=== PATIENT | female | born 1985 | race Caucasian/White ===

== ENCOUNTER 2022-09-28 20:52 | Outpatient (OUT) | payer OTHER, SELFPAY ==
[2022-10-04 12:08] LABS: Age Gdln ACOG Testing Note (.); HPV Aptima Negative (Negative); IGP, Aptima HPV, rfx 16/18,45 Note (.)
== END 2022-09-28 20:53 | disposition home or self-care (01) ==
PROVIDERS: PCP Internal Medicine; Visit Provider Physician Assistant
DX: Z12.4 Encounter for screening for malignant neoplasm of cervix (principal); Z11.51 Encounter for screening for human papillomavirus (HPV)
CPT/HCPCS: 87624; G0145

== ENCOUNTER 2023-10-01 21:01 | Outpatient (REF) | payer OTHER, SELFPAY ==
[2023-10-05 15:09] LABS: Age Gdln ACOG Testing Note (.); HPV Aptima Negative (Negative); IGP, Aptima HPV, rfx 16/18,45 Note (.)
== END 2023-10-01 21:02 | disposition home or self-care (01) ==
LOC: LAB 21:01
PROVIDERS: PCP Internal Medicine; Visit Provider Physician Assistant
DX: Z01.419 Encounter for gynecological examination (general) (routine) without abnormal findings (principal)
CPT/HCPCS: 87624; 88175

== ENCOUNTER 2024-01-01 16:54 | Outpatient (OUT) | payer OTHER, SELFPAY ==
--- OUTSIDE RECORDS SUMMARY | 2024-01-01 16:58 | XMS_ITS | CCD ---
Author Organization [facility] Care Team Providers Care Order Picker/Assembler Name Role Phone JAZ LEI Admitting Unavailable JAZ LEI Attending Unavailable RAFAT, DR PRYOR Primary Care Unavailable JO CARRINGTON Consulting Unavailable NIKHIL THRASHER Consulting Unavailable LIOR SANTOS Consulting Unavailable Bishnu MURPHY, Klyah Lucero Attending Erlin Goetz PA-C, Kylah Lucero Attending ILA Hamlin Attending Unavailable KERRI HASSAN Attending Unavailable Kerri HASSAN Referring Unavailable Karina Singh Attending Unavailable Medications Completed/Discontinued Medications Medication Drug Class(es) Dates Sig (Normalized) Sig (Original) ciprofloxacin 500 mg oral tablet (1 source) Quinolone Antimicrobial Start: 12-27-2023 take 1 tablet by mouth once daily Cipro 500 mg Tab 500 mg = 1 tab(s), Oral, Daily, Take 1 tablet the day before the procedure and 1 tablet after the procedure, # 2 tab(s), Refills(s) 0, Pharmacy: [facility]/pharmacy #[id number], 160, cm, 12/27/23 10:47:00 EDT, Height/Length Dosing, 57, kg, 12/27/23 10:47:00 EDT, Weight Dosing Start Date: 12/27/23 Status: Ordered Problems Problem Classification Problem Date Documented Da te Episodic/Chronic Abdominal pain (1 source) Pelvic and perineal pain; Translations: [Pelvic and perineal pain] Onset: 12-27-2023 Episodic Calculus of urinary tract (2 sources) Kidney stone; Translations: [Calculus of kidney] Onset: 12-27-2023 Episodic Genitourinary symptoms and ill-defined conditions (1 source) Blood in urine; Translations: [Gross hematuria] Onset: 12-27-2023 Episodic Malaise and fatigue (3 sources) Weakness; Translations: [WEAKNESS] Onset: 12-22-2021 Episodic Unclassified (1 source) CONTACT W/AND (SUSP) EXPOS COVID-19; Translations: [CONTACT W/AND (SUSP) EXPOS COVID-19] Onset: 12-26-2021 Urinary tract infections (4 sources) Urinary tract infection, site not specified; Translations: [Tubulo-interstit ial nephritis, not specified as acute or chronic] Onset: 12-26-2021 Episodic Results Test Name Value Interpretation Reference Range Facil ity Provider Letteron 12-27-2023 Provider Letter Provider Letter December 27, 2023 KIESHA ALAS [address] [place] [address] : 1985 To Whom It May Concern, Please excuse above patient from work. Date of Illness: From: 12/27/23 To: 12/27/23 May Return to Work On: 12/27/23 Restrictions: None Comments: Patient had an appointment with Karina Singh CNP on 12/27/23 Sincerely, [facility] C Urineon 09-29-2023 C Urine ------- Amend 20-30,000 cfu/ml Escherichia coli isolated ORGANISM EC ----- SUSCEPTIBILITY ---- ORGANISM ID: 1 ANTIBIOTIC INTERPRETATION PATRICIA STATUS POS Escherichia coli Amikacin S <=2 V Ampicillin S <=2 V Ampicillin/Sulbactam S <=2 V Cefazolin <=4 V Ciprofloxacin S <=0.25 V Ceftriaxone S <=1 V Nitrofurantoin S <=16 V Cefepime S <=1 V Cefoxitin S <=4 V Gentamicin S <=1 V Meropenem S <=0.25 V Levofloxacin S <=0.12 V Tobramycin S <=1 V Piperacillin/Tazobac chisholm S <=4 V Trimethoprim/Sulfa S <=20 V Ceftazidime S <=1 V [facility] Comment on above: Performed By: #### U RC #### [facility] (DEFAULT) [address] [place] [address] [facility] [address] [place] [address] OR Trackon 09-26-2023 Specimens Received From [facility] Comment on above: Performed By: #### O utrea Tracking Order #### [facility] [address] [place] [address] Ur Marinelli Vac # 1 [facility] Comment on above: Performed By: #### O [facility] Tracking Order #### [facility] [address] [place] [address] Urgent Care Office/Clinic No shaw 09-26-2023 Urgent Care Office/Clinic Note Chief Complaint Patient c/o low back pain with burning and frequency x 1 week History of Present Illness 37-year-old female presents to dysuria. She states over the past week she has had dysuria, frequency, urgency and now she started to experience low back pain to bilateral flanks. She reports nausea intermittently over the past week as well. She was on vacation which is why she has not been evaluated or treated for what she presumed was a UTI. She has had multiple UTIs in the past with most recent being approximately 1 month prior. She denies any fever, vomiting, vaginal changes such as change in discharge, odor, itching. No concerns for STDs. No concerns for . Review of Systems see HPI Physical Exam Vitals & Measurements T: 36.8 ?C (Oral) HR: 80 (Peripheral) RR: 18 BP: 120/74 SpO2: 98 HT: 160 cm WT: 60 kg WT: 60 kg (Dosing) BMI: 23.44 Const: Well appearing, no acute distress Eyes: Clear no redness or draining Pharynx: No redness swelling or exudate Neck: No enlarged lymph nodes Heart sounds: Regular rate and rhythm no murmurs Chest: Lungs are clear no wheezes rales or rhonchi Abdomen: flat, no distension, normoactive bowel sounds, no tenderness in suprapubic region, no bilateral CVA tenderness on palpation Additional Vitals BP Position/Location: Sitting Assessment/Plan 1. UTI (urinary tract infection) 1) Patient instructed to take medications as prescribed. 2) Ways of preventing cystitis in the future: void after sex, wear cotton underwear, wipe front to back 3) Avoid alcohol carbonated beverages and caffeine for at least the next 5 days. 4) Increase water consumption; cranberry juice may help as well. 5) Go to the emergency room if you develop fever, vomiting medications, back pain intensifies, unable to urinate 6) Patient instructed to follow up with PCP as needed Urine will be sent for culture and we will call in 24-48 hours with results. Ordered: sulfamethoxazole-tri methoprim, 1 tabs, Oral, BID, X 7 days, # 14 tabs, 0 Refill(s), 10/03/23 14:50:00 EDT, Pharmacy: [facility]/pharmacy #[id number] Culture Urine Medical Decision Making UA; trace blood, starting treatment. Chronic conditions NOT treated during this visit that affected my overall medical decision making: [] Treatment plans discussed but not opted for at this time: [] Prescribed medication that requires intensive monitoring for toxicity: [] I have reviewed the patient?s medication list for medication interactions/contrai ndications and/or for upcoming procedures: [yes or no] Time Spent with the Patient I have personally spent [15] minutes on this date, directly related to today's patient visit, including pre and post visit work, for this date of service. Time listed does not include time spent on separately billable services. Problem List/Past Medical History Ongoing No chronic problems Historical No qualifying data Procedure/Surgical History denies Medications Bactrim DS 800 mg-160 mg oral tablet, 1 tabs, Oral, BID Allergies No Known Allergies Social History Tobacco Never (less than 100 in lifetime) Use:. Lab Results Test Name Test Result Date/Time Urine Color Urine Dipstick Yellow 09/26/2023 14:26 EDT Urine Appearance Urine Dipstick Clear 09/26/2023 14:26 EDT Specific [place] Urine Dipstick 1.015 09/26/2023 14:26 EDT pH Urine Dipstick 6 09/26/2023 14:26 EDT Glucose Urine Dipstick Negative 09/26/2023 14:26 EDT Bilirubin Urine Dipstick Negative 09/26/2023 14:26 EDT Nitrite Urine Dipstick Negative 09/26/2023 14:26 EDT Ketones Urine Dipstick Negative 09/26/2023 14:26 EDT UC Blood Urine Dipstick Trace (+/-) 09/26/2023 14:26 EDT UC Protein Urine Dipstick Negative 09/26/2023 14:26 EDT UC Leukocytes Urine Dipstick Negative 09/26/2023 14:26 EDT Electronically signed by Kylah Goetz PA-C 09/26/23 14:53 EDT Urine culture resulted as positive for E. coli and is sensitive to the prescribed antibiotic. Electronically signed by Kylah Goetz PA-C 09/29/23 09:09 EDT Normal [facility] CT ABD/PELVIS WO CONon 12-23 CT ABD/PELVIS WO CON EXAM: CT SCAN OF THE ABDOMEN AND PELVIS WITHOUT IV CONTRAST DATE OF EXAM: 12/22/2021 8:37 PM EDT HISTORY: CALCULUS OF KIDNEY in a 36-year-old female with right lower abdominal pain and concern for infection with chills. Patient states it she was at another facility for 2 days and had pyelonephritis. Pain is nonradiating to her left side. COMPARISON: None. TECHNIQUE: CT examination of the abdomen and pelvis with sagittal and coronal reformations was performed without intravenous contrast. CT dose lowering techniques were used, to include: automated exposure control, adjustment for patient size, and/or use of iterative reconstruction. CONTRAST: None. Note: The exam is limited because some types of pathology may not be adequately demonstrated due to lack of contrast enhancement. FINDINGS: Lower Chest: Normal Free Air: None. Liver: The liver is within normal limits allowing for an area decreased attenuation in the medial, anterior right lobe that measures 12 x 8 mm. Gallbladder: A stone is seen within the gallbladder measuring approximately 18.5 mm. Common Bile Duct: Not well visualized due to lack of IV contrast and volume averaging of unopacified bowel. Pancreas: Normal Spleen: Normal Adrenal Glands: Normal Kidneys: Right Kidney: Normal. Right Ureter: Ureter not well visualized due to volume averaging with bowel and pelvic organs. Left Kidney: The kidney is hypertrophied with multiple nonobstructing stones. Left Ureter: Ureter not well visualized due to volume averaging with bowel and pelvic organs. GI Tract: Stomach: Normal Small Bowel: Normal Appendix: Normal on axial image 92 Large Bowel: Scattered diverticula with some inspissated stool and contrast. Mesentery/Peritoneum : Subcentimeter lymph nodes in the mesentery. Vasculature: Normal Lymph Nodes: Normal Abdominal Wall: Subcutaneous air is seen in the anterior lateral left pelvic wall. Bladder: Normal Reproductive: Uterus is anteflexed. Musculoskeletal: Normal for patient's age with multiple Schmorl's nodes in the superior endplate. Free Fluid: None. IMPRESSION: 1. Scattered diverticulosis. 2. Normal appendix. 3. Hypertrophied left kidney with multiple nonobstructing stones. 4. Cholelithiasis. No evidence of acute cholecystitis. However, if clinically indicated, RUQ ultrasound or nuclear medicine hepatobiliary scan would help better delineate for acute cholecystitis. 5. Fluid attenuating region in the liver, this likely represents a cyst and/or hemangioma. However, please correlate with patient's LFTs. If clinically indicated follow-up outpatient MRI using liver protocol may help better delineate. Electronically authenticated by: LIRO SANTOS Date: 2021-12-22 22:07 Normal [facility] CBC AUTO DIFFon 12-22-2021 BASO # 0.0 103/ul Normal 0.0-0.1 [facility] Comment on above: Performed By: #### C BC #### [facility] [address] [place], [place] [address] Dr. Shannon Hoyt Basophils/100 WBC (Bld) 0.5 % Normal 0.2-2.0 [facility] Comment on above: Performed By: #### C BC #### [facility] [address] [place], [place] [address] Dr. Shannon Hoyt EO # 0.1 103/ul Normal 0.0-0.7 [facility] Comment on above: Performed By: #### C BC #### [facility] [address] [place] [address] Dr. Shannon Hoyt Eosinophils/100 WBC (Bld) 1.0 % Normal 0.9-7.0 [facility] Comment on above: Performed By: #### C BC #### [facility] [address] [place] [address] Dr. Shannon Hoyt Erythrocyte distribution width (RBC) [Ratio] 11.8 % Normal 11.0-15.0 [facility] Comment on above: Performed By: #### C BC #### [facility] [address] [place] [address] Dr. Shannon Hoyt Hematocrit (Bld) [Volume fraction] 33.9 % Critically low 36.0-48.0 [facility] Comment on above: Performed By: #### C BC #### [facility] [address] [place] [address] Dr. Shannon Hoyt Hemoglobin (Bld) [Mass/Vol] 11.3 g/dL Critically low 12.0-16.0 [facility] Comment on above: Performed By: #### C BC #### [facility] [address] [place] [address] Dr. Shannon Hoyt IG # 0.02 10e3/ul Normal 0.00-0.03 [facility] Comment on above: Performed By: #### C BC #### [facility] [address] [place] [address] Dr. Shannon Hoyt IG % 0.3 % Normal 0.0-0.5 [facility] Comment on above: Performed By: #### C BC #### [facility] [address] [place] [address] Dr. Shannon Hoyt LYMPH # 1.2 103/ul Normal 1.2-3.8 [facility] Comment on above: Performed By: #### C BC #### [facility] [address] [place] [address] Dr. Shannon Hoyt Lymphocytes/100 WBC (Bld) 20.5 % Normal 20.5-60.0 [facility] Comment on above: Performed By: #### C BC #### [facility] [address] [place] [address] Dr. Shannon Hoyt MANUAL DIFF REQ NO Normal [facility] Comment on above: Performed By: #### C BC #### [facility] [address] [place] [address] Dr. Shannon Hoyt MCH (RBC) [Entitic mass] 30.1 pg Normal 26.7-34.0 [facility] Comment on above: Performed By: #### C BC #### [facility] [address] [place] [address] Dr. Shannon Hoyt MCHC (RBC) [Mass/Vol] 33.3 g/dL Normal 29.9-35.2 [facility] Comment on above: Performed By: #### C BC #### [facility] [address] [place] [address] Dr. Shannon Hoyt MCV (RBC) [Entitic vol] 90.2 fL Normal 81.0-99.0 [facility] Comment on above: Performed By: #### C BC #### [facility] [address] [place] [address] Dr. Shannon Hoyt MONO # 0.7 103/ul Normal 0.3-0.8 [facility] Comment on above: Performed By: #### C BC #### [facility] [address] [place] [address] Dr. Shannon Hoyt Monocytes/100 WBC (Bld) 11.7 % Normal 1.7-12.0 [facility] Comment on above: Performed By: #### C BC #### [facility] [address] [place] [address] Dr. Shannon Hoyt NEUT # 4.0 103/ul Normal 1.4-6.5 [facility] Comment on above: Performed By: #### C BC #### [facility] [address] [place] [address] Dr. Shannon Hoyt Neutrophils/100 WBC (Bld) 66.0 % Normal 43.0-75.0 [facility] Comment on above: Performed By: #### C BC #### [facility] [address] [place] [address] [address] Shannon Hoyt Platelet mean volume (Bld) [Entitic vol] 9.9 fL Normal 9.5-13.5 [facility] Comment on above: Performed By: #### C BC #### [facility] [address] [place] [address] [address] Shannon Hoyt PLT 191 103/ul Normal 150-450 [facility] Comment on above: Performed By: #### C BC #### [facility] [address] [place] [address] [address] Shannon Hoyt RBC 3.76 106/ul Critically low 4.20-5.40 [facility] Comment on above: Performed By: #### C BC #### [facility] [address] [place] [address] Dr. Shannon Hoyt WBC 6.0 103/ul Normal 4.0-11.0 [facility] Comment on above: Performed By: #### C BC #### [facility] [address] [place] [address] [address] Shannno Hoyt CULTURE URINEon 12-22-2021 CULTURE URINE Culture Observations: NO GROWTH. Normal [facility] Comment on above: Performed By: #### U RCX #### [facility] [address] [place] [address] Dr. Shannon Hoyt [facility]on SARS-CoV-2 (COVID-19) RNA RICHARD+probe Ql (Unsp spec) Not detected Normal NOT DETECTED [facility] Comment on above: Result Comment: When diagnostic testing is negative, the possibility of a false negative should be considered in the context of a patient's recent exposures and the presence of clinical signs and symptoms consistent with SARS-CoV-2. This test is not yet approved or cleared by the [place] FDA. When there are no FDA-approved or cleared tests available, and other criteria are met, FDA can make tests available under an emergency access mechanism called an Emergency Use Authorization (EUA). The EUA for this test is supported by the Director Toxicology of Health and Human Service's declaration that circumstances exist to justify the emergency use of in vitro diagnostics for the detection and/or diagnosis of the virus that causes COVID-19. This EUA will remain in effect for the duration of the COVID-19 declaration justifying emergency of IVDs, unless it is terminated or revoked by the FDA (after which the test may no longer be used). Performed By: #### C VDTB #### [facility] [address] [place] [address] Dr. Shannon Hoyt ER URINE PROFILEon 2 Bilirubin Ql (U) Negative Normal NEGATIVE [facility] Comment on above: Performed By: #### Cipriano REYEZ UMICRO #### [facility] [address] [place] [address] Dr. Shannon Hoyt Clarity (U) CLEAR Normal CLEAR [facility] Comment on above: Performed By: #### Cipriano REYEZ UMICRO #### [facility] [address] [place] [address] Dr. Shannon Hoyt Color (U) LT. YELLOW Normal YELLOW [facility] Comment on above: Performed By: #### Cipriano REYEZ UMICRO #### [facility] [address] [place] [address] Dr. Shannon VASQUEZ A micrscopic examination will be performed if indicated. Normal [facility] Comment on above: Performed By: #### Cipriano REYEZ UMICRO #### [facility] [address] [place] [address] Dr. Shannon Hoyt Glucose Ql (U) Negative Normal NEGATIVE [facility] Comment on above: Performed By: #### Cipriano RAMOSR UMICRO #### [facility] [address] [place] [address] Dr. Shannon Hoyt Hemoglobin Ql (U) SMALL Abnormal NEGATIVE [facility] Comment on above: Performed By: #### E RUR, UMICRO #### [facility] [address] [place] [address] Dr. Shannon Hoyt Ketones Ql (U) 40 mg/dl Abnormal NEGATIVE [facility] Comment on above: Performed By: #### BRITTANEY TOUSSAINTRO #### [facility] [address] [place] [address] Dr. Shannon Hoyt LEUKOCYTES Negative Normal NEGATIVE [facility] Comment on above: Performed By: #### BRITTANEY TOUSSAINTRO #### [facility] [address] [place] [address] Dr. Shannon Hoyt Nitrite Ql (U) Negative Normal NEGATIVE [facility] Comment on above: Performed By: #### BRITTANEY TOUSSAINTRO #### [facility] [address] [place] [address] Dr. Shannon Hoyt pH (U) 6.0 [pH] Normal 5-9 [facility] Comment on above: Performed By: #### BRITTANEY TOUSSAINTRO #### [facility] [address] [place] [address] Dr. Shannon Hoyt SPEC GRAVITY 1.020 Normal 1.005-<=1.025 [facility] Comment on above: Performed By: #### BRITTANEY TOUSSAINTRO #### [facility] [address] [place] [address] Dr. Shannon Hoyt UA PROTEIN Negative Normal NEGATIVE/ TRACE [facility] Comment on above: Performed By: #### BRITTANEY TOUSSAINTRO #### [facility] [address] [place] [address] Dr. Shannon Hoyt UR MICRO IND INDICATED Normal [facility] Comment on above: Performed By: #### BRITTANEY TOUSSAINTRO #### [facility] [address] [place] [address] Dr. Shannon Hoyt Urobilinogen Qn (U) 0.2 {Galileo'U}/dL Normal 0.2 - 1. 0 [facility] Comment on above: Performed By: #### BRITTANEY TOUSSAINTRO #### [facility] [address] [place] [address] Dr. Shannon Hoyt LACTATE/LACTIC ACIDon 2021 Lactate [Moles/Vol] 1.0 mmol/L Normal 0.4-1.9 [facility] Comment on above: Performed By: #### L ACT #### [facility] [address] [place] [address] Dr. Shannon Hoyt LIPASEon 12-22-2021 Lipase [Catalytic activity/Vol] 58.0 U/L Critically low 73.0-393.0 [facility] Comment on above: Performed By: #### L IPA, CMP #### [facility] [address] [place] [address] Dr. Shannon Hoyt PREG HCG QUALon 12-22-2021 , QUAL Negative Normal NEGATIVE [facility] Comment on above: Performed By: #### P REG #### [facility] [address] [place] [address] Dr. Shannon Hoyt PROF 14(COMP METB)on 022 Albumin [Mass/Vol] 2.9 g/dL Critically low 3.4-5.0 [facility] Comment on above: Performed By: #### L IPA, CMP #### [facility] [address] [place] [address] Dr. Shannon Hoyt Albumin/Globulin [Mass ratio] 0.8 {ratio} Normal [facility] Comment on above: Performed By: #### L IPA, CMP #### [facility] [address] [place] [address] Dr. Shannon Hoyt ALP [Catalytic activity/Vol] 58 U/L Normal 46-116 [facility] Comment on above: Performed By: #### L IPA, CMP #### [facility] [address] [place] [address] Dr. Shannon Hoyt ALT [Catalytic activity/Vol] 33 U/L Normal 14-59 [facility] Comment on above: Performed By: #### L IPA, CMP #### [facility] [address] [place] [address] Dr. Shannon Hoyt Anion gap [Moles/Vol] 8.0 mmol/L Normal [facility] Comment on above: Performed By: #### L IPA, CMP #### [facility] [address] [place] [address] Dr. Shannon Hoyt AST [Catalytic activity/Vol] 21 U/L Normal 15-37 [facility] Comment on above: Performed By: #### L IPA, CMP #### [facility] [address] [place] [address] Dr. Shannon Hoyt Bilirubin [Mass/Vol] 0.2 mg/dL Normal 0.2-1.0 [facility] Comment on above: Performed By: #### L IPA, CMP #### [facility] [address] [place] [address] Dr. Shannon Hoyt Calcium [Mass/Vol] 8.2 mg/dL Critically low 8.5-10.1 [facility] Comment on above: Performed By: #### L IPA, CMP #### [facility] [address] [place] [address] Dr. Shannon Hoyt Chloride [Moles/Vol] 106 mmol/L Normal 98-107 [facility] Comment on above: Performed By: #### L IPA, CMP #### [facility] [address] [place] [address] Dr. Shannon Hoyt CO2 [Moles/Vol] 27.9 mmol/L Normal 21.0-32.0 [facility] Comment on above: Performed By: #### L IPA, CMP #### [facility] [address] [place] [address] Dr. Shannon Hoyt Creatinine [Mass/Vol] 0.70 mg/dL Normal 0.55-1.02 [facility] Comment on above: Performed By: #### L IPA, CMP #### [facility] [address] [place] [address] Dr. Shannon Hoyt EGFR-AF PALESTINIAN >60 Normal >=60 [facility] Comment on above: Performed By: #### L IPA, CMP #### [facility] [address] [place] [address] Dr. Shannon Hoyt EGFR-NON AF PALESTINIAN >60 Normal >=60 [facility] Comment on above: Performed By: #### L IPA, CMP #### [facility] [address] [place] [address] Dr. Shannon Hoyt Globulin (S) [Mass/Vol] 3.5 g/dL Normal [facility] Comment on above: Performed By: #### L IPA, CMP #### [facility] [address] [place] [address] [address] Shannon Hoyt Glucose [Mass/Vol] 108 mg/dL Critically high 74-106 [facility] Comment on above: Performed By: #### L IPA, CMP #### [facility] [address] [place] [address] [address] Shannon Hoyt Potassium [Moles/Vol] 3.9 mmol/L Normal 3.5-5.1 [facility] Comment on above: Performed By: #### L IPA, CMP #### [facility] Laboratory [address] [address] [address] Shannon Hoyt Protein [Mass/Vol] 6.4 g/dL Normal 6.4-8.2 [facility] Comment on above: Performed By: #### L IPA, CMP #### [facility] [address] [address] [address] Shannon Hoyt Sodium [Moles/Vol] 138 mmol/L Normal 136-145 [facility] Comment on above: Performed By: #### L IPA, CMP #### [facility] [address] [address] [address] Shannon Hoyt Urea nitrogen [Mass/Vol] 7.0 mg/dL Normal 7.0-18.0 [facility] Comment on above: Performed By: #### L IPA, CMP #### [facility] [address] [address] [address] Shannon Hoyt Urea nitrogen/Creatinine [Mass ratio] 10.0 mg/mg Normal [facility] Comment on above: Performed By: #### L IPA, CMP #### [facility] [address] [address] [address] Shannon Hoyt URINE MICROSCOPIC ONLYon BACTERIA SMALL Abnormal NONE SEEN [facility] Comment on above: Performed By: #### E RAOUL REYEZ #### [facility] [address] [address] [address] Shannon Hoyt Bacteria identified Cx Nom (U) INDICATED Normal [facility] Comment on above: Performed By: #### Cipriano REYEZ UMICRO #### [facility] [address] [place] [address] Dr. Shannon Hoyt CAST NONE SEEN Normal NONE SEEN [facility] Comment on above: Performed By: #### E RACHELR, UMICRO #### [facility] [address] [place] [address] Dr. Shannon Hoyt Crystals LM Nom (Urine sed) NONE SEEN Normal NONE SEEN [facility] Comment on above: Performed By: #### E DEREJE, UMICRO #### [facility] [address] [place] [address] Dr. Shannon Hoyt Epithelial cells LM Ql (Urine sed) FEW Abnormal NONE SEEN /RARE [facility] Comment on above: Performed By: #### Cipriano REYEZ UMICRO #### [facility] [address] [place] [address] Dr. Shannon Hoyt MUCOUS TRACE Abnormal NONE SEEN [facility] Comment on above: Performed By: #### Cipriano REYEZ UMICRO #### [facility] [address] [place] [address] Dr. Shannon Hoyt RBC 0-2 Normal 0-2 [facility] Comment on above: Performed By: #### Cipriano REYEZ UMICRO #### [facility] [address] [place] [address] Dr. Shannon Hoyt WBC 20-50 Abnormal NONE SEEN [facility] Comment on above: Performed By: #### Cipriano REYEZ UMICRO #### [facility] [address] [place] [address] Dr. Shannon Hoyt Vital Signs Date Time Vital Sign Value Performing Clinician Fabian em 12-27-2023 10:45-0400 Blood Pressure Location Karina Singh [facility] 12-27-2023 10:45-0400 Diastolic blood pressure 78 mm[Hg] Karina Singh [facility] 12-27-2023 10:45-0400 Heart rate 73 /min Karina Singh [facility] 12-27-2023 10:45-0400 Respiratory rate 18 /min Karinaoni Singh [facility] 12-27-2023 10:45-0400 Systolic blood pressure 117 mm[Hg] Karina Samantha [facility] Encounters Encounter Date Encounter Type Care Provider Facility Start: 12-27-2023 End: 12-27-2023 ambulatory Kerri R PINO Facility:[facility] Start: 12-27-2023 End: 12-27-2023 Patient encounter procedure Karina Singh [facility] Start: 12-11-2023 ambulatory Kerri PINO Facility:[facility] Start: 12-10-2023 End: 12-10-2023 ambulatory KERRI PINO Not Available Start: 10-01-2023 End: 10-01-2023 ambulatory ILA GUNTER Not Available Start: 09-26-2023 End: 09-26-2023 ambulatory Kylah Goetz PA-C Facility:[facility] Start: 12-22-2021 End: 12-23-2021 ambulatory JAZ LEI Facility: Payers Date Payer Category Payer Unknown 1985 Unknown [id number] 2.16.84 [id number] 1985 Unknown [id number] 2.16. [id number] 1984 Unknown [id number] 2.16. [id number] 1984 Unknown [id number] 2.16.84 [id number] 1984 Unknown [id number] 2.16.84 [id number] 1984 Unknown [id number] 2.16.8 [id number] 1984 Unknown [id number] 2.16.8 [id number] 1959 Unknown [id number] Social History Date Type Detail Facility Start: 12-27-2023 Tobacco smoking status Never s moked tobacco (finding) [facility] Sex Assigned At Female [facility] Functional Status Date Assessment Result Facility 12-27-2023 Functional Status N/A [facility] Hospital Discharge instructions 12-27-2023 Note Date & Type Note Facility 12-27-2023 Hospital Discharg e instructions Patient Education 12/27/2023 11:40:24 Kidney Stones, Xafh-jz-Stka Kidney Stones Kidney stones are rock-like masses that form inside of the kidneys. Kidneys are organs that make pee (urine). A kidney stone may move into other parts of the urinary tract, including: The tubes that connect the kidneys to the bladder (ureters). The bladder. The tube that carries urine out of the body (urethra). Kidney stones can cause very bad pain and can block the flow of pee. The stone usually leaves your body through your pee. A doctor may need to take out the stone. What are the causes? Kidney stones may be caused by: Too much calcium in the body. This may be caused by too much parathyroid hormone in the blood. Uric acid crystals in the bladder. The body makes uric acid when you eat certain foods. Narrowing of one or both of the ureters. A kidney blockage that you were born with. Past surgery on the kidney or the ureters. What increases the risk? You are more likely to develop this condition if: You have had a kidney stone in the past. Other people in your family have had kidney stones. You do not drink enough water. You eat a diet that is high in protein, salt (sodium), or sugar. You are very overweight (obese). What are the signs or symptoms? Symptoms of a kidney stone may include: Pain in the side of the belly, right below the ribs. Pain usually spreads to the groin. Needing to pee often or right away. Pain when peeing. Blood in your pee. Feeling like you may vomit (nauseous). Vomiting. Fever and chills. How is this treated? Treatment depends on the size, location, and makeup of the kidney stones. The stones will often pass out of the body when you pee. You may need to: Drink more fluid to help pass the stone. ?In some cases, you may be given fluids through an IV tube at the hospital. Take medicine for pain. Change your diet to help keep kidney stones from coming back. Sometimes, you may need: A procedure to break up kidney stones using a beam of light (laser) or shock waves. Surgery to remove the kidney stones. Follow these instructions at home: Medicines Take ocvn-cml-ijsvlhk and prescription medicines only as told by your doctor. Ask your doctor if the medicine prescribed to you requires you to avoid driving or using machinery. Eating and drinking Drink enough fluid to keep your pee pale yellow. ?You may be told to drink at least 8 10 glasses of water each day. This will help you pass the stone. If told by your doctor, change your diet. You may be told to: ?Limit how much salt you eat. ?Eat more fruits and vegetables. ?Limit how much meat, poultry, fish, and eggs you eat. Follow instructions from your doctor about what you may eat and drink. General instructions Collect pee samples as told by your doctor. You may need to collect a pee sample: ?24 hours after a stone comes out. ?8 12 weeks after a stone comes out, and every 6 12 months after that. Strain your pee every time you pee. Use the strainer that your doctor recommends. Do not throw out the stone. Keep it so that it can be tested by your doctor. Keep all follow-up visits. You may need X-rays and ultrasounds to make sure the stone has come out. How is this prevented? To prevent another kidney stone: Drink enough fluid to keep your pee pale yellow. This is the best way to prevent kidney stones. Eat healthy foods. Avoid certain foods as told by your doctor. You may be told to eat less protein. Stay at a healthy weight. Where to find more information National Kidney Foundation (NKF): kidney.org Urology Care Foundation (UCF): urologyhealth.org Contact a doctor if: You have pain that gets worse or does not get better with medicine. Get help right away if: You have a fever or chills. You get very bad pain. You get new pain in your belly. You faint. You cannot pee. This information is not intended to replace advice given to you by your health care provider. Make sure you discuss any questions you have with your health care provider. Document Revised: 10/27/2022 Document Reviewed: 10/27/2022 Check Patient Education 2023 [employer]. Follow Up Care 12/12/2023 13:46:19 With:Samantha KIM, Karina Swain, URL Address: When: Unknown Comments:pending cysto/imaging [facility] Clinical Note 12-27-2023 Note Date & Type Note Facility 12-27-2023 Note Urology Office/Clini c Note Chief Complaint Referral HPI Staff 38 yr old here with referral for recurrent UTI. Pt. went to urgent care 09/26/23 due to lower back pain with burning and frequency. Pt. states she had one UTI with no C&S and was given nitrofurantoin 100mg 08/24/23 done before the 09/26/23 culture. C&S showing E coli done 09/26/23 and was given Sulfamethoxazole BID x7 days. Pt. 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 Dx: Pelvic pain in Female, recurrent UTI, Vaginal discharge, STD exposure. Pt. states she has never passed any kidney stones but on last CT showing hypertrophied Lt. kidney with multiple nonobstructing stones. CT done 12/26/21 and C&S showing small blood Dysuria: no Incomplete bladder emptying: yes, PVR 0mL Hematuria: Pt. did have gross hematuria 2 weeks ago, lasting 4-5 days Frequency: 3-4 hours Urgency: yes Nocturia:0-1x's Stream:strong stream Post void dripping:no Wearing pads/ Depends: no Urge incontinence:rarely Stress incontinence:yes Incontinence without Sensory Awareness:no Abdominal pain:occasionally Flank pain: lower Lt. History of Present Illness Staff HPI reviewed and agree. Review of Systems PHQ Score Initial Depression Screen Score: 0 SCORE no fever, chills, malaise, myalgia. no rash/lesions. no chest pain, palpitations, or SOB. no abdominal pain, nausea, vomiting. no unilateral calf swelling, redness, pain Physical Exam Vitals & Measurements HR: 73(Peripheral) RR: 18 BP: 117/78 HT: 63 in HT: 160 cm WT: 57 kg WT: 125.4 lb BMI: 22.27 General: nontoxic, well-nourished, appears stated age Mouth: moist mucosa Lungs: normal respiratory effort Cardio: regular rate, good distal perfusion Abdomen: nondistended, no suprapubic distention or tenderness, no CVA tenderness Neurologic: Grossly normal Skin: No rashes or suspicious lesions Assessment/Plan [employer] referred by Dr. 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 1. Gross hematuria (R31.0: Gross hematuria) 12/22/21 CT abd/pelvic w/o con - R ureter not well visualized due to volume averaging with bowel and pelvic organs, L kidney is hypertrophied with multiple nonobstructing stones, L ureter not well visualized due to volume averaging with bowel and pelvic organs. Normal bladder. UA today trace-intact blood only PVR today 0ml Pt here for referral for recurrent UTI. Pt reports that 2 weeks ago she had gross hematuria. Pt also reports that she had pain with urination and L flank pain during this time. Pt was seen by Dr. Hassan after this and was put on Flagyl. Discussed previous CT scan with patient along with only 1 positive culture in the last year. Advised patient that with her history of kidney stones, gross hematuria, L flank pain and recurrent infections, patient may have kidney stone that is trying to pass. Also advised pt that due to gross hematuria and recurrent infections, we can proceed with hematuria work up to rule out atrophy, stricture, etc. Pt agreeable. Discussed ordering KUB/RAAD vs repeat CT to reduce radiation exposure. Pt agreeable to this. I did speak with patient regarding MET if positive for stones, pt agreeable. Pt is currently on her menstrual cycle. The risks and benefits for cystoscopy have been discussed. The risks include bleeding, infection, and irritation of the bladder and urinary channel, among others. The patient, after being informed of procedural details and after questions have been answered, wishes to proceed. Full informed consent has been obtained. Will order Local anesthesia. -Schedule cystoscopy with Dr. Flower -RAAD and KUB now at [facility] (pt has transvaginal US scheduled for Sunday, will attempt to complete imaging at this time) -Will send cytology at cystoscopy if KUB/RAAD negative for stones -Increase fluids -Start MET if KUB/RAAD + for ureteral stone(s) -F/U pending imaging and cysto Ordered: E&M of New Patient Moderate 45-59 Min [id number] US Renal XR Abdomen 1 View 2. Recurrent UTI (N39.0: Urinary tract infection, site not specified) 12/22/21 cx negative 09/29/23 cx - 20-30k E. Coli, treated with Bactrim DS x7 days (urgent care) -See #1 Ordered: E&M of New Patient Moderate 45-59 Min 10955 Urnls Dip Stick Auto w/o Microscopy POC [id number] US Renal XR Abdomen 1 View 3. Kidney stone (N20.0: Calculus of kidney) 12/22/21 CT abd/pelvic w/o con - R ureter not well visualized due to volume averaging with bowel and pelvic organs, L kidney is hypertrophied with multiple nonobstructing stones, L ureter not well visualized due to volume averaging with bowel and pelvic organs. Normal bladder. -See #1 Ordered: E&M of New Patient Moderate 45-59 Min [id number] US Renal XR Abdomen 1 View 4. Pelvic pain (R10.2: Pelvic and perineal pain) Pt being treated by Dr. Hassan for pelvic pain and painful intercourse. She has a transvaginal US scheduled for Sunday at [facility] and diagnostic lap with bilateral salpingectomy and ablation scheduled with Dr. Hassan (more content not included)... [facility] Comment on above: Result Comment: Elec tronically Signed By: Karina Bell\.tre\Date and Time Signed: 12/27/23 11:42 EDT Clinical Note 12-27-2023 Note Date & Type Note Facility 12-27-2023 Note Patient Education Urology Kidney Stones Kidney stones are rock-like masses that form inside of the kidneys. Kidneys are organs that make pee (urine). A kidney stone may move into other parts of the urinary tract, including: ? The tubes that connect the kidneys to the bladder (ureters). ? The bladder. ? The tube that carries urine out of the body (urethra). Kidney stones can cause very bad pain and can block the flow of pee. The stone usually leaves your body through your pee. A doctor may need to take out the stone. What are the causes? Kidney stones may be caused by: ? Too much calcium in the body. This may be caused by too much parathyroid hormone in the blood. ? Uric acid crystals in the bladder. The body makes uric acid when you eat certain foods. ? Narrowing of one or both of the ureters. ? A kidney blockage that you were born with. ? Past surgery on the kidney or the ureters. What increases the risk? You are more likely to develop this condition if: ? You have had a kidney stone in the past. ? Other people in your family have had kidney stones. ? You do not drink enough water. ? You eat a diet that is high in protein, salt (sodium), or sugar. ? You are very overweight (obese). What are the signs or symptoms? Symptoms of a kidney stone may include: ? Pain in the side of the belly, right below the ribs. Pain usually spreads to the groin. ? Needing to pee often or right away. ? Pain when peeing. ? Blood in your pee. ? Feeling like you may vomit (nauseous). ? Vomiting. ? Fever and chills. How is this treated? Treatment depends on the size, location, and makeup of the kidney stones. The stones will often pass out of the body when you pee. You may need to: ? Drink more fluid to help pass the stone. ? In some cases, you may be given fluids through an IV tube at the hospital. ? Take medicine for pain. ? Change your diet to help keep kidney stones from coming back. Sometimes, you may need: ? A procedure to break up kidney stones using a beam of light (laser) or shock waves. ? Surgery to remove the kidney stones. Follow these instructions at home: Medicines ? Take ajmn-qvh-nwtnpwt and prescription medicines only as told by your doctor. ? Ask your doctor if the medicine prescribed to you requires you to avoid driving or using machinery. Eating and drinking ? Drink enough fluid to keep your pee pale yellow. ? You may be told to drink at least 8?10 glasses of water each day. This will help you pass the stone. ? If told by your doctor, change your diet. You may be told to: ? Limit how much salt you eat. ? Eat more fruits and vegetables. ? Limit how much meat, poultry, fish, and eggs you eat. ? Follow instructions from your doctor about what you may eat and drink. General instructions ? Collect pee samples as told by your doctor. You may need to collect a pee sample: ? 24 hours after a stone comes out. ? 8?12 weeks after a stone comes out, and every 6?12 months after that. ? Strain your pee every time you pee. Use the strainer that your doctor recommends. ? Do not throw out the stone. Keep it so that it can be tested by your doctor. ? Keep all follow-up visits. You may need X-rays and ultrasounds to make sure the stone has come out. How is this prevented? To prevent another kidney stone: ? Drink enough fluid to keep your pee pale yellow. This is the best way to prevent kidney stones. ? Eat healthy foods. ? Avoid certain foods as told by your doctor. You may be told to eat less protein. ? Stay at a healthy weight. Where to find more information ? National Kidney Foundation (NKF): kidney.org ? Urology Care Foundation (UCF): urologyhealth.org Contact a doctor if: ? You have pain that gets worse or does not get better with medicine. Get help right away if: ? You have a fever or chills. ? You get very bad pain. ? You get new pain in your belly. ? You faint. ? You cannot pee. This information is not intended to replace advice given to you by your health care provider. Make sure you discuss any questions you have with your health care provider. Document Revised: 10/27/2022 Document Reviewed: 10/27/2022 Elsevier Patient Education ? 2023 [employer] [facility] Clinical Note 09-26-2023 Note Date & Type Note Facility 09-26-2023 Note Patient Education Ma terials Name: Kiesha Alas Current Date: 09/26/2023 14:55:32 [place] : 1985 The following sheet(s) are the Patient Education Leaflets for Kiesha Alas [facility] ED/Trauma Assessment/Plan 1. UTI (urinary tract infection) 1) Patient instructed to take medications as prescribed. 2) Ways of preventing cystitis in the future: void after sex, wear cotton underwear, wipe front to back 3) Avoid alcohol carbonated beverages and caffeine for at least the next 5 days. 4) Increase water consumption; cranberry juice may help as well. 5) Go to the emergency room if you develop fever, vomiting medications, back pain intensifies, unable to urinate 6) Patient instructed to follow up with PCP as needed Urine will be sent for culture and we will call in 24-48 hours with results. Ordered: sulfamethoxazole-trimethoprim, 1 tabs, Oral, BID, X 7 days, # 14 tabs, 0 Refill(s), 10/03/23 14:50:00 EDT, Pharmacy: [facility]/pharmacy #[id number] Culture Urine Urinary Tract Infections in Women Urinary tract infections (UTIs) are most often caused by bacteria. These bacteria enter the urinary tract. The bacteria may come from inside the body. Or they may travel from the skin outside the rectum or vagina into the urethra. Female anatomy makes it easy for bacteria from the bowel to enter a woman?s urinary tract, which is the most common source of UTI. This means women develop UTIs more often than men. Pain in or around the urinary tract is a common UTI symptom. But the only way to know for sure if you have a UTI for the healthcare provider to test your urine. The two tests that may be done are the urinalysis and urine culture. Types of UTIs ? Cystitis. A bladder infection (cystitis) is the most common UTI in women. You may have urgent or frequent need to pee. You may also have pain, burning when you pee, and bloody urine. ? Urethritis. This is an inflamed urethra, which is the tube that carries urine from the bladder to outside the body. You may have lower stomach or back pain. You may also have urgent or frequent need to pee. ? Pyelonephritis. This is a kidney infection. If not treated, it can be serious and damage your kidneys. In severe cases, you may need to stay in the hospital. You may have a fever and lower back pain. Medicines to treat a UTI Most UTIs are treated with antibiotics. These kill the bacteria. The length of time you need to take them depends on the type of infection. It may be as short as 3 days. If you have repeated UTIs, you may need a low-dose antibiotic for several months. Take antibiotics exactly as directed. Don?t stop taking them until all of the medicine is gone. If you stop taking the antibiotic too soon, the infection may not go away. You may also develop a resistance to the antibiotic. This can make it much harder to treat. Lifestyle changes to treat and prevent UTIs The lifestyle changes below will help get rid of your UTI. They may also help prevent future UTIs. ? Drink plenty of fluids. This includes water, juice, or other caffeine-free drinks. Fluids help flush bacteria out of your body. ? Empty your bladder. Always empty your bladder when you feel the urge to pee. And always pee before going to sleep. Urine that stays in your bladder can lead to infection. Try to pee before and after sex as well. ? Practice good personal hygiene. Wipe yourself from front to back after using the toilet. This helps keep bacteria from getting into the urethra. ? Use condoms during sex. These help prevent UTIs caused by sexually transmitted bacteria. Also don't use spermicides during sex. These can increase the risk for UTIs. Choose other forms of control instead. For women who tend to get UTIs after sex, a low-dose of a preventive antibiotic may be used. Be sure to discuss this option with your healthcare provider. ? Follow up with your healthcare provider as directed. He or she may test to make sure the infection has cleared. If needed, more treatment may be started. ? 8432-0273 [employer]. [address] [place] [address], [place] [address]. All rights reserved. This information is not intended as a substitute for professional medical care. Always follow your healthcare professional's instructions. [facility] Evaluation + Plan note Note Date & Type Note Facility Evaluation + Plan note No data available for this section [facility] Progress note Note Date & Type Note Facility Progress note No data available for this section [facility] Summary Purpose Family History No Family History Records FoundNo Family History Records FoundNo Family History Records FoundNo Family History Records Found No data available for this section Advance Directives No Advanced Directives Records FoundNo Advanced Directives Records FoundNo Advanced Directives Records FoundNo Advanced Directives Records Found Additional Source Comments INFORMATION SOURCE (unrecogn ized section and content) DATE CREATED AUTHOR 12/26/2021 [facility] DATE CREATED AUTHOR AUTHOR'S ORGANIZ ATION 10/03/2023 [facility] DATE CREATED AUTHOR AUTHOR'S ORGANIZ ATION 12/11/2023 [facility] DATE CREATED AUTHOR AUTHOR'S ORGANIZ ATION 12/29/2023 [facility] FOR RECORDS PERTAINING TO PATIENTS WHO ARE OR HAVE BEEN ENROLLED IN A CHEMICAL DEPENDENCY/SUBSTANCEABUSE PROGRAM, SOME INFORMATION MAY BE OMITTED. This clinical summary was aggregated from multiple sources. Caution should be exercised in using it in the provision of clinical care. This summary normalizes information from multiple sources, and as a consequence, information in this document may materially change the coding, format and clinical context of patient data. In addition, data may be omitted in some cases. CLINICAL DECISIONS SHOULD BE BASED ON THE PRIMARY CLINICAL RECORDS. [facility] provides no warranty or guarantee of the accuracy or completeness of information in this document.
--- NOTE | 2024-01-01 16:59 | XR_ITS ---
The [address] [address] Patient Name: ANGELES BOSTON MRN: [id number] date: 1985 Sex: F Assigned Patient Location: US Current Patient Location: US Accession/Order Number: [id number] Exam Date: 01/01/2024 18:22 Report Date: 01/03/2024 07:29 At the request of: ANA LILIA NOONAN Procedure: XR abdomen 1V EXAMINATION: XR abdomen 1V HISTORY: GROSS HEMATURIA R31.0 COMPARISON: No relevant comparison available. FINDINGS: KIDNEY/URETER - RIGHT: No visible renal or ureteral calcifications. KIDNEY/URETER - LEFT: Punctate left nephrolithiasis measuring up to 5.5 mm PELVIS: No visible ureteral calcifications. Any visible calcifications favor phleboliths. BOWEL: No abnormal dilation or deviation. BONES: No acute abnormality. OTHER: Negative. No abnormal gaseous collections. XR/XR abdomen 1V IMPRESSION: Left nephrolithiasis Electronically authenticated by: ANA CRISTINA SOLARES Date: 01/03/2024 07:29
--- NOTE | 2024-01-01 16:59 | US_ITS ---
[address] [address] Patient Name: ANGELES BOSTON MRN: [id number] date: 1985 Sex: F Assigned Patient Location: Current Patient Location: Accession/Order Number: [id number] Exam Date: 01/01/2024 17:06 Report Date: 01/02/2024 14:26 At the request of: ANA LILIA NOONAN Procedure: US renal BI EXAMINATION: US renal BI HISTORY: GROSS HEMATURIA R31.0 COMPARISON: No relevant comparison available. TECHNIQUE: Ultrasound examination was performed of the bladder. FINDINGS: Right Kidney: Normal in size, contour and echotexture. The cortex measures 1.1 cm. Multiple echogenic foci measuring up to 6 mm, nonobstructing nephrolithiasis. Mild pelviectasis Height: 3.06 cm Length: 10.01 cm Width: 5.23 cm Left Kidney: Normal in size, contour and echotexture. The cortex measures 1.4 cm. Multiple echogenic foci measuring up to 8 mm, nonobstructing nephrolithiasis. No hydronephrosis Height: 4.92 cm Length: 10.94 cm Width: 4.61 cm Urinary bladder volume 621.9 mL. US/US renal BI IMPRESSION: Mild right pelviectasis Bilateral nonobstructing nephrolithiasis Electronically authenticated by: ANA CRISTINA SOLARES Date: 01/02/2024 14:26
== END 2024-01-01 16:55 | disposition home or self-care (01) ==
LOC: US 16:55
PROVIDERS: PCP Internal Medicine; Visit Provider Nurse Practitioner
DX: R31.0 Gross hematuria (principal); N39.0 Urinary tract infection, site not specified; N20.0 Calculus of kidney; R10.2 Pelvic and perineal pain
CPT/HCPCS: 74018; 76775

== ENCOUNTER 2024-01-01 17:03 | Outpatient (OUT) | payer OTHER, SELFPAY ==
--- NOTE | 2024-01-01 17:06 | US_ITS ---
[facility] [id number] Patient Name: ANGELES BOSTON MRN: [id number] date: 1985 Sex: F Assigned Patient Location: US Current Patient Location: US Accession/Order Number: [id number] Exam Date: 01/01/2024 17:09 Report Date: 01/03/2024 12:51 At the request of: KERRI PRINGLE Procedure: US pelvis w/ transvaginal EXAMINATION: US pelvis w/ transvaginal HISTORY: PELVIC PAIN IN FEMALE R10.2 COMPARISON: No relevant comparison available. FINDINGS: Transabdominal and transvaginal images The uterus is normal in size, contour and echotexture measuring 9.0 x 4.1 x 5.5 cm. Area of anechoic echogenicity in the cervix, nabothian cysts. The endometrium measures 8 mm, normal. The right ovary measures 2.8 x 1.7 x 3.2 cm. Normal color Doppler flow. Area of anechoic echogenicity measuring 1.7, simple cysts favored. 2.5 mm simple cyst adjacent to but inseparable from the right ovary. The left ovary measures 3.1 x 1.5 x 2.6 cm. 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
--- OUTSIDE RECORDS SUMMARY | 2024-01-01 17:06 | XMS_ITS | CCD ---
Author Organization [facility] Care Team Providers Care [place] Tower Loader Name Role Phone JAZ LEI Admitting Unavailable JAZ LEI Attending Unavailable RAFAT, DR PRYOR Primary Care Unavailable JO CARRINGTON Consulting Unavailable NIKHIL THRASHER Consulting Unavailable LIOR SANTOS Consulting Unavailable Bishnu MURPHY, Kylah Lucero Attending Erlin Goetz PA-C, Kylah Lucero [...] procedure, # 2 tab(s), Refills(s) 0, Pharmacy: [facility]/pharmacy #[id number], 160, cm, 12/27/23 10:47:00 EDT, Height/Length [...] 27, 2023 KIESHA ALAS [address] [place] [address] : 1985 To Whom It May Concern, Please excuse above patient from work. Date of Illness: From: 12/27/23 To: 12/27/23 May Return to Work On: 12/27/23 Restrictions: None Comments: Patient had an appointment with Karina Singh CNP on 12/27/23 Sincerely, [facility] C Urineon 09-29-2023 C Urine ------- Amend [...] S <=20 V Ceftazidime S <=1 V [facility] Comment on above: Performed By: #### U RC #### [facility] (DEFAULT[facility] [address] [place] [address] [facility] [address] [place] [address] OR Trackon 09-26-2023 Specimens Received From [facility] Comment on above: Performed By: #### O utrea Tracking Order #### [facility] [address] [place] [address] Ur Marinelli Vac # 1 [facility] Comment on above: Performed By: #### O [facility] Tracking Order #### [facility] [address] [place] [address] Urgent Care Office/Clinic No shaw 09-26-2023 Urgent [...] tabs, 0 Refill(s), 10/03/23 14:50:00 EDT, Pharmacy: [facility]/pharmacy #[id number] Culture Urine Medical Decision Making UA; trace [...] Urine Dipstick Clear 09/26/2023 14:26 EDT Specific [place] Urine Dipstick 1.015 09/26/2023 14:26 EDT pH [...] Kylah Goetz PA-C 09/29/23 09:09 EDT Normal [facility] CT ABD/PELVIS WO CONon 12-23 CT ABD/PELVIS [...] may help better delineate. Electronically authenticated by: LIOR SANTOS Date: 2021-12-22 22:07 Normal [facility] CBC AUTO DIFFon 12-22-2021 BASO # 0.0 103/ul Normal 0.0-0.1 [facility] Comment on above: Performed By: #### C BC #### [facility] [address] [place], [place] [address] Dr. Shannon Hoyt Basophils/100 WBC (Bld) 0.5 % Normal 0.2-2.0 [facility] Comment on above: Performed By: #### C BC #### [facility] [address] [place], [place] [address] Dr. Shannon Hoyt EO # 0.1 103/ul Normal 0.0-0.7 [facility] Comment on above: Performed By: #### C BC #### [facility] [address] [place] [address] Dr. Shannon Hoyt Eosinophils/100 WBC (Bld) 1.0 % Normal 0.9-7.0 [facility] Comment on above: Performed By: #### C BC #### [facility] [address] [place] [address] Dr. Shannon Hoyt Erythrocyte distribution width (RBC) [Ratio] 11.8 % Normal 11.0-15.0 [facility] Comment on above: Performed By: #### C BC #### [facility] [address] [place] [address] Dr. Shannon Hoyt Hematocrit (Bld) [Volume fraction] 33.9 % Critically low 36.0-48.0 [facility] Comment on above: Performed By: #### C BC #### [facility] [address] [place] [address] Dr. Shannon Hoyt Hemoglobin (Bld) [Mass/Vol] 11.3 g/dL Critically low 12.0-16.0 [facility] Comment on above: Performed By: #### C BC #### [facility] [address] [place] [address] Dr. Shannon Hoyt IG # 0.02 10e3/ul Normal 0.00-0.03 [facility] Comment on above: Performed By: #### C BC #### [facility] [address] [place] [address] Dr. Shannon Hoyt IG % 0.3 % Normal 0.0-0.5 [facility] Comment on above: Performed By: #### C BC #### [facility] [address] [place] [address] Dr. Shannon Hoyt LYMPH # 1.2 103/ul Normal 1.2-3.8 [facility] Comment on above: Performed By: #### C BC #### [facility] [address] [place] [address] Dr. Shannon Hoyt Lymphocytes/100 WBC (Bld) 20.5 % Normal 20.5-60.0 [facility] Comment on above: Performed By: #### C BC #### [facility] [address] [place] [address] Dr. Shannon Hoyt MANUAL DIFF REQ NO Normal [facility] Comment on above: Performed By: #### C BC #### [facility] [address] [place] [address] Dr. Shannon Hoyt MCH (RBC) [Entitic mass] 30.1 pg Normal 26.7-34.0 [facility] Comment on above: Performed By: #### C BC #### [facility] [address] [place] [address] Dr. Shannon Hoyt MCHC (RBC) [Mass/Vol] 33.3 g/dL Normal 29.9-35.2 [facility] Comment on above: Performed By: #### C BC #### [facility] [address] [place] [address] Dr. Shannon Hoyt MCV (RBC) [Entitic vol] 90.2 fL Normal 81.0-99.0 [facility] Comment on above: Performed By: #### C BC #### [facility] [address] [place] [address] Dr. Shannon Hoyt MONO # 0.7 103/ul Normal 0.3-0.8 [facility] Comment on above: Performed By: #### C BC #### [facility] [address] [place] [address] Dr. Shannon Hoyt Monocytes/100 WBC (Bld) 11.7 % Normal 1.7-12.0 [facility] Comment on above: Performed By: #### C BC #### [facility] [address] [place] [address] Dr. Shannon Hoyt NEUT # 4.0 103/ul Normal 1.4-6.5 [facility] Comment on above: Performed By: #### C BC #### [facility] [address] [place] [address] Dr. Shannon Hoyt Neutrophils/100 WBC (Bld) 66.0 % Normal 43.0-75.0 [facility] Comment on above: Performed By: #### C BC #### [facility] [address] [place] [address] [address] Shannon Hoyt Platelet mean volume (Bld) [Entitic vol] 9.9 fL Normal 9.5-13.5 [facility] Comment on above: Performed By: #### C BC #### [facility] [address] [place] [address] [address] Shannon Hoyt PLT 191 103/ul Normal 150-450 [facility] Comment on above: Performed By: #### C BC #### [facility] [address] [place] [address] [address] Shannon Hoyt RBC 3.76 106/ul Critically low 4.20-5.40 [facility] Comment on above: Performed By: #### C BC #### [facility] [address] [place] [address] Dr. Shannon Hoyt WBC 6.0 103/ul Normal 4.0-11.0 [facility] Comment on above: Performed By: #### C BC #### [facility] [address] [place] [address] [address] Shannon Hoyt CULTURE URINEon 12-22-2021 CULTURE URINE Culture Observations: NO GROWTH. Normal [facility] Comment on above: Performed By: #### U RCX #### [facility] [address] [place] [address] Dr. Shannon Hoyt [facility]on SARS-CoV-2 (COVID-19) RNA RICHARD+probe Ql (Unsp spec) Not detected Normal NOT DETECTED [facility] Comment on above: Result Comment: When [...] for this test is supported by the [employer] of Health and Human Service's declaration that [...] used). Performed By: #### C VDTB #### [facility] [address] [place] [address] Dr. Shannon Hoyt ER URINE PROFILEon 2 Bilirubin Ql (U) Negative Normal NEGATIVE [facility] Comment on above: Performed By: #### Cipriano REYEZ UMICRO #### [facility] [address] [place] [address] Dr. Shannon Hoyt Clarity (U) CLEAR Normal CLEAR [facility] Comment on above: Performed By: #### Cipriano REYEZ UMICRO #### [facility] [address] [place] [address] Dr. Shannon Hoyt Color (U) LT. YELLOW Normal YELLOW [facility] Comment on above: Performed By: #### Cipriano REYEZ UMICRO #### [facility] [address] [place] [address] Dr. Shannon VASQUEZ A micrscopic examination will be performed if indicated. Normal [facility] Comment on above: Performed By: #### Cipriano REYEZ UMICRO #### [facility] [address] [place] [address] Dr. Shannon Hoyt Glucose Ql (U) Negative Normal NEGATIVE [facility] [place] [facility] Comment on above: Performed By: #### Cipriano RAMOSR UMICRO #### [facility] [address] [place] [address] Dr. Shannon oHyt Hemoglobin Ql (U) SMALL Abnormal NEGATIVE [facility] Comment on above: Performed By: #### E RUR, UMICRO #### [facility] [address] [place] [address] Dr. Shannon Hoyt Ketones Ql (U) 40 mg/dl Abnormal NEGATIVE [facility] [place] [facility] Comment on above: Performed By: #### BRITTANEY TOUSSAINTRO #### [facility] [address] [place] [address] Dr. Shannon Hoyt LEUKOCYTES Negative Normal NEGATIVE [facility] Comment on above: Performed By: #### BRITTANEY TOUSSAINTRO #### [facility] [address] [place] [address] Dr. Shannon Hoyt Nitrite Ql (U) Negative Normal NEGATIVE [facility] [place] [facility] Comment on above: Performed By: #### BRITTANEY TOUSSAINTRO #### [facility] [address] [place] [address] Dr. Shannon Hoyt pH (U) 6.0 [pH] Normal 5-9 [facility] Comment on above: Performed By: #### BRITTANEY TOUSSAINTRO #### [facility] [address] [place] [address] Dr. Shannon Hoyt SPEC GRAVITY 1.020 Normal 1.005-<=1.025 [facility] Comment on above: Performed By: #### BRITTANEY TOUSSAINTRO #### [facility] [address] [place] [address] Dr. Shannon Hoyt UA PROTEIN Negative Normal NEGATIVE/ TRACE [facility] Comment on above: Performed By: #### BRITTANEY TOUSSAINTRO #### [facility] [address] [place] [address] Dr. Shannon Hoyt UR MICRO IND INDICATED Normal [facility] Comment on above: Performed By: #### BRITTANEY TOUSSAINTRO #### [facility] [address] [place] [address] Dr. Shannon Hoyt Urobilinogen Qn (U) 0.2 {Galileo'U}/dL Normal 0.2 - 1. 0 [facility] Comment on above: Performed By: #### BRITTANEY TOUSSAINTRO #### [facility] [address] [place] [address] Dr. Shannon Hoyt LACTATE/LACTIC ACIDon 2021 Lactate [Moles/Vol] 1.0 mmol/L Normal 0.4-1.9 [facility] Comment on above: Performed By: #### L ACT #### [facility] [address] [place] [address] Dr. Shannon Hoyt LIPASEon 12-22-2021 Lipase [Catalytic activity/Vol] 58.0 U/L Critically low 73.0-393.0 [facility] Comment on above: Performed By: #### L IPA, CMP #### [facility] [address] [place] [address] Dr. Shannon Hoyt PREG HCG QUALon 12-22-2021 , QUAL Negative Normal NEGATIVE [facility] Comment on above: Performed By: #### P REG #### [facility] [address] [place] [address] Dr. Shannon Hoyt PROF 14(COMP METB)on 022 Albumin [Mass/Vol] 2.9 g/dL Critically low 3.4-5.0 [facility] Comment on above: Performed By: #### L IPA, CMP #### [facility] [address] [place] [address] Dr. Shannon Hoyt Albumin/Globulin [Mass ratio] 0.8 {ratio} Normal [facility] Comment on above: Performed By: #### L IPA, CMP #### [facility] [address] [place] [address] Dr. Shannon Hoyt ALP [Catalytic activity/Vol] 58 U/L Normal 46-116 [facility] Comment on above: Performed By: #### L IPA, CMP #### [facility] [address] [place] [address] Dr. Shannon Hoyt ALT [Catalytic activity/Vol] 33 U/L Normal 14-59 [facility] Comment on above: Performed By: #### L IPA, CMP #### [facility] [address] [place] [address] Dr. Shannon Hoyt Anion gap [Moles/Vol] 8.0 mmol/L Normal [facility] Comment on above: Performed By: #### L IPA, CMP #### [facility] [address] [place] [address] Dr. Shannon Hoyt AST [Catalytic activity/Vol] 21 U/L Normal 15-37 [facility] Comment on above: Performed By: #### L IPA, CMP #### [facility] [address] [place] [address] Dr. Shannon Hoyt Bilirubin [Mass/Vol] 0.2 mg/dL Normal 0.2-1.0 [facility] Comment on above: Performed By: #### L IPA, CMP #### [facility] [address] [place] [address] Dr. Shannon Hoyt Calcium [Mass/Vol] 8.2 mg/dL Critically low 8.5-10.1 [facility] Comment on above: Performed By: #### L IPA, CMP #### [facility] [address] [place] [address] Dr. Shannon Hoyt Chloride [Moles/Vol] 106 mmol/L Normal 98-107 [facility] Comment on above: Performed By: #### L IPA, CMP #### [facility] [address] [place] [address] Dr. Shannon Hoyt CO2 [Moles/Vol] 27.9 mmol/L Normal 21.0-32.0 [facility] Comment on above: Performed By: #### L IPA, CMP #### [facility] [address] [place] [address] Dr. Shannon Hoyt Creatinine [Mass/Vol] 0.70 mg/dL Normal 0.55-1.02 [facility] Comment on above: Performed By: #### L IPA, CMP #### [facility] [address] [place] [address] Dr. Shannon Hoyt EGFR-AF IRANIAN >60 Normal >=60 [facility] Comment on above: Performed By: #### L IPA, CMP #### [facility] [address] [place] [address] Dr. Shannon Hoyt EGFR-NON AF IRANIAN >60 Normal >=60 [facility] Comment on above: Performed By: #### L IPA, CMP #### [facility] [address] [place] [address] Dr. Shannon Hoyt Globulin (S) [Mass/Vol] 3.5 g/dL Normal [facility] Comment on above: Performed By: #### L IPA, CMP #### [facility] [address] [place] [address] [address] Shannon Hoyt Glucose [Mass/Vol] 108 mg/dL Critically high 74-106 [facility] Comment on above: Performed By: #### L IPA, CMP #### [facility] [address] [place] [address] [address] Shannon Hoyt Potassium [Moles/Vol] 3.9 mmol/L Normal 3.5-5.1 [facility] Comment on above: Performed By: #### L IPA, CMP #### [facility] [address] [place] [address] [address] Shannon Hoyt Protein [Mass/Vol] 6.4 g/dL Normal 6.4-8.2 [facility] Comment on above: Performed By: #### L IPA, CMP #### [facility] [address] [place] [address] [address] Shannon Hoyt Sodium [Moles/Vol] 138 mmol/L Normal 136-145 [facility] Comment on above: Performed By: #### L IPA, CMP #### [facility] [address] [place] [address] [address] Shannon Hoyt Urea nitrogen [Mass/Vol] 7.0 mg/dL Normal 7.0-18.0 [facility] Comment on above: Performed By: #### L IPA, CMP #### [facility] [address] [place] [address] [address] Shannon Hoyt Urea nitrogen/Creatinine [Mass ratio] 10.0 mg/mg Normal [facility] Comment on above: Performed By: #### L IPA, CMP #### [facility] [address] [place] [address] [address] Shannon Hoyt URINE MICROSCOPIC ONLYon BACTERIA SMALL Abnormal NONE SEEN [facility] Comment on above: Performed By: #### E RAOUL REYEZ #### [facility] [address] [place] [address] [address] Shannon Hoyt Bacteria identified Cx Nom (U) INDICATED Normal [facility] Comment on above: Performed By: #### Cipriano REYEZ UMICRO #### [facility] [address] [place] [address] Dr. Shannon Hoyt CAST NONE SEEN Normal NONE SEEN [facility] Comment on above: Performed By: #### E RACHELR, UMICRO #### [facility] [address] [place] [address] Dr. Shannon Hoyt Crystals LM Nom (Urine sed) NONE SEEN Normal NONE SEEN [facility] Comment on above: Performed By: #### E DEREJE, UMICRO #### [facility] [address] [place] [address] Dr. Shannon Hoyt Epithelial cells LM Ql (Urine sed) FEW Abnormal NONE SEEN /RARE [facility] Comment on above: Performed By: #### Cipriano REYEZ UMICRO #### [facility] [address] [place] [address] Dr. Shannon Hoyt MUCOUS TRACE Abnormal NONE SEEN [facility] Comment on above: Performed By: #### Cipriano REYEZ UMICRO #### [facility] [address] [place] [address] Dr. Shannon Hoyt RBC 0-2 Normal 0-2 [facility] Comment on above: Performed By: #### Cipriano REYEZ UMICRO #### [facility] [address] [place] [address] Dr. Shannon Hoyt WBC 20-50 Abnormal NONE SEEN [facility] Comment on above: Performed By: #### Cipriano REYEZ UMICRO #### [facility] [address] [place] [address] Dr. Shannon Hoyt Vital Signs Date Time Vital Sign Value Performing Clinician Fabian em 12-27-2023 10:45-0400 Blood Pressure Location Karina Singh [facility] 12-27-2023 10:45-0400 Diastolic blood pressure 78 mm[Hg] Karina Singh [facility] 12-27-2023 10:45-0400 Heart rate 73 /min Karina Singh [facility] 12-27-2023 10:45-0400 Respiratory rate 18 /min Karinaoni Singh [facility] 12-27-2023 10:45-0400 Systolic blood pressure 117 mm[Hg] Karina Samantha [facility] Encounters Encounter Date Encounter Type Care Provider Facility Start: 12-27-2023 End: 12-27-2023 ambulatory Kerri R PINO Facility:[facility] Start: 12-27-2023 End: 12-27-2023 Patient encounter procedure Karina Singh [facility] Start: 12-11-2023 ambulatory Kerri PINO Facility:[facility] Start: 12-10-2023 End: 12-10-2023 ambulatory KERRI PINO Not Available Start: 10-01-2023 End: 10-01-2023 ambulatory ILA GUNTER Not Available Start: 09-26-2023 End: 09-26-2023 ambulatory Kylah Goetz PA-C Facility:[facility] Start: 12-22-2021 End: 12-23-2021 ambulatory JAZ LEI Facility: Payers Date Payer Category Payer Unknown 1985 Unknown [id number] 2.16.84 [id number] 1985 Unknown [id number] 2.16. [id number] 1985 Unknown [id number] 2.16. [id number] 1984 Unknown [id number] 2.16.84 [id number] 1984 Unknown [id number] 2.16.84 [id number] 1984 Unknown [id number] 2.16.8 [id number] 1984 Unknown [id number] 2.16.8 [id number] 1959 Unknown [id number] Social History Date Type Detail Facility Start: 12-27-2023 Tobacco smoking status Never s moked tobacco (finding) [facility] Sex Assigned At Female [facility] Functional Status Date Assessment Result Facility 12-27-2023 Functional Status N/A [facility] Hospital Discharge instructions 12-27-2023 Note Date & Type Note Facility 12-27-2023 Hospital Discharg e instructions Patient Education 12/27/2023 11:40:24 Kidney Stones, Avgl-xw-Ycpa Kidney Stones Kidney stones are rock-like masses [...] Follow these instructions at home: Medicines Take qofb-fln-tilaldk and prescription medicines only as told by [...] provider. Document Revised: 10/27/2022 Document Reviewed: 10/27/2022 [employer] Patient Education 2023 [employer]. 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 [...] Dr. Flower -RAAD and KUB now at [facility] (pt has transvaginal US scheduled for Sunday, will attempt to complete imaging at this time) -Will send cytology at cystoscopy if KUB/RAAD negative for stones -Increase fluids -Start MET if KUB/RAAD + for ureteral stone(s) -F/U pending imaging and cysto Ordered: E&M of New Patient Moderate 45-59 Min 22645 US Renal XR Abdomen 1 View 2. Recurrent UTI (N39.0: Urinary tract infection, site not specified) 12/22/21 cx negative 09/29/23 cx - 20-30k E. Coli, treated with Bactrim DS x7 days (urgent care) -See #1 Ordered: E&M of New Patient Moderate 45-59 Min 01006 Urnls Dip Stick Auto w/o Microscopy POC 95113 US Renal XR Abdomen 1 View 3. [...] E&M of New Patient Moderate 45-59 Min 88462 US Renal XR Abdomen 1 View 4. Pelvic pain (R10.2: Pelvic and perineal pain) Pt being treated by Dr. Hassan for pelvic pain and painful intercourse. She has a transvaginal US scheduled for Sunday at [facility] and diagnostic lap with bilateral salpingectomy and ablation scheduled with Dr. Hassan (more content not included)... [facility] Comment on above: Result Comment: Elec tronically [...] these instructions at home: Medicines ? Take yqzs-pqo-mhwgmgz and prescription medicines only as told by [...] Reviewed: 10/27/2022 Elsevier Patient Education ? 2023 [employer] [facility] Clinical Note 09-26-2023 Note Date & Type [...] tabs, 0 Refill(s), 10/03/23 14:50:00 EDT, Pharmacy: [facility]/pharmacy #[id number] Culture Urine Urinary Tract Infections in Women [...] needed, more treatment may be started. ? [id number] [employer]. [address] [place] [address], [place] [address]. All rights reserved. This information is not intended as a substitute for professional medical care. Always follow your healthcare professional's instructions. [facility] Evaluation + Plan note Note Date & Type Note Facility Evaluation + Plan note No data available for this section [facility] Progress note Note Date & Type Note Facility Progress note No data available for this section [facility] Summary Purpose Family History No Family History Records FoundNo Family History Records FoundNo Family History Records FoundNo Family History Records Found No data available for this section Advance Directives No Advanced Directives Records FoundNo Advanced Directives Records FoundNo Advanced Directives Records FoundNo Advanced Directives Records Found Additional Source Comments INFORMATION SOURCE (unrecogn ized section and content) DATE CREATED AUTHOR 12/26/2021 [facility] DATE CREATED AUTHOR AUTHOR'S ORGANIZ ATION 10/03/2023 [facility] DATE CREATED AUTHOR AUTHOR'S ORGANIZ ATION 12/11/2023 [facility] DATE CREATED AUTHOR AUTHOR'S ORGANIZ ATION 12/29/2023 [facility] FOR RECORDS PERTAINING TO PATIENTS [...] BE BASED ON THE PRIMARY CLINICAL RECORDS. [facility]. provides no warranty or guarantee of the accuracy or completeness of information in this document.
== END 2024-01-01 17:04 | disposition home or self-care (01) ==
LOC: US 17:03
PROVIDERS: PCP Internal Medicine; Visit Provider Obstetrics & Gynecology
DX: R31.0 Gross hematuria (principal); N39.0 Urinary tract infection, site not specified; N20.0 Calculus of kidney; R10.2 Pelvic and perineal pain; N89.8 Other specified noninflammatory disorders of vagina
CPT/HCPCS: 74018; 76775; 76830; 76856

== ENCOUNTER 2024-01-09 07:59 | Outpatient (REF) | payer OTHER, SELFPAY ==
--- OUTSIDE RECORDS SUMMARY | 2024-01-16 08:05 | XMS_ITS | CCD ---
Author Organization [facility] Care Team Providers Care Tele Marketing Executive Name Role Phone JAZ LEI Admitting Unavailable JAZ LEI Attending Unavailable RAFAT, DR PRYOR Primary Care Unavailable JO CARRINGTON Consulting Unavailable NIKHIL THRASHER Consulting Unavailable LIOR SANTOS Consulting Unavailable Bishnu MURPHY, Kylah Lucero Attending Erlin Goetz PA-C, Kylah Lucero Attending Rajiv Long MD Primary Care Provider [phone] Gene COLLINS Attending Unavailable Karina Singh Attending Unavailable Kerri HASSAN Referring Unavailable DO Kerri Hassan Attending Provider [phone] ILA GUNTER Attending Unavailable KERRI HASSAN Attending Unavailable KERRI HASSAN Attending Unavailable Kerri Hassan Attending Unavailable Kerri Hassan Admitting Unavailable Medications Current Medications Medication Drug Class(es) Dates Sig (Normalized) Sig (Original) sulfamethoxazole 800 mg / trimethoprim 160 mg oral tablet (1 source) Dihydrofolate Reductase Inhibitor Antibacterial, Sulfonamide Antimicrobial Start: 09-26-2023 take 1 tablet by mouth once in the morning, then take 1 tablet by mouth once at bedtime sulfamethoxazol e-trimethoprim (Bactrim DS) 800-160 MG per tablet Take 1 tablet by mouth in the morning and 1 tablet before bedtime. 09/26/2023 Active Completed/Discontinued Medications Medication Drug Class(es) Dates Sig (Normalized) Sig (Original) ciprofloxacin 500 mg oral tablet (1 source) Quinolone Antimicrobial Start: 12-27-2023 take 1 tablet by mouth once daily Cipro 500 mg Tab 500 mg = 1 tab(s), Oral, Daily, Take 1 tablet the day before the procedure and 1 tablet after the procedure, # 2 tab(s), Refills(s) 0, Pharmacy: [facility]/pharmacy #[id number], 160, cm, 12/27/23 10:47:00 EDT, Height/Length Dosing, 57, kg, 12/27/23 10:47:00 EDT, Weight Dosing Start Date: 12/27/23 Status: Ordered Problems Problem Classification Problem Date Documented Date Episodic/Chronic Abdominal pain (3 sources) Pelvic and perineal pain; Translations: [Pelvic and perineal pain] Onset: 12-10-2023 Episodic Calculus of urinary tract (2 sources) Kidney stone; Translations: [Calculus of kidney] Onset: 12-27-2023 Episodic Contraceptive and procreative management (1 source) Sterilization requested; Translations: [Encounter for sterilization] 01-09-2024 Episodic Genitourinary symptoms and ill-defined conditions (1 source) Blood in urine; Translations: [Gross hematuria] Onset: 12-27-2023 Episodic Malaise and fatigue (3 sources) Weakness; Translations: [WEAKNESS] Onset: 12-22-2021 Episodic Menstrual disorders (2 sources) Menorrhagia; Translations: [Excessive and frequent menstruation with regular cycle] Onset: 12-10-2023 01-09-2024 Chronic Other female genital disorders (1 source) Abnormal uterine bleeding; Translations: [Abnormal uterine and vaginal bleeding, unspecified] 01-09-2024 Chronic Other female genital disorders (1 source) Vaginal discharge; Translations: [Other specified noninflammatory disorders of vagina] Onset: 12-10-2023 12-10-2023 Episodic Unclassified (1 source) CONTACT W/AND (SUSP) EXPOS COVID-19; Translations: [CONTACT W/AND (SUSP) EXPOS COVID-19] Onset: 12-26-2021 Urinary tract infections (5 sources) Urinary tract infection, site not specified; Translations: [Tubulo-interstitial nephritis, not specified as acute or chronic] Onset: 12-26-2021 Episodic Results Test Name Value Interpretation Reference Range Facility HCG ( test) Ql (U)O rdered By: Smiley Brown on 01-09-2024 Interpretation and review of laboratory results Normal [facility] Preg Test, Ur Negative [facility] Provider Letteron 12-27-2023 Provider Letter Provider Letter December 27, 2023 KIESHA ALAS [address] [place] [address] : 1985 To Whom It May Concern, Please excuse above patient from work. Date of Illness: From: 12/27/23 To: 12/27/23 May Return to Work On: 12/27/23 Restrictions: None Comments: Patient had an appointment with Karina Singh CNP on 12/27/23 Sincerely, [facility] C Urineon 09-29-2023 C Urine ------- [...] S <=20 V Ceftazidime S <=1 V [facility] Comment on above: Performed By: #### U #### [facility] (DEFAULT) [address] [place] [address] [facility] [address] [place] [address] OR Trackon 09-26-2023 Specimens Received From [facility] Comment on above: Performed By: #### O [facility] Tracking Order #### [facility] [address] [place] [address] Ur Marinelli Vac # 1 Normal [facility] Comment on above: Performed By: #### O nacho Tracking Order #### [facility] [address] [place] [address] Urgent Care Office/Clinic Abby squires 09-26-2023 Urgent Care Office/Clinic Note Chief Complaint [...] tabs, 0 Refill(s), 10/03/23 14:50:00 EDT, Pharmacy: [facility]/pharmacy #[id number] Culture Urine Medical Decision Making UA; trace [...] Urine Dipstick Clear 09/26/2023 14:26 EDT Specific [place] Urine Dipstick 1.015 09/26/2023 14:26 EDT pH [...] Negative 09/26/2023 14:26 EDT Electronically signed by Bishnu MURPHY Kylah Jazmine 09/26/23 14:53 EDT Urine culture resulted as positive for E. coli and is sensitive to the prescribed antibiotic. Electronically signed by Bishnu MURPHY Kylah Jazmine 09/29/23 09:09 EDT Normal [facility] CT ABD/PELVIS WO CONon 12-23 CT ABD/PELVIS WO CON EXAM: CT SCAN OF TH E ABDOMEN AND PELVIS WITHOUT IV CONTRAST DATE [...] LIOR SANTOS Date: 2021-12-22 22:07 Normal [facility] CBC AUTO DIFFon 12-22-2021 BASO # 0.0 103/ul Normal 0.0-0.1 [facility] Comment on above: Performed By: #### C BC #### [facility] [address] [address] [address] Shannon Hoyt Basophils/100 WBC (Bld) 0.5 % Normal 0.2-2.0 [facility] Comment on above: Performed By: #### C BC #### [facility] [address] [address] [address] Shannon Hoyt EO # 0.1 103/ul Normal 0.0-0.7 [facility] Comment on above: Performed By: #### C BC #### [facility] [address] [address] [address] Shannon Hoyt Eosinophils/100 WBC (Bld) 1.0 % Normal 0.9-7.0 [facility] Comment on above: Performed By: #### C BC #### [facility] [address] [address] [address] Shannon Hoyt Erythrocyte distribution width (RBC) [Ratio] 11.8 % Normal 11.0-15.0 [facility] Comment on above: Performed By: #### C BC #### [facility] [address] [place] [address] Dr. Shannon Hoyt Hematocrit (Bld) [Volume fraction] 33.9 % Critically low 36.0-48.0 [facility] Comment on above: Performed By: #### C BC #### [facility] [address] [place] [address] Dr. Shannon Hoyt Hemoglobin (Bld) [Mass/Vol] 11.3 g/dL Critically low 12.0-16.0 [facility] Comment on above: Performed By: #### C BC #### [facility] [address] [place] [address] Dr. Shannon Hoyt IG # 0.02 10e3/ul Normal 0.00-0.03 [facility] Comment on above: Performed By: #### C BC #### [facility] [address] [place] [address] Dr. Shannon Hoyt IG % 0.3 % Normal 0.0-0.5 [facility] Comment on above: Performed By: #### C BC #### [facility] [address] [place] [address] Dr. Shannon Hoyt LYMPH # 1.2 103/ul Normal 1.2-3.8 [facility] Comment on above: Performed By: #### C BC #### [facility] [address] [place] [address] Dr. Shannon Hoyt Lymphocytes/100 WBC (Bld) 20.5 % Normal 20.5-60.0 [facility] Comment on above: Performed By: #### C BC #### [facility] [address] [place] [address] Dr. Shannon Hoyt MANUAL DIFF REQ NO Normal [facility] Comment on above: Performed By: #### C BC #### [facility] [address] [place] [address] Dr. Shannon Hoyt MCH (RBC) [Entitic mass] 30.1 pg Normal 26.7-34.0 [facility] Comment on above: Performed By: #### C BC #### [facility] [address] [address] [address] Shannon Hoyt MCHC (RBC) [Mass/Vol] 33.3 g/dL Normal 29.9-35.2 [facility] Comment on above: Performed By: #### C BC #### [facility] [address] [place] [address] Dr. Shannon Hoyt MCV (RBC) [Entitic vol] 90.2 fL Normal 81.0-99.0 [facility] Comment on above: Performed By: #### C BC #### [facility] [address] [place] [address] Dr. Shannon Hoyt MONO # 0.7 103/ul Normal 0.3-0.8 [facility] Comment on above: Performed By: #### C BC #### [facility] [address] [place] [address] Dr. Shannon Hoyt Monocytes/100 WBC (Bld) 11.7 % Normal 1.7-12.0 [facility] Comment on above: Performed By: #### C BC #### [facility] [address] [place] [address] Dr. Shannon Hoyt NEUT # 4.0 103/ul Normal 1.4-6.5 [facility] Comment on above: Performed By: #### C BC #### [facility] [address] [place] [address] Dr. Shannon Hoyt Neutrophils/100 WBC (Bld) 66.0 % Normal 43.0-75.0 [facility] Comment on above: Performed By: #### C BC #### [facility] [address] [place] [address] Dr. Shannon Hoyt Platelet mean volume (Bld) [Entitic vol] 9.9 fL Normal 9.5-13.5 [facility] Comment on above: Performed By: #### C BC #### [facility] [address] [place] [address] Dr. Shannon Hoyt PLT 191 103/ul Normal 150-450 [facility] Comment on above: Performed By: #### C BC #### [facility] [address] [address] [address] Shannon Hoyt RBC 3.76 106/ul Critically low 4.20-5.40 [facility] Comment on above: Performed By: #### C BC #### [facility] [address] [address] [address] Shannon Hoyt WBC 6.0 103/ul Normal 4.0-11.0 [facility] Comment on above: Performed By: #### C BC #### [facility] [address] [address] [address] Shannon Hoyt CULTURE URINEon 12-22-2021 CULTURE URINE Culture Observations: NO GROWTH. Normal [facility] Comment on above: Performed By: #### U RCX #### [facility] [address] [place] [address] Dr. Shannon Hoyt Covid-19 PCR (CVDTB)on SARS-CoV-2 (COVID-19) RNA RICHARD+probe Ql (Unsp spec) Not detected Normal NOT DETECTED [facility] Comment on above: Result Comment: When diagnostic [...] for this test is supported by the [place] of Health and Human Service's declaration that [...] longer be used). Performed By: #### C VDTBH #### [facility] [address] [address] [address] Shannon Hoyt ER URINE PROFILEon 2 Bilirubin Ql (U) Negative Normal NEGATIVE [facility] Comment on above: Performed By: #### E RACHELR, UMICRO #### [facility] [address] [address] [address] Shannon Hoyt Clarity (U) CLEAR Normal CLEAR [facility] Comment on above: Performed By: #### E DEREJE, UMICRO #### [facility] [address] [address] [address] Shannon Hoyt Color (U) LT. YELLOW Normal YELLOW [facility] Comment on above: Performed By: #### E DEREJE, UMICRO #### [facility] [address] [address] [address] Shannon VASQUEZ A micrscopic examination will be performed if indicated. Normal [facility] Comment on above: Performed By: #### E DEREJE, UMICRO #### [facility] [address] [place] [address] Dr. Shannon Hoyt Glucose Ql (U) Negative Normal NEGATIVE [facility] Comment on above: Performed By: #### Cipriano REYEZ UMICRO #### [facility] [address] [place] [address] Dr. Shannon Hoyt Hemoglobin Ql (U) SMALL Abnormal NEGATIVE [facility] Comment on above: Performed By: #### Cipriano REYEZ, UMICRO #### [facility] [address] [place] [address] Dr. Shannon Hoyt Ketones Ql (U) 40 mg/dl Abnormal NEGATIVE [facility] Comment on above: Performed By: #### Cipriano REYEZ UMICRO #### [facility] [address] [place] [address] Dr. Shannon Hoyt LEUKOCYTES Negative Normal NEGATIVE [facility] Comment on above: Performed By: #### Cipriano REYEZ UMICRO #### [facility] [address] [place] [address] Dr. Shannon Hoyt Nitrite Ql (U) Negative Normal NEGATIVE [facility] Comment on above: Performed By: #### Cipriano REYEZ UMICRO #### [facility] [address] [place] [address] Dr. Shannon Hoyt pH (U) 6.0 [pH] Normal 5-9 [facility] Comment on above: Performed By: #### RAOUL TOUSSAINT #### [facility] [address] [place] [address] Dr. Shannon Hoyt SPEC GRAVITY 1.020 Normal 1.005-<=1.025 [facility] Comment on above: Performed By: #### BRITTANEY TOUSSAINTRO #### [facility] [address] [place] [address] Dr. Shannon Hoyt UA PROTEIN Negative Normal NEGATIVE/ TRACE [facility] Comment on above: Performed By: #### RAOUL TOUSSAINT #### [facility] [address] [place] [address] Dr. Shannon Hoyt UR MICRO IND INDICATED Normal [facility] Comment on above: Performed By: #### RAOUL TOUSSAINT #### [facility] [address] [place] [address] Dr. Shannon Hoyt Urobilinogen Qn (U) 0.2 {Galileo'U}/dL Normal 0.2 - 1. 0 [facility] Comment on above: Performed By: #### BRITTANEY TOUSSAINTRO #### [facility] [address] [place] [address] Dr. Shannon Hoyt LACTATE/LACTIC ACIDon 2021 Lactate [Moles/Vol] 1.0 mmol/L Normal 0.4-1.9 [facility] Comment on above: Performed By: #### L ACT #### [facility] [address] [place] [address] Dr. Shannon Hoyt LIPASEon 12-22-2021 Lipase [Catalytic activity/Vol] 58.0 U/L Critically low 73.0-393.0 [facility] Comment on above: Performed By: #### L IPA, CMP #### [facility] [address] [place] [address] Dr. Shannon Hoyt PREG HCG QUALon 12-22-2021 , QUAL Negative Normal NEGATIVE [facility] Comment on above: Performed By: #### P REG #### [facility] [address] [address] [address] Shannon Hoyt PROF 14(COMP METB)on 022 Albumin [Mass/Vol] 2.9 g/dL Critically low 3.4-5.0 [facility] Comment on above: Performed By: #### L IPA, CMP #### [facility] [address] [address] [address] Shannon Hoyt Albumin/Globulin [Mass ratio] 0.8 {ratio} Normal [facility] Comment on above: Performed By: #### L IPA, CMP #### [facility] [address] [address] [address] Shannon Hoyt ALP [Catalytic activity/Vol] 58 U/L Normal 46-116 [facility] Comment on above: Performed By: #### L IPA, CMP #### [facility] [address] [place] [address] Dr. Shannon Hoyt ALT [Catalytic activity/Vol] 33 U/L Normal 14-59 [facility] Comment on above: Performed By: #### L IPA, CMP #### [facility] [address] [address] [address] Shannon Hoyt Anion gap [Moles/Vol] 8.0 mmol/L Normal [facility] Comment on above: Performed By: #### L IPA, CMP #### [facility] [address] [place] [address] Dr. Shannon Hoyt AST [Catalytic activity/Vol] 21 U/L Normal 15-37 [facility] Comment on above: Performed By: #### L IPA, CMP #### [facility] [address] [place] [address] Dr. Shannon Hoyt Bilirubin [Mass/Vol] 0.2 mg/dL Normal 0.2-1.0 [facility] Comment on above: Performed By: #### L IPA, CMP #### [facility] [address] [place] [address] Dr. Shannon Hoyt Calcium [Mass/Vol] 8.2 mg/dL Critically low 8.5-10.1 [facility] Comment on above: Performed By: #### L IPA, CMP #### [facility] [address] [address] [address] Shannon Hoyt Chloride [Moles/Vol] 106 mmol/L Normal 98-107 [facility] Comment on above: Performed By: #### L IPA, CMP #### [facility] [address] [address] [address] Shannon Hoyt CO2 [Moles/Vol] 27.9 mmol/L Normal 21.0-32.0 [facility] Comment on above: Performed By: #### L IPA, CMP #### [facility] [address] [address] [address] Shannon Hoyt Creatinine [Mass/Vol] 0.70 mg/dL Normal 0.55-1.02 [facility] Comment on above: Performed By: #### L IPA, CMP #### [facility] [address] [address] [address] Shannon Hoyt EGFR-AF MALIAN >60 Normal >=60 [facility] Comment on above: Performed By: #### L IPA, CMP #### [facility] [address] [address] [address] Shannon Hoyt EGFR-NON AF MALIAN >60 Normal >=60 [facility] Comment on above: Performed By: #### L IPA, CMP #### [facility] [address] [address] [address] Shannon Hoyt Globulin (S) [Mass/Vol] 3.5 g/dL Normal [facility] Comment on above: Performed By: #### L IPA, CMP #### [facility] [address] [address] [address] Shannon Hoyt Glucose [Mass/Vol] 108 mg/dL Critically high 74-106 [facility] Comment on above: Performed By: #### L IPA, CMP #### [facility] [address] [address] [address] Shannon Hoyt Potassium [Moles/Vol] 3.9 mmol/L Normal 3.5-5.1 [facility] Comment on above: Performed By: #### L IPA, CMP #### [facility] [address] [place] [address] Dr. Shannon Hoyt Protein [Mass/Vol] 6.4 g/dL Normal 6.4-8.2 [facility] Comment on above: Performed By: #### L IPA, CMP #### [facility] [address] [place] [address] Dr. Shannon Hoyt Sodium [Moles/Vol] 138 mmol/L Normal 136-145 [facility] Comment on above: Performed By: #### L IPA, CMP #### [facility] [address] [place] [address] Dr. Shannon Hoyt Urea nitrogen [Mass/Vol] 7.0 mg/dL Normal 7.0-18.0 [facility] Comment on above: Performed By: #### L IPA, CMP #### [facility] [address] [place] [address] Dr. Shannon Hoyt Urea nitrogen/Creatinine [Mass ratio] 10.0 mg/mg Normal [facility] Comment on above: Performed By: #### L IPA, CMP #### [facility] [address] [place] [address] Dr. Shannon Hoyt URINE MICROSCOPIC ONLYon BACTERIA SMALL Abnormal NONE SEEN [facility] Comment on above: Performed By: #### E RUR, UMICRO #### [facility] [address] [place] [address] Dr. Shannon Hoyt Bacteria identified Cx Nom (U) INDICATED Normal [facility] Comment on above: Performed By: #### E RUR, UMICRO #### [facility] [address] [place] [address] Dr. Shannon Hoyt CAST NONE SEEN Normal NONE SEEN [facility] Comment on above: Performed By: #### E RUR, UMICRO #### [facility] [address] [place] [address] Dr. Shannon Hoyt Crystals LM Nom (Urine sed) NONE SEEN Normal NONE SEEN [facility] Comment on above: Performed By: #### E RUR, UMICRO #### [facility] [address] [address] [address] Shannon Hoyt Epithelial cells LM Ql (Urine sed) FEW Abnormal NONE SEEN /RARE [facility] Comment on above: Performed By: #### RAOUL TOUSSAINT #### [facility] [address] [address] [address] Shannon Hoyt MUCOUS TRACE Abnormal NONE SEEN [facility] Comment on above: Performed By: #### RAOUL TOUSSAINT #### [facility] [address] [address] [address] Shannon Hoyt RBC 0-2 Normal 0-2 [facility] Comment on above: Performed By: #### RAOUL TOUSSAINT #### [facility] [address] [address] [address] Shannon Hoyt WBC 20-50 Abnormal NONE SEEN [facility] Comment on above: Performed By: #### RAOUL TOUSSAINT #### [facility] [address] [address] [address] Shannon Hoyt Vital Signs Date Time Vital Sign Value Performing Clinician Facility 01-09-2024 15:40-0400 Body mass index (BMI) [Ratio] 22.49 kg/m2 [facility] Work Phone: [facility] 01-09-2024 15:40-0400 Body weight 59.42 kg [facility] Work Phone: [facility] 01-09-2024 15:40-0400 Diastolic blood pressure 68 mm[Hg] Kerri Sonya DO Work Phone: [facility] 01-09-2024 15:40-0400 Systolic blood pressure 110 mm[Hg] Kerri Sonya DO Work Phone: [facility] 12-27-2023 10:45-0400 Blood Pressure Location Karina Singh [facility] 12-27-2023 10:45-0400 Diastolic blood pressure 78 mm[Hg] Karina Singh [facility] 12-27-2023 10:45-0400 Heart rate 73 /min Karina Galea [facility] 12-27-2023 10:45-0400 Respiratory rate 18 /min Karina Galea [facility] 12-27-2023 10:45-0400 Systolic blood pressure 117 mm[Hg] Karina Galea [facility] Encounters Encounter Date Encounter Type Care Provider Facility Start: 03-11-2024 ambulatory Gene Victori ty:[facility]in Start: 01-09-2024 End: 01-09-2024 Departed Referred DO Kerri Sonya Work Phone: [facility] Start: 01-09-2024 End: 01-09-2024 Patient encounter procedure Kerri Sonya DO Work Phone: [facility] Comment on above: Pre-op examination; Request for sterilization; Menorrhagia with regular cycle; Abnormal uterine bleeding (AUB); Pelvic pain in female Start: 01-09-2024 End: 01-09-2024 Preprocedural examination done Kerri Sonya DO Work Phone: [facility] Start: 01-09-2024 End: 01-09-2024 ambulatory KERRI [facility] Work Phone: Start: 12-27-2023 End: 12-27-2023 ambulatory Karina Singh Facility:[facility] Start: 12-27-2023 End: 12-27-2023 Patient encounter procedure Karinasury [place] Start: 12-11-2023 ambulatory Gene COLLINS Facility :[facility] [place] Start: 12-10-2023 End: 12-10-2023 ambulatory KERRI HASSAN Not Available Start: 10-01-2023 End: 10-01-2023 ambulatory ILA GUNTER Not Available Start: 09-26-2023 End: 09-26-2023 ambulatory Kylah Goetz PA-C Facility:[facility] Start: 12-22-2021 End: 12-23-2021 ambulatory JAZ LEI Facility:[facility] Procedures Date Procedure Procedure Detail Performing Clinician Start: 01-09-2024 Urine test visual color cmprsn meths Kerri Sonya DO Work Phone: Plan of Treatment Date Care Activity Detail Author Start: 10-02-2024 End: 10-02-2024 Patient encounter procedure 10/02/2024 10:00 AM EDT Office Visit [facility] [address] [place] [address] Kerri Hassan, DO [address] [place], [place] [id number] [facility] Endometrial biopsy Endometrial b iopsy Procedures Routine Menorrhagia with regular cycle Abnormal uterine bleeding (AUB) Pelvic pain in female Ordered: 01/09/2024 [facility] Work Phone: Comment on above: Ordered: 01/09/2024 Payers Date Payer Category Payer Self-pay 2023 Unknown 2022 Private Health Insurance [employer] [id number] 1984 Unknown [id number] 1984 Unknown [id number] 196 1984 Unknown [id number]. 196 1984 Unknown [id number] 727 1984 Unknown [id number] 727 1984 Unknown [id number]. 727 1984 Unknown [id number]. 1259 1984 Unknown [id number] [id number]. 1259 1984 Unknown [id number] 1259 1959 Unknown [id number] Social History Date Type Detail Facility Start: 08-22-2022 End: 12-27-2023 Tobacco smoking status Never smoked tobacco (finding) [facility] Start: 04-06-2023 Sex Assigned At Female [facility] Start: 12-10-2023 Alcoholic beverage intake Current drinker of alcohol (finding) [facility] Start: 04-06-2023 History of Social function [facility] Start: 08-22-2022 Alcohol Comment caffeine: 2-3 cups per day, coffee [facility] Start: 1985 Sex assigned at Not on file [facility] Start: 09-25-2022 Sexual orientation Heterosexual (finding) [facility] Start: 1985 Sex Assigned At Female [facility] Functional Status Date Assessment Result Facility 12-27-2023 Functional Status N/A [facility] History of Present illness Narrative 01-09-2024 Melissa Stanton - 01/09/2024 3:30 PM EDT Note Date & Type Note Facility 01-09-2024 History of Presen t illness Narrative Reason for Appointment: Patient ID: Kiesha Alas is a 38 y.o. female who presents for Pre-op Visit and Endometrial Biopsy Patient presents today for Pre Op/Endometrial Biopsy appointment. Patient is scheduled to undergo Da Diego assisted Bilateral Laparoscopic Salpingectomy and Endometrial Ablation with Melonie on 02/08/[address] Hassan at [facility]. MEDICATIONS Current Outpatient Medications Medication Instructions sulfamethoxazole-trimethoprim (Bactrim DS) 800-160 MG per tablet 1 tablet, Oral, 2 times daily ALLERGIES No Known Allergies PROBLEMS Active Ambulatory Problems Diagnosis Date Noted Menorrhagia with irregular cycle 12/10/2023 Pelvic pain in female 12/10/2023 Vaginal discharge 12/10/2023 Recurrent UTI 12/10/2023 Resolved Ambulatory Problems Diagnosis Date Noted No Resolved Ambulatory Problems Past Medical History: Diagnosis Date Encounter for gynecological examination (general) (routine) without abnormal findings (normal spontaneous vaginal delivery) HISTORY PAST MEDICAL HISTORY SOCIAL HISTORY Past Medical History: Diagnosis Date Encounter for gynecological examination (general) (routine) without abnormal findings (normal spontaneous vaginal delivery) x3 Social History Tobacco Use Smoking status: Never Smokeless tobacco: Not on file Substance Use Topics Alcohol use: Yes Comment: caffeine: 2-3 cups per day, coffee Drug use: Never FAMILY HISTORY Family History Problem Relation Name Age of Onset No Known Problems Mother No Known Problems Father No Known Problems Sister No Known Problems Sister No Known Problems Daughter No Known Problems Son No Known Problems Son Breast cancer Maternal Grandmother SURGICAL HISTORY Past Surgical History: Procedure Laterality Date BI US GUIDED BREAST LOCALIZATION AND BIOPSY LEFT Left 04/10/2018 BI US GUIDED BREAST LOCALIZATION AND BIOPSY LEFT 04/10/2018 CT GUIDED TRANSVAGINAL TRANSRECTAL FLUID DRAIN 02/27/2017 CT GUIDED TRANSVAGINAL TRANSRECTAL FLUID DRAIN 02/27/2017 REVIEW OF SYSTEMS Review of Systems: Review of Systems Constitutional: Negative. HENT: Negative. Eyes: Negative. Respiratory: Negative. Cardiovascular: Negative. Gastrointestinal: Negative. Genitourinary: Positive for menstrual problem and pelvic pain. Musculoskeletal: Negative. Skin: Negative. Neurological: Negative. All other systems reviewed and are negative. Hematological: Negative. Endocrine: Negative. Allergic/Immunologic: Negative. OBJECTIVE Objective: Physical Exam Constitutional: Appearance: Normal appearance. She is well-developed. Genitourinary: Vulva normal. Cardiovascular: Rate and Rhythm: Normal rate and regular rhythm. Pulmonary: Effort: Pulmonary effort is normal. Breath sounds: Normal breath sounds. Abdominal: General: Bowel sounds are normal. There is no distension. Palpations: Abdomen is soft. Tenderness: There is no abdominal tenderness. There is no guarding or rebound. Musculoskeletal: General: No swelling. Normal range of motion. Right lower leg: No edema. Left lower leg: No edema. Neurological: Mental Status: She is alert and oriented to person, place, and time. Skin: General: Skin is warm and dry. Psychiatric: Mood and Affect: Mood normal. Behavior: Behavior normal. Vitals and nursing note reviewed. Exam conducted with a strategic communications manager present. Vitals: Estimated body mass index is 22.34 kg/m as calculated from the following: Height as of 10/01/23: 5' 4 . Weight as of 12/10/23: 130 lb 1.9 oz. BP: No LMP recorded. ASSESSMENT & PLAN ICD-10-CM 1. Pre-op examination Z01.818 2. Request for sterilization Z30.2 3. Menorrhagia with regular cycle N92.0 4. Abnormal uterine bleeding (AUB) N93.9 5. Pelvic pain in female R10.2 EMBX: Patient was placed in dorsal lithotomy position with feet in stirrups. A sterile speculum was placed into the vagina and the cervix was visualized. The cervix was grasped with a single tooth tenaculum. The endometrial pipette was placed through the cervix into the uterus, endometrial curettage was performed and sampling was obtained, endometrial curettings were placed in formalin, and single tooth tenaculum was removed. Excellent hemostasis was assured. All instruments were removed from vagina. Pre Op: Patient is doing well but has desire for sterilization and has complaints of bleeding and pelvic pain. Patient has tried hormone therapy in the past but all attempts to subside patients issues of bleeding have failed. I have discussed conservative management vs. surgical management with the patient in detail and patient desires surgical management at this time. Patient has voiced understanding that a Bilateral Salpingectomy is considered to be permanent and patient will undergo Da Diego assisted Bilateral Laparoscopic Salpingectomy & Endometrial Ablation with Melonie on 02/08/2024. Surgical consents were signed, mmc was reviewed, and patient is to proceed to [facility] OR. Follow Up: Patient is to follow up between 1-2 weeks post op to assess proper healing and recovery from procedure. Documented by Amy Zayas LPN on behalf of: Kerri Hassan DO documented in this encounter [facility] Discharge instructions 12-27-2023 Note Date & Type Note Facility 12-27-2023 Hospital Discharg e instructions Patient Education 12/27/2023 11:40:24 Kidney Stones, Hbcz-dr-Wlgr Kidney Stones Kidney stones are rock-like masses [...] Follow these instructions at home: Medicines Take sbng-qhz-rlqugrd and prescription medicines only as told by [...] provider. Document Revised: 10/27/2022 Document Reviewed: 10/27/2022 [employer] Patient Education 2023 Fridge. Follow Up Care 12/12/2023 13:46:19 With:Karina Bell URL Address: When: Unknown Comments:pending cysto/imaging [facility] Clinical Note 12-27-2023 Note Date & [...] Skin: No rashes or suspicious lesions Assessment/Plan [facility] referred by Dr. 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 [...] order Local anesthesia. -Schedule cystoscopy with Dr. Mundo PEMBERTON and KUB now at [facility] (pt has transvaginal US scheduled for Sunday, will attempt to complete imaging at this time) -Will send cytology at cystoscopy if KUB/RAAD negative for stones -Increase fluids -Start MET if KUB/RAAD + for ureteral stone(s) -F/U pending imaging and cysto Ordered: E&M of New Patient Moderate 45-59 Min 54174 US Renal XR Abdomen 1 View 2. Recurrent UTI (N39.0: Urinary tract infection, site not specified) 12/22/21 cx negative 09/29/23 cx - 20-30k E. Coli, treated with Bactrim DS x7 days (urgent care) -See #1 Ordered: E&M of New Patient Moderate 45-59 Min 78554 Urnls Dip Stick Auto w/o Microscopy POC [id number] US Renal XR Abdomen 1 View 3. [...] E&M of New Patient Moderate 45-59 Min 52780 US Renal XR Abdomen 1 View 4. Pelvic pain (R10.2: Pelvic and perineal pain) Pt being treated by Dr. Hassan for pelvic pain and painful intercourse. She has a transvaginal US scheduled for Sunday at [facility] and diagnostic lap with bilateral salpingectomy and ablation scheduled with Dr. Hassan (more content not included)... [facility] Comment on above: Result Comment: Elec tronically Signed By: Karina Bell\.br\Date and Time Signed: 12/27/23 11:42 EDT Clinical [...] these instructions at home: Medicines ? Take qegm-stu-llsqewt and prescription medicines only as told by [...] Reviewed: 10/27/2022 Elsevier Patient Education ? 2023 Fridge. [facility] Clinical Note 09-26-2023 Note Date & Type Note Facility 09-26-2023 Note Patient Education Ma terials Name: Kiesha Alas Current Date: 09/26/2023 14:55:32 [place] : 1985 The following sheet(s) are the Patient Education Leaflets for Kiesha Alas ED/Trauma Assessment/Plan 1. UTI (urinary tract infection) [...] tabs, 0 Refill(s), 10/03/23 14:50:00 EDT, Pharmacy: [facility]/pharmacy #[id number] Culture Urine Urinary Tract Infections in Women [...] needed, more treatment may be started. ? [id number] [employer]. [address] [place] [address]. All rights reserved. This information is not intended as a substitute for professional medical care. Always follow your healthcare professional's instructions. [facility] Evaluation + Plan note Note Date & Type Note Facility Evaluation + Plan note No data available for this section [facility] Evaluation note Note Date & Type Note Facility Evaluation note Diagnosis Pre-op examination Request for sterilization Menorrhagia with regular cycle Abnormal uterine bleeding (AUB) Pelvic pain in female Unspecified symptom associated with female genital organs documented in this encounter [facility] Evaluation note Note Date & Type Note Facility Evaluation note No assessment information availa [facility] Work Phone: Progress note Note Date & Type Note Facility Progress note No data available for this section [facility] Summary Purpose Family History No Family History Records FoundNo Family History Records Found No data available for this section No Family History Records FoundNo Family History Records FoundNo Family History Records Found Advance Directives No Advanced Directives Records FoundNo Advanced Directives Records FoundNo Advanced Directives Records FoundNo Advanced Directives Records FoundNo Advanced Directives Records Found Additional Source Comments INFORMATION SOURCE (unrecogn ized section and content) DATE CREATED AUTHOR 12/26/2021 [facility] DATE CREATED AUTHOR AUTHOR'S ORGANIZ ATION 10/03/2023 [facility] DATE CREATED AUTHOR AUTHOR'S ORGANIZ ATION 01/10/2024 [facility] DATE CREATED AUTHOR AUTHOR'S ORGANIZ ATION 01/11/2024 [facility] EPIC DATE CREATED AUTHOR AUTHOR'S ORGANIZ ATION 01/12/2024 [facility] Reason for Visit (unrecogniz ed section and content) Reason Comments Pre-op Visit Endometrial Biopsy Care Teams (unrecognized sec tion and content) Team Status: Inactive Member Role Status Dates Kerri Hassan DO Attending Provider Active Start : January 09, 2024 End: January 09, 2024 Tele Marketing Executive Relationship Specialty Start Date End Date Rajiv Middleton MD [address] [place] [address] PCP - General Internal Medicine 09/28/22 Goals (unrecognized section and content) Goals may be documented in a n alternate section FOR RECORDS PERTAINING TO PATIENTS WHO ARE [...] BE BASED ON THE PRIMARY CLINICAL RECORDS. [facility] [employer] [facility]. provides no warranty or guarantee of the accuracy or completeness of information in this document.
== END 2024-01-09 08:00 ==
LOC: LAB 07:59
PROVIDERS: PCP Internal Medicine; Visit Provider Obstetrics & Gynecology
DX: R10.2 Pelvic and perineal pain (principal); N93.8 Other specified abnormal uterine and vaginal bleeding

== ENCOUNTER 2024-02-04 15:00 | Outpatient (OUT) | payer OTHER, SELFPAY ==
--- OUTSIDE RECORDS SUMMARY | 2024-02-04 15:12 | XMS_ITS | CCD ---
Author Organization [facility] Care Team Providers Care Lime Hide Inspector Name Role Phone JAZ LEI Admitting Unavailable JAZ LEI Attending Unavailable RAFAT, DR PRYOR Primary Care Unavailable JO CARRINGTON Consulting Unavailable NIKHIL THRASHER Consulting Unavailable LIOR SANTOS Consulting Unavailable Bishnu MURPHY, Kylah Lucero Attending Erlin Goetz PA-C, yKlah Lucero Attending Rajiv Long MD Primary Care Provider Gene COLLINS Attending Unavailable Karina Singh Attending Unavailable Kerri HASSAN Referring Unavailable DO Kerri Hassan Attending Provider ILA GUNTER Attending Unavailable KERRI HASSAN Attending [...] 2 tab(s), Refills(s) 0, Pharmacy: [facility]/pharmacy #[id number], 160, cm, 12/27/23 10:47:00 EDT, Height/Length [...] Interpretation and review of laboratory results Normal [facility] Preg Test, Ur Negative [facility] Pathology Request for Lab Co rpon 01-09-2024 Pathology Request for Lab Hang Normal [facility] Comment on above: Order Comment: PATHO LOGY EMB SPECIMEN Result Comment: See report. Scanned copy available in EMR. PERFORMED BY: [address] [place] [address] PATHOLOGIST MECHANIC WELDER XANDER SNOW M.D. Performed By: #### P ATH TO [facility] #### [facility] [address] [place], [place] [id number] [facility] Provider Letteron 12-27-2023 Provider Letter Provider Letter December 27, 2023 KIESHA ALAS [address] [place] [address] : 1985 To Whom It May Concern, Please excuse above patient from work. Date of Illness: From: 12/27/23 To: 12/27/23 May Return to Work On: 12/27/23 Restrictions: None Comments: Patient had an appointment with Karina Singh CNP on 12/27/23 Sincerely, [facility] C Urineon 09-29-2023 C Urine ------- [...] S <=20 V Ceftazidime S <=1 V [facility] Comment on above: Performed By: #### U RC #### [facility] (DEFAULT) [address] [place] [address] [facility] [address] [place] [address] OR Trackon 09-26-2023 Specimens Received From [facility] Comment on above: Performed By: #### O utrea Tracking Order #### [facility] [address] [place] [address] Ur Marinelli Vac # 1 [facility] Comment on above: Performed By: #### O [facility] Tracking Order #### [facility] [address] [place] [address] Urgent Care Office/Clinic No shaw 09-26-2023 Urgent [...] Refill(s), 10/03/23 14:50:00 EDT, Pharmacy: [facility]/pharmacy #[id number] Culture Urine Medical Decision Making UA; trace [...] Urine Dipstick Clear 09/26/2023 14:26 EDT Specific [place] Urine Dipstick 1.015 09/26/2023 14:26 EDT pH [...] Kylah Goetz PA-C 09/29/23 09:09 EDT Normal [facility] CT ABD/PELVIS WO CONon 12-23 [...] LIOR SANTOS Date: 2021-12-22 22:07 Normal [facility] CBC AUTO DIFFon 12-22-2021 BASO # 0.0 103/ul Normal 0.0-0.1 [facility] Comment on above: Performed By: #### C BC #### [facility] [address] [place], [place] [address] Dr. Shannon Hoyt Basophils/100 WBC (Bld) 0.5 % Normal 0.2-2.0 [facility] Comment on above: Performed By: #### C BC #### [facility] [address] [place], [place] [address] Dr. Shannon Hoyt EO # 0.1 103/ul Normal 0.0-0.7 [facility] Comment on above: Performed By: #### C BC #### [facility] [address] [place] [address] Dr. Shannon Hoyt Eosinophils/100 WBC (Bld) 1.0 % Normal 0.9-7.0 [facility] Comment on above: Performed By: #### C BC #### [facility] [address] [place] [address] Dr. Shannon Hoyt Erythrocyte distribution width (RBC) [Ratio] 11.8 % Normal 11.0-15.0 [facility] Comment on above: Performed By: #### C BC #### [facility] [address] [place] [address] Dr. Shannon Hoyt Hematocrit (Bld) [Volume fraction] 33.9 % Critically low 36.0-48.0 [facility] Comment on above: Performed By: #### C BC #### [facility] [address] [place] [address] Dr. Shannon Hoyt Hemoglobin (Bld) [Mass/Vol] 11.3 g/dL Critically low 12.0-16.0 [facility] Comment on above: Performed By: #### C BC #### [facility] [address] [place] [address] Dr. Shannon Hoyt IG # 0.02 10e3/ul Normal 0.00-0.03 [facility] Comment on above: Performed By: #### C BC #### [facility] [address] [place] [address] Dr. Shannon Hoyt IG % 0.3 % Normal 0.0-0.5 [facility] Comment on above: Performed By: #### C BC #### [facility] [address] [place] [address] Dr. Shannon Hoyt LYMPH # 1.2 103/ul Normal 1.2-3.8 [facility] Comment on above: Performed By: #### C BC #### [facility] [address] [place] [address] Dr. Shannon Hoyt Lymphocytes/100 WBC (Bld) 20.5 % Normal 20.5-60.0 [facility] Comment on above: Performed By: #### C BC #### [facility] [address] [place] [address] Dr. Shannon Hoyt MANUAL DIFF REQ NO Normal [facility] Comment on above: Performed By: #### C BC #### [facility] [address] [place] [address] Dr. Shannon Hoyt MCH (RBC) [Entitic mass] 30.1 pg Normal 26.7-34.0 [facility] Comment on above: Performed By: #### C BC #### [facility] [address] [place] [address] Dr. Shannon Hoyt MCHC (RBC) [Mass/Vol] 33.3 g/dL Normal 29.9-35.2 [facility] Comment on above: Performed By: #### C BC #### [facility] [address] [place] [address] Dr. Shannon Hoyt MCV (RBC) [Entitic vol] 90.2 fL Normal 81.0-99.0 [facility] Comment on above: Performed By: #### C BC #### [facility] [address] [place] [address] Dr. Shannon Hoyt MONO # 0.7 103/ul Normal 0.3-0.8 [facility] Comment on above: Performed By: #### C BC #### [facility] [address] [place] [address] Dr. Shannon Hoyt Monocytes/100 WBC (Bld) 11.7 % Normal 1.7-12.0 [facility] Comment on above: Performed By: #### C BC #### [facility] [address] [place] [address] Dr. Shannon Hoyt NEUT # 4.0 103/ul Normal 1.4-6.5 [facility] Comment on above: Performed By: #### C BC #### [facility] [address] [place] [address] Dr. Shannon Hoyt Neutrophils/100 WBC (Bld) 66.0 % Normal 43.0-75.0 [facility] Comment on above: Performed By: #### C BC #### [facility] [address] [place] [address] [address] Shannon Hoyt Platelet mean volume (Bld) [Entitic vol] 9.9 fL Normal 9.5-13.5 [facility] Comment on above: Performed By: #### C BC #### [facility] [address] [place] [address] Dr. Shannon Hoyt PLT 191 103/ul Normal 150-450 [facility] Comment on above: Performed By: #### C BC #### [facility] [address] [place] [address] [address] Shannon Hoyt RBC 3.76 106/ul Critically low 4.20-5.40 [facility] Comment on above: Performed By: #### C BC #### [facility] [address] [place] [address] Dr. Shannon Hoyt WBC 6.0 103/ul Normal 4.0-11.0 [facility] Comment on above: Performed By: #### C BC #### [facility] [address] [place] [address] Dr. Shannon Hoyt CULTURE URINEon 12-22-2021 CULTURE URINE Culture Observations: NO GROWTH. Normal [facility] Comment on above: Performed By: #### U RCX #### [facility] [address] [place] [address] Dr. Shannon Hoyt [facility] SARS-CoV-2 (COVID-19) RNA RICHARD+probe Ql (Unsp spec) Not detected Normal NOT DETECTED [facility] Comment on above: Result Comment: When [...] for this test is supported by the [place] of [employer] and Human Service's declaration that [...] Performed By: #### C VDTB #### [facility] [address] [place] [address] Dr. Shannon Hoyt ER URINE PROFILEon 2 Bilirubin Ql (U) Negative Normal NEGATIVE [facility] Comment on above: Performed By: #### E RUR, UMICRO #### [facility] [address] [place] [address] Dr. Shannon Hoyt Clarity (U) CLEAR Normal CLEAR [facility] Comment on above: Performed By: #### E RACHELR, UMICRO #### [facility] [address] [place] [address] Dr. Shannon Hoyt Color (U) LT. YELLOW Normal YELLOW [facility] Comment on above: Performed By: #### E RUR, UMICRO #### [facility] [address] [place] [address] Dr. Shannon VASQUEZ A micrscopic examination will be performed if indicated. Normal [facility] Comment on above: Performed By: #### Cipriano RMAOSR, UMICRO #### [facility] [address] [place] [address] Dr. Shannon Hoyt Glucose Ql (U) Negative Normal NEGATIVE [facility] Comment on above: Performed By: #### E RUR, UMICRO #### [facility] [address] [place] [address] Dr. Shannon Hoyt Hemoglobin Ql (U) SMALL Abnormal NEGATIVE [facility] Comment on above: Performed By: #### E RUR, UMICRO #### [facility] [address] [place] [address] Dr. Shannon Hoyt Ketones Ql (U) 40 mg/dl Abnormal NEGATIVE [facility] Comment on above: Performed By: #### E RACHELR, UMICRO #### [facility] [address] [place] [address] Dr. Shannon Hoyt LEUKOCYTES Negative Normal NEGATIVE [facility] Comment on above: Performed By: #### RAOUL TOUSSAINT #### [facility] [address] [place] [address] Dr. Shannon Hoyt Nitrite Ql (U) Negative Normal NEGATIVE [facility] Comment on above: Performed By: #### RAOUL TOUSSAINT #### [facility] [address] [place] [address] Dr. Shannon Hoyt pH (U) 6.0 [pH] Normal 5-9 [facility] Comment on above: Performed By: #### RAOUL TOUSSAINT #### [facility] [address] [place] [address] Dr. Shannon Hoyt SPEC GRAVITY 1.020 Normal 1.005-<=1.025 [facility] Comment on above: Performed By: #### RAOUL TOUSSAINT #### [facility] [address] [place] [address] Dr. Shannon Hoyt UA PROTEIN Negative Normal NEGATIVE/ TRACE [facility] Comment on above: Performed By: #### RAOUL TOUSSANIT #### [facility] [address] [place] [address] Dr. Shannon Hoyt UR MICRO IND INDICATED Normal [facility] Comment on above: Performed By: #### RAOUL TOUSSAINT #### [facility] [address] [place] [address] Dr. Shannon Hoyt Urobilinogen Qn (U) 0.2 {Galileo'U}/dL Normal 0.2 - 1. 0 [facility] Comment on above: Performed By: #### RAOUL TOUSSAINT #### [facility] [address] [place] [address] Dr. Shannon Hoyt LACTATE/LACTIC ACIDon 2021 Lactate [Moles/Vol] 1.0 mmol/L Normal 0.4-1.9 [facility] Comment on above: Performed By: #### L ACT #### [facility] [address] [place] [address] [address] Shannon Hoyt LIPASEon 12-22-2021 Lipase [Catalytic activity/Vol] 58.0 U/L Critically low 73.0-393.0 [facility] Comment on above: Performed By: #### L IPA, CMP #### [facility] [address] [place] [address] [address] Shannon Hoyt PREG HCG QUALon 12-22-2021 , QUAL Negative Normal NEGATIVE [facility] Comment on above: Performed By: #### P REG #### [facility] [address] [place] [address] [address] Shannon Hoyt PROF 14(COMP METB)on 022 Albumin [Mass/Vol] 2.9 g/dL Critically low 3.4-5.0 [facility] Comment on above: Performed By: #### L IPA, CMP #### [facility] [address] [place] [address] Dr. Shannon Hoyt Albumin/Globulin [Mass ratio] 0.8 {ratio} Normal [facility] Comment on above: Performed By: #### L IPA, CMP #### [facility] [address] [place] [address] Dr. Shannon Hoyt ALP [Catalytic activity/Vol] 58 U/L Normal 46-116 [facility] Comment on above: Performed By: #### L IPA, CMP #### [facility] [address] [place] [address] Dr. Shannon Hoyt ALT [Catalytic activity/Vol] 33 U/L Normal 14-59 [facility] Comment on above: Performed By: #### L IPA, CMP #### [facility] [address] [place] [address] Dr. Shannon Hoyt Anion gap [Moles/Vol] 8.0 mmol/L Normal [facility] Comment on above: Performed By: #### L IPA, CMP #### [facility] [address] [place] [address] Dr. Shannon Hoyt AST [Catalytic activity/Vol] 21 U/L Normal 15-37 [facility] Comment on above: Performed By: #### L IPA, CMP #### [facility] [address] [place] [address] Dr. Shannon Hoyt Bilirubin [Mass/Vol] 0.2 mg/dL Normal 0.2-1.0 [facility] Comment on above: Performed By: #### L IPA, CMP #### [facility] [address] [place] [address] Dr. Shannon Hoyt Calcium [Mass/Vol] 8.2 mg/dL Critically low 8.5-10.1 [facility] Comment on above: Performed By: #### L IPA, CMP #### [facility] [address] [place] [address] Dr. Shannon Hoyt Chloride [Moles/Vol] 106 mmol/L Normal 98-107 [facility] Comment on above: Performed By: #### L IPA, CMP #### [facility] [address] [place] [address] Dr. Shannon Hoyt CO2 [Moles/Vol] 27.9 mmol/L Normal 21.0-32.0 [facility] Comment on above: Performed By: #### L IPA, CMP #### [facility] [address] [place] [address] Dr. Shannon Hoyt Creatinine [Mass/Vol] 0.70 mg/dL Normal 0.55-1.02 [facility] Comment on above: Performed By: #### L IPA, CMP #### [facility] [address] [place] [address] Dr. Shannon Hoyt EGFR-AF MAURITANIAN >60 Normal >=60 [facility] Comment on above: Performed By: #### L IPA, CMP #### [facility] [address] [place] [address] Dr. Shannon Hoyt EGFR-NON AF MAURITANIAN >60 Normal >=60 [facility] Comment on above: Performed By: #### L IPA, CMP #### [facility] [address] [place] [address] Dr. Shannon Hoyt Globulin (S) [Mass/Vol] 3.5 g/dL Normal [facility] Comment on above: Performed By: #### L IPA, CMP #### [facility] [address] [place] [address] [address] Shannon Hoyt Glucose [Mass/Vol] 108 mg/dL Critically high 74-106 [facility] Comment on above: Performed By: #### L IPA, CMP #### [facility] [address] [place] [address] [address] Shannon Hoyt Potassium [Moles/Vol] 3.9 mmol/L Normal 3.5-5.1 [facility] Comment on above: Performed By: #### L IPA, CMP #### [facility] [address] [place] [address] [address] Shanonn Hoyt Protein [Mass/Vol] 6.4 g/dL Normal 6.4-8.2 [facility] Comment on above: Performed By: #### L IPA, CMP #### [facility] [address] [place] [address] Dr. Shannon Hoyt Sodium [Moles/Vol] 138 mmol/L Normal 136-145 [facility] Comment on above: Performed By: #### L IPA, CMP #### [facility] [address] [place] [address] Dr. Shannon Hoyt Urea nitrogen [Mass/Vol] 7.0 mg/dL Normal 7.0-18.0 [facility] Comment on above: Performed By: #### L IPA, CMP #### [facility] [address] [place] [address] Dr. Shannon Hoyt Urea nitrogen/Creatinine [Mass ratio] 10.0 mg/mg Normal [facility] Comment on above: Performed By: #### L IPA, CMP #### [facility] [address] [place] [address] Dr. Shannon Hoyt URINE MICROSCOPIC ONLYon BACTERIA SMALL Abnormal NONE SEEN [facility] Comment on above: Performed By: #### BRITTANEY TOUSSAINTRO #### [facility] [address] [place] [address] Dr. Shannon Hoyt Bacteria identified Cx Nom (U) INDICATED Normal [facility] Comment on above: Performed By: #### BRITTANEY TOUSSAINTRO #### [facility] [address] [place] [address] Dr. Shannon Hoyt CAST NONE SEEN Normal NONE SEEN [facility] Comment on above: Performed By: #### Cipriano REYEZ UMICRO #### [facility] [address] [place] [address] Dr. Shannon Hoyt Crystals LM Nom (Urine sed) NONE SEEN Normal NONE SEEN [facility] Comment on above: Performed By: #### Cipriano REYEZ UMICRO #### [facility] [address] [place] [address] Dr. Shannon Hoyt Epithelial cells LM Ql (Urine sed) FEW Abnormal NONE SEEN /RARE [facility] Comment on above: Performed By: #### Cipriano REYEZ UMALBERTRO #### [facility] [address] [place] [address] Dr. Shannon Hoyt MUCOUS TRACE Abnormal NONE SEEN [facility] Comment on above: Performed By: #### BRITTANEY TOUSSAINTRO #### [facility] [address] [place] [address] Dr. Shannon Hoyt RBC 0-2 Normal 0-2 [facility] Comment on above: Performed By: #### BRITTANEY TOUSSAINTRO #### [facility] [address] [place] [address] Dr. Shannon Hoyt WBC 20-50 Abnormal NONE SEEN [facility] Comment on above: Performed By: #### BRITTANEY TOUSSAINTRO #### [facility] [address] [place] [address] Dr. Shannon Hoyt Vital Signs Date Time Vital Sign Value Performing Clinician Facility 01-09-2024 15:40-0400 Body mass index (BMI) [Ratio] 22.49 kg/m2 [facility] Work Phone: [facility] 01-09-2024 15:40-0400 Body weight 59.42 kg [facility] Work Phone: [facility] 01-09-2024 15:40-0400 Diastolic blood pressure 68 mm[Hg] [facility] Work Phone: [facility] 01-09-2024 15:40-0400 Systolic blood pressure 110 mm[Hg] Kerri Sonya DO Work Phone: [facility] 12-27-2023 10:45-0400 Blood Pressure Location Karina Galea [facility] 12-27-2023 10:45-0400 Diastolic blood pressure 78 mm[Hg] Karina Galea [facility] 12-27-2023 10:45-0400 Heart rate 73 /min Karina Galea [facility] 12-27-2023 10:45-0400 Respiratory rate 18 /min Karina Galea [facility] 12-27-2023 10:45-0400 Systolic blood pressure 117 mm[Hg] Karina Galea [facility] Encounters Encounter Date Encounter Type Care Provider Facility Start: 03-11-2024 ambulatory Gene Marcano ty:[facility] Start: 01-09-2024 End: 01-09-2024 Departed Referred DO Kerri Sonya Work Phone: [facility] Start: 01-09-2024 End: 01-09-2024 Patient encounter procedure Kerri Sonya DO Work Phone: [facility] Comment on above: Pre-op examination; Request for sterilization; Menorrhagia with regular cycle; Abnormal uterine bleeding (AUB); Pelvic pain in female Start: 01-09-2024 End: 01-09-2024 Preprocedural examination done Kerri Sonya DO Work Phone: [facility] Start: 01-09-2024 End: 01-09-2024 ambulatory KERRI [facility] Work Phone: Start: 12-27-2023 End: 12-27-2023 ambulatory Karina Singh Facility:[facility] [place] Start: 12-27-2023 End: 12-27-2023 Patient encounter procedure Karina Singh [facility] Eugenie Start: 12-11-2023 ambulatory Gene COLLINS Facility :[facility] [place] Start: 12-10-2023 End: 12-10-2023 ambulatory KERRI HASSAN Not Available Start: 10-01-2023 End: 10-01-2023 ambulatory ILA KAYEY Not Available Start: 09-26-2023 End: 09-26-2023 ambulatory Kylah Goetz PA-C Facility:[facility] Start: 12-22-2021 End: 12-23-2021 ambulatory JAZ LEI Facility:[facility] Procedures Date Procedure Procedure Detail Performing Clinician Start: 01-09-2024 Urine test visual color cmprsn meths Kerri Sonya DO Work Phone: Plan of Treatment Date Care Activity Detail Author Start: 10-02-2024 End: 10-02-2024 Patient encounter procedure 10/02/2024 10:00 AM EDT Office Visit [facility] [address] [place] [address] Kerri Hassan, DO [address] [place] [address] [facility] Endometrial biopsy Endometrial b iopsy Procedures Routine Menorrhagia with regular cycle Abnormal uterine bleeding (AUB) Pelvic pain in female Ordered: 01/09/2024 [facility] Work Phone: Comment on above: Ordered: 01/09/2024 Payers Date Payer Category Payer Self-pay 2023 Unknown 2022 Private Health Insurance [employer] [id number] 1984 Unknown [id number] 593 1984 Unknown [id number]. 196 1984 Unknown [id number]. 196 1984 Unknown [id number]. 727 1984 Unknown [id number]. 727 1984 Unknown [id number]. 727 1984 Unknown [id number] [id number]. 1259 1984 Unknown [id number]. 1259 1984 Unknown [id number]. 1259 1959 Unknown [id number] Social History Date Type Detail Facility Start: 08-22-2022 End: 12-27-2023 Tobacco smoking status Never smoked tobacco (finding) [facility] Start: 04-06-2023 Sex Assigned At Female [facility] Start: 12-10-2023 Alcoholic beverage intake Current drinker of alcohol (finding) [facility] Start: 04-06-2023 History of Social function [facility] Start: 08-22-2022 Alcohol Comment caffeine: 2-3 cups per day, coffee [facility] Start: 1985 Sex assigned at Not on file [facility] Start: 09-25-2022 Sexual orientation Heterosexual (finding) [facility] Start: 1985 Sex Assigned At Female [facility] Functional Status Date Assessment Result Facility 12-27-2023 Functional Status N/A [facility] [facility] History of Present illness Narrative 01-09-2024 [...] on 02/08/[address] Hassan at [facility]. MEDICATIONS Current Outpatient Medications Medication Instructions sulfamethoxazole-trimethoprim [...] nursing note reviewed. Exam conducted with a software lead present. Vitals: Estimated body mass index is [...] reviewed, and patient is to proceed to [facility] OR. Follow Up: Patient is to follow up between 1-2 weeks post op to assess proper healing and recovery from procedure. Documented by Amy Zayas LPN on behalf of: Kerri Hassan DO documented in this encounter [facility] Hospital Discharge instructions 12-27-2023 Note Date & Type Note Facility 12-27-2023 Hospital Discharg e instructions Patient Education 12/27/2023 11:40:24 Kidney Stones, Tjya-xv-Hpbl Kidney Stones Kidney stones are rock-like masses [...] Follow these instructions at home: Medicines Take bvgp-pum-swagdzy and prescription medicines only as told by [...] provider. Document Revised: 10/27/2022 Document Reviewed: 10/27/2022 [employer] Patient Education 2023 [employer]. 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 [...] Dr. Mundo [place] and KUB now at [facility] (pt has transvaginal US scheduled for Sunday, will attempt to complete imaging at this time) -Will send cytology at cystoscopy if KUB/RAAD negative for stones -Increase fluids -Start MET if KUB/RAAD + for ureteral stone(s) -F/U pending imaging and cysto Ordered: E&M of New Patient Moderate 45-59 Min 90302 US Renal XR Abdomen 1 View 2. Recurrent UTI (N39.0: Urinary tract infection, site not specified) 12/22/21 cx negative 09/29/23 cx - 20-30k E. Coli, treated with Bactrim DS x7 days (urgent care) -See #1 Ordered: E&M of New Patient Moderate 45-59 Min 50351 Urnls Dip Stick Auto w/o Microscopy POC 32537 US Renal XR Abdomen 1 View 3. [...] E&M of New Patient Moderate 45-59 Min 14461 US Renal XR Abdomen 1 View 4. Pelvic pain (R10.2: Pelvic and perineal pain) Pt being treated by Dr. Hassan for pelvic pain and painful intercourse. She has a transvaginal US scheduled for Sunday at [facility] and diagnostic lap with bilateral salpingectomy and ablation scheduled with Dr. Hassan (more content not included)... [facility] Comment on above: Result Comment: Elec [...] these instructions at home: Medicines ? Take hpcg-toy-woxoqvg and prescription medicines only as told by [...] Reviewed: 10/27/2022 Elsevier Patient Education ? 2023 [employer] [facility] Clinical Note 09-26-2023 Note Date & Type Note Facility 09-26-2023 Note Patient Education Ma terials Name: Kiesha Alas Current Date: 09/26/2023 14:55:32 [place] : 1985 [facility]: [id number] The following sheet(s) are the Patient Education [...] Refill(s), 10/03/23 14:50:00 EDT, Pharmacy: [facility]/pharmacy #[id number] Culture Urine Urinary Tract Infections in Women [...] needed, more treatment may be started. ? [id number] [employer]. [address] [place] [address], [place] [address]. All rights reserved. This information is not intended as a substitute for professional medical care. Always follow your healthcare professional's instructions. [facility] Evaluation + Plan note Note Date & Type Note Facility Evaluation + Plan note No data available for this section [facility] Evaluation note Note Date & Type Note Facility Evaluation note Diagnosis Pre-op examination Request for sterilization Menorrhagia with regular cycle Abnormal uterine bleeding (AUB) Pelvic pain in female Unspecified symptom associated with female genital organs documented in this encounter [facility] Evaluation note Note Date & Type Note Facility Evaluation note No assessment information availa [facility] Work Phone: Progress note Note Date & Type Note Facility Progress note No data available for this section [facility] Summary Purpose Family History No Family [...] and content) DATE CREATED AUTHOR 12/26/2021 [facility] DATE CREATED AUTHOR AUTHOR'S ORGANIZ ATION 10/03/2023 [facility] DATE CREATED AUTHOR AUTHOR'S ORGANIZ ATION 01/10/2024 [facility] DATE CREATED AUTHOR AUTHOR'S ORGANIZ ATION 01/11/2024 [facility] DATE CREATED AUTHOR AUTHOR'S ORGANIZ ATION 01/17/2024 [facility] Reason for Visit (unrecogniz ed section and content) Reason Comments Pre-op Visit Endometrial Biopsy Care Teams (unrecognized sec tion and content) Team Status: Inactive Member Role Status Dates Kerri Hassan DO Attending Provider Active Start : January 09, 2024 End: January 09, 2024 Lime Hide Inspector Relationship Specialty Start Date End Date Rajiv Middleton MD [address] [place] [address] PCP - General Internal Medicine 09/28/22 Goals [...] BE BASED ON THE PRIMARY CLINICAL RECORDS. [facility] [employer]. provides no warranty or guarantee of the accuracy or completeness of information in this document.
== END 2024-02-04 15:01 | disposition home or self-care (01) ==
LOC: PST 15:00
PROVIDERS: PCP Internal Medicine; Visit Provider Obstetrics & Gynecology
DX: Z01.818 Encounter for other preprocedural examination (principal); Z30.2 Encounter for sterilization; N92.0 Excessive and frequent menstruation with regular cycle; N93.9 Abnormal uterine and vaginal bleeding, unspecified; R10.2 Pelvic and perineal pain

== ENCOUNTER 2024-02-08 08:29 | Day surgery (SDC) | payer OTHER, SELFPAY ==
[2024-02-04 15:18] VITALS: BP 99/71; PULSE 76; TEMP 36.3; O2SAT 100; BMI 22.5
[2024-02-08] VITALS (14 sets, daily range): BP systolic 93–113; BP diastolic 61–81; PULSE 72–98; TEMP 36.6–36.8; O2SAT 97–100; BMI 23.0
[2024-02-08 08:44] LABS: Basophils Absolute Auto 0.1 10^3/uL (0.0-0.1); Basophils Percent Auto 1.3 % (0.2-2.0); Eosinophils Absolute Auto 0.1 10^3/uL (0.0-0.7); Eosinophils Percent Auto 2.4 % (0.9-7.0); Hematocrit 37.5 % (36.0-48.0); Hemoglobin 12.7 g/dL (12.0-16.0); Immature Granulocytes Abs Auto 0.01 10^3/uL (0.00-0.03); Immature Granulocytes Pct Auto 0.2 % (0.0-0.5); Lymphocytes Absolute Auto 1.6 10^3/uL (1.2-3.8); Lymphocytes Percent Auto 35.8 % (20.5-60.0); Mean Corpuscular HGB Conc 33.9 g/dL (29.9-35.2); Mean Corpuscular Hemoglobin 30.1 pg (26.7-34.0); Mean Corpuscular Volume 88.9 fL (81.0-99.0); Monocytes Absolute Auto 0.5 10^3/uL (0.3-0.8); Monocytes Percent Auto 11.1 % (1.7-12.0); Neutrophils Absolute Auto 2.2 10^3/uL (1.4-6.5); Neutrophils Percent Auto 49.2 % (43.0-75.0); Platelet Count 200 10^3/uL (150-450); Red Blood Count 4.22 10^6/uL (4.20-5.40); Red Cell Distribution Width 12.4 % (11.0-15.0); White Blood Count 4.5 10^3/uL (4.0-11.0)
[2024-02-08 09:06] LABS: HCG Quantitative <1 mIU/mL
[2024-02-08] MEDS: LACTATED RINGER'S SOLUTION 1,000 ML 50 ML IV ×2 (09:21→13:36)
--- NOTE | 2024-02-08 11:23 | PM.ONB ---
Brief Operative Note Date of procedure: 02/08/24 Pre-op diagnosis general: desires permanent sterilization, menorrhagia Post-op diagnosis: same as pre-op Procedure: NAME OF PROCEDURE: robotic assisted Laparoscopic bilateral salpingectomy, with Melonie endometrial ablation with hysteroscopy PROCEDURE: The patient was taken back to the OR where she was prepped and draped in the normal sterile fashion after being placed in the dorsal lithotomy position, after being placed under general anesthesia without difficulty. a weighted speculum was then placed into the vagina. Pap and endometrial bx were performed without difficultyThe anterior lip was grasped with a single tooth tenaculum. The patient was then sounded to approximatley 9cm. The patient was gently sounded using Hegar dilators and the hysteroscope was passed through the cervix into the uterus where both ostia were seen. No gross evidence of polyps, fibroids or malignancy. The cervical length was noted to be 4cm. The Melonie ablation apparatus was set to approximately 5cm in length. This was placed in through the cervix and into the uterus. After the seal was tested, at that time the total ablation of 120 seconds was performed with the Melonie without difficulty. All instruments were removed from the vagina. A wet sponge stick was placed into the patient's vagina. Attention was then turned to the patient's abdomen, where a scalpel was used to make a small infraumbilical incision. The S retractors were then used to dissect the underlying layers until the fascia could be seen. The fascia was then grasped with Susanne clamps and tented up. A knife was then used to make a small incision to the fascia. The muscle was identified, at that time two sutures of #0 Vicryl on a GI needlewas then used and placed through the fascia. The peritoneum was then identified and entered bluntly. The 10-4 Peter was then placed into the patient's abdomen. This was confirmed with direct visualization of the bowel, using the laparoscope. The patient's abdomen was then insufflated using approximately 4 liters of CO2 gas. Survey of the patient's abdomen demonstrated normal appearing ovaries, uterus and tubes. A second and third lateral robotic ports, which was 8mm in size, was then placed laterally after incision was made in the skin under direct visualization. the robotic arms were engaged. The patient's tube on the patient's right side was identified. The tube was then tented up using a grasper. The ligasure was used to transect and coagulate the mesosalpingx from the fimbriated end to the insertion at the uterus, the tube was amputated and removed in its entirety.? Excellent hemostasis was noted. ?This was performed on the contralateral sideas well. The lateral ports were then moved under direct visualization with excellent hemostasis. The abdomen was deinsufflated. All instruments were removed from the patient's abdomen. The fascia was closed using the #0 Vicryl on GI needle. The skin was closed using 4-0 Vicryl subcuticularly. All instruments were removed from the patient's vagina as well. The patient was taken out of the dorsal lithotomy position and placed in the supine position and taken to recovery in stable condition. Sponge, lap and needle counts were correct x2. ??? Anesthesia: REENA Surgeon: Austyn Hassan Rotor Casting Machine Setup Operator: Demetra Ramirez Estimated blood loss (mL): 5 Pathology: other (tubes) Condition: stable Disposition: PACU Urinary Catheter Management Urinary Catheter Management Urethral: Cath placed during this visit: no
[2024-02-08] MEDS: LACTATED RINGER'S SOLUTION 1,000 ML 1000 ML IV (11:37)
[2024-02-08] MEDS: HYDROCODONE/ACET 5-325 MG TABLET 1 TAB PO (12:24)
[2024-02-08] MEDS: PROMETHAZINE HCL 25 MG/ML VIAL IM (14:07)
[2024-02-08] MEDS: MEPERIDINE HCL/PF 25 MG/ML VIAL IM (14:08)
== END 2024-02-08 14:45 | disposition home or self-care (01) ==
PROVIDERS: PCP Internal Medicine; Visit Provider Obstetrics & Gynecology
PROC: (CPT 840; principal; 2024-02-08 09:40)
PROC: (CPT 840; 2024-02-08 09:40)
DX: Z30.2 Encounter for sterilization (principal); N92.0 Excessive and frequent menstruation with regular cycle; N93.9 Abnormal uterine and vaginal bleeding, unspecified; R10.2 Pelvic and perineal pain; N83.8 Other noninflammatory disorders of ovary, fallopian tube and broad ligament; Z85.3 Personal history of malignant neoplasm of breast
CPT/HCPCS: 58563; 58661; 36415; 84702; 85025; 88302; J0131; J1100; J1171; J1885; J2175; J2250; J2405; J2704; J3010

== ENCOUNTER 2024-04-07 08:03 | Outpatient (OUT) | payer OTHER, SELFPAY ==
--- OUTSIDE RECORDS SUMMARY | 2024-04-07 08:16 | XMS_ITS | CCD ---
Author Organization [facility] Inform ion Partnership [facility] Care Team Providers Care Sales And Marketing Intern Name Role Phone JAZ LEI Admitting Unavailable JAZ LEI Attending Unavailable RAFAT, DR PRYOR Primary Care Unavailable JO CARRINGTON Consulting Unavailable ANNA MARIE, NIKHIL Consulting Unavailable LIOR SANTOS Consulting Unavailable Bishnu MURPHY, Kylah Lucero Attending Erlin Goetz PA-C, Kylah Lucero Attending Tasiav Rajiv Denise MD Primary Care Provider Sonya, DO Zaman Attending Provider ILA GUNTER Attending Unavailable SONYA, KERRI Attending Unavailable SONYA, KERRI Attending Unavailable Sonya, Kerri Attending Unavailable Sonya, Kerri Admitting Unavailable Sonya, Kerri Attending Unavailable Sonya, Kerri Admitting Unavailable NONE, XXXX Primary Care Physician Unavailab Gene Mosqueda Admitting Unavailable Gene FLOWER Attending Unavailable Gene FLOWER Attending Unavailable Gene FLOWER Attending Unavailable Gene FLOWER Attending Unavailable Kerri HASSAN R Referring Unavailable Karina Singh Attending Unavailable Medications Current Medications Medication Drug Class(es) Dates Sig (Normalized) Sig (Original) metroNIDAZOLE 500 mg oral tablet (3 sources) Nitroimidazole Antimicrobial Start: 12-10-2023 End: 12-17-2023 take 1 tablet by mouth in the morning metroNIDAZOLE (Flagyl) 500 MG tablet Indications: Vaginal discharge Take 1 tablet (500 mg) by mouth in the morning and 1 tablet (500 mg) before bedtime. Do all this for 7 days. Do not drink alcohol while taking this medication. 14 tablet 12/10/2023 12/17/2023 Active sulfamethoxazole 800 mg / trimethoprim 160 mg oral tablet (6 sources) Dihydrofolate Reductase Inhibitor Antibacterial, Sulfonamide Antimicrobial Start: 09-26-2023 take 1 tablet by mouth once in the morning, then take 1 tablet by mouth once at bedtime sulfamethoxazole-t rimethoprim (Bactrim DS) 800-160 MG per tablet Take 1 tablet by mouth in the morning and 1 tablet before bedtime. 09/26/2023 Active Completed/Discontinued Medications Medication Drug Class(es) Dates Sig (Normalized) Sig (Original) ciprofloxacin 500 mg oral tablet (3 sources) Quinolone Antimicrobial Start: 12-27-2023 take 1 tablet by mouth once daily Cipro 500 mg Tab 500 mg = 1 tab(s), Oral, Daily, Take 1 tablet the day before the procedure and 1 tablet after the procedure, # 2 tab(s), Refills(s) 0, Pharmacy: [facility]/pharmacy #[id number], 160, cm, 12/27/23 10:47:00 EDT, Height/Length Dosing, 57, kg, 12/27/23 10:47:00 EDT, Weight Dosing Start Date: 12/27/23 Status: Ordered Problems Problem Classification Problem Date Documented Date Episodic/Chronic Abdominal pain (14 sources) Pelvic and perineal pain; Translations: [Pelvic and perineal pain] Onset: 12-10-2023 Episodic Calculus of urinary tract (5 sources) Kidney stone; Translations: [Calculus of kidney] Onset: 12-27-2023 Episodic Contraceptive and procreative management (1 source) Sterilization requested; Translations: [Encounter for sterilization] 01-09-2024 Episodic Genitourinary symptoms and ill-defined conditions (4 sources) Blood in urine; Translations: [Gross hematuria] Onset: 12-27-2023 Episodic Malaise and fatigue (3 sources) Weakness; Translations: [WEAKNESS] Onset: 12-22-2021 Episodic Menstrual disorders (10 sources) Menorrhagia; Translations: [Excessive and frequent menstruation with regular cycle] Onset: 12-10-2023 01-09-2024 Chronic Other diseases of bladder and urethra (3 sources) Urethral stricture; Translations: [Other urethral stricture, female] Onset: 03-11-2024 Episodic Other female genital disorders (1 source) Abnormal uterine bleeding; Translations: [Abnormal uterine and vaginal bleeding, unspecified] 01-09-2024 Chronic Other female genital disorders (7 sources) Vaginal discharge; Translations: [Other specified noninflammatory disorders of vagina] Onset: 12-10-2023 12-10-2023 Episodic Unclassified (1 source) CONTACT W/AND (SUSP) EXPOS COVID-19; Translations: [CONTACT W/AND (SUSP) EXPOS COVID-19] Onset: 12-26-2021 Urinary tract infections (14 sources) Urinary tract infection, site not specified; Translations: [Tubulo-interstitial nephritis, not specified as acute or chronic] Onset: 12-26-2021 Episodic Results Test Name Value Interpretation Reference Range Facility [facility] Fish and Urine Cyt o ([facility])on 03-20-2024 UVFISH & UC Diagnosis Info Invalid Interpretation Code [facility] Comment on above: Result Comment: A:Ur ine,Bladder Wash:Bladder Wash Diagnosis Summary - Adequate cellularity for evaluation. Diagnosis Summary - The [facility] FISH study detected normal copy numbers for chromosomes 3, 7, 17, and 9p21. 108 cells were analyzed in this evaluation. No evidence of aneuploidy for chromosomes 3, 7, or 17 or deletion of the 9p21 locus was found in cells present in this specimen. This test does not rule out the possibility of a low grade non-invasive papillary urothelial carcinoma. These findings should be correlated with cytology and cystoscopy results. * CPT: 71295, 58451. Microscopic Notes - Microscopic Notes - Abnormal cells 9p21 deletions: Abnormal cells aneploid events: Total cells analyzed: 108 Hematuria: Gross Description Site ID:A color Yellow fixative Alcohol Received 100 mls of clear yellow fluid with the patient's name and, Bladder Wash on the vial. Electronically signed by : on: 03/20/2024 10:15:45 Performed By: #### 1 [id number] #### [facility] [address] [place] [address] Ambulatory Visit Summaryon 1 05-12-2023 Ambulatory Visit Summary Ambulatory Visit Summary KIESHA ALAS :1985 Visit Date:03/11/2024 Ambulatory Visit Instructions Your Diagnosis Gross hematuria Recurrent UTI Kidney stones Pelvic and perineal pain Other urethral stricture, female Your Care Team Attending Physician - KARINA CORDOVA, Gene Griffith This Is Your Medications List ciprofloxacin (Cipro 500 mg Tab) Procedures Performed Flexible cystoscopy (03/11/2024). Discharge Vitals Heart Rate (Peripheral) 70 Blood Pressure 124/84 Height 160 cm Height 63 in Weight 60.0 kg Weight 132.277 lb BMI 23.44 What to do next You Need to Schedule the Following Appointments Follow Up with KARINA CORDOVA, BERTO Roldan When: Where: [facility] [address] [place] [address]- Medications What How Much When Instructions Unchanged ciprofloxacin (Cipro 500 mg Tab) 1 Tablets By Mouth Every day Take 1 tablet the day before the procedure and 1 tablet after the procedure Medications and Immunizations Administered Given lidocaine Top 2% Gel w/Appl 6 mL, 6 mL, Topical. For: Gross hematuria, Recurrent UTI Allergies No Known Allergies Problems Ongoing - Any problem that you are currently receiving treatment for. Gross hematuria Kidney stones Other urethral stricture, female Pelvic and perineal pain Recurrent UTI Patient Survey You may receive a survey via text or e-mail asking about your office visit. Please share your experience with us by completing your survey. We appreciate your feedback and thank you for choosing us for your care. Education Materials Hematuria, Adult Hematuria is blood in the urine. Blood may be visible in the urine, or it may be identified with a test. This condition can be caused by infections of the bladder, urethra, kidney, or prostate. Other possible causes include: ??? Kidney stones. ??? Cancer of the urinary tract. ??? Too much calcium in the urine. ??? Conditions that are passed from parent to child (inherited conditions). ??? Exercise that requires a lot of energy. Infections can usually be treated with medicine, and a kidney stone usually will pass through your urine. If neither of these is the cause of your hematuria, more tests may be needed to identify the cause of your symptoms. It is very important to tell your health care provider about any blood in your urine, even if it is painless or the blood stops without treatment. Blood in the urine, when it happens and then stops and then happens again, can be a symptom of a very serious condition, including cancer. There is no pain in the initial stages of many urinary cancers. Follow these instructions at home: Medicines ??? Take jxmg-lol-mdocycx and prescription medicines only as told by your health care provider. ??? If you were prescribed an antibiotic medicine, take it as told by your health care provider. Do not stop taking the antibiotic even if you start to feel better. Eating and drinking ??? Drink enough fluid to keep your urine pale yellow. It is recommended that you drink 3???4 quarts (2.8???3.8 L) a day. If you have been diagnosed with an infection, drinking cranberry juice in addition to large amounts of water is recommended. ??? Avoid caffeine, tea, and carbonated beverages. These tend to irritate the bladder. ??? Avoid alcohol because it may irritate the prostate (in males). General instructions ??? If you have been diagnosed with a kidney stone, follow your health care provider's instructions about straining your urine to catch the stone. ??? Empty your bladder often. Avoid holding urine for long periods of time. ??? If you are female: ? After a bowel movement, wipe from front to back and use each piece of toilet paper only once. ? Empty your bladder before and after sex. ??? Pay attention to any changes in your symptoms. Tell your health care provider about any changes or any new symptoms. ??? It is up to you to get the results of any tests. Ask your health care provider, or the department that is doing the test, when your results will be ready. ??? Keep all follow-up visits. This is important. Contact a health care provider if: ??? You develop back pain. ??? You have a fever or chills. ??? You have nausea or vomiting. ??? Your symptoms do not improve after 3 days. ??? Your symptoms get worse. Get help right away if: ??? You develop severe vomiting and are unable to take medicine without vomiting. ??? You develop severe pain in your back or abdomen even though you are taking medicine. ??? You pass a large amount of blood in your urine. ??? You pass blood clots in your urine. ??? You feel very weak or like you might faint. ??? You faint. Summary ??? Hematuria is blood in the urine. It has many possible causes. ??? It is very important that you tell your health care provider about any blood in (more content not included)... Normal [facility] Fish and Urine Cyt o ([facility])on 03-11-2024 [facility] Method of Extraction Bladder Wash Normal [facility] Comment on above: Performed By: #### 1 [id number] #### [facility] [address] [place] [address] [facility] Number of Jars 1 Invalid Interpretation Code [facility] Comment on above: Performed By: #### 1 [id number] #### [facility] [address] [place] [address] [facility] Specimen Bladder Wash Normal [facility] Comment on above: Performed By: #### 1 [id number] #### [facility] [address] [place] [address] [facility] Type of Service Technical Only Normal [facility] Comment on above: Performed By: #### 1 [id number] #### [facility] [address] [place] [address] Urology Office/Clinic Noteon 03-11-2024 Urology Office/Clinic Note Urology Office/Clinic Note Chief Complaint Cysto HPI Staff 38 year old female patient here for cysto. Abx was taken. History of Present Illness Tests reviewed: CT, KUB, RAAD I have reviewed the previous health record information and history for this patient from JUDY Cronin. I have reviewed and verified the staff HPI to be accurate for this encounter. Review of Systems PHQ Score Initial Depression Screen Score: 0 SCORE ROS - Provider Constitutional: denies weight loss, denies hot flashes. Eyes: denies eye problems. Gastrointestinal: denies nausea, denies vomiting. Cardiovascular: denies chest pain or angina. Integumentary: no dryness Musculoskeletal: denies musculoskeletal symptoms. ENMT: denies otolaryngeal symptoms. Respiratory: no shortness of breath. Heme/Lymph: denies easy bleeding tendency, denies easy bruising tendency. Psychiatric: no confusion, no anxiety. Genitourinary: See HPI. Physical Exam Vitals & Measurements HR: 70(Peripheral) BP: 124/84 HT: 63 in HT: 160 cm WT: 60.0 kg WT: 132.277 lb BMI: 23.44 General Appearance: alert , no acute distress, well nourished, well developed female. Genitourinary: bladder nonpalpable, no flank pain. Procedure Operative Information Anesthesia Type: Local Procedure: Local Cystoscopy with Urethral Dilation Complications: None Surgical risks, benefits, details of the procedure have been explained to the patient. Full informed consent has been obtained. Intraoperative Information Prepped: Patient is brought back to the endoscopy suite. Patient is placed in modified dorso/lithotomy position. Patient prepped in the usual fashion with Betadine solution. 2% Xylocaine Jelly is placed per Urethra. After waiting several minutes, the Cystoscope is introduced. The Urethra is: Tight The Bladder: _No tumors, Trabeculated: Severe (3)no naga, prolapse or a.v. The Ureteral orifices: Show efflux of clear urine The Urethra was dilated to: 20-30 Tongan with sounds. Specimens Removed: Bladder wash sent for FISH and Cytology test Removal: Cystoscope is removed. The patient tolerated it well. Postoperative Information Patient is discharged home with antibiotic coverage. Follow up arranged. Assessment/Plan AG pt. 1. Gross hematuria (R31.0: Gross hematuria) CT AP wo con 12/22/21 - R ureter not well visualized due to volume averaging with bowel and pelvic organs, L kidney is hypertrophied with multiple nonobstructing stones, L ureter not well visualized due to volume averaging with bowel and pelvic organs. Normal bladder. KUB 01/01/24 [facility] - L nephrolithiasis up to 5.5 mm. No R sided stones. RAAD 01/01/24 [facility] - Mild R pelviectasis. Multiple R sided stones up to 6 mm. Multiple L renal stones up to 8 mm. No hydro. Pt had IO cysto without complications today. Pt took prophylactic abx prior to procedure. Will send bladder wash specimen for FISH/cytol and call pt if positive. 2. Recurrent UTI (N39.0: Urinary tract infection, site not specified) UCx: 12/22/21 - neg 09/29/23 - 20-30k E. Coli, treated with Bactrim DS x7 days (urgent care) 3. Kidney stones (N20.0: Calculus of kidney) See #1. Discussed surgical intervention options including ESWL if visible on x-ray (less invasive, lower stone free rate) and ureteroscopy/laser litho with possible stent placement (more invasive, higher stone free rate). Risks and benefits of each discussed. -Will schedule Left ESWL. The procedure risks, benefits, details and treatment alternatives have been discussed with the patient. These include blood in the urine, infection, bleeding around the kidney, kidney bruising, inability to break up the stone, need for blood transfusion, blockage from stone fragments, and need for additional procedures, among others. Full informed consent has been obtained. Will order General anesthesia. 4. Pelvic and perineal pain (R10.2: Pelvic and perineal pain) Vaginal US 01/01/24 [facility] - Findings suggesting pelvic vascular congestion/uterine vein reflux. diagnostic lap with bilateral salpingectomy and ablation scheduled with Dr. Hassan on February 07. [1] 5. Other urethral stricture, female (N35.82: Other urethral stricture, female) See procedure section. Dilated. Follow-up With When Contact Information Gene FLOWER MD, [facility] [address], [place] [address]- Additional Instructions: schedule Left ESWL Patient Education Hematuria, Adult I, Rossi Aceves, personally scribed for Dr. Flower on 03/11/2024 08:18:41. . Documentation recorded by the scribe, Rossi Aceves, accurately reflects the services(s) I performed and decisions made by me. Authenticated by Dr. Flower on 03/11/2024 08:22:06. Problem List/Past Medical History Ongoing Gross hematuria Kidney stones Other urethral stricture, female Pelvic and perineal pain Recurrent UTI Historical No qualifying data Proced (more content not included)... Normal [facility] Comment on above: Result Comment: Elec tronically Signed By: Gene FLOWER MD\.br\Date and Time Signed: 03/11/24 08:22 EST\.br\Electronically Co-Signed By: Rossi Aceves\.br\Date and Time Co-Signed: 03/11/24 08:19 EST ALL CBC WITH AUTO DIFFon BASOPHILS ABSOLUTE AUTO 0.1 [facility] Basophils/100 WBC (Bld) 1.3 % 0.2 - 2.0 % [facility] Eosinophils/100 WBC (Bld) 2.4 % 0.9 - 7.0 % [facility] Erythrocyte distribution width (RBC) [Ratio] 12.4 % 11.0 - 15.0 % [facility] Hematocrit (Bld) [Volume fraction] 37.5 % 36.0 - 48.0 % [facility] Hemoglobin (Bld) [Mass/Vol] 12.7 g/dL 12.0 - 16.0 g/dL [facility] IMMATURE GRANULOCYTES ABS AUTO 0.01 [facility] Immature granulocytes/100 WBC (Bld) 0.2 % 0.0 - 0.5 % [facility] LYMPHOCYTES ABSOLUTE AUTO 1.6 [facility] Lymphocytes/100 WBC (Bld) 35.8 % 20.5 - 60.0 % [facility] MCH (RBC) [Entitic mass] 30.1 pg 26.7 - 34.0 pg [facility] MCHC (RBC) [Mass/Vol] 33.9 g/dL 29.9 - 35.2 g/dL [facility] MCV (RBC) [Entitic vol] 88.9 fL 81.0 - 99.0 fL [facility] MONOCYTES ABSOLUTE AUTO 0.5 [facility] Monocytes/100 WBC (Bld) 11.1 % 1.7 - 12.0 % [facility] NEUTROPHILS ABSOLUTE AUTO 2.2 [facility] Neutrophils/100 WBC (Bld) 49.2 % 43.0 - 75.0 % [facility] Platelet mean volume (Bld) [Entitic vol] 10 fL 9.5 - 13.5 fL [facility] EO # 0.1 [facility] PLT 200 [facility] RBC 4.22 [facility] WBC 4.5 [facility] Itz 02-08-2024 L - -------- Specimen: [id number] Received: 02/11/24-1212 Status: CIPRIANO Macias Num: [id number] Spec Type: Surgical Subm Dr: Kerri Hassan Tissues: A Fallopian Tube - Sterilization (BILAT FAL TUBES) Procedures: HE/3, Gross/Micro L2 -------- Age/ Patient Sex Location Account Attending Physician -------- Kiesha Alas 38/F [facility] [id number] Kerri Hassan -------- SPEC NUM: [id number] RECD: 02/11/24 STATUS: CIPRIANO COLLEEN NUM: [id number] GARY: 02/08/240 [facility] DR: Kerri Hassan ENTERED: 02/11/[address] [facility] [address]: Eugenie,Lab SPEC TYPE: Surgical DEPT: JERAMY BLAS ENTERED BY: [id number] RECV BY: [id number] ORDERED: HE/3, Gross/Micro L2 ORDERED: HE3, Gross/Micro L2 Pathological Diagnosis Bilateral fallopian tubes, bilateral salpingectomy: -Intact bilateral fimbriated fibrin tubes without significant histopathological changes, except 1 small Walthard cyst in the shorter tube, and several small Walthard cysts and 2 small paratubal cysts in the longer tube without atypia Clinical Information Request for sterilization, abnormal uterine bleeding, pelvic pain Gross Description Part A is received in formalin labeled with the patients name, date of , and bilateral fallopian tubes are bilateral, unoriented fallopian tubes with fimbriated distal ends, 6.7 x 0.9 cm, and 6.9 x 0.9 cm. The serosa is marinelli-purple, smooth and glistening with paratubal cysts, 0.9 cm in greatest dimension. The longer tube is inked black.. Serial sections reveal pinpoint lumen within each segment. Cassettes: A1 Entirety of trisected fimbriated on from shorter tube A2 tab Entirety of trisected fimbriated on from longer tube (to include paratubal cyst, inked black) A3 Cross-sections of bilateral fallopian tube segments (to include paratubal cysts, longer tube inked black) -------- Specimen: [id number] Received: 02/11/24 Status: CIPRIANO Colleen Num: [id number] Spec Type: Surgical Subm Dr: Kerri Hassan Tissues: A Fallopian Tube - Sterilization (BILAT FAL TUBES) Procedures: HE/3, Gross/Micro L2 -------- Patient: Kiesha Alas [id number] (Continued) -------- Specimen: [id number] Received: 02/11/24 (Continued) Gross Description (Continued) Signed (signature on file) Osman Hoyt MD 02/13/24 1636 -------- Specimen: [id number] Received: 02/11/24 Status: CIPRIANO Macias Num: [id number] Spec Type: Surgical Subm Dr: Kerri Hassan Tissues: A Fallopian Tube - Sterilization (BILAT FAL TUBES) Procedures: HE/3, Gross/Micro L2 -------- Patient: Kiesha Alas [id number] (Continued) -------- Specimen: [id number] Received: 02/11/24 (Continued) Gross Description (Continued) (3, ss, [id number] A)Brynn Microscopic Description Microscopic examinations are performed supporting the above interpretation CPT Codes 16826 -------- -------- Specimen: [id number] Received: 02/11/24 Status: GABYNicole Macias Num: [id number] Spec Type: Surgical Subm Dr: Kerri Hassan Tissues: A Fallopian Tube - Sterilization (BILAT FAL TUBES) Procedures: Otto LÓPEZ/Kimberly L2 -------- Patient: Kiesha Alas [id number] (Continued) -------- Signed (signature on file) Osman Hoyt MD 02/13/24 4825 Normal [facility] HCG ( test) Ql (U)O rdered By: Smiley Brown on 01-09-2024 Interpretation and review of laboratory results Normal [facility] Preg Test, Ur Negative [facility] Pathology Request for Lab Co rpon 01-09-2024 Pathology Request for Lab Hang Normal [facility] Comment on above: Order Comment: PATHO LOGY EMB SPECIMEN Result Comment: See report. Scanned copy available in EMR. PERFORMED BY: [place] [address] PATHOLOGIST PER ASSESSMENT NURSE XANDER SNOW M.D. Performed By: #### P ATH TO [facility] #### [facility] [address] [id number] [facility] Provider Letteron 12-27-2023 Provider Letter Provider Letter December 27, 2023 KIESHA ALAS [address] [place] [address] : 1985 To Whom It May Concern, Please excuse above patient from work. Date of Illness: From: 12/27/23 To: 12/27/23 May Return to Work On: 12/27/23 Restrictions: None Comments: Patient had an appointment with Karina Singh CNP on 12/27/23 Sincerely, [facility] Normal [facility] URETHRITIS/DISCHARGE PLUS VA GINITIS (HTRX)on 12-11-2023 ATOPOBIUM VAGINAE 0.000 [facility] ATOPOBIUM VAGINAE Not detected [facility] BVAB 2,3 (BACTERIAL VAGINOSIS ASSOCIATED BACTERIA 2, 3); MOBILUNCUS SPP 0.000 [facility] BVAB 2,3 (BACTERIAL VAGINOSIS ASSOCIATED BACTERIA 2, 3); MOBILUNCUS SPP Not detected [facility] AMY ALBICANS, PARAPSILOSIS, TROPICALIS 0.000 [facility] AMY ALBICANS, PARAPSILOSIS, TROPICALIS Not detected [facility] AMY GLABRATA 0.000 [facility] AMY GLABRATA Not detected [facility] AMY KRUSEI 0.000 [facility] MAY KRUSEI Not detected [facility] CHLAMYDIA TRACHOMATIS 0.000 [facility] CHLAMYDIA TRACHOMATIS Not detected [facility] GARDNERELLA VAGINALIS 0.000 [facility] GARDNERELLA VAGINALIS Not detected [facility] MEGASPHAERA (TYPES 1, 2) 0.000 [facility] MEGASPHAERA (TYPES 1, 2) Not detected [facility] MYCOPLASMA GENITALIUM 0.000 [facility] MYCOPLASMA GENITALIUM Not detected [facility] NEISSERIA GONORRHOEAE 0.000 [facility] NEISSERIA GONORRHOEAE Not detected [facility] TRICHOMONAS VAGINALIS 0.000 [facility] TRICHOMONAS VAGINALIS Not detected [facility] Urinalysis macro (dipstick) panel (U)on 12-10-2023 Bilirubin, UA Negative Negative - 4(70) +++ mg/dL [facility] Blood, UA Positive Negative - 50 Kei/mcL [facility] Clarity, UA Clear [facility] Color, UA Yellow [facility] Glucose, UA Negative Negative - 1999(110) ++++ mg/dL [facility] Interpretation and review of laboratory results Abnormal [facility] Ketones, UA Positive Negative - 160(16) ++++ mg/dL [facility] Leukocytes, UA Positive Negative - 500+++ Richard/mcL [facility] Nitrite, UA Negative Negative - Positive [facility] pH, UA 6.0 5 - 9 [facility] Protein, UA Negative Negative - 1999(20) ++++ mg/dL [facility] Spec Grav, UA 1.030 1 - 1.03 [facility] Urobilinogen, UA 1.0 0.2 - 12 mg/dL [facility] C Urineon 09-29-2023 C Urine - ---- Amend 20-30,000 cfu/ml Escherichia coli isolated ORGANISM EC ---- SUSCEPTIBILITY --- ORGANISM ID: 1 ANTIBIOTIC INTERPRETATION PATRICIA STATUS POS Escherichia coli Amikacin S <=2 V Ampicillin S <=2 V Ampicillin/Sulbactam S <=2 V Cefazolin <=4 V Ciprofloxacin S <=0.25 V Ceftriaxone S <=1 V Nitrofurantoin S <=16 V Cefepime S <=1 V Cefoxitin S <=4 V Gentamicin S <=1 V Meropenem S <=0.25 V Levofloxacin S <=0.12 V Tobramycin S <=1 V Piperacillin/Tazobact am S <=4 V Trimethoprim/Sulfa S <=20 V Ceftazidime S <=1 V [facility] Comment on above: Performed By: #### U RC #### [facility] [address] [place] [address] [facility] [address] [place] [address] OR Trackon 09-26-[address] [facility] Comment on above: Performed By: #### O utrea Tracking Order #### [id number] [place] [address] Ur Marinelli Vac # 1 [facility] Comment on above: Performed By: #### O [facility] Tracking Order #### [address] [address] Urgent Care Office/Clinic No shaw 09-26-2023 Urgent [...] call in 24-48 hours with results. Ordered: sulfamethoxazole-trim ethoprim, 1 tabs, Oral, BID, X 7 days, # 14 tabs, 0 Refill(s), 10/03/23 14:50:00 EDT, Pharmacy: [facility]/pharmacy #[id number] Culture Urine Medical Decision Making UA; trace blood, starting treatment. Chronic conditions NOT treated during this visit that affected my overall medical decision making: [] Treatment plans discussed but not opted for at this time: [] Prescribed medication that requires intensive monitoring for toxicity: [] I have reviewed the patient?s medication list for medication interactions/contrain dications and/or for upcoming procedures: [yes or no] [...] Urine Dipstick Clear 09/26/2023 14:26 EDT Specific [place] Urine Dipstick 1.015 09/26/2023 14:26 EDT pH [...] Kylah Goetz PA-C 09/29/23 09:09 EDT Normal [facility] CT ABD/PELVIS WO CONon 12-23 [...] diverticula with some inspissated stool and contrast. Mesentery/Peritoneum: Subcentimeter lymph nodes in the mesentery. Vasculature: [...] LIOR SANTOS Date: 2021-12-22 22:07 Normal [facility] CBC AUTO DIFFon 12-22-2021 BASO # 0.0 103/ul Normal 0.0-0.1 [facility] Comment on above: Performed By: #### C BC #### [facility] [address] [address] [address] Shannon Hoyt Basophils/100 WBC (Bld) 0.5 % Normal 0.2-2.0 [facility] Comment on above: Performed By: #### C BC #### [facility] [address] [place] [address] Dr. Shannon Hoyt EO # 0.1 103/ul Normal 0.0-0.7 [facility] Comment on above: Performed By: #### C BC #### [facility] [address] [place] [address] Dr. Shannon Hoyt Eosinophils/100 WBC (Bld) 1.0 % Normal 0.9-7.0 [facility] Comment on above: Performed By: #### C BC #### [facility] [address] [place] [address] Dr. Shannon Hoyt Erythrocyte distribution width (RBC) [Ratio] 11.8 % Normal 11.0-15.0 [facility] Comment on above: Performed By: #### C BC #### [facility] [address] [place] [address] Dr. Shannon Hoyt Hematocrit (Bld) [Volume fraction] 33.9 % Critically low 36.0-48.0 [facility] Comment on above: Performed By: #### C BC #### [facility] [address] [place] [address] Dr. Shannon Hoyt Hemoglobin (Bld) [Mass/Vol] 11.3 g/dL Critically low 12.0-16.0 [facility] Comment on above: Performed By: #### C BC #### [facility] [address] [place] [address] Dr. Shannon Hoyt IG # 0.02 10e3/ul Normal 0.00-0.03 [facility] Comment on above: Performed By: #### C BC #### [facility] [address] [place] [address] Dr. Shannon Hoyt IG % 0.3 % Normal 0.0-0.5 [facility] Comment on above: Performed By: #### C BC #### [facility] [address] [place] [address] Dr. Shannon Hoyt LYMPH # 1.2 103/ul Normal 1.2-3.8 [facility] Comment on above: Performed By: #### C BC #### [facility] [address] [place] [address] Dr. Shannon Hoyt Lymphocytes/100 WBC (Bld) 20.5 % Normal 20.5-60.0 [facility] Comment on above: Performed By: #### C BC #### [facility] [address] [place] [address] Dr. Shannon Hoyt MANUAL DIFF REQ NO Normal [facility] Comment on above: Performed By: #### C BC #### [facility] [address] [place] [address] Dr. Shannon Hoyt MCH (RBC) [Entitic mass] 30.1 pg Normal 26.7-34.0 [facility] Comment on above: Performed By: #### C BC #### [facility] [address] [place] [address] Dr. Shannon Hoyt MCHC (RBC) [Mass/Vol] 33.3 g/dL Normal 29.9-35.2 [facility] Comment on above: Performed By: #### C BC #### [facility] [address] [place] [address] Dr. Shannon Hoyt MCV (RBC) [Entitic vol] 90.2 fL Normal 81.0-99.0 [facility] Comment on above: Performed By: #### C BC #### [facility] [address] [place] [address] Dr. Shannon Hoyt MONO # 0.7 103/ul Normal 0.3-0.8 [facility] Comment on above: Performed By: #### C BC #### [facility] [address] [place] [address] Dr. Shannon Hoyt Monocytes/100 WBC (Bld) 11.7 % Normal 1.7-12.0 [facility] Comment on above: Performed By: #### C BC #### [facility] [address] [place] [address] Dr. Shannon Hoyt NEUT # 4.0 103/ul Normal 1.4-6.5 [facility] Comment on above: Performed By: #### C BC #### [facility] [address] [place] [address] Dr. Shannon Hoyt Neutrophils/100 WBC (Bld) 66.0 % Normal 43.0-75.0 [facility] Comment on above: Performed By: #### C BC #### [facility] [address] [place] [address] Dr. Shannon Hoty Platelet mean volume (Bld) [Entitic vol] 9.9 fL Normal 9.5-13.5 [facility] Comment on above: Performed By: #### C BC #### [facility] [address] [place] [address] Dr. Shannon Hoyt PLT 191 103/ul Normal 150-450 [facility] Comment on above: Performed By: #### C BC #### [facility] [address] [place] [address] Dr. Shannon Hoyt RBC 3.76 106/ul Critically low 4.20-5.40 [facility] Comment on above: Performed By: #### C BC #### [facility] [address] [place] [address] Dr. Shannon Hoyt WBC 6.0 103/ul Normal 4.0-11.0 [facility] Comment on above: Performed By: #### C BC #### [facility] [address] [place] [address] Dr. Shannon Hoyt CULTURE URINEon 12-22-2021 CULTURE URINE Culture Observations : NO GROWTH. Normal [facility] Comment on above: Performed By: #### U RCX #### [facility] [address] [place] [address] Dr. Shannon Hoyt [facility] SARS-CoV-2 (COVID-19) RNA RICHARD+probe Ql (Unsp spec) Not detected Normal NOT DETECTED [facility] Comment on above: Result Comment: When [...] for this test is supported by the [place] of Health and Human Service's declaration that [...] used). Performed By: #### C VDTB #### [facility] [address] [place] [address] Dr. Shannon Hoyt ER URINE PROFILEon 2 Bilirubin Ql (U) Negative Normal NEGATIVE [facility] Comment on above: Performed By: #### Cipriano REYEZ UMICRO #### [facility] [address] [place] [address] Dr. Shannon Hoyt Clarity (U) CLEAR Normal CLEAR [facility] Comment on above: Performed By: #### Cipriano REYEZ UMICRO #### [facility] [address] [place] [address] Dr. Shannon Hoyt Color (U) LT. YELLOW Normal YELLOW [facility] Comment on above: Performed By: #### Cipriano REYEZ, UMICRO #### [facility] [address] [place] [address] Dr. Shannon GARCIAAjith A micrscopic examination will be performed if indicated. Normal [facility] Comment on above: Performed By: #### E RUR, UMICRO #### [facility] [address] [place] [address] Dr. Shannon Hoyt Glucose Ql (U) Negative Normal NEGATIVE [facility] Comment on above: Performed By: #### E RUR, UMICRO #### [facility] [address] [place] [address] Dr. Shannon Hoyt Hemoglobin Ql (U) SMALL Abnormal NEGATIVE [facility] Comment on above: Performed By: #### E RUR, UMICRO #### [facility] [address] [place] [address] Dr. Shannon Hoyt Ketones Ql (U) 40 mg/dl Abnormal NEGATIVE [facility] Comment on above: Performed By: #### KEKE TOUSSAINTICRO #### [facility] [address] [place] [address] Dr. Shannon Hoyt LEUKOCYTES Negative Normal NEGATIVE [facility] Comment on above: Performed By: #### KEKE TOUSSAINTICRO #### [facility] [address] [place] [address] Dr. Shannon Hoyt Nitrite Ql (U) Negative Normal NEGATIVE [facility] Comment on above: Performed By: #### BRITTANEY TOUSSAINTRO #### [facility] [address] [place] [address] Dr. Shannon Hoyt pH (U) 6.0 [pH] Normal 5-9 [facility] Comment on above: Performed By: #### BRITTANEY TOUSSAINTRO #### [facility] [address] [place] [address] Dr. Shannon Hoyt SPEC GRAVITY 1.020 Normal 1.005-<=1.025 [facility] Comment on above: Performed By: #### BRITTANEY TOUSSAINTRO #### [facility] [address] [place] [address] Dr. Shannon Hoyt UA PROTEIN Negative Normal NEGATIVE/ TRACE [facility] Comment on above: Performed By: #### BRITTANEY TOUSSAINTRO #### [facility] [address] [place] [address] Dr. Shannon Hoyt UR MICRO IND INDICATED Normal [facility] Comment on above: Performed By: #### Cipriano REYEZ UMICRO #### [facility] [address] [place] [address] Dr. Shannon Hoyt Urobilinogen Qn (U) 0.2 {Galileo'U}/dL Normal 0.2 - 1. 0 [facility] Comment on above: Performed By: #### BRITTANEY TOUSSAINTRO #### [facility] [address] [place] [address] Dr. Shannon Hoyt LACTATE/LACTIC ACIDon 2021 Lactate [Moles/Vol] 1.0 mmol/L Normal 0.4-1.9 [facility] Comment on above: Performed By: #### L ACT #### [facility] [address] [place] [address] Dr. Shannon Hoyt LIPASEon 12-22-2021 Lipase [Catalytic activity/Vol] 58.0 U/L Critically low 73.0-393.0 [facility] Comment on above: Performed By: #### L IPA, CMP #### [facility] [address] [place] [address] Dr. Shannon Hoyt PREG HCG QUALon 12-22-2021 , QUAL Negative Normal NEGATIVE [facility] Comment on above: Performed By: #### P REG #### [facility] [address] [place] [address] Dr. Shannon Hoyt PROF 14(COMP METB)on 022 Albumin [Mass/Vol] 2.9 g/dL Critically low 3.4-5.0 [facility] Comment on above: Performed By: #### L IPA, CMP #### [facility] [address] [place] [address] Dr. Shannon Hoyt Albumin/Globulin [Mass ratio] 0.8 {ratio} [facility] Comment on above: Performed By: #### L IPA, CMP #### [facility] [address] [place] [address] Dr. Shannon Hoyt ALP [Catalytic activity/Vol] 58 U/L Normal 46-116 [facility] Comment on above: Performed By: #### L IPA, CMP #### [facility] [address] [place] [address] Dr. Shannon Hoyt ALT [Catalytic activity/Vol] 33 U/L Normal 14-59 [facility] Comment on above: Performed By: #### L IPA, CMP #### [facility] [address] [place] [address] Dr. Shannon Hoyt Anion gap [Moles/Vol] 8.0 mmol/L Normal [facility] Comment on above: Performed By: #### L IPA, CMP #### [facility] [address] [address] [address] Shannon Hoyt AST [Catalytic activity/Vol] 21 U/L Normal 15-37 [facility] Comment on above: Performed By: #### L IPA, CMP #### [facility] [address] [address] [address] Shannon Hoyt Bilirubin [Mass/Vol] 0.2 mg/dL Normal 0.2-1.0 [facility] Comment on above: Performed By: #### L IPA, CMP #### [facility] [address] [address] [address] Shannon Hoyt Calcium [Mass/Vol] 8.2 mg/dL Critically low 8.5-10.1 [facility] Comment on above: Performed By: #### L IPA, CMP #### [facility] [address] [place] [address] Dr. Shannon Hoyt Chloride [Moles/Vol] 106 mmol/L Normal 98-107 [facility] Comment on above: Performed By: #### L IPA, CMP #### [facility] [address] [address] [address] Shannon Hoyt CO2 [Moles/Vol] 27.9 mmol/L Normal 21.0-32.0 [facility] Comment on above: Performed By: #### L IPA, CMP #### [facility] [address] [address] [address] Shannon Hoyt Creatinine [Mass/Vol] 0.70 mg/dL Normal 0.55-1.02 [facility] Comment on above: Performed By: #### L IPA, CMP #### [facility] [address] [address] [address] Shannon Hoyt EGFR-AF MAURITIAN >60 Normal >=60 [facility] Comment on above: Performed By: #### L IPA, CMP #### [facility] [address] [address] [address] Shannon Hoyt EGFR-NON AF MAURITIAN >60 Normal >=60 [facility] Comment on above: Performed By: #### L IPA, CMP #### [facility] [address] [address] [address] Shannon Hoyt Globulin (S) [Mass/Vol] 3.5 g/dL Normal [facility] Comment on above: Performed By: #### L IPA, CMP #### [facility] [address] [address] [address] Shannon Hoyt Glucose [Mass/Vol] 108 mg/dL Critically high 74-106 [facility] Comment on above: Performed By: #### L IPA, CMP #### [facility] [address] [address] [address] Shannon Hoyt Potassium [Moles/Vol] 3.9 mmol/L Normal 3.5-5.1 [facility] Comment on above: Performed By: #### L IPA, CMP #### [facility] [address] [place] [address] Dr. Shannon Hoyt Protein [Mass/Vol] 6.4 g/dL Normal 6.4-8.2 [facility] Comment on above: Performed By: #### L IPA, CMP #### [facility] [address] [place] [address] Dr. Shannon Hoyt Sodium [Moles/Vol] 138 mmol/L Normal 136-145 [facility] Comment on above: Performed By: #### L IPA, CMP #### [facility] [address] [place] [address] Dr. Shannon Hoyt Urea nitrogen [Mass/Vol] 7.0 mg/dL Normal 7.0-18.0 [facility] Comment on above: Performed By: #### L IPA, CMP #### [facility] [address] [place] [address] Dr. Shannon Hoyt Urea nitrogen/Creatinine [Mass ratio] 10.0 mg/mg Normal [facility] Comment on above: Performed By: #### L IPA, CMP #### [facility] [address] [place] [address] Dr. Shannon Hoyt URINE MICROSCOPIC ONLYon BACTERIA SMALL Abnormal NONE SEEN [facility] Comment on above: Performed By: #### E RUR, UMICRO #### [facility] [address] [place] [address] Dr. Shannon Hoyt Bacteria identified Cx Nom (U) INDICATED Normal [facility] Comment on above: Performed By: #### Cipriano REYEZ UMICRO #### [facility] [address] [place] [address] Dr. Shannon Hoyt CAST NONE SEEN Normal NONE SEEN [facility] Comment on above: Performed By: #### KEKE TOUSSAINTICRO #### [facility] [address] [place] [address] Dr. Shannon Hoyt Crystals LM Nom (Urine sed) NONE SEEN Normal NONE SEEN [facility] Comment on above: Performed By: #### BRITTANEY TOUSSAINTRO #### [facility] [address] [place] [address] Dr. Shannon Hoyt Epithelial cells LM Ql (Urine sed) FEW Abnormal NONE SEEN /RARE [facility] Comment on above: Performed By: #### BRITTANEY TOUSSAINTRO #### [facility] [address] [place] [address] Dr. Shannon Hoyt MUCOUS TRACE Abnormal NONE SEEN [facility] Comment on above: Performed By: #### BRITTANEY TOUSSAINTRO #### [facility] [address] [place] [address] Dr. Shannon Hyot RBC 0-2 Normal 0-2 [facility] Comment on above: Performed By: #### BRITTANEY TOUSSAINTRO #### [facility] [address] [place] [address] Dr. Shannon Hoyt WBC 20-50 Abnormal NONE SEEN [facility] Comment on above: Performed By: #### Cipriano REYEZ UMICRO #### [facility] [address] [place] [address] Dr. Shannon Hoyt Vital Signs Date Time Vital Sign Value Performing Clinician Facility 03-11-2024 07:55-0500 Blood Pressure Location Gene FLOWER [facility] 03-11-2024 07:55-0500 Diastolic blood pressure 84 mm[Hg] Gene FLOWER [facility] 03-11-2024 07:55-0500 Heart rate 70 /min Gene FLOWER [facility] 03-11-2024 07:55-0500 Systolic blood pressure 124 mm[Hg] Gene FLOWER [facility] 01-09-2024 15:40-0400 Body mass index (BMI) [Ratio] 22.49 kg/m2 Kerri Sonya DO Work Phone: [facility] 01-09-2024 15:40-0400 Body weight 59.42 kg Kerri Sonya DO Work Phone: [facility] 01-09-2024 15:40-0400 Diastolic blood pressure 68 mm[Hg] Kerri Sonya DO Work Phone: [facility] 01-09-2024 15:40-0400 Systolic blood pressure 110 mm[Hg] Kerri Sonya DO Work Phone: [facility] 12-27-2023 10:45-0400 Blood Pressure Location Karina Galea [facility] 12-27-2023 10:45-0400 Diastolic blood pressure 78 mm[Hg] Karina Galea [facility] 12-27-2023 10:45-0400 Heart rate 73 /min Karina Galea [facility] 12-27-2023 10:45-0400 Respiratory rate 18 /min Karina Galea [facility] 12-27-2023 10:45-0400 Systolic blood pressure 117 mm[Hg] Karina Galea [facility] 12-10-2023 10:53-0400 Body mass index (BMI) [Ratio] 22.34 kg/m2 Kerri Sonya DO Work Phone: [facility] 12-10-2023 10:53-0400 Body weight 59.02 kg Kerri Sonya DO Work Phone: [facility] 12-10-2023 10:53-0400 Diastolic blood pressure 70 mm[Hg] Kerri Sonya DO Work Phone: [facility] 12-10-2023 10:53-0400 Systolic blood pressure 118 mm[Hg] Kerri Sonya DO Work Phone: [facility] Encounters Encounter Date Encounter Type Care Provider Facility Start: 05-08-2024 ambulatory Gene Victori ty:CD:[id number] Start: 05-01-2024 ambulatory Gene Victori ty:CD:[id number] Start: 03-11-2024 End: 03-11-2024 ambulatory Gene FLOWER Facility:[facility] Start: 03-11-2024 End: 03-11-2024 Lab Drop off Gene FLOWER [facility] Start: 03-11-2024 End: 03-11-2024 ambulatory Gene FLOWER Facility:[facility] Start: 03-11-2024 End: 03-11-2024 Patient encounter procedure Gene FLOWER [facility] Start: 02-08-2024 End: 02-08-2024 Clinisync Result Encounter Kerri Sonya DO Work Phone: [facility] Unsolicited Start: 02-08-2024 End: 02-08-2024 Clinisync Result Encounter Kerri Sonya DO Work Phone: [facility] Unsolicited Start: 02-08-2024 End: 02-08-2024 ambulatory Kerri Sonya Facility:[facility] Start: 01-09-2024 End: 01-09-2024 Departed Referred DO Kerri Sonya Work Phone: [facility] Start: 01-09-2024 End: 01-09-2024 Patient encounter procedure Kerri Sonya DO Work Phone: [facility] Comment on above: Pre-op examination; Request for sterilization; Menorrhagia with regular cycle; Abnormal uterine bleeding (AUB); Pelvic pain in female Start: 01-09-2024 End: 01-09-2024 Preprocedural examination done Kerri Sonya DO Work Phone: [facility] Start: 01-09-2024 End: 01-09-2024 ambulatory KERRI SONYA [facility] Work Phone: Start: 12-27-2023 End: 12-27-2023 ambulatory Kerri R OSNYA Facility:[facility] Start: 12-27-2023 End: 12-27-2023 Patient encounter procedure Karina Singh [facility] Start: 12-11-2023 ambulatory Gene KARINA Facility :[facility] Start: 12-10-2023 End: 12-10-2023 Bamboo flowsheet Kerri Sonya DO Work Phone: [facility] Start: 12-10-2023 End: 12-11-2023 Bamboo flowsheet Kerri Sonya DO Work Phone: [facility] Start: 12-10-2023 End: 12-11-2023 External Result Encounter Kerri Sonya DO Work Phone: [facility] Unsolicited Start: 12-10-2023 End: 12-10-2023 ambulatory KERRI SONYA Not Available Start: 12-10-2023 End: 12-10-2023 Office outpatient visit 15 minutes Kerri Sonya DO Work Phone: [facility] Comment on above: Pelvic pain in femal e; Recurrent UTI; Vaginal discharge; Pelvic pressure in female; Menorrhagia with irregular cycle; Menorrhagia with regular cycle Start: 10-01-2023 End: 10-01-2023 ambulatory ILA GUNTER Not Available Start: 09-26-2023 End: 09-26-2023 ambulatory Kylah Goetz PA-C Facility:[facility] Start: 12-22-2021 End: 12-23-2021 ambulatory JAZ LEI Facility: Procedures Date Procedure Procedure Detail Performing Clinician Start: 03-11-2024 Flexible cystoscopy Pat lorena FLOWER Start: 02-08-2024 ALL CBC WITH AUTO DIFF Kerri Sonya DO Work Phone: Start: 01-09-2024 Urine test visual color cmprsn meths Kerri Sonya DO Work Phone: Start: 12-10-2023 URETHRITIS/DISCHARGE PLUS VAGINITIS (HTRX) Kerri Sonya DO Work Phone: Start: 12-10-2023 Urnls dip stick/tabl et rgnt non-auto w/o micrscp Kerri Sonya DO Work Phone: Plan of Treatment Date Care Activity Detail Author Start: 10-02-2024 End: 10-02-2024 Patient encounter procedure 10/02/2024 10:00 AM EDT Office Visit [facility] [address] [place] [address] Kerri Hassan, DO [address], [address] [place] [address] [facility] Start: 01-09-2024 End: 01-09-2024 Patient encounter procedure 01/09/2024 3:30 PM EDT Procedure Visit [facility] [address] [place] [address] Kerri Hassan, DO [address] [place] [address] [facility] Start: 12-10-2023 End: 12-09-2024 aPTT in Blood by Coagulation assay APTT Lab Routine Pelvic pain in female Vaginal discharge Pelvic pressure in female Menorrhagia with irregular cycle Expected: 12/10/2023 (Approximate), Expires: 12/09/2024 [facility] Comment on above: Expected: 12/10/2023 (Approximate), Expires: 12/09/2024 Start: 12-10-2023 End: 12-09-2024 SURESWAB(R) ADVANCED VAGINITIS PLUS, TMA SURESWAB(R) ADVANCED VAGINITIS PLUS, TMA Pathology and Cytology Routine Pelvic pain in female Expected: 12/10/2023 (Approximate), Expires: 12/09/2024 [facility] Work Phone: Comment on above: Expected: 12/10/2023 (Approximate), Expires: 12/09/2024 Start: 12-10-2023 End: 12-09-2024 US for US PELVIS-TRANSVAG IF INDICATED Imaging Routine Pelvic pain in female Vaginal discharge Pelvic pressure in female Expected: 12/10/2023 (Approximate), Expires: 12/09/2024 [facility] Comment on above: Expected: 12/10/2023 (Approximate), Expires: 12/09/2024 CBC W Auto Different ial panel - Blood CBC and differential Lab Routine Pelvic pain in female Vaginal discharge Pelvic pressure in female Menorrhagia with irregular cycle Ordered: 12/10/2023 [facility] Comment on above: Ordered: 12/10/2023 CHLAMYDIA TRACHOMATI S (GENITO/STI) CHLAMYDIA TRACHOMATIS (GENITO/STI) Lab Routine Pelvic pain in female Ordered: 12/10/2023 [facility] Comment on above: Ordered: 12/10/2023 Endometrial biopsy Endometrial b iopsy Procedures Routine Menorrhagia with regular cycle Abnormal uterine bleeding (AUB) Pelvic pain in female Ordered: 01/09/2024 [facility] Work Phone: Comment on above: Ordered: 01/09/2024 hCG, quantitative, hCG, quantitative, Lab Routine Pelvic pain in female Vaginal discharge Pelvic pressure in female Menorrhagia with irregular cycle Ordered: 12/10/2023 [facility] Comment on above: Ordered: 12/10/2023 Hemoglobin A1c/Hemoglobin.total in Blood Hemoglobin A1c Lab Routine Pelvic pain in female Vaginal discharge Pelvic pressure in female Menorrhagia with irregular cycle Ordered: 12/10/2023 [facility] Comment on above: Ordered: 12/10/2023 Neisseria gonorrhoea e DNA [Presence] in Unspecified specimen by RICHARD with probe detection Neisseria gonorrhea DNA probe, direct Lab Routine Pelvic pain in female Ordered: 12/10/2023 [facility] Comment on above: Ordered: 12/10/2023 Prothrombin time (PT ) in Blood by Coagulation assay Protime-INR Lab Routine Pelvic pain in female Vaginal discharge Pelvic pressure in female Menorrhagia with irregular cycle Ordered: 12/10/2023 [facility] Comment on above: Ordered: 12/10/2023 Thyrotropin [Units/volume] in Serum or Plasma TSH Lab Routine Pelvic pain in female Vaginal discharge Pelvic pressure in female Menorrhagia with irregular cycle Ordered: 12/10/2023 [facility] Comment on above: Ordered: 12/10/2023 Thyroxine (T4) free [Mass/volume] in Serum or Plasma T4, free Lab Routine Pelvic pain in female Vaginal discharge Pelvic pressure in female Menorrhagia with irregular cycle Ordered: 12/10/2023 [facility] Comment on above: Ordered: 12/10/2023 Payers Date Payer Category Payer Self-pay 2022 Private Health Insurance [employer] [id number] 2022 Unknown 1984 Unknown [id number] 1984 Unknown [id number]. 196 1984 Unknown [id number]. 196 1984 Unknown [id number]. 1259 1984 Unknown [id number]. 9 1984 Unknown [id number]. 1259 1984 Unknown [id number] [id number]. 727 1984 Unknown [id number] [id number]. 727 1984 Unknown [id number] [id number]. 727 1984 Unknown [id number]. 727 1959 Unknown [id number] Social History Date Type Detail Facility Start: 12-27-2023 End: 03-10-2024 Tobacco smoking status Never smoked tobacco (finding) [facility] Start: 04-06-2023 Sex Assigned At Female [facility] Start: 10-01-2023 End: 12-10-2023 Alcoholic beverage intake Current drinker of alcohol (finding) [facility] Start: 04-06-2023 History of Social function [facility] Start: 08-22-2022 Alcohol Comment caffeine: 2-3 cups per day, coffee [facility] Start: 1985 Sex assigned at Not on file [facility] Start: 09-25-2022 Sexual orientation Heterosexual (finding) [facility] Start: 1985 Sex Assigned At Female [facility] Functional Status Date Assessment Result Facility 03-11-2024 Functional Status N/A [facility] 12-27-2023 Functional Status N/A [facility] Eugenie Clinical Notes 09-26-2023 to 03-11-2024 Melissa Stanton - 01/09/2024 3:30 PM EDTSusashoaib Johansen LPN - 12/10/2023 10:20 AM EDT Note Date & Type Note Facility 03-11-2024 Evaluation + Plan note Diagnostic Tests [facility] 03/11/24 [facility] 03-11-2024 Hospital Discharge instructions Patient Education 03/11/2024 08:11:06 Hematuria, Adult Hematuria, Adult Hematuria is blood in the urine. Blood may be visible in the urine, or it may be identified with a test. This condition can be caused by infections of the bladder, urethra, kidney, or prostate. Other possible causes include: Kidney stones. Cancer of the urinary tract. Too much calcium in the urine. Conditions that are passed from parent to child (inherited conditions). Exercise that requires a lot of energy. Infections can usually be treated with medicine, and a kidney stone usually will pass through your urine. If neither of these is the cause of your hematuria, more tests may be needed to identify the cause of your symptoms. It is very important to tell your health care provider about any blood in your urine, even if it is painless or the blood stops without treatment. Blood in the urine, when it happens and then stops and then happens again, can be a symptom of a very serious condition, including cancer. There is no pain in the initial stages of many urinary cancers. Follow these instructions at home: Medicines Take edpv-sbt-cvmtaau and prescription medicines only as told by your health care provider. If you were prescribed an antibiotic medicine, take it as told by your health care provider. Do not stop taking the antibiotic even if you start to feel better. Eating and drinking Drink enough fluid to keep your urine pale yellow. It is recommended that you drink 3 4 quarts (2.8 3.8 L) a day. If you have been diagnosed with an infection, drinking cranberry juice in addition to large amounts of water is recommended. Avoid caffeine, tea, and carbonated beverages. These tend to irritate the bladder. Avoid alcohol because it may irritate the prostate (in males). General instructions If you have been diagnosed with a kidney stone, follow your health care provider's instructions about straining your urine to catch the stone. Empty your bladder often. Avoid holding urine for long periods of time. If you are female: ?After a bowel movement, wipe from front to back and use each piece of toilet paper only once. ?Empty your bladder before and after sex. Pay attention to any changes in your symptoms. Tell your health care provider about any changes or any new symptoms. It is up to you to get the results of any tests. Ask your health care provider, or the department that is doing the test, when your results will be ready. Keep all follow-up visits. This is important. Contact a health care provider if: You develop back pain. You have a fever or chills. You have nausea or vomiting. Your symptoms do not improve after 3 days. Your symptoms get worse. Get help right away if: You develop severe vomiting and are unable to take medicine without vomiting. You develop severe pain in your back or abdomen even though you are taking medicine. You pass a large amount of blood in your urine. You pass blood clots in your urine. You feel very weak or like you might faint. You faint. Summary Hematuria is blood in the urine. It has many possible causes. It is very important that you tell your health care provider about any blood in your urine, even if it is painless or the blood stops without treatment. Take nwnm-fil-qlutqhv and prescription medicines only as told by your health care provider. Drink enough fluid to keep your urine pale yellow. This information is not intended to replace advice given to you by your health care provider. Make sure you discuss any questions you have with your health care provider. Document Revised: 11/03/2020 Document Reviewed: 11/03/2020 [employer] Patient Education 2023 [employer]. Follow Up Care 01/08/2024 12:04:03 With:KARINA CORDOVA, Gene Griffith, URL Address: [facility] [address] , [place] [address]- When: Unknown [facility] [place] 03-11-2024 Note Patient Education Urology Hematuria, Adult Hematuria is blood in the urine. Blood may be visible in the urine, or it may be identified with a test. This condition can be caused by infections of the bladder, urethra, kidney, or prostate. Other possible causes include: ??? Kidney stones. ??? Cancer of the urinary tract. ??? Too much calcium in the urine. ??? Conditions that are passed from parent to child (inherited conditions). ??? Exercise that requires a lot of energy. Infections can usually be treated with medicine, and a kidney stone usually will pass through your urine. If neither of these is the cause of your hematuria, more tests may be needed to identify the cause of your symptoms. It is very important to tell your health care provider about any blood in your urine, even if it is painless or the blood stops without treatment. Blood in the urine, when it happens and then stops and then happens again, can be a symptom of a very serious condition, including cancer. There is no pain in the initial stages of many urinary cancers. Follow these instructions at home: Medicines ??? Take msur-xas-yzhvopp and prescription medicines only as told by your health care provider. ??? If you were prescribed an antibiotic medicine, take it as told by your health care provider. Do not stop taking the antibiotic even if you start to feel better. Eating and drinking ??? Drink enough fluid to keep your urine pale yellow. It is recommended that you drink 3?4 quarts (2.8?3.8 L) a day. If you have been diagnosed with an infection, drinking cranberry juice in addition to large amounts of water is recommended. ??? Avoid caffeine, tea, and carbonated beverages. These tend to irritate the bladder. ??? Avoid alcohol because it may irritate the prostate (in males). General instructions ??? If you have been diagnosed with a kidney stone, follow your health care provider's instructions about straining your urine to catch the stone. ??? Empty your bladder often. Avoid holding urine for long periods of time. ??? If you are female: ? After a bowel movement, wipe from front to back and use each piece of toilet paper only once. ? Empty your bladder before and after sex. ??? Pay attention to any changes in your symptoms. Tell your health care provider about any changes or any new symptoms. ??? It is up to you to get the results of any tests. Ask your health care provider, or the department that is doing the test, when your results will be ready. ??? Keep all follow-up visits. This is important. Contact a health care provider if: ??? You develop back pain. ??? You have a fever or chills. ??? You have nausea or vomiting. ??? Your symptoms do not improve after 3 days. ??? Your symptoms get worse. Get help right away if: ??? You develop severe vomiting and are unable to take medicine without vomiting. ??? You develop severe pain in your back or abdomen even though you are taking medicine. ??? You pass a large amount of blood in your urine. ??? You pass blood clots in your urine. ??? You feel very weak or like you might faint. ??? You faint. Summary ??? Hematuria is blood in the urine. It has many possible causes. ??? It is very important that you tell your health care provider about any blood in your urine, even if it is painless or the blood stops without treatment. ??? Take zrlg-hrh-daggryn and prescription medicines only as told by your health care provider. ??? Drink enough fluid to keep your urine pale yellow. This information is not intended to replace advice given to you by your health care provider. Make sure you discuss any questions you have with your health care provider. Document Revised: 11/03/2020 Document Reviewed: 11/03/2020 [employer] Patient Education ? 2023 [employer]. [facility] 01-09-2024 History of Present illness Narrative Reason for Appointment: Patient ID: Kiesha Alas is a 38 y.o. female who presents for Pre-op Visit and Endometrial Biopsy Patient presents today for Pre Op/Endometrial Biopsy appointment. Patient is scheduled to undergo Da Diego assisted Bilateral Laparoscopic Salpingectomy and Endometrial Ablation with Melonie on 02/08/[address] Hassan at [facility]. MEDICATIONS Current Outpatient Medications Medication Instructions [...] nursing note reviewed. Exam conducted with a mechanical energy engineer present. Vitals: Estimated body mass index is [...] reviewed, and patient is to proceed to [facility] OR. Follow Up: Patient is to follow up between 1-2 weeks post op to assess proper healing and recovery from procedure. Documented by Amy Zayas LPN on behalf of: Kerri Hassan DO documented in this encounter [facility] 12-27-2023 Hospital Discharge instructions Patient Education 12/27/2023 11:40:24 Kidney Stones, Eohm-rp-Xwzt Kidney Stones Kidney stones are rock-like masses [...] Follow these instructions at home: Medicines Take edri-xwv-bewhwoq and prescription medicines only as told by [...] provider. Document Revised: 10/27/2022 Document Reviewed: 10/27/2022 [employer] Patient Education 2023 [employer]. 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 Flower -RAAD and KUB now at [facility] (pt has transvaginal US scheduled for Sunday, will attempt to complete imaging at this time) -Will send cytology at cystoscopy if KUB/RAAD negative for stones -Increase fluids -Start MET if KUB/RAAD + for ureteral stone(s) -F/U pending imaging and cysto Ordered: E&M of New Patient Moderate 45-59 Min 94838 US Renal XR Abdomen 1 View 2. Recurrent UTI (N39.0: Urinary tract infection, site not specified) 12/22/21 cx negative 09/29/23 cx - 20-30k E. Coli, treated with Bactrim DS x7 days (urgent care) -See #1 Ordered: E&M of New Patient Moderate 45-59 Min 28336 Urnls Dip Stick Auto w/o Microscopy POC 23855 US Renal XR Abdomen 1 View 3. [...] E&M of New Patient Moderate 45-59 Min 58511 US Renal XR Abdomen 1 View 4. Pelvic pain (R10.2: Pelvic and perineal pain) Pt being treated by Dr. Hassan for pelvic pain and painful intercourse. She has a transvaginal US scheduled for Sunday at [facility] and diagnostic lap with bilateral salpingectomy and ablation scheduled with Dr. Hassan (more content not included)... [facility] Comment on above: Result Comment: Elec tronically Signed By: Karina Bell.tre\Date and Time Signed: 12/27/23 11:42 EDT 12-27-2023 Note Patient Education Urology Kidney Stones [...] these instructions at home: Medicines ? Take jzqh-foc-taaofam and prescription medicines only as told by [...] provider. Document Revised: 10/27/2022 Document Reviewed: 10/27/2022 [employer] Patient Education ? 2023 [employer]. [facility] 12-10-2023 History of Present illness Narrative Referral urology Reason for Appointment: Patient ID: Kiesha Alas is a 38 y.o. female who presents for Pelvic Pain and recurrent UTI Patient presents today for Consult appointment. MEDICATIONS Current Outpatient Medications Medication Instructions sulfamethoxazole-trimethoprim (Bactrim DS) 800-160 MG per tablet 1 tablet, Oral, 2 times daily ALLERGIES No Known Allergies PROBLEMS Active Ambulatory Problems Diagnosis Date Noted No Active Ambulatory Problems Resolved Ambulatory Problems Diagnosis Date Noted No [...] SYSTEMS Review of Systems: Review of Systems Genitourinary: Positive for pelvic pain and vaginal pain. All other systems reviewed and are negative. OBJECTIVE Objective: Physical Exam Constitutional: Appearance: Normal [...] nursing note reviewed. Exam conducted with a mechanical energy engineer present. Vitals: Estimated body mass index is 22.34 kg/m as calculated from the following: Height as of 10/01/23: 5' 4 . Weight as of this encounter: 130 lb 1.9 oz. BP: 118/70 No LMP recorded. ASSESSMENT & PLAN ICD-10-CM 1. Pelvic pain in female R10.2 POCT urinalysis dipstick manually resulted SURESWAB(R) ADVANCED VAGINITIS PLUS, TMA Neisseria gonorrhea DNA probe, direct CHLAMYDIA TRACHOMATIS (GENITO/STI) CANCELED: POCT , urine manually resulted 2. Recurrent UTI N39.0 3. Vaginal discharge N89.8 4. STD exposure Z20.2 Patient presents for consult for urinary complaints and pelvic pain. Patient voiced re-occurring UTI's and will have referral to Urology. Patient voiced painful intercourse and lots of vaginal pressure. External vaginal swelling. Will obtain ultrasound to assess for any abnormalities. If US comes back WNL then will readdress if surgery would be the next option with diagnostic Lap. Patient has increase in vaginal discharge, but no odor. Patient does not desire further childbearing and would like to discuss bilateral salpingectomy and ablation. Patient desires to move forward with surgical management to check for cause of pain along with seeing Urology in the meantime. Documented by Beti Johansen LPN on behalf of: Kerri Hassan DO documented in this encounter [facility] 09-26-2023 Note Patient Education Ma terials Name: Kiesha lAas Current Date: 09/26/2023 14:55:32 [place] : 1985 [...] tabs, 0 Refill(s), 10/03/23 14:50:00 EDT, Pharmacy: [id number] Culture Urine Urinary Tract Infections in Women [...] needed, more treatment may be started. ? [id number] [employer]. [address] [place] [address], [place] [address]. All rights reserved. This information is not intended as a substitute for professional medical care. Always follow your healthcare professional's instructions. [facility] Evaluation + Plan note No data available for this section [facility] Evaluation note Diagnosis Pre-op examination Request for sterilization Menorrhagia with regular cycle Abnormal uterine bleeding (AUB) Pelvic pain in female Unspecified symptom associated with female genital organs documented [facility] noteNo assessment information availableK[facility] Work Phone: Evaluation note* Diagnosis Pelvic pain in female Unspecified symptom associated with female genital organs Recurrent UTI Urinary tract infection, site not specified Vaginal discharge Leukorrhea, not specified as infective Pelvic pressure in female Menorrhagia with irregular cycle Menorrhagia with regular cycle [facility] No data available for this section [facility] Progress note No data available for this section [facility] reason for referral (narrative)* Consultation (Routine) - Pending Review Specialty Diagnoses / Procedures Referred By Vaughn ram Referred To Contact Urology Diagnoses Recurrent UTI Procedures CA OFFICE/OUTPATIENT NEW HIGH MDM 60 MINUTES Kerri Hassan DO [address] [facility] [place] [address] [place] [address] Shalini Figueredo MD [address] [place] [id number] Referral ID Status Reason Start Date Expiration Date Visits Requested Visits Authorized [id number] Pending Review Specialty Services Required 12/11/2023 06/08/2024 1 1 [facility] Summary Purpose Family History No Family History Records FoundNo Family History Records Found No data available for this section No Family History Records FoundNo Family History Records Found No data available for this section No data available for this section No Family History Records FoundNo Family History Records Found Advance Directives No Advanced Directives Records FoundNo Advanced Directives Records FoundNo Advanced Directives Records FoundNo Advanced Directives Records FoundNo Advanced Directives Records FoundNo Advanced Directives Records Found Additional Source Comments INFORMATION SOURCE (unrecogn ized section and content) DATE CREATED AUTHOR 12/26/2021 [facility] DATE CREATED AUTHOR AUTHOR'S ORGANIZ ATION 10/03/2023 [facility] DATE CREATED AUTHOR AUTHOR'S ORGANIZ ATION 01/11/2024 [facility] EPIC DATE CREATED AUTHOR AUTHOR'S ORGANIZ ATION 02/13/2024 [facility] DATE CREATED AUTHOR AUTHOR'S ORGANIZ ATION 03/19/2024 [facility] DATE CREATED AUTHOR AUTHOR'S ORGANIZ ATION 03/27/2024 [facility] Reason for Visit (unrecogniz ed section and content) Reason Comments Pre-op Visit Endometrial Biopsy Reason Comments Pelvic Pain recurrent UTI Care Teams (unrecognized sec tion and content) Team Status: Inactive Member Role Status Dates Kerri Hassan DO Attending Provider Active Start : January 09, 2024 End: January 09, 2024 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 [facility]. provides no warranty or guarantee of the accuracy or completeness of information in this document.
--- NOTE | 2024-04-07 09:04 | PM.PRESUREVA ---
History of Present Illness History of Present Illness Chief complaint: right kidney stone Narrative: Presents to presurgical testing for scheduled right knee WNL with Dr. Flower on May 08, 2024 with complaints of intermittent right flank pain and known right kidney stone with associated hematuria Review of Systems ROS Narrative REVIEW OF SYSTEMS: Negative except as stated in HPI, ten or more systems reviewed. Constitutional: No fever, chills, weakness ENT: No sore throat or epistaxis Cardiovascular: No edema, chest pain, palpitations, or activity intolerance Respiratory: No shortness of breath, cough, or wheezing Musculoskeletal: No joint pain or swelling Gastrointestinal: No abdominal pain, constipation, diarrhea, or vomiting Genitourinary: No dysuria or hematuria Neurological: No numbness, tingling, weakness, or headache Psychiatric: No mood changes PFSH [facility] Medical History (Updated 04/07/24 @ 09:09 by Chastity Caldera) Dizziness ?R42 - Dizziness and giddiness (ICD-10) Headache ?R51.9 - Headache, unspecified (ICD-10) Melena ?K92.1 - Melena (ICD-10) Gall stones ?K80.20 - Calculus of gallbladder without cholecystitis without obstruction (ICD-10) COVID-19 ?U07.1 - COVID-19 (ICD-10) Menorrhagia ?N92.0 - Excessive and frequent menstruation with regular cycle (ICD-10) Abnormal uterine bleeding ?N93.9 - Abnormal uterine and vaginal bleeding, unspecified (ICD-10) Pelvic pain ?R10.2 - Pelvic and perineal pain (ICD-10) Kidney stones ?N20.0 - Calculus of kidney (ICD-10) Diverticulitis ?K57.92 - Diverticulitis of intestine, part unspecified, without perforation or abscess without bleeding (ICD-10) Request for sterilization ?Z30.2 - Encounter for sterilization (ICD-10) Surgical History History of lumpectomy of right breast ?Z98.890 - Other specified postprocedural states (ICD-10) History of esophagogastroduodenoscopy (EGD) ?Z98.890 - Other specified postprocedural states (ICD-10) History of colonoscopy ?Z98.890 - Other specified postprocedural states (ICD-10) History of breast biopsy ?Z98.890 - Other specified postprocedural states (ICD-10) Family History Other Family history of breast cancer Social History Within the past year, how often did you have a drink containing alcohol: 2-4 times a month Smoking status: Never smoker Non-prescribed substance use: denies use 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 Highest level of school completed/degree received: Master's degree Meds Home Medications and Allergies Home Medications ?Medication ?Instructions ?Recorded ?Confirmed ?Type hydrocodone 5 mg-acetaminophen 325 1 tab PO Q4H PRN pain 4 days #16 02/08/24 Rx mg tablet tabs ibuprofen 800 mg tablet 800 mg PO Q8H PRN pain 14 days #40 02/08/24 Rx tabs Lactobacillus acidophilus 10 100 mmu cells PO BID 04/07/24 04/07/24 History billion cell capsule ([employer]) Allergies Allergy/AdvReac Type Severity Reaction Status Date / Time No Known Drug Allergies Allergy Verified 04/07/24 08:14 Exam Narrative Exam Narrative: Constitutional: Awake, alert, comfortable, well-appearing, nontoxic, interactive, vital signs as charted Head: Normocephalic, atraumatic Eyes: Conjunctiva and lids normal to inspection, pupils normal ENT: Tympanic membranes pearly bennett, nonerythematous, noninjected, naris patent, posterior oropharynx clear, oral mucosa moist Neck: Supple, normal appearance, normal range of motion, no meningeal signs, no lymphadenopathy Respiratory: No respiratory distress, breath sounds clear Cardiovascular: Regular rate and rhythm, strong and regular heart tones Abdomen: Nontender, normal bowel sounds, soft, no CVA tenderness Musculoskeletal: Normal gait, no swelling or edema Skin: No rashes or induration, no lesions, only visible skin inspected Neuro: No neurological deficits, normal sensation Psychiatric: Oriented ?3, normal affect Assessment and Plan Assessment and Plan (1) Hematuria: (2) Calculus of right kidney: Plan Intermittent complaints of right flank pain scheduled for right ESWL with Dr. Flower on 05/08/2024
== END 2024-04-07 08:04 | disposition home or self-care (01) ==
LOC: PST 08:03
PROVIDERS: PCP Internal Medicine; Visit Provider Urology
DX: Z01.818 Encounter for other preprocedural examination (principal); N20.0 Calculus of kidney; R31.9 Hematuria, unspecified
CPT/HCPCS: G0463

== ENCOUNTER 2024-04-07 08:04 | Outpatient (OUT) | payer OTHER, SELFPAY ==
--- OUTSIDE RECORDS SUMMARY | 2024-04-07 08:17 | XMS_ITS | CCD ---
Author Organization [facility] Inform ion Partnership [facility] Care Team Providers Care Physical Medicine Teacher Name Role Phone JAZ LEI Admitting Unavailable [...] procedure, # 2 tab(s), Refills(s) 0, Pharmacy: [facility]/pharmacy #[id number], 160, cm, 12/27/23 10:47:00 EDT, Height/Length [...] & UC Diagnosis Info Invalid Interpretation Code [facility] Comment on above: Result Comment: A:Ur ine,Bladder [...] with cytology and cystoscopy results. * CPT: 61341, 08400. Microscopic Notes - Microscopic Notes - Abnormal cells 9p21 deletions: Abnormal cells aneploid events: Total cells analyzed: 108 Hematuria: Gross Description Site ID:A color Yellow fixative Alcohol Received 100 mls of clear yellow fluid with the patient's name and, Bladder Wash on the vial. Electronically signed by : on: 03/20/2024 10:15:45 Performed By: #### 1 [id number] #### [facility] [address] [place] [address] Ambulatory Visit Summaryon 1 05-12-2023 Ambulatory Visit [...] Where: [facility] [address] [place] [address]- Medications What How Much When Instructions Unchanged [...] these instructions at home: Medicines ??? Take iooh-itg-opejibh and prescription medicines only as told by [...] blood in (more content not included)... Normal [facility] Fish and Urine Cyt o ([facility])on 03-11-2024 [facility] Method of Extraction Bladder Wash Normal [facility] Comment on above: Performed By: #### 1 [id number] #### [facility] [address] [place] [address] [facility] Number of Jars 1 Invalid Interpretation Code [facility] Comment on above: Performed By: #### 1 [id number] #### [facility] [address] [place] [address] [facility] Specimen Bladder Wash Normal [facility] Comment on above: Performed By: #### 1 [id number] #### [facility] [address] [place] [address] [facility] Type of Service Technical Only Normal [facility] Comment on above: Performed By: #### 1 [id number] #### [facility] [address] [place] [address] Urology Office/Clinic Noteon 03-11-2024 Urology Office/Clinic Note [...] urine The Urethra was dilated to: 20-30 Cymro with sounds. Specimens Removed: Bladder wash sent [...] With When Contact Information Gene FLOWER MD, [facility] [address], [place] [address]- Additional Instructions: schedule Left ESWL Patient Education [...] data Proced (more content not included)... Normal [facility] Comment on above: Result Comment: [...] [Ratio] 12.4 % 11.0 - 15.0 % [facility] Hematocrit (Bld) [Volume fraction] 37.5 % 36.0 - 48.0 % [facility] Hemoglobin (Bld) [Mass/Vol] 12.7 g/dL 12.0 - 16.0 g/dL [facility] IMMATURE GRANULOCYTES ABS AUTO 0.01 [facility] Immature granulocytes/100 WBC (Bld) 0.2 % 0.0 - 0.5 % [facility] LYMPHOCYTES ABSOLUTE AUTO 1.6 [facility] Lymphocytes/100 WBC (Bld) 35.8 % 20.5 - 60.0 % [facility] MCH (RBC) [Entitic mass] 30.1 pg 26.7 - 34.0 pg [facility] MCHC (RBC) [Mass/Vol] 33.9 g/dL 29.9 - 35.2 g/dL [facility] MCV (RBC) [Entitic vol] 88.9 fL 81.0 - 99.0 fL [facility] MONOCYTES ABSOLUTE AUTO 0.5 [facility] Monocytes/100 WBC (Bld) 11.1 % 1.7 - 12.0 % [facility] NEUTROPHILS ABSOLUTE AUTO 2.2 [facility] Neutrophils/100 WBC (Bld) 49.2 % 43.0 - 75.0 % [facility] Platelet mean volume (Bld) [Entitic vol] 10 fL 9.5 - 13.5 fL [facility] TBH EO # 0.1 [facility] PLT 200 [facility] RBC 4.22 [facility] WBC 4.5 [facility] Itz 02-08-2024 L - -------- Specimen: [id number] Received: 02/11/24-1212 Status: CIPRIANO Macias Num: [id number] Spec Type: Surgical Subm Dr: Kerri Hassan Tissues: A Fallopian Tube - Sterilization (BILAT FAL TUBES) Procedures: HE/3, Gross/Micro L2 -------- Age/ Patient Sex Location Account Attending Physician -------- Kiesha Alas 38/F LABELL [id number] Kerri Hassan -------- SPEC NUM: [id number] RECD: 02/11/24 STATUS: CIPRIANO COLLEEN NUM: [id number] GARY: 02/08/[address] [facility] [address]: Kerri Hassan ENTERED: 02/11/[address] [facility] [address]: Eugenie,Lab SPEC TYPE: Surgical DEPT: JERAMY BLAS ENTERED BY: [id number] RECV BY: [id number] ORDERED: HE/3, Gross/Micro L2 ORDERED: HE3, Gross/Micro [...] cysts, longer tube inked black) -------- Specimen: [id number] Received: 02/11/24 Status: CIPRIANO Colleen Num: [id number] Spec Type: Surgical Subm Dr: Kerri Hassan Tissues: A Fallopian Tube - Sterilization (BILAT FAL TUBES) Procedures: HE/3, Gross/Micro L2 -------- Patient: Kiesha Alas [id number] (Continued) -------- Specimen: [id number] Received: 02/11/24 (Continued) Gross Description (Continued) Signed (signature on file) Osman Hoyt MD 02/13/24 1636 -------- Specimen: [id number] Received: 02/11/24 Status: CIPRIANO Macias Num: [id number] Spec Type: Surgical Subm Dr: Kerri Hassan Tissues: A Fallopian Tube - Sterilization (BILAT FAL TUBES) Procedures: HE/3, Gross/Micro L2 -------- Patient: Kiesha Alas [id number] (Continued) -------- Specimen: [id number] Received: 02/11/24 (Continued) Gross Description (Continued) (3, ss, [id number] A)Brynn Microscopic Description Microscopic examinations are performed supporting the above interpretation CPT Codes 41645 -------- -------- Specimen: [id number] Received: 02/11/24 Status: GABYNicole Macias Num: [id number] Spec Type: Surgical Subm Dr: Kerri Hassan Tissues: A Fallopian Tube - Sterilization (BILAT FAL TUBES) Procedures: Otto LÓPEZ/Kimberly L2 -------- Patient: Kiesha Alas [id number] (Continued) -------- Signed (signature on file) Osman Hoyt MD 02/13/24 8363 Normal [facility] HCG ( test) Ql (U)O rdered By: Smiley rBown on 01-09-2024 Interpretation and review of laboratory results Normal [facility] Preg Test, Ur Negative [facility] Healthcare [facility] Pathology Request for Lab Co rpon 01-09-2024 Pathology Request for Lab Hang Normal [facility] Comment on above: Order Comment: PATHO LOGY EMB SPECIMEN Result Comment: See report. Scanned copy available in EMR. PERFORMED BY: [place] [address] PATHOLOGIST TECHNICAL SUPERVISOR XANDER SNOW M.D. Performed By: #### P ATH TO [facility] #### [facility] [address] [id number] [place] Provider Letteron 12-27-2023 Provider Letter Provider Letter December 27, 2023 KIESHA ALAS [address] [place] [address] : 1985 To Whom It May Concern, Please excuse above patient from work. Date of Illness: From: 12/27/23 To: 12/27/23 May Return to Work On: 12/27/23 Restrictions: None Comments: Patient had an appointment with Karina Singh CNP on 12/27/23 Sincerely, [facility] Normal [facility] URETHRITIS/DISCHARGE PLUS VA GINITIS (HTRX)on 12-11-2023 ATOPOBIUM VAGINAE 0.000 [facility] Healthcare ATOPOBIUM VAGINAE Not detected [facility] BVAB 2,3 (BACTERIAL VAGINOSIS ASSOCIATED BACTERIA 2, 3); MOBILUNCUS SPP 0.000 [facility] BVAB 2,3 (BACTERIAL VAGINOSIS ASSOCIATED BACTERIA 2, 3); MOBILUNCUS SPP Not detected [facility] Healthcare AMY ALBICANS, PARAPSILOSIS, TROPICALIS 0.000 [facility] Healthcare AMY ALBICANS, PARAPSILOSIS, TROPICALIS Not detected [facility] AMY GLABRATA 0.000 [facility] AMY GLABRATA Not detected [facility] AMY KRUSEI 0.000 [facility] AMY KRUSEI Not detected [facility] CHLAMYDIA TRACHOMATIS 0.000 [facility] CHLAMYDIA TRACHOMATIS Not detected [facility] GARDNERELLA VAGINALIS 0.000 [facility] GARDNERELLA VAGINALIS Not detected [facility] MEGASPHAERA (TYPES 1, 2) 0.000 [facility] MEGASPHAERA (TYPES 1, 2) Not detected [facility] MYCOPLASMA GENITALIUM 0.000 [facility] MYCOPLASMA GENITALIUM Not detected [facility] NEISSERIA GONORRHOEAE 0.000 [facility] NEISSERIA GONORRHOEAE Not detected [facility] TRICHOMONAS VAGINALIS 0.000 [facility] TRICHOMONAS VAGINALIS Not detected [facility] Urinalysis macro (dipstick) panel (U)on 12-10-2023 Bilirubin, UA Negative Negative - 4(70) +++ mg/dL [facility] Blood, UA Positive Negative - 50 Kei/mcL [facility] Clarity, UA Clear [facility] Color, UA Yellow [facility] Glucose, UA Negative Negative - 1999(110) ++++ mg/dL [facility] Interpretation and review of laboratory results Abnormal [facility] Ketones, UA Positive Negative - 160(16) ++++ mg/dL [facility] Leukocytes, UA Positive Negative - 500+++ Richard/mcL [facility] Nitrite, UA Negative Negative - Positive [facility] pH, UA 6.0 5 - 9 [facility] Protein, UA Negative Negative - 1999(20) ++++ mg/dL [facility] Spec Grav, UA 1.030 1 - 1.03 [facility] Urobilinogen, UA 1.0 0.2 - 12 mg/dL [facility] C Urineon 09-29-2023 C Urine - ---- [...] S <=20 V Ceftazidime S <=1 V [facility] Comment on above: Performed By: #### U RC #### [facility] ([facility]) [address] [place] [address] [facility] [address] [place] [address] OR Trackon 09-26-2023 Specimens Received From [facility] Comment on above: Performed By: #### O utrea Tracking Order #### [address] [place] [address] Ur Marinelli Vac # 1 [facility] Comment on above: Performed By: #### O [facility] Tracking Order #### [address] [address] Urgent Care Office/Clinic No shaw 09-26-2023 Urgent [...] tabs, 0 Refill(s), 10/03/23 14:50:00 EDT, Pharmacy: [facility]/pharmacy #[id number] Culture Urine Medical Decision Making UA; trace [...] Urine Dipstick Clear 09/26/2023 14:26 EDT Specific [place] Urine Dipstick 1.015 09/26/2023 14:26 EDT pH [...] Kylah Goetz PA-C 09/29/23 09:09 EDT Normal [facility] CT ABD/PELVIS WO CONon 12-23 CT [...] LIOR SANTOS Date: 2021-12-22 22:07 Normal [facility] CBC AUTO DIFFon 12-22-2021 BASO # 0.0 103/ul Normal 0.0-0.1 [facility] Comment on above: Performed By: #### C BC #### [facility] [address] [address] [address] Shannon Hoyt Basophils/100 WBC (Bld) 0.5 % Normal 0.2-2.0 [facility] Comment on above: Performed By: #### C BC #### [facility] [address] [place] [address] Dr. Shannon Hoyt EO # 0.1 103/ul Normal 0.0-0.7 [facility] Comment on above: Performed By: #### C BC #### [facility] [address] [place] [address] Dr. Shannon Hoyt Eosinophils/100 WBC (Bld) 1.0 % Normal 0.9-7.0 [facility] Comment on above: Performed By: #### C BC #### [facility] [address] [place] [address] Dr. Shannon Hoyt Erythrocyte distribution width (RBC) [Ratio] 11.8 % Normal 11.0-15.0 [facility] Comment on above: Performed By: #### C BC #### [facility] [address] [place] [address] Dr. Shannon Hoyt Hematocrit (Bld) [Volume fraction] 33.9 % Critically low 36.0-48.0 [facility] Comment on above: Performed By: #### C BC #### [facility] [address] [place] [address] Dr. Shannon Hyot Hemoglobin (Bld) [Mass/Vol] 11.3 g/dL Critically low 12.0-16.0 [facility] Comment on above: Performed By: #### C BC #### [facility] [address] [place] [address] Dr. Shannon Hoyt IG # 0.02 10e3/ul Normal 0.00-0.03 [facility] Comment on above: Performed By: #### C BC #### [facility] [address] [place] [address] Dr. Shannon Hoyt IG % 0.3 % Normal 0.0-0.5 [facility] Comment on above: Performed By: #### C BC #### [facility] [address] [place] [address] Dr. Shannon Hoyt LYMPH # 1.2 103/ul Normal 1.2-3.8 [facility] Comment on above: Performed By: #### C BC #### [facility] [address] [place] [address] Dr. Shannon Hoyt Lymphocytes/100 WBC (Bld) 20.5 % Normal 20.5-60.0 [facility] Comment on above: Performed By: #### C BC #### [facility] [address] [place] [address] Dr. Shannon Hoyt MANUAL DIFF REQ NO Normal [facility] Comment on above: Performed By: #### C BC #### [facility] [address] [place] [address] Dr. Shannon Hoyt MCH (RBC) [Entitic mass] 30.1 pg Normal 26.7-34.0 [facility] Comment on above: Performed By: #### C BC #### [facility] [address] [place] [address] Dr. Shannon Hoyt MCHC (RBC) [Mass/Vol] 33.3 g/dL Normal 29.9-35.2 [facility] Comment on above: Performed By: #### C BC #### [facility] [address] [place] [address] Dr. Shannon Hoyt MCV (RBC) [Entitic vol] 90.2 fL Normal 81.0-99.0 [facility] Comment on above: Performed By: #### C BC #### [facility] [address] [place] [address] Dr. Shannon Hoyt MONO # 0.7 103/ul Normal 0.3-0.8 [facility] Comment on above: Performed By: #### C BC #### [facility] [address] [place] [address] Dr. Shannon Hoyt Monocytes/100 WBC (Bld) 11.7 % Normal 1.7-12.0 [facility] Comment on above: Performed By: #### C BC #### [facility] [address] [place] [address] Dr. Shannon Hyot NEUT # 4.0 103/ul Normal 1.4-6.5 [facility] Comment on above: Performed By: #### C BC #### [facility] [address] [place] [address] Dr. Shannon Hoyt Neutrophils/100 WBC (Bld) 66.0 % Normal 43.0-75.0 [facility] Comment on above: Performed By: #### C BC #### [facility] [address] [place] [address] Dr. Shannon Hoyt Platelet mean volume (Bld) [Entitic vol] 9.9 fL Normal 9.5-13.5 [facility] Comment on above: Performed By: #### C BC #### [facility] [address] [place] [address] Dr. Shannon Hoyt PLT 191 103/ul Normal 150-450 [facility] Comment on above: Performed By: #### C BC #### [facility] [address] [place] [address] Dr. Shannon Hoyt RBC 3.76 106/ul Critically low 4.20-5.[address] [facility] Comment on above: Performed By: #### C BC #### [facility] [address] [place] [address] Dr. Shannon Hoyt WBC 6.0 103/ul Normal 4.0-11.0 [facility] Comment on above: Performed By: #### C BC #### [facility] [address] [place] [address] Dr. Shannon Hoyt CULTURE URINEon 12-22-2021 CULTURE URINE Culture Observations : NO GROWTH. Normal [facility] Comment on above: Performed By: #### U RCX #### [facility] [address] [place] [address] Dr. Shannon Hoyt [facility]19 [facility]on SARS-CoV-2 (COVID-19) RNA RICHARD+probe Ql (Unsp spec) Not detected Normal NOT DETECTED [facility] Comment on above: Result Comment: When diagnostic [...] for this test is supported by the [place] of Health and Human Service's declaration that [...] used). Performed By: #### C VDTB #### [facility] [address] [place] [address] Dr. Shannon Hoyt ER URINE PROFILEon 2 Bilirubin Ql (U) Negative Normal NEGATIVE [facility] Comment on above: Performed By: #### Cipriano REYEZ UMICRO #### [facility] [address] [place] [address] Dr. Shannon Hoyt Clarity (U) CLEAR Normal CLEAR [facility] Comment on above: Performed By: #### Cipriano REYEZ UMICRO #### [facility] [address] [place] [address] Dr. Shannon Hoyt Color (U) LT. YELLOW Normal YELLOW [facility] Comment on above: Performed By: #### Cipriano REYEZ, UMICRO #### [facility] [address] [place] [address] Dr. Shannon GARCIAAjith A micrscopic examination will be performed if indicated. Normal [facility] Comment on above: Performed By: #### E RUR, UMICRO #### [facility] [address] [place] [address] Dr. Shannon Hoyt Glucose Ql (U) Negative Normal NEGATIVE [facility] Comment on above: Performed By: #### E RUR, UMICRO #### [facility] [address] [place] [address] Dr. Shannon Hoyt Hemoglobin Ql (U) SMALL Abnormal NEGATIVE [facility] Comment on above: Performed By: #### E RUR, UMICRO #### [facility] [address] [place] [address] Dr. Shannon Hoyt Ketones Ql (U) 40 mg/dl Abnormal NEGATIVE [facility] Comment on above: Performed By: #### KEKE TOUSSAINTICRO #### [facility] [address] [place] [address] Dr. Shannon Hoyt LEUKOCYTES Negative Normal NEGATIVE [facility] Comment on above: Performed By: #### KEKE TOUSSAINTICRO #### [facility] [address] [place] [address] Dr. Shannon Hoyt Nitrite Ql (U) Negative Normal NEGATIVE [facility] Comment on above: Performed By: #### BRITTANEY TOUSSAINTRO #### [facility] [address] [place] [address] Dr. Shannon Hoyt pH (U) 6.0 [pH] Normal 5-9 [facility] Comment on above: Performed By: #### BRITTANEY TOUSSAINTRO #### [facility] [address] [place] [address] Dr. Shannon Hoyt SPEC GRAVITY 1.020 Normal 1.005-<=1.[address] [facility] Comment on above: Performed By: #### BRITTANEY TOUSSAINTRO #### [facility] [address] [place] [address] Dr. Shannon Hoyt UA PROTEIN Negative Normal NEGATIVE/ TRACE [facility] Comment on above: Performed By: #### BRITTANEY TOUSSAINTRO #### [facility] [address] [place] [address] Dr. Shannon Hoyt UR MICRO IND INDICATED Normal [facility] Comment on above: Performed By: #### Cipriano REYEZ UMICRO #### [facility] [address] [place] [address] Dr. Shannon Hoyt Urobilinogen Qn (U) 0.2 {Galileo'U}/dL Normal 0.2 - 1. 0 [facility] Comment on above: Performed By: #### BRITTANEY TOUSSAINTRO #### [facility] [address] [place] [address] Dr. Shannon Hoyt LACTATE/LACTIC ACIDon 2021 Lactate [Moles/Vol] 1.0 mmol/L Normal 0.4-1.9 [facility] Comment on above: Performed By: #### L ACT #### [facility] [address] [place] [address] Dr. Shannon Hoyt LIPASEon 12-22-2021 Lipase [Catalytic activity/Vol] 58.0 U/L Critically low 73.0-393.0 [facility] Comment on above: Performed By: #### L IPA, CMP #### [facility] [address] [place] [address] Dr. Shannon Hoyt PREG HCG QUALon 12-22-2021 , QUAL Negative Normal NEGATIVE [facility] Comment on above: Performed By: #### P REG #### [facility] [address] [place] [address] Dr. Shannon Hoyt PROF 14(COMP METB)on 022 Albumin [Mass/Vol] 2.9 g/dL Critically low 3.4-5.0 [facility] Comment on above: Performed By: #### L IPA, CMP #### [facility] [address] [place] [address] Dr. Shannon Hoyt Albumin/Globulin [Mass ratio] 0.8 {ratio} [facility] Comment on above: Performed By: #### L IPA, CMP #### [facility] [address] [place] [address] Dr. Shannon Hoyt ALP [Catalytic activity/Vol] 58 U/L Normal 46-116 [facility] Comment on above: Performed By: #### L IPA, CMP #### [facility] [address] [place] [address] Dr. Shannon Hoyt ALT [Catalytic activity/Vol] 33 U/L Normal 14-59 [facility] Comment on above: Performed By: #### L IPA, CMP #### [facility] [address] [place] [address] Dr. Shannon Hoyt Anion gap [Moles/Vol] 8.0 mmol/L Normal [facility] Comment on above: Performed By: #### L IPA, CMP #### [facility] [address] [address] [address] Shannon Hoyt AST [Catalytic activity/Vol] 21 U/L Normal 15-37 [facility] Comment on above: Performed By: #### L IPA, CMP #### [facility] [address] [address] [address] Shannon Hoyt Bilirubin [Mass/Vol] 0.2 mg/dL Normal 0.2-1.0 [facility] Comment on above: Performed By: #### L IPA, CMP #### [facility] [address] [address] [address] Shannon Hoyt Calcium [Mass/Vol] 8.2 mg/dL Critically low 8.5-10.1 [facility] Comment on above: Performed By: #### L IPA, CMP #### [facility] [address] [place] [address] Dr. Shannon Hoyt Chloride [Moles/Vol] 106 mmol/L Normal 98-107 [facility] Comment on above: Performed By: #### L IPA, CMP #### [facility] [address] [address] [address] Shannon Hoyt CO2 [Moles/Vol] 27.9 mmol/L Normal 21.0-32.0 [facility] Comment on above: Performed By: #### L IPA, CMP #### [facility] [address] [address] [address] Shannon Hoyt Creatinine [Mass/Vol] 0.70 mg/dL Normal 0.55-1.02 [facility] Comment on above: Performed By: #### L IPA, CMP #### [facility] [address] [address] [address] Shannon Hoyt EGFR-AF LITHUANIAN >60 Normal >=60 [facility] Comment on above: Performed By: #### L IPA, CMP #### [facility] [address] [address] [address] Shannon Hoyt EGFR-NON AF LITHUANIAN >60 Normal >=60 [facility] Comment on above: Performed By: #### L IPA, CMP #### [facility] [address] [address] [address] Shannon Hoyt Globulin (S) [Mass/Vol] 3.5 g/dL Normal [facility] Comment on above: Performed By: #### L IPA, CMP #### [facility] [address] [address] [address] Shannon Hoyt Glucose [Mass/Vol] 108 mg/dL Critically high 74-106 [facility] Comment on above: Performed By: #### L IPA, CMP #### [facility] [address] [address] [address] Shannon Hoty Potassium [Moles/Vol] 3.9 mmol/L Normal 3.5-5.1 [facility] Comment on above: Performed By: #### L IPA, CMP #### [facility] [address] [place] [address] Dr. Shannon Hoyt Protein [Mass/Vol] 6.4 g/dL Normal 6.4-8.2 [facility] Comment on above: Performed By: #### L IPA, CMP #### [facility] [address] [place] [address] Dr. Shannon Hoyt Sodium [Moles/Vol] 138 mmol/L Normal 136-145 [facility] Comment on above: Performed By: #### L IPA, CMP #### [facility] [address] [place] [address] Dr. Shannon Hoyt Urea nitrogen [Mass/Vol] 7.0 mg/dL Normal 7.0-18.0 [facility] Comment on above: Performed By: #### L IPA, CMP #### [facility] [address] [place] [address] Dr. Shannon Hoyt Urea nitrogen/Creatinine [Mass ratio] 10.0 mg/mg Normal [facility] Comment on above: Performed By: #### L IPA, CMP #### [facility] [address] [place] [address] Dr. Shannon Hoyt URINE MICROSCOPIC ONLYon BACTERIA SMALL Abnormal NONE SEEN [facility] Comment on above: Performed By: #### E RUR, UMICRO #### [facility] [address] [place] [address] Dr. Shannon Hoyt Bacteria identified Cx Nom (U) INDICATED Normal [facility] Comment on above: Performed By: #### Cipriano REYEZ UMICRO #### [facility] [address] [place] [address] Dr. Shannon Hoyt CAST NONE SEEN Normal NONE SEEN [facility] Comment on above: Performed By: #### KEKE TOUSSAINTICRO #### [facility] [address] [place] [address] Dr. Shannon Hoyt Crystals LM Nom (Urine sed) NONE SEEN Normal NONE SEEN [facility] Comment on above: Performed By: #### BRITTANEY TOUSSAINTRO #### [facility] [address] [place] [address] Dr. Shannon Hoyt Epithelial cells LM Ql (Urine sed) FEW Abnormal NONE SEEN /RARE [facility] Comment on above: Performed By: #### BRITTANEY TOUSSAINTRO #### [facility] [address] [place] [address] Dr. Shannon Hoyt MUCOUS TRACE Abnormal NONE SEEN [facility] Comment on above: Performed By: #### BRITTANEY TOUSSAINTRO #### [facility] [address] [place] [address] Dr. Shannon Hoyt RBC 0-2 Normal 0-2 [facility] Comment on above: Performed By: #### BRITTANEY TOUSSAINTRO #### [facility] [address] [place] [address] Dr. Shannon Hoyt WBC 20-50 Abnormal NONE SEEN [facility] Comment on above: Performed By: #### Cipriano REYEZ UMICRO #### [facility] [address] [place] [address] Dr. Shannon Hoyt Vital Signs Date Time Vital Sign Value Performing Clinician Facility 03-11-2024 07:55-0500 Blood Pressure Location Gene FLOWER [facility] 03-11-2024 07:55-0500 Diastolic blood pressure 84 mm[Hg] Gene FLOWER [facility] 03-11-2024 07:55-0500 Heart rate 70 /min Gene FLOWER [facility] 03-11-2024 07:55-0500 Systolic blood pressure 124 mm[Hg] Gene FLOWER [facility] 01-09-2024 15:40-0400 Body mass index (BMI) [Ratio] 22.49 kg/m2 Kerri Sonya DO Work Phone: [facility] 01-09-2024 15:40-0400 Body weight 59.42 kg Kerri Sonya DO Work Phone: [facility] 01-09-2024 15:40-0400 Diastolic blood pressure 68 mm[Hg] Kerri Sonya DO Work Phone: [facility] 01-09-2024 15:40-0400 Systolic blood pressure 110 mm[Hg] Kerri Sonya DO Work Phone: [facility] 12-27-2023 10:45-0400 Blood Pressure Location Karina Galea [facility] 12-27-2023 10:45-0400 Diastolic blood pressure 78 mm[Hg] Karina Galea [facility] 12-27-2023 10:45-0400 Heart rate 73 /min Karina Galea [facility] 12-27-2023 10:45-0400 Respiratory rate 18 /min Karina Galea [facility] 12-27-2023 10:45-0400 Systolic blood pressure 117 mm[Hg] Karina Galea [facility] 12-10-2023 10:53-0400 Body mass index (BMI) [Ratio] 22.34 kg/m2 Kerri Sonya DO Work Phone: [facility] 12-10-2023 10:53-0400 Body weight 59.02 kg Kerri Sonya DO Work Phone: [facility] 12-10-2023 10:53-0400 Diastolic blood pressure 70 mm[Hg] Kerri Sonya DO Work Phone: [facility] 12-10-2023 10:53-0400 Systolic blood pressure 118 mm[Hg] Kerri Sonya DO Work Phone: [facility] Encounters Encounter Date Encounter Type Care Provider Facility Start: 05-08-2024 ambulatory Gene Victori ty:CD:[id number] Start: 05-01-2024 ambulatory Gene Victori ty:CD:[id number] Start: 03-11-2024 End: 03-11-2024 ambulatory Gene FLOWER Facility[facility] Start: 03-11-2024 End: 03-11-2024 Lab Drop off Gene FLOWER [facility] Start: 03-11-2024 End: 03-11-2024 ambulatory Gene FLOWER Facility:[facility] Start: 03-11-2024 End: 03-11-2024 Patient encounter procedure Gene FLOWER [facility] Start: 02-08-2024 End: 02-08-2024 Clinisync Result Encounter Kerri Sonya DO Work Phone: [facility] Unsolicited Start: 02-08-2024 End: 02-08-2024 Clinisync Result Encounter Kerri Sonya DO Work Phone: [facility] Unsolicited Start: 02-08-2024 End: 02-08-2024 ambulatory Kerri Sonya Facility:[facility] Start: 01-09-2024 End: 01-09-2024 Departed Referred DO Kerri Sonya Work Phone: [facility] Start: 01-09-2024 End: 01-09-2024 Patient encounter procedure Kerri Sonya DO Work Phone: [facility] Comment on above: Pre-op examination; Request for sterilization; Menorrhagia with regular cycle; Abnormal uterine bleeding (AUB); Pelvic pain in female Start: 01-09-2024 End: 01-09-2024 Preprocedural examination done Kerri Sonya DO Work Phone: [facility] Start: 01-09-2024 End: 01-09-2024 ambulatory KERRI SONYA [facility] Work Phone: Start: 12-27-2023 End: 12-27-2023 ambulatory Kerri R SONYA Facility:[facility] Start: 12-27-2023 End: 12-27-2023 Patient encounter procedure Karina Singh [facility] Start: 12-11-2023 ambulatory Gene KARINA Facility :[facility] Start: 12-10-2023 End: 12-10-2023 Bamboo flowsheet Kerri [...] 15 minutes Kerri Sonya DO Work Phone: [facility] Comment on above: Pelvic pain in femal e; Recurrent UTI; Vaginal discharge; Pelvic pressure in female; Menorrhagia with irregular cycle; Menorrhagia with regular cycle Start: 10-01-2023 End: 10-01-2023 ambulatory ILA GUNTER Not Available Start: 09-26-2023 End: 09-26-2023 ambulatory Kylah Goetz PA-C Facility:[facility] Start: 12-22-2021 End: 12-23-2021 ambulatory JAZ LEI [...] procedure 10/02/2024 10:00 AM EDT Office Visit [facility] [address] [place] [address] Kerri Hassan, DO [address] [place], [address] [address] [facility] Start: 01-09-2024 End: 01-09-2024 Patient encounter procedure 01/09/2024 3:30 PM EDT Procedure Visit [facility] [address] [place] [address] Kerri Hassan, DO [address] [place] [address] [facility] Start: 12-10-2023 End: 12-09-2024 aPTT in Blood by Coagulation assay APTT Lab Routine Pelvic pain in female Vaginal discharge Pelvic pressure in female Menorrhagia with irregular cycle Expected: 12/10/2023 (Approximate), Expires: 12/09/2024 [facility] Comment on above: Expected: 12/10/2023 (Approximate), Expires: 12/09/2024 Start: 12-10-2023 End: 12-09-2024 SURESWAB(R) ADVANCED VAGINITIS PLUS, TMA SURESWAB(R) ADVANCED VAGINITIS PLUS, TMA Pathology and Cytology Routine Pelvic pain in female Expected: 12/10/2023 (Approximate), Expires: 12/09/2024 [facility] Work Phone: Comment on above: Expected: 12/10/2023 (Approximate), Expires: 12/09/2024 Start: 12-10-2023 End: 12-09-2024 US for US PELVIS-TRANSVAG IF INDICATED Imaging Routine Pelvic pain in female Vaginal discharge Pelvic pressure in female Expected: 12/10/2023 (Approximate), Expires: 12/09/2024 [facility] Comment on above: Expected: 12/10/2023 (Approximate), Expires: 12/09/2024 CBC W Auto Different ial panel - Blood CBC and differential Lab Routine Pelvic pain in female Vaginal discharge Pelvic pressure in female Menorrhagia with irregular cycle Ordered: 12/10/2023 [facility] Comment on above: Ordered: 12/10/2023 CHLAMYDIA TRACHOMATI S (GENITO/STI) CHLAMYDIA TRACHOMATIS (GENITO/STI) Lab Routine Pelvic pain in female Ordered: 12/10/2023 [facility] Comment on above: Ordered: 12/10/2023 Endometrial biopsy Endometrial b iopsy Procedures Routine Menorrhagia with regular cycle Abnormal uterine bleeding (AUB) Pelvic pain in female Ordered: 01/09/2024 [facility] Work Phone: Comment on above: Ordered: 01/09/2024 hCG, quantitative, hCG, quantitative, Lab Routine Pelvic pain in female Vaginal discharge Pelvic pressure in female Menorrhagia with irregular cycle Ordered: 12/10/2023 [facility] Comment on above: Ordered: 12/10/2023 Hemoglobin A1c/Hemoglobin.total in Blood Hemoglobin A1c Lab Routine Pelvic pain in female Vaginal discharge Pelvic pressure in female Menorrhagia with irregular cycle Ordered: 12/10/2023 [facility] Comment on above: Ordered: 12/10/2023 Neisseria gonorrhoea e DNA [Presence] in Unspecified specimen by RICHARD with probe detection Neisseria gonorrhea DNA probe, direct Lab Routine Pelvic pain in female Ordered: 12/10/2023 [facility] Comment on above: Ordered: 12/10/2023 Prothrombin time (PT ) in Blood by Coagulation assay Protime-INR Lab Routine Pelvic pain in female Vaginal discharge Pelvic pressure in female Menorrhagia with irregular cycle Ordered: 12/10/2023 [facility] Comment on above: Ordered: 12/10/2023 Thyrotropin [Units/volume] in Serum or Plasma TSH Lab Routine Pelvic pain in female Vaginal discharge Pelvic pressure in female Menorrhagia with irregular cycle Ordered: 12/10/2023 [facility] Comment on above: Ordered: 12/10/2023 Thyroxine (T4) free [Mass/volume] in Serum or Plasma T4, free Lab Routine Pelvic pain in female Vaginal discharge Pelvic pressure in female Menorrhagia with irregular cycle Ordered: 12/10/2023 [facility] Comment on above: Ordered: 12/10/2023 Payers Date Payer Category Payer Self-pay 2022 Private Health Insurance [employer] [id number] 2022 Unknown 1984 Unknown [id number] [id number] 1984 Unknown [id number]. 196 1984 Unknown [id number]. 196 1984 Unknown [id number]. 1259 1984 Unknown [id number]. 9 1984 Unknown [id number]. 1259 1984 Unknown [id number]. 727 1984 Unknown [id number]. 727 1984 Unknown [id number]. 727 1984 Unknown [id number]. 727 1959 Unknown [id number] Social History Date Type Detail Facility Start: 12-27-2023 End: 03-10-2024 Tobacco smoking status Never smoked tobacco (finding) [facility] Start: 04-06-2023 Sex Assigned At Female [facility] Start: 10-01-2023 End: 12-10-2023 Alcoholic beverage intake Current drinker of alcohol (finding) [facility] Start: 04-06-2023 History of Social function [facility] Start: 08-22-2022 Alcohol Comment caffeine: 2-3 cups per day, coffee [facility] Start: 1985 Sex assigned at Not on file [facility] Start: 09-25-2022 Sexual orientation Heterosexual (finding) [facility] Start: 1985 Sex Assigned At Female [facility] Functional Status Date Assessment Result Facility 03-11-2024 Functional Status N/A [facility] 12-27-2023 Functional Status N/A [facility] Clinical Notes 09-26-2023 to 03-11-2024 Melissa Stanton - 01/09/2024 3:30 PM EDTSusashoaib Johansen LPN - 12/10/2023 10:20 AM EDT Note Date & Type Note Facility 03-11-2024 Evaluation + Plan note Diagnostic Tests [facility]ending[facility]ys[facility] Urine Cy[facility] ([facility]) 03/11/24 [facility] 03-11-2024 Hospital Discharge instructions Patient Education [...] Follow these instructions at home: Medicines Take fgtk-jwo-bbnlyhj and prescription medicines only as told by [...] or the blood stops without treatment. Take tjen-uwz-gasyojh and prescription medicines only as told by your health care provider. Drink enough fluid to keep your urine pale yellow. This information is not intended to replace advice given to you by your health care provider. Make sure you discuss any questions you have with your health care provider. Document Revised: 11/03/2020 Document Reviewed: 11/03/2020 Contents First Patient Education 2023 [employer]. Follow Up Care 01/08/2024 12:04:03 With:KARINA CORDOVA, Gene Griffith, URL Address: [facility] [address] , [place] [address]- When: Unknown [facility] 03-11-2024 Note Patient Education Urology Hematuria, Adult [...] these instructions at home: Medicines ??? Take ndeu-gnq-sxvqbnr and prescription medicines only as told by [...] the blood stops without treatment. ??? Take ukbr-fyd-xaaesgq and prescription medicines only as told by your health care provider. ??? Drink enough fluid to keep your urine pale yellow. This information is not intended to replace advice given to you by your health care provider. Make sure you discuss any questions you have with your health care provider. Document Revised: 11/03/2020 Document Reviewed: 11/03/2020 Contents First Patient Education ? 2023 [employer]. [facility] 01-09-2024 History of Present illness Narrative Reason for Appointment: Patient ID: Kiesha Alas is a 38 y.o. female who presents for Pre-op Visit and Endometrial Biopsy Patient presents today for Pre Op/Endometrial Biopsy appointment. Patient is scheduled to undergo Da Diego assisted Bilateral Laparoscopic Salpingectomy and Endometrial Ablation with Melonie on 02/08/[address] Hassan at [facility]. MEDICATIONS Current Outpatient Medications Medication Instructions sulfamethoxazole-trimethoprim [...] nursing note reviewed. Exam conducted with a field service analyst present. Vitals: Estimated body mass index is [...] reviewed, and patient is to proceed to [facility] OR. Follow Up: Patient is to follow up between 1-2 weeks post op to assess proper healing and recovery from procedure. Documented by Amy Zayas LPN on behalf of: Kerri Hassan DO documented in this encounter [facility] 12-27-2023 Hospital Discharge instructions Patient Education 12/27/2023 11:40:24 Kidney Stones, Fnml-dn-Bgsu Kidney Stones Kidney stones are rock-like masses [...] Follow these instructions at home: Medicines Take gzby-llu-pjakxyk and prescription medicines only as told by [...] provider. Document Revised: 10/27/2022 Document Reviewed: 10/27/2022 Contents First Patient Education 2023 [employer]. Follow Up Care 12/12/2023 13:46:19 With:Samantha KIM, Karina Swain, URL Address: When: Unknown Comments:pending cysto/imaging [facility] 12-27-2023 Note Urology Office/Clini c Note Chief [...] Skin: No rashes or suspicious lesions Assessment/Plan UPSTAIRS MAID referred by Dr. 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 [...] Dr. Flower -RAAD and KUB now at [facility] (pt has transvaginal US scheduled for Sunday, will attempt to complete imaging at this time) -Will send cytology at cystoscopy if KUB/RAAD negative for stones -Increase fluids -Start MET if KUB/RAAD + for ureteral stone(s) -F/U pending imaging and cysto Ordered: E&M of New Patient Moderate 45-59 Min 31086 US Renal XR Abdomen 1 View 2. Recurrent UTI (N39.0: Urinary tract infection, site not specified) 12/22/21 cx negative 09/29/23 cx - 20-30k E. Coli, treated with Bactrim DS x7 days (urgent care) -See #1 Ordered: E&M of New Patient Moderate 45-59 Min 66055 Urnls Dip Stick Auto w/o Microscopy POC 42194 US Renal XR Abdomen 1 View 3. [...] E&M of New Patient Moderate 45-59 Min 11980 US Renal XR Abdomen 1 View 4. Pelvic pain (R10.2: Pelvic and perineal pain) Pt being treated by Dr. Hassan for pelvic pain and painful intercourse. She has a transvaginal US scheduled for Sunday at [facility] and diagnostic lap with bilateral salpingectomy and ablation scheduled with Dr. Hassan (more content not included)... [facility] Comment on above: Result Comment: [...] these instructions at home: Medicines ? Take ossk-qib-gkxifnf and prescription medicines only as told by [...] provider. Document Revised: 10/27/2022 Document Reviewed: 10/27/2022 Contents First Patient Education ? 2023 [employer]. [facility] 12-10-2023 History of Present illness Narrative Referral [...] nursing note reviewed. Exam conducted with a field service analyst present. Vitals: Estimated body mass index is [...] Kerri Hassan DO documented in this encounter [facility] 09-26-2023 Note Patient Education Ma terials [...] tabs, 0 Refill(s), 10/03/23 14:50:00 EDT, Pharmacy: [facility]/pharmacy #[id number] Culture Urine Urinary Tract Infections in Women [...] needed, more treatment may be started. ? [id number] [employer]. [address] [place] [address], [place] [address]. All rights reserved. This information is not intended as a substitute for professional medical care. Always follow your healthcare professional's instructions. [facility] Evaluation + Plan note No data available for this section [facility] Evaluation note Diagnosis Pre-op examination Request for sterilization Menorrhagia with regular cycle Abnormal uterine bleeding (AUB) Pelvic pain in female Unspecified symptom associated with female genital organs documented in this encounter [facility] noteNo assessment [facility] Work Phone: Evaluation note* Diagnosis Pelvic pain in female Unspecified symptom associated with female genital organs Recurrent UTI Urinary tract infection, site not specified Vaginal discharge Leukorrhea, not specified as infective Pelvic pressure in female Menorrhagia with irregular cycle Menorrhagia with regular cycle [facility] Dis[facility] No data available for this section [facility] note No data available for this section [facility] reason for referral (narrative)* Consultation (Routine) - Pending Review Specialty Diagnoses / Procedures Referred By Vaughn ram Referred To Contact Urology Diagnoses Recurrent UTI Procedures [place] OFFICE/OUTPATIENT NEW HIGH MDM 60 MINUTES Kerri Hassan DO [address] [facility] [place] [address] [place] [address] Shalini Figueredo MD [address] [place] [id number] Referral ID Status Reason Start Date Expiration Date Visits Requested Visits Authorized [id number] Pending Review Specialty Services Required 12/11/2023 06/08/2024 [...] and content) DATE CREATED AUTHOR 12/26/2021 [facility] DATE CREATED AUTHOR AUTHOR'S ORGANIZ ATION 10/03/2023 [facility] DATE CREATED AUTHOR AUTHOR'S ORGANIZ ATION 01/11/2024 [facility] EP[facility] DATE CREATED AUTHOR AUTHOR'S ORGANIZ ATION 02/13/[address] 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 [employer] [facility]. provides no warranty or guarantee of the accuracy or completeness of information in this document.
--- NOTE | 2024-04-07 08:43 | P.GSHP_ITS ---
History of Present Illness History of Present Illness Chief complaint: left kidney stone Narrative: 38-year-old female presents for complaints of intermittent left and right flank pain. She is scheduled for left ESWL with Dr. Flower on 05/01/2023. Review of Systems ROS Narrative REVIEW OF SYSTEMS: Negative except as stated in HPI, ten or more systems reviewed. Constitutional: No fever, chills, weakness ENT: No sore throat or epistaxis Cardiovascular: No edema, chest pain, palpitations, or activity intolerance Respiratory: No shortness of breath, cough, or wheezing Musculoskeletal: No joint pain or swelling Gastrointestinal: No abdominal pain, constipation, diarrhea, or vomiting Genitourinary: No dysuria or hematuria no CVA tenderness Neurological: No numbness, tingling, weakness, or headache Psychiatric: No mood changes PFSH [facility] Medical History (Updated 04/07/24 @ 09:01 by Chastity Caldera) Dizziness ?R42 - Dizziness and giddiness (ICD-10) Headache ?R51.9 - Headache, unspecified (ICD-10) Melena ?K92.1 - Melena (ICD-10) Gall stones ?K80.20 - Calculus of gallbladder without cholecystitis without obstruction (ICD-10) COVID-19 ?U07.1 - COVID-19 (ICD-10) Menorrhagia ?N92.0 - Excessive and frequent menstruation with regular cycle (ICD-10) Abnormal uterine bleeding ?N93.9 - Abnormal uterine and vaginal bleeding, unspecified (ICD-10) Pelvic pain ?R10.2 - Pelvic and perineal pain (ICD-10) Kidney stones ?N20.0 - Calculus of kidney (ICD-10) Diverticulitis ?K57.92 - Diverticulitis of intestine, part unspecified, without perforation or abscess without bleeding (ICD-10) Request for sterilization ?Z30.2 - Encounter for sterilization (ICD-10) Surgical History History of lumpectomy of right breast ?Z98.890 - Other specified postprocedural states (ICD-10) History of esophagogastroduodenoscopy (EGD) ?Z98.890 - Other specified postprocedural states (ICD-10) History of colonoscopy ?Z98.890 - Other specified postprocedural states (ICD-10) History of breast biopsy ?Z98.890 - Other specified postprocedural states (ICD-10) Family History Other Family history of breast cancer Social History Within the past year, how often did you have a drink containing alcohol: 2-4 times a month Smoking status: Never smoker Non-prescribed substance use: denies use 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 Highest level of school completed/degree received: Master's degree Meds Home Medications and Allergies Home Medications ?Medication ?Instructions ?Recorded ?Confirmed ?Type hydrocodone 5 mg-acetaminophen 325 1 tab PO Q4H PRN pain 4 days #16 02/08/24 Rx mg tablet tabs ibuprofen 800 mg tablet 800 mg PO Q8H PRN pain 14 days #40 02/08/24 Rx tabs Lactobacillus acidophilus 10 100 mmu cells PO BID 04/07/24 04/07/24 History billion cell capsule ([employer]) Allergies Allergy/AdvReac Type Severity Reaction Status Date / Time No Known Drug Allergies Allergy Verified 04/07/24 08:14 Exam Narrative Exam Narrative: Constitutional: Awake, alert, comfortable, well-appearing, nontoxic, interactive, vital signs as charted Head: Normocephalic, atraumatic Eyes: Conjunctiva and lids normal to inspection, pupils normal ENT: Tympanic membranes pearly bennett, nonerythematous, noninjected, naris patent, posterior oropharynx clear, oral mucosa moist Neck: Supple, normal appearance, normal range of motion, no meningeal signs, no lymphadenopathy Respiratory: No respiratory distress, breath sounds clear Cardiovascular: Regular rate and rhythm, strong and regular heart tones Abdomen: Nontender, normal bowel sounds, soft, no CVA tenderness Musculoskeletal: Normal gait, no swelling or edema Skin: No rashes or induration, no lesions, only visible skin inspected Neuro: No neurological deficits, normal sensation Psychiatric: Oriented ?3, normal affect Assessment and Plan Assessment and Plan (1) Renal calculus, left: (2) Hematuria: (3) Recurrent UTI: Plan ESWL per Dr. Flower scheduled on 05/01/2023
[2024-04-07 08:48] LABS: Basophils Absolute Auto 0.1 10^3/uL (0.0-0.1); Basophils Percent Auto 1.9 % (0.2-2.0); Eosinophils Absolute Auto 0.2 10^3/uL (0.0-0.7); Eosinophils Percent Auto 4.3 % (0.9-7.0); Hematocrit 38.2 % (36.0-48.0); Immature Granulocytes Abs Auto 0.01 10^3/uL (0.00-0.03); Immature Granulocytes Pct Auto 0.3 % (0.0-0.5); Lymphocytes Absolute Auto 1.4 10^3/uL (1.2-3.8); Lymphocytes Percent Auto 37.1 % (20.5-60.0); Mean Corpuscular Hemoglobin 30.2 pg (26.7-34.0); Mean Corpuscular Volume 88.8 fL (81.0-99.0); Mean Platelet Volume 10.2 fL (9.5-13.5); Monocytes Absolute Auto 0.4 10^3/uL (0.3-0.8); Neutrophils Absolute Auto 1.7 10^3/uL (1.4-6.5); Neutrophils Percent Auto 46.4 % (43.0-75.0); Platelet Count 213 10^3/uL (150-450); Red Cell Distribution Width 12.1 % (11.0-15.0); White Blood Count 3.7 10^3/uL (4.0-11.0)
[2024-04-07 08:59] LABS: Anion Gap 10.3; BUN Creatinine Ratio 13.3; Calcium 8.9 mg/dL (8.5-10.1); Chloride 105 mmol/L (98-107); Estimated GFR (African America >60 (>=60 mL/min/1.73m^2); Estimated GFR (Non-African Ame >60 (>=60 mL/min/1.73m^2); Glucose 70 mg/dL (74-106); Potassium 4.3 mmol/L (3.5-5.1); Sodium 141 mmol/L (136-145)
[2024-04-07 09:10] LABS: INR 1.11; Partial Thromboplastin Time 29.4 sec (22.3-36.2); Prothrombin Time 11.6 sec (9.0-11.6)
== END 2024-04-07 08:05 | disposition home or self-care (01) ==
LOC: PST 08:05
PROVIDERS: PCP Internal Medicine; Visit Provider Urology
DX: Z01.812 Encounter for preprocedural laboratory examination (principal); Z01.818 Encounter for other preprocedural examination; N20.0 Calculus of kidney; R31.9 Hematuria, unspecified; N39.0 Urinary tract infection, site not specified
CPT/HCPCS: 80048; 85025; 85610; 85730; G0463

== ENCOUNTER 2024-05-01 10:30 | Day surgery (SDC) | payer OTHER, SELFPAY ==
[2024-04-07 08:19] VITALS: BP 100/62; PULSE 72; TEMP 36.3; O2SAT 100; BMI 23.5
[2024-05-01] VITALS (10 sets, daily range): BP systolic 81–125; BP diastolic 51–84; PULSE 55–74; TEMP 36.3–36.6; O2SAT 95–100; BMI 23.9
--- OUTSIDE RECORDS SUMMARY | 2024-05-01 10:43 | XMS_ITS | CCD ---
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 Name Role Phone JAZ LEI Admitting Unavailable JAZ LEI Attending Unavailable RAFAT, DR PRYOR Primary Care Unavailable JO CARRINGTON Consulting Unavailable ANNA MARIE, NIKHIL Consulting Unavailable LIOR SANTOS Consulting Unavailable Bishnu MURPHY, Kylah Lucero Attending Erlin Goetz PA-C, Kylah Lucero Attending Tasiav Rajiv Denise MD Primary Care Provider Sonya, DO Zaman Attending Provider [phone] ILA GUNTER Attending Unavailable SONYA, KERRI Attending [...] procedure, # 2 tab(s), Refills(s) 0, Pharmacy: [facility]/pharmacy #[id number], 160, cm, 12/27/23 10:47:00 [...] & UC Diagnosis Info Invalid Interpretation Code [facility] Comment on above: Result Comment: A:Ur [...] with cytology and cystoscopy results. * CPT: 53308, 72707. Microscopic Notes - Microscopic Notes - Abnormal cells 9p21 deletions: Abnormal cells aneploid events: Total cells analyzed: 108 Hematuria: Gross Description Site ID:A color Yellow fixative Alcohol Received 100 mls of clear yellow fluid with the patient's name and, Bladder Wash on the vial. Electronically signed by : on: 03/20/2024 10:15:45 Performed By: #### 1 [id number] #### [facility] [address] [place] [address] Ambulatory Visit Summaryon 1 05-12-2023 Ambulatory Visit [...] Where: [facility] [address] [place] [address]- Medications What How Much When Instructions Unchanged [...] these instructions at home: Medicines ??? Take eidb-hhg-kqsffby and prescription medicines only as told by [...] blood in (more content not included)... Normal [facility] UroVysion Fish and Urine Cyt o ([facility])on 03-11-2024 [facility] Method of Extraction Bladder Wash Normal [facility] Comment on above: Performed By: #### 1 [id number] #### [facility] [address] [place] [address] [facility] Number of Jars 1 Invalid Interpretation Code [facility] Comment on above: Performed By: #### 1 [id number] #### [facility] [address] [place] [address] [facility] Specimen Bladder Wash Normal [facility] Comment on above: Performed By: #### 1 [id number] #### [facility] [address] [place] [address] [facility] Type of Service Technical Only Normal [facility] Comment on above: Performed By: #### 1 [id number] #### [facility] [address] [place] [address] Urology Office/Clinic Noteon 03-11-2024 Urology Office/Clinic Note [...] urine The Urethra was dilated to: 20-30 [place] with sounds. Specimens Removed: Bladder wash sent [...] With When Contact Information Gene FLOWER MD, [facility] [address], [place] [address]- Additional Instructions: schedule Left ESWL Patient Education [...] data Proced (more content not included)... Normal [facility] Comment on above: Result Comment: Elec [...] [Ratio] 12.4 % 11.0 - 15.0 % [facility] Hematocrit (Bld) [Volume fraction] 37.5 % 36.0 - 48.0 % [facility] Hemoglobin (Bld) [Mass/Vol] 12.7 g/dL 12.0 - 16.0 g/dL [facility] IMMATURE GRANULOCYTES ABS AUTO 0.01 [facility] Immature granulocytes/100 WBC (Bld) 0.2 % 0.0 - 0.5 % [facility] LYMPHOCYTES ABSOLUTE AUTO 1.6 [facility] Lymphocytes/100 WBC (Bld) 35.8 % 20.5 - 60.0 % [facility] MCH (RBC) [Entitic mass] 30.1 pg 26.7 - 34.0 pg [facility] MCHC (RBC) [Mass/Vol] 33.9 g/dL 29.9 - 35.2 g/dL [facility] MCV (RBC) [Entitic vol] 88.9 fL 81.0 - 99.0 fL [facility] MONOCYTES ABSOLUTE AUTO 0.5 [facility] Monocytes/100 WBC (Bld) 11.1 % 1.7 - 12.0 % [facility] NEUTROPHILS ABSOLUTE AUTO 2.2 [facility] Neutrophils/100 WBC (Bld) 49.2 % 43.0 - 75.0 % [facility] Platelet mean volume (Bld) [Entitic vol] 10 fL 9.5 - 13.5 fL [facility] TBH EO # 0.1 [facility] PLT 200 [facility] RBC 4.22 [facility] WBC 4.5 [facility] Itz 02-08-2024 L - -------- Specimen: [id number] Received: 02/11/24-1212 Status: CIPRIANO Macias Num: [id number] Spec Type: Surgical Subm Dr: Kerri Hassan Tissues: A Fallopian Tube - Sterilization (BILAT FAL TUBES) Procedures: HE/3, Gross/Micro L2 -------- Age/ Patient Sex Location Account Attending Physician -------- Kiesha Alas 38/F LABELL [id number] Kerri Hassan -------- SPEC NUM: [id number] RECD: 02/11/24 STATUS: CIPRIANO COLLEEN NUM: [id number] GARY: 02/08/[address] [facility] [address]: Kerri Hassan ENTERED: 02/11/[address] [facility] [address]: Eugenie,Lab SPEC TYPE: Surgical DEPT: JERAMY BLAS ENTERED BY: [id number] RECV BY: [id number] ORDERED: HE/3, Gross/Micro L2 ORDERED: HE3, Gross/Micro [...] cysts, longer tube inked black) -------- Specimen: [id number] Received: 02/11/24 Status: CIPRIANO Colleen Num: [id number] Spec Type: Surgical Subm Dr: Kerri Hassan Tissues: A Fallopian Tube - Sterilization (BILAT FAL TUBES) Procedures: HE/3, Gross/Micro L2 -------- Patient: Kiesha Alas [id number] (Continued) -------- Specimen: [id number] Received: 02/11/24 (Continued) Gross Description (Continued) Signed (signature on file) Osman Hoyt MD 02/13/24 1636 -------- Specimen: [id number] Received: 02/11/24 Status: CIPRIANO Macias Num: [id number] Spec Type: Surgical Subm Dr: Kerri Hassan Tissues: A Fallopian Tube - Sterilization (BILAT FAL TUBES) Procedures: HE/3, Gross/Micro L2 -------- Patient: Kiesha Alas [id number] (Continued) -------- Specimen: [id number] Received: 02/11/24 (Continued) Gross Description (Continued) (3, ss, [id number] A)Brynn Microscopic Description Microscopic examinations are performed supporting the above interpretation CPT Codes 42905 -------- -------- Specimen: [id number] Received: 02/11/24 Status: GABYNicole Macias Num: [id number] Spec Type: Surgical Subm Dr: Kerri Hassan Tissues: A Fallopian Tube - Sterilization (BILAT FAL TUBES) Procedures: Otto LÓPEZ/Kimberly L2 -------- Patient: Kiesha Alas [id number] (Continued) -------- Signed (signature on file) Osman Hoyt MD 02/13/24 3785 Normal [facility] HCG ( test) Ql (U)O rdered By: Smiley Brown on 01-09-2024 Interpretation and review of laboratory results Normal [facility] Preg Test, Ur Negative [facility] Pathology Request for Lab Co rpon 01-09-2024 Pathology Request for Lab Hang Normal [facility] Comment on above: Order Comment: PATHO LOGY EMB SPECIMEN Result Comment: See report. Scanned copy available in EMR. PERFORMED BY: [place] [address] PATHOLOGIST FLOOR PERSON XANDER SNOW M.D. Performed By: #### P ATH TO [facility] #### [facility] [id number] [facility] Provider Letteron 12-27-2023 Provider Letter Provider Letter December 27, 2023 KIESHA ALAS [address] [place] [address] : 1985 To Whom It May Concern, Please excuse above patient from work. Date of Illness: From: 12/27/23 To: 12/27/23 May Return to Work On: 12/27/23 Restrictions: None Comments: Patient had an appointment with Karina Singh CNP on 12/27/23 Sincerely, [facility] Normal [facility] URETHRITIS/DISCHARGE PLUS VA GINITIS (HTRX)on 12-11-2023 ATOPOBIUM VAGINAE 0.000 [facility] ATOPOBIUM VAGINAE Not detected [facility] BVAB 2,3 (BACTERIAL VAGINOSIS ASSOCIATED BACTERIA 2, 3); MOBILUNCUS SPP 0.000 [facility] BVAB 2,3 (BACTERIAL VAGINOSIS ASSOCIATED BACTERIA 2, 3); MOBILUNCUS SPP Not detected [facility] AMY ALBICANS, PARAPSILOSIS, TROPICALIS 0.000 [facility] AMY ALBICANS, PARAPSILOSIS, TROPICALIS Not detected [facility] AMY GLABRATA 0.000 [facility] AMY GLABRATA Not detected [facility] AMY KRUSEI 0.000 [facility] AMY KRUSEI Not detected [facility] CHLAMYDIA TRACHOMATIS 0.000 [facility] CHLAMYDIA TRACHOMATIS Not detected [facility] GARDNERELLA VAGINALIS 0.000 [facility] GARDNERELLA VAGINALIS Not detected [facility] MEGASPHAERA (TYPES 1, 2) 0.000 [facility] MEGASPHAERA (TYPES 1, 2) Not detected [facility] MYCOPLASMA GENITALIUM 0.000 [facility] MYCOPLASMA GENITALIUM Not detected [facility] NEISSERIA GONORRHOEAE 0.000 [facility] NEISSERIA GONORRHOEAE Not detected [facility] TRICHOMONAS VAGINALIS 0.000 [facility] TRICHOMONAS VAGINALIS Not detected [facility] Urinalysis macro (dipstick) panel (U)on 12-10-2023 Bilirubin, UA Negative Negative - 4(70) +++ mg/dL [facility] Blood, UA Positive Negative - 50 Kei/mcL [facility] Clarity, UA Clear [facility] Color, UA Yellow [facility] Glucose, UA Negative Negative - 1999(110) ++++ mg/dL [facility] Interpretation and review of laboratory results Abnormal [facility] Ketones, UA Positive Negative - 160(16) ++++ mg/dL [facility] Leukocytes, UA Positive Negative - 500+++ Richard/mcL [facility] Nitrite, UA Negative Negative - Positive [facility] pH, UA 6.0 5 - 9 [facility] Protein, UA Negative Negative - 1999(20) ++++ mg/dL [facility] Spec Grav, UA 1.030 1 - 1.03 [facility] Urobilinogen, UA 1.0 0.2 - 12 mg/dL [facility] C Urineon 09-29-2023 C Urine - ---- [...] S <=20 V Ceftazidime S <=1 V [facility] Comment on above: Performed By: #### U RC #### [facility] (DEFAULT) [address] [place] [address] [facility] [address] [place] [address] OR Trackon 09-26-2023 Specimens Received From [facility] Comment on above: Performed By: #### O utrea Tracking Order #### [id number] [place] [address] Ur Marinelli Vac # 1 [facility] Comment on above: Performed By: #### O [facility] Tracking Order #### [address] [address] Urgent Care Office/Clinic No shaw 09-26-2023 Urgent [...] tabs, 0 Refill(s), 10/03/23 14:50:00 EDT, Pharmacy: [facility]/pharmacy #[id number] Culture Urine Medical Decision Making UA; trace [...] Urine Dipstick Clear 09/26/2023 14:26 EDT Specific [facility] Urine Dipstick 1.015 09/26/2023 14:26 EDT pH [...] Kylah Goetz PA-C 09/29/23 09:09 EDT Normal [facility] CT ABD/PELVIS WO CONon 12-23 CT [...] LIOR SANTOS Date: 2021-12-22 22:07 Normal [facility] CBC AUTO DIFFon 12-22-2021 BASO # 0.0 103/ul Normal 0.0-0.1 [facility] Comment on above: Performed By: #### C BC #### [facility] Laboratory [address] [address] [address] Shannon Hoyt Basophils/100 WBC (Bld) 0.5 % Normal 0.2-2.0 [facility] Comment on above: Performed By: #### C BC #### [facility] Laboratory [address] [place] [address] Dr. Shannon Hoyt EO # 0.1 103/ul Normal 0.0-0.7 [facility] Comment on above: Performed By: #### C BC #### [facility] [address] [place] [address] Dr. Shannon Hoyt Eosinophils/100 WBC (Bld) 1.0 % Normal 0.9-7.0 [facility] Comment on above: Performed By: #### C BC #### [facility] [address] [place] [address] Dr. Shannon Hoyt Erythrocyte distribution width (RBC) [Ratio] 11.8 % Normal 11.0-15.0 [facility] Comment on above: Performed By: #### C BC #### [facility] [address] [place] [address] Dr. Shannon Hoyt Hematocrit (Bld) [Volume fraction] 33.9 % Critically low 36.0-48.0 [facility] Comment on above: Performed By: #### C BC #### [facility] [address] [place] [address] Dr. Shannon Hoyt Hemoglobin (Bld) [Mass/Vol] 11.3 g/dL Critically low 12.0-16.0 [facility] Comment on above: Performed By: #### C BC #### [facility] [address] [place] [address] Dr. Shannon Hoyt IG # 0.02 10e3/ul Normal 0.00-0.03 [facility] Comment on above: Performed By: #### C BC #### [facility] [address] [place] [address] Dr. Shannon Hoyt IG % 0.3 % Normal 0.0-0.5 [facility] Comment on above: Performed By: #### C BC #### [facility] [address] [place] [address] Dr. Shannon Hoyt LYMPH # 1.2 103/ul Normal 1.2-3.8 [facility] Comment on above: Performed By: #### C BC #### [facility] [address] [place] [address] Dr. Shannon Hoyt Lymphocytes/100 WBC (Bld) 20.5 % Normal 20.5-60.0 [facility] Comment on above: Performed By: #### C BC #### [facility] [address] [place] [address] Dr. Shannon Hoyt MANUAL DIFF REQ NO Normal [facility] Comment on above: Performed By: #### C BC #### [facility] [address] [place] [address] Dr. Shannon Hoyt MCH (RBC) [Entitic mass] 30.1 pg Normal 26.7-34.0 [facility] Comment on above: Performed By: #### C BC #### [facility] [address] [place] [address] Dr. Shannon Hoyt MCHC (RBC) [Mass/Vol] 33.3 g/dL Normal 29.9-35.2 [facility] Comment on above: Performed By: #### C BC #### [facility] [address] [place] [address] Dr. Shannon Hoyt MCV (RBC) [Entitic vol] 90.2 fL Normal 81.0-99.0 [facility] Comment on above: Performed By: #### C BC #### [facility] [address] [place] [address] Dr. Shannon Hoyt MONO # 0.7 103/ul Normal 0.3-0.8 [facility] Comment on above: Performed By: #### C BC #### [facility] [address] [place] [address] Dr. Shannon Hoyt Monocytes/100 WBC (Bld) 11.7 % Normal 1.7-12.0 [facility] Comment on above: Performed By: #### C BC #### [facility] [address] [place] [address] Dr. Shannon Hoyt NEUT # 4.0 103/ul Normal 1.4-6.5 [facility] Comment on above: Performed By: #### C BC #### [facility] [address] [place] [address] Dr. Shannon Hoyt Neutrophils/100 WBC (Bld) 66.0 % Normal 43.0-75.0 [facility] Comment on above: Performed By: #### C BC #### [facility] [address] [place] [address] Dr. Shannon Hoyt Platelet mean volume (Bld) [Entitic vol] 9.9 fL Normal 9.5-13.5 [facility] Comment on above: Performed By: #### C BC #### [facility] [address] [place] [address] Dr. Shannon Hoyt PLT 191 103/ul Normal 150-450 [facility] Comment on above: Performed By: #### C BC #### [facility] [address] [place] [address] Dr. Shannon Hoyt RBC 3.76 106/ul Critically low 4.20-5.40 [facility] Comment on above: Performed By: #### C BC #### [facility] [address] [place] [address] Dr. Shannon Hoyt WBC 6.0 103/ul Normal 4.0-11.0 [facility] Comment on above: Performed By: #### C BC #### [facility] [address] [place] [address] Dr. Shannon Hoyt CULTURE URINEon 12-22-2021 CULTURE URINE Culture Observations : NO GROWTH. Normal [facility] Comment on above: Performed By: #### U RCX #### [facility] [address] [place] [address] Dr. Shannon Hoyt [facility]on SARS-CoV-2 (COVID-19) RNA RICHARD+probe Ql (Unsp spec) Not detected Normal NOT DETECTED [facility] Comment on above: Result Comment: [...] for this test is supported by the [employer] of Health and Human Service's declaration that [...] used). Performed By: #### C VDTB #### [facility] [address] [place] [address] Dr. Shannon Hoyt ER URINE PROFILEon 2 Bilirubin Ql (U) Negative Normal NEGATIVE [facility] Comment on above: Performed By: #### Cipriano REYEZ UMICRO #### [facility] [address] [place] [address] Dr. Shannon Hoyt Clarity (U) CLEAR Normal CLEAR [facility] Comment on above: Performed By: #### Cipriano REYEZ UMICRO #### [facility] [address] [place] [address] Dr. Shanonn Hoyt Color (U) LT. YELLOW Normal YELLOW [facility] Comment on above: Performed By: #### Cipriano REYEZ, UMICRO #### [facility] [address] [place] [address] Dr. Shannon GARCIAAjith A micrscopic examination will be performed if indicated. Normal [facility] Comment on above: Performed By: #### E RUR, UMICRO #### [facility] [address] [place] [address] Dr. Shannon Hoyt Glucose Ql (U) Negative Normal NEGATIVE [facility] Comment on above: Performed By: #### E RUR, UMICRO #### [facility] [address] [place] [address] Dr. Shannon Hoyt Hemoglobin Ql (U) SMALL Abnormal NEGATIVE The [facility] Comment on above: Performed By: #### E RUR, UMICRO #### [facility] [address] [place] [address] Dr. Shannon Hoyt Ketones Ql (U) 40 mg/dl Abnormal NEGATIVE [facility] Comment on above: Performed By: #### KEKE TOUSSAINTICRO #### [facility] [address] [place] [address] Dr. Shannon Hoyt LEUKOCYTES Negative Normal NEGATIVE [facility] Comment on above: Performed By: #### KEKE TOUSSAINTICRO #### [facility] [address] [place] [address] Dr. Shannon Hoyt Nitrite Ql (U) Negative Normal NEGATIVE [facility] Comment on above: Performed By: #### BRITTANEY TOUSSAINTRO #### [facility] [address] [place] [address] Dr. Shannon Hoyt pH (U) 6.0 [pH] Normal 5-9 [facility] Comment on above: Performed By: #### BRITTANEY TOUSSAINTRO #### [facility] [address] [place] [address] Dr. Shannon Hoyt SPEC GRAVITY 1.020 Normal 1.005-<=1.025 [facility] Comment on above: Performed By: #### BRITTANEY TOUSSAINTRO #### [facility] [address] [place] [address] Dr. Shannon Hoyt UA PROTEIN Negative Normal NEGATIVE/ TRACE [facility] Comment on above: Performed By: #### BRITTANEY TOUSSAINTRO #### [facility] [address] [place] [address] Dr. Shannon Hoyt UR MICRO IND INDICATED Normal [facility] Comment on above: Performed By: #### Cipriano REYEZ UMICRO #### [facility] [address] [place] [address] Dr. Shannon Hoyt Urobilinogen Qn (U) 0.2 {Galileo'U}/dL Normal 0.2 - 1. 0 [facility] Comment on above: Performed By: #### BRITTANEY TOUSSAINTRO #### [facility] [address] [place] [address] Dr. Shannon Hoyt LACTATE/LACTIC ACIDon 2021 Lactate [Moles/Vol] 1.0 mmol/L Normal 0.4-1.9 [facility] Comment on above: Performed By: #### L ACT #### [facility] [address] [place] [address] Dr. Shannon Hoyt LIPASEon 12-22-2021 Lipase [Catalytic activity/Vol] 58.0 U/L Critically low 73.0-393.0 [facility] Comment on above: Performed By: #### L IPA, CMP #### [facility] [address] [place] [address] Dr. Shannon Hoyt PREG HCG QUALon 12-22-2021 , QUAL Negative Normal NEGATIVE [facility] Comment on above: Performed By: #### P REG #### [facility] [address] [place] [address] Dr. Shannon Hoyt PROF 14(COMP METB)on 022 Albumin [Mass/Vol] 2.9 g/dL Critically low 3.4-5.0 [facility] Comment on above: Performed By: #### L IPA, CMP #### [facility] [address] [place] [address] Dr. Shannon Hoyt Albumin/Globulin [Mass ratio] 0.8 {ratio} [facility] Comment on above: Performed By: #### L IPA, CMP #### [facility] [address] [place] [address] Dr. Shannon Hoyt ALP [Catalytic activity/Vol] 58 U/L Normal 46-116 [facility] Comment on above: Performed By: #### L IPA, CMP #### [facility] [address] [place] [address] Dr. Shannon Hoyt ALT [Catalytic activity/Vol] 33 U/L Normal 14-59 [facility] Comment on above: Performed By: #### L IPA, CMP #### [facility] [address] [place] [address] Dr. Shannon Hoyt Anion gap [Moles/Vol] 8.0 mmol/L Normal [facility] Comment on above: Performed By: #### L IPA, CMP #### [facility] [address] [address] [address] Shannon Hoyt AST [Catalytic activity/Vol] 21 U/L Normal 15-37 [facility] Comment on above: Performed By: #### L IPA, CMP #### [facility] [address] [address] [address] Shannon Hoyt Bilirubin [Mass/Vol] 0.2 mg/dL Normal 0.2-1.0 [facility] Comment on above: Performed By: #### L IPA, CMP #### [facility] [address] [address] [address] Shannon Hoyt Calcium [Mass/Vol] 8.2 mg/dL Critically low 8.5-10.1 [facility] Comment on above: Performed By: #### L IPA, CMP #### [facility] [address] [place] [address] Dr. Shannon Hoyt Chloride [Moles/Vol] 106 mmol/L Normal 98-107 [facility] Comment on above: Performed By: #### L IPA, CMP #### [facility] [address] [address] [address] Shannon Hoyt CO2 [Moles/Vol] 27.9 mmol/L Normal 21.0-32.0 [facility] Comment on above: Performed By: #### L IPA, CMP #### [facility] [address] [address] [address] Shannon Hoyt Creatinine [Mass/Vol] 0.70 mg/dL Normal 0.55-1.02 [facility] Comment on above: Performed By: #### L IPA, CMP #### [facility] [address] [address] [address] Shannon Hoty EGFR-AF PAKISTANI >60 Normal >=60 [facility] Comment on above: Performed By: #### L IPA, CMP #### [facility] [address] [address] [address] Shannon Hoyt EGFR-NON AF PAKISTANI >60 Normal >=60 [facility] Comment on above: Performed By: #### L IPA, CMP #### [facility] [address] [address] [address] Shannon Hoyt Globulin (S) [Mass/Vol] 3.5 g/dL Normal [facility] Comment on above: Performed By: #### L IPA, CMP #### [facility] [address] [address] [address] Shannon Hoyt Glucose [Mass/Vol] 108 mg/dL Critically high 74-106 [facility] Comment on above: Performed By: #### L IPA, CMP #### [facility] [address] [address] [address] Shannon Hoyt Potassium [Moles/Vol] 3.9 mmol/L Normal 3.5-5.1 [facility] Comment on above: Performed By: #### L IPA, CMP #### [facility] [address] [place] [address] Dr. Shannon Hoyt Protein [Mass/Vol] 6.4 g/dL Normal 6.4-8.2 [facility] Comment on above: Performed By: #### L IPA, CMP #### [facility] [address] [place] [address] Dr. Shannon Hoyt Sodium [Moles/Vol] 138 mmol/L Normal 136-145 [facility] Comment on above: Performed By: #### L IPA, CMP #### [facility] [address] [place] [address] Dr. Shannon Hoyt Urea nitrogen [Mass/Vol] 7.0 mg/dL Normal 7.0-18.0 [facility] Comment on above: Performed By: #### L IPA, CMP #### [facility] [address] [place] [address] Dr. Shannon Hoyt Urea nitrogen/Creatinine [Mass ratio] 10.0 mg/mg Normal [facility] Comment on above: Performed By: #### L IPA, CMP #### [facility] [address] [place] [address] Dr. Shannon Hoyt URINE MICROSCOPIC ONLYon BACTERIA SMALL Abnormal NONE SEEN [facility] Comment on above: Performed By: #### E RUR, UMICRO #### [facility] [address] [place] [address] Dr. Shannon Hoyt Bacteria identified Cx Nom (U) INDICATED Normal [facility] Comment on above: Performed By: #### Cipriano REYEZ UMICRO #### [facility] [address] [place] [address] Dr. Shannon Hoyt CAST NONE SEEN Normal NONE SEEN [facility] Comment on above: Performed By: #### KEKE TOUSSAINTICRO #### [facility] [address] [place] [address] Dr. Shannon Hoyt Crystals LM Nom (Urine sed) NONE SEEN Normal NONE SEEN [facility] Comment on above: Performed By: #### BRITTANEY TOUSSAINTRO #### [facility] [address] [place] [address] Dr. Shannon Hoyt Epithelial cells LM Ql (Urine sed) FEW Abnormal NONE SEEN /RARE [facility] Comment on above: Performed By: #### BRITTANEY TOUSSAINTRO #### [facility] [address] [place] [address] Dr. Shannon Hoyt MUCOUS TRACE Abnormal NONE SEEN [facility] Comment on above: Performed By: #### BRITTANEY TOUSSAINTRO #### [facility] [address] [place] [address] Dr. Shannon Hoyt RBC 0-2 Normal 0-2 [facility] Comment on above: Performed By: #### BRITTANEY TOUSSAINTRO #### [facility] [address] [place] [address] Dr. Shannon Hoyt WBC 20-50 Abnormal NONE SEEN [facility] Comment on above: Performed By: #### Cipriano REYEZ UMICRO #### [facility] [address] [place] [address] Dr. Shannon Hoyt Vital Signs Date Time Vital Sign Value Performing Clinician Facility 03-11-2024 07:55-0500 Blood Pressure Location Gene FLOWER [facility] 03-11-2024 07:55-0500 Diastolic blood pressure 84 mm[Hg] Gene FLOWER [facility] 03-11-2024 07:55-0500 Heart rate 70 /min Gene FLOWER [facility] 03-11-2024 07:55-0500 Systolic blood pressure 124 mm[Hg] Gene FLOWER [facility] 01-09-2024 15:40-0400 Body mass index (BMI) [Ratio] 22.49 kg/m2 Kerri Sonya DO [facility] 01-09-2024 15:40-0400 Body weight 59.42 kg Kerri Sonya DO Work Phone: [facility] 01-09-2024 15:40-0400 Diastolic blood pressure 68 mm[Hg] Kerri Sonya DO Work Phone: [facility] 01-09-2024 15:40-0400 Systolic blood pressure 110 mm[Hg] Kerri Sonya DO Work Phone: [facility] 12-27-2023 10:45-0400 Blood Pressure Location Karina Galea [facility] 12-27-2023 10:45-0400 Diastolic blood pressure 78 mm[Hg] Karina Galea [facility] 12-27-2023 10:45-0400 Heart rate 73 /min Karina Galea [facility] 12-27-2023 10:45-0400 Respiratory rate 18 /min Karina Galea [facility] 12-27-2023 10:45-0400 Systolic blood pressure 117 mm[Hg] Karina Galea [facility] 12-10-2023 10:53-0400 Body mass index (BMI) [Ratio] 22.34 kg/m2 Kerri Sonya DO Work Phone: [facility] 12-10-2023 10:53-0400 Body weight 59.02 kg Kerri Sonya DO Work Phone: [facility] 12-10-2023 10:53-0400 Diastolic blood pressure 70 mm[Hg] Kerri Sonya DO Work Phone: [facility] 12-10-2023 10:53-0400 Systolic blood pressure 118 mm[Hg] Kerri Sonya DO Work Phone: [facility] Encounters Encounter Date Encounter Type Care Provider Facility Start: 05-08-2024 ambulatory Gene Victori ty:CD:[id number] Start: 05-01-2024 ambulatory Gene Victori ty:CD:[id number] Start: 03-11-2024 End: 03-11-2024 ambulatory Gene FLOWER [facility] Start: 03-11-2024 End: 03-11-2024 Lab Drop off Gene FLOWER [facility] Start: 03-11-2024 End: 03-11-2024 ambulatory Gene FLOWER Facility:[facility] Start: 03-11-2024 End: 03-11-2024 Patient encounter procedure Gene FLOWER [facility] Start: 02-08-2024 End: 02-08-2024 Clinisync Result Encounter Kerri Sonya DO Work Phone: [facility] Unsolicited Start: 02-08-2024 End: 02-08-2024 Clinisync Result Encounter Kerri Sonya DO Work Phone: [facility] Unsolicited Start: 02-08-2024 End: 02-08-2024 ambulatory Kerri Sonya Facility:[facility] Start: 01-09-2024 End: 01-09-2024 Departed Referred DO Kerri Sonya Work Phone: [facility] Start: 01-09-2024 End: 01-09-2024 Patient encounter procedure Kerri Sonya DO Work Phone: [facility] Comment on above: Pre-op examination; Request for sterilization; Menorrhagia with regular cycle; Abnormal uterine bleeding (AUB); Pelvic pain in female Start: 01-09-2024 End: 01-09-2024 Preprocedural examination done Kerri Sonya DO Work Phone: [facility] Start: 01-09-2024 End: 01-09-2024 ambulatory KERRI SONYA [facility] Work Phone: Start: 12-27-2023 End: 12-27-2023 ambulatory Kerri R SONYA Facility:[facility] Start: 12-27-2023 End: 12-27-2023 Patient encounter procedure Karina Singh [facility] Start: 12-11-2023 ambulatory Gene KARINA Facility :[facility] Start: 12-10-2023 End: 12-10-2023 Bamboo [...] 15 minutes Kerri Sonya DO Work Phone: [facility] Comment on above: Pelvic pain in femal e; Recurrent UTI; Vaginal discharge; Pelvic pressure in female; Menorrhagia with irregular cycle; Menorrhagia with regular cycle Start: 10-01-2023 End: 10-01-2023 ambulatory ILA GUNTER Not Available Start: 09-26-2023 End: 09-26-2023 ambulatory Kylah Goetz PA-C Facility:[facility] Start: 12-22-2021 End: 12-23-2021 ambulatory [...] procedure 10/02/2024 10:00 AM EDT Office Visit [facility] [address] [place] [address] Kerri Hassan, DO [address] [place], [place] [address] [facility] Start: 01-09-2024 End: 01-09-2024 Patient encounter procedure 01/09/2024 3:30 PM EDT Procedure Visit [facility] [address] [place] [address] Kerri Hassan, DO [address] [place] [address] [facility] Start: 12-10-2023 End: 12-09-2024 aPTT in Blood by Coagulation assay APTT Lab Routine Pelvic pain in female Vaginal discharge Pelvic pressure in female Menorrhagia with irregular cycle Expected: 12/10/2023 (Approximate), Expires: 12/09/2024 [facility] Comment on above: Expected: 12/10/2023 (Approximate), Expires: 12/09/2024 Start: 12-10-2023 End: 12-09-2024 SURESWAB(R) ADVANCED VAGINITIS PLUS, TMA SURESWAB(R) ADVANCED VAGINITIS PLUS, TMA Pathology and Cytology Routine Pelvic pain in female Expected: 12/10/2023 (Approximate), Expires: 12/09/2024 [facility] Work Phone: Comment on above: Expected: 12/10/2023 (Approximate), Expires: 12/09/2024 Start: 12-10-2023 End: 12-09-2024 US for US PELVIS-TRANSVAG IF INDICATED Imaging Routine Pelvic pain in female Vaginal discharge Pelvic pressure in female Expected: 12/10/2023 (Approximate), Expires: 12/09/2024 [facility] Comment on above: Expected: 12/10/2023 (Approximate), Expires: 12/09/2024 CBC W Auto Different ial panel - Blood CBC and differential Lab Routine Pelvic pain in female Vaginal discharge Pelvic pressure in female Menorrhagia with irregular cycle Ordered: 12/10/2023 [facility] Comment on above: Ordered: 12/10/2023 CHLAMYDIA TRACHOMATI S (GENITO/STI) CHLAMYDIA TRACHOMATIS (GENITO/STI) Lab Routine Pelvic pain in female Ordered: 12/10/2023 [facility] Comment on above: Ordered: 12/10/2023 Endometrial biopsy Endometrial b iopsy Procedures Routine Menorrhagia with regular cycle Abnormal uterine bleeding (AUB) Pelvic pain in female Ordered: 01/09/2024 [facility] Work Phone: Comment on above: Ordered: 01/09/2024 hCG, quantitative, hCG, quantitative, Lab Routine Pelvic pain in female Vaginal discharge Pelvic pressure in female Menorrhagia with irregular cycle Ordered: 12/10/2023 [facility] Comment on above: Ordered: 12/10/2023 Hemoglobin A1c/Hemoglobin.total in Blood Hemoglobin A1c Lab Routine Pelvic pain in female Vaginal discharge Pelvic pressure in female Menorrhagia with irregular cycle Ordered: 12/10/2023 [facility] Comment on above: Ordered: 12/10/2023 Neisseria gonorrhoea e DNA [Presence] in Unspecified specimen by RICHARD with probe detection Neisseria gonorrhea DNA probe, direct Lab Routine Pelvic pain in female Ordered: 12/10/2023 [facility] Comment on above: Ordered: 12/10/2023 Prothrombin time (PT ) in Blood by Coagulation assay Protime-INR Lab Routine Pelvic pain in female Vaginal discharge Pelvic pressure in female Menorrhagia with irregular cycle Ordered: 12/10/2023 [facility] Comment on above: Ordered: 12/10/2023 Thyrotropin [Units/volume] in Serum or Plasma TSH Lab Routine Pelvic pain in female Vaginal discharge Pelvic pressure in female Menorrhagia with irregular cycle Ordered: 12/10/2023 [facility] Comment on above: Ordered: 12/10/2023 Thyroxine (T4) free [Mass/volume] in Serum or Plasma T4, free Lab Routine Pelvic pain in female Vaginal discharge Pelvic pressure in female Menorrhagia with irregular cycle Ordered: 12/10/2023 [facility] Comment on above: Ordered: 12/10/2023 Payers Date Payer Category Payer Self-pay 2022 Private Health Insurance [employer] [id number] 2022 Unknown 1985 Unknown [id number] 1984 Unknown [id number] [id number]. 196 1984 Unknown [id number]. 196 1984 Unknown [id number]. 1259 1984 Unknown [id number] [id number]. 9 1984 Unknown [id number] [id number]. 1259 1984 Unknown [id number]. 727 1984 Unknown [id number] [id number]. 727 1984 Unknown [id number]. 727 1984 Unknown [id number]. 727 1959 Unknown [id number] Social History Date Type Detail Facility Start: 12-27-2023 End: 03-10-2024 Tobacco smoking status Never smoked tobacco (finding) [facility] Start: 04-06-2023 Sex Assigned At Female [facility] Start: 10-01-2023 End: 12-10-2023 Alcoholic beverage intake Current drinker of alcohol (finding) [facility] Start: 04-06-2023 History of Social function [facility] Start: 08-22-2022 Alcohol Comment caffeine: 2-3 cups per day, coffee [facility] Start: 1985 Sex assigned at Not on file [facility] Start: 09-25-2022 Sexual orientation Heterosexual (finding) [facility] Start: 1985 Sex Assigned At Female [facility] Functional Status Date Assessment Result Facility 03-11-2024 Functional Status N/A [facility] 12-27-2023 Functional Status N/A [facility] Clinical Notes 09-26-2023 to 03-11-2024 Melissa Stanton - 01/09/2024 3:30 PM EDTSusashoaib Johansen LPN - 12/10/2023 10:20 AM EDT Note Date & Type Note Facility 03-11-2024 Evaluation + Plan note Diagnostic Tests [facility] ([facility]) 03/11/24 [facility] 03-11-2024 Hospital Discharge instructions Patient Education [...] Follow these instructions at home: Medicines Take zrgs-zjz-hdwhpbd and prescription medicines only as told by [...] or the blood stops without treatment. Take bsoy-pxv-sydqcpl and prescription medicines only as told by your health care provider. Drink enough fluid to keep your urine pale yellow. This information is not intended to replace advice given to you by your health care provider. Make sure you discuss any questions you have with your health care provider. Document Revised: 11/03/2020 Document Reviewed: 11/03/2020 [employer] Patient Education 2023 [employer]. Follow Up Care 01/08/2024 12:04:03 With:KARINA CORDOVA, Gene Griffith, URL Address: [facility] [address] , [place] [address]- When: Unknown [facility] 03-11-2024 Note Patient Education Urology Hematuria, Adult [...] these instructions at home: Medicines ??? Take yigk-lnr-zdkkmen and prescription medicines only as told by [...] the blood stops without treatment. ??? Take jcjd-zys-bntpait and prescription medicines only as told by your health care provider. ??? Drink enough fluid to keep your urine pale yellow. This information is not intended to replace advice given to you by your health care provider. Make sure you discuss any questions you have with your health care provider. Document Revised: 11/03/2020 Document Reviewed: 11/03/2020 [employer] Patient Education ? 2023 [employer]. [facility] 01-09-2024 History of Present illness Narrative Reason for Appointment: Patient ID: Kiesha Alas is a 38 y.o. female who presents for Pre-op Visit and Endometrial Biopsy Patient presents today for Pre Op/Endometrial Biopsy appointment. Patient is scheduled to undergo Da Diego assisted Bilateral Laparoscopic Salpingectomy and Endometrial Ablation with Melonie on 02/08/[address] Hassan at [facility]. MEDICATIONS Current Outpatient Medications Medication [...] nursing note reviewed. Exam conducted with a roof plumber present. Vitals: Estimated body mass index is [...] reviewed, and patient is to proceed to [facility] OR. Follow Up: Patient is to follow up between 1-2 weeks post op to assess proper healing and recovery from procedure. Documented by Amy Zayas LPN on behalf of: Kerri Hassan DO documented in this encounter [facility] 12-27-2023 Hospital Discharge instructions Patient Education 12/27/2023 11:40:24 Kidney Stones, Orjd-rp-Jclp Kidney Stones Kidney stones are rock-like masses [...] Follow these instructions at home: Medicines Take taoc-ifq-xkkaani and prescription medicines only as told by [...] provider. Document Revised: 10/27/2022 Document Reviewed: 10/27/2022 [employer] Patient Education 2023 [employer]. Follow Up Care 12/12/2023 13:46:19 With:Samantha KIM, Karina Swain, URL Address: When: Unknown Comments:pending cysto/imaging [facility] 12-27-2023 Note Urology Office/Clini c Note Chief [...] Skin: No rashes or suspicious lesions Assessment/Plan AIRSET CASTER referred by Dr. 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 [...] Dr. Flower -RAAD and KUB now at [facility] (pt has transvaginal US scheduled for Sunday, will attempt to complete imaging at this time) -Will send cytology at cystoscopy if KUB/RAAD negative for stones -Increase fluids -Start MET if KUB/RAAD + for ureteral stone(s) -F/U pending imaging and cysto Ordered: E&M of New Patient Moderate 45-59 Min 04886 US Renal XR Abdomen 1 View 2. Recurrent UTI (N39.0: Urinary tract infection, site not specified) 12/22/21 cx negative 09/29/23 cx - 20-30k E. Coli, treated with Bactrim DS x7 days (urgent care) -See #1 Ordered: E&M of New Patient Moderate 45-59 Min 74161 Urnls Dip Stick Auto w/o Microscopy POC 73540 US Renal XR Abdomen 1 View 3. [...] E&M of New Patient Moderate 45-59 Min 46571 US Renal XR Abdomen 1 View 4. Pelvic pain (R10.2: Pelvic and perineal pain) Pt being treated by Dr. Hassan for pelvic pain and painful intercourse. She has a transvaginal US scheduled for Sunday at [facility] and diagnostic lap with bilateral salpingectomy and ablation scheduled with Dr. Hassan (more content not included)... [facility] Comment on above: Result Comment: Elec [...] these instructions at home: Medicines ? Take nitz-grq-ljmjeis and prescription medicines only as told by [...] provider. Document Revised: 10/27/2022 Document Reviewed: 10/27/2022 [employer] Patient Education ? 2023 [employer]. [facility] 12-10-2023 History of Present illness Narrative [...] nursing note reviewed. Exam conducted with a roof plumber present. Vitals: Estimated body mass index is [...] Kerri Hassan DO documented in this encounter [facility] 09-26-2023 Note Patient Education Ma terials [...] tabs, 0 Refill(s), 10/03/23 14:50:00 EDT, Pharmacy: [id number] Culture Urine Urinary Tract Infections in Women [...] needed, more treatment may be started. ? [phone] [employer]. [address] [place] [address], [place] [address]. All rights reserved. This information is not intended as a substitute for professional medical care. Always follow your healthcare professional's instructions. [facility] Evaluation + Plan note No data available for this section [facility] Evaluation note Diagnosis Pre-op examination Request for sterilization Menorrhagia with regular cycle Abnormal uterine bleeding (AUB) Pelvic pain in female Unspecified symptom associated with female genital organs documented [facility] noteNo assessment information availableProm[facility] Work Phone: Evaluation note* Diagnosis Pelvic pain in female Unspecified symptom associated with female genital organs Recurrent UTI Urinary tract infection, site not specified Vaginal discharge Leukorrhea, not specified as infective Pelvic pressure in female Menorrhagia with irregular cycle Menorrhagia with regular cycle [facility] No data available for this section [facility] note No data available for this section [facility] reason for referral (narrative)* Consultation (Routine) - Pending Review Specialty Diagnoses / Procedures Referred By Vaughn ram Referred To Contact Urology Diagnoses Recurrent UTI Procedures [place] OFFICE/OUTPATIENT NEW HIGH MDM 60 MINUTES Kerri Hassan DO [address] [facility] [place] [address] [place] [address] Shalini Figueredo MD [address] [place] [id number] Referral ID Status Reason Start Date Expiration Date Visits Requested Visits Authorized [id number] Pending Review Specialty Services Required 12/11/2023 06/08/2024 [...] and content) DATE CREATED AUTHOR 12/26/2021 [facility] DATE CREATED AUTHOR AUTHOR'S ORGANIZ ATION 10/03/2023 [facility] DATE CREATED AUTHOR AUTHOR'S ORGANIZ ATION 01/11/2024 [facility] d[facility] Specialists EPIC DATE CREATED AUTHOR AUTHOR'S ORGANIZ ATION 02/13/2024 [facility] DATE CREATED AUTHOR AUTHOR'S ORGANIZ ATION 03/19/2024 [facility] DATE CREATED AUTHOR AUTHOR'S ORGANIZ ATION 03/27/2024 [facility] Reason for Visit (unrecogniz ed section and content) Reason Comments Pre-op Visit Endometrial Biopsy Reason Comments Pelvic Pain recurrent UTI Care Teams (unrecognized sec tion and content) Team Status: Inactive Member Role Status Dates Kerri Hassan DO Attending Provider Active Start : January 09, 2024 End: January 09, 2024 Gang Drill Operator Relationship Specialty Start Date End Date Rajiv Middleton MD [address] [place] [address] PCP - General Internal Medicine 09/28/22 Goals [...] BE BASED ON THE PRIMARY CLINICAL RECORDS. [employer] [facility]. provides no warranty or guarantee of the accuracy or completeness of information in this document.
--- NOTE | 2024-05-01 10:45 | XR_ITS ---
The [address] [address] Patient Name: ANGELES BOSTON MRN: [id number] date: 1985 Sex: F Assigned Patient Location: [facility] Current Patient Location: [facility] Accession/Order Number: [id number] Exam Date: 05/01/2024 10:40 Report Date: 05/01/2024 11:18 At the request of: DEON COLLINS Procedure: XR abdomen 1V EXAMINATION: XR abdomen 1V HISTORY: preop COMPARISON: XR abdomen 01/01/2024 FINDINGS: KIDNEY/URETER - RIGHT: No visible renal or ureteral calcifications. KIDNEY/URETER - LEFT: Stable calcifications projecting over left upper quadrant, possibly within the kidney. PELVIS: Stable pelvic calcifications favoring phleboliths. BOWEL: No abnormal dilation or deviation. BONES: No acute abnormality. OTHER: Negative. No abnormal gaseous collections. XR/XR abdomen 1V IMPRESSION: 1. Stable left upper quadrant small calcifications; possibly kidney stones. Electronically authenticated by: SHANELLE AGUAYO Date: 05/01/2024 11:18
[2024-05-01 11:04] LABS: HCG Qualitative NEGATIVE (NEGATIVE); Internal Control Within Normal Limits
[2024-05-01] MEDS: LACTATED RINGER'S SOLUTION 1,000 ML 50 ML IV ×2 (11:18→14:05)
[2024-05-01] MEDS: CEFAZOLIN SODIUM 2 GM/50 ML D5W PREMIX IV (12:10)
--- NOTE | 2024-05-01 12:54 | P.URON_ITS ---
Urology Surgery Operative Note Operative Note Procedure Date: 05/01/24 Time Out Performed: yes Pre-op Diagnosis: Left nephrolithiasis Post-op Diagnosis: same as pre-op Procedures performed: 1. Left ESWL. Anesthesia: General-LMA Primary Surgeon: Gene Flower Complications: None Estimated blood loss (mL): 0 Findings: 2 left-sided renal stones Specimens: None Drains: None Indications for Procedures: This lady has 2 left-sided renal stones which are both nonobstructing. The larger one is nearly a centimeter while the smaller lower pole stone is 3 to 4 mm. She now presents for left ESWL. She has signed an informed consent after risks were explained. Some of these risks include bleeding, perinephric hematoma, infection and anesthesia to name a few Detailed description of Procedure: The patient was brought to the Operating Room and placed on Siemens electromagnetic lithotripsy treatment table in the supine position. SCDs were placed on their lower extremities and turned on and functioning during the entire case. Timeout was done by all parties in the room. We all agreed upon the patient's identification and the planned procedures for this patient. General Anesthesia was then administered via LMA. Treatment head was then brought to the patient's correct side. While using flourscopy the stone was identified and lined up into the crosshairs. We then began applying shocks to the larger upper pole stone. This stone was formed to the shape of a calyx. Intermittent fluoroscopy revealed that the stone slowly steadily fragmented. We started at power level 2.0 and increased to a maximum power level of 3.5. During our shock application the smaller lower pole stone also received energy and began spreading out. We applied a total of 3000 shocks to the left renal unit. Our last fluoroscopic view revealed that there was full fragmentation of the large upper stone and the pieces took shape of the calyx. The lower pole stone was fragmented and spreading out. The procedure was then terminated. She was then transferred to a rsartell bed and wheeled to PACU in stable condition.
== END 2024-05-01 14:33 | disposition home or self-care (01) ==
PROVIDERS: PCP Internal Medicine; Visit Provider Urology
PROC: (CPT 873; principal; 2024-05-01 12:10)
DX: N20.0 Calculus of kidney (principal); Z87.440 Personal history of urinary (tract) infections
CPT/HCPCS: 50590; 36415; 74018; 84703; J0690; J1100; J1885; J2250; J2405; J2704; J3010

== ENCOUNTER 2024-11-18 14:48 | Outpatient (OUT) | payer OTHER, SELFPAY ==
--- NOTE | 2024-11-18 15:24 | P.GSHP_ITS ---
History of Present Illness History of Present Illness Chief complaint: Left Kidney Stones Narrative: Patient presents for presurgical testing. Please see HPI from Dr. Flower dated October 27, 2024. Review of Systems ROS Narrative Please see ROS from Dr. Flower dated October 27, 2024. [facility] Medical History (Updated 11/18/24 @ 15:09 by Thalia Wick NP) Anxiety ?F41.9 - Anxiety disorder, unspecified (ICD-10) Palpitations ?R00.2 - Palpitations (ICD-10) S/P extracorporeal shock wave therapy ?Z98.890 - Other specified postprocedural states (ICD-10) Dizziness ?R42 - Dizziness and giddiness (ICD-10) Headache ?R51.9 - Headache, unspecified (ICD-10) Melena ?K92.1 - Melena (ICD-10) Gall stones ?K80.20 - Calculus of gallbladder without cholecystitis without obstruction (ICD-10) COVID-19 ?U07.1 - COVID-19 (ICD-10) Menorrhagia ?N92.0 - Excessive and frequent menstruation with regular cycle (ICD-10) Abnormal uterine bleeding ?N93.9 - Abnormal uterine and vaginal bleeding, unspecified (ICD-10) Pelvic pain ?R10.2 - Pelvic and perineal pain (ICD-10) Kidney stones ?N20.0 - Calculus of kidney (ICD-10) Diverticulitis ?K57.92 - Diverticulitis of intestine, part unspecified, without perforation or abscess without bleeding (ICD-10) Request for sterilization ?Z30.2 - Encounter for sterilization (ICD-10) Surgical History (Updated 11/13/24 @ 11:46 by Thalia Wick NP) History of lithotripsy (05/01/24) ?Z98.890 - Other specified postprocedural states (ICD-10) History of lumpectomy of right breast ?Z98.890 - Other specified postprocedural states (ICD-10) History of esophagogastroduodenoscopy (EGD) ?Z98.890 - Other specified postprocedural states (ICD-10) History of colonoscopy ?Z98.890 - Other specified postprocedural states (ICD-10) History of breast biopsy ?Z98.890 - Other specified postprocedural states (ICD-10) Family History (Updated 11/18/24 @ 15:09 by Thalia Wick NP) Other Family history of breast cancer Family history of heart disease Pacemaker Social History Within the past year, how often did you have a drink containing alcohol: 2-4 times a month Smoking status: Never smoker Non-prescribed substance use: denies use 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 Highest level of school completed/degree received: Master's degree Meds Home Medications and Allergies Home Medications ?Medication ?Instructions ?Recorded ?Confirmed ?Type Lactobacillus acidophilus 10 100 mmu cells PO BID 03/2011/18/24 History billion cell capsule ([employer]) omeprazole 40 mg capsule,delayed 40 mg PO BID 11/18/24 11/18/24 History release red beet 500 mg capsule 500 mg PO DAILY 11/18/2405/13 History Allergies Allergy/AdvReac Type Severity Reaction Status Date / Time No Known Drug Allergies Allergy Verified 11/18/24 15:02 Exam Narrative Exam Narrative: Constitutional: Awake, alert, comfortable, well-appearing, nontoxic, interactive, vital signs as charted Head: Normocephalic, atraumatic Neck: Supple, normal appearance, normal range of motion, no meningeal signs, no lymphadenopathy Respiratory: No respiratory distress, breath sounds clear Cardiovascular: Regular rate and rhythm, strong and regular heart tones Abdomen: Nontender, normal bowel sounds, soft, no CVA tenderness Musculoskeletal: Normal gait, no swelling or edema Skin: No rashes or induration, no lesions, only visible skin inspected Neuro: No neurological deficits, normal sensation Psychiatric: Oriented ?3, normal affect Assessment and Plan Assessment and Plan (1) Kidney stones: Plan Left ESWL, possible cystoscopy, left retrograde, left ureteroscopy, holmium laser, possible left stent placement scheduled with Dr. Flower November 20, 2024. Right ESWL scheduled with Dr. Flower November 27, 2024.
[2024-11-18 15:25] LABS: Hematocrit 36.3 % (36.0-48.0); Hemoglobin 12.6 g/dL (12.0-16.0); Immature Granulocytes Abs Auto 0.01 10^3/uL (0.00-0.03); Immature Granulocytes Pct Auto 0.2 % (0.0-0.5); Lymphocytes Absolute Auto 1.5 10^3/uL (1.2-3.8); Mean Corpuscular HGB Conc 34.7 g/dL (29.9-35.2); Mean Corpuscular Hemoglobin 30.7 pg (26.7-34.0); Mean Corpuscular Volume 88.5 fL (81.0-99.0); Platelet Count 207 10^3/uL (150-450); Red Blood Count 4.10 10^6/uL (4.20-5.40); White Blood Count 6.3 10^3/uL (4.0-11.0)
[2024-11-18 15:45] LABS: Anion Gap 9.0; Blood Urea Nitrogen 13.0 mg/dL (7.0-18.0); Calcium 8.9 mg/dL (8.5-10.1); Carbon Dioxide 29.9 mmol/L (21.0-32.0); Chloride 105 mmol/L (98-107); Estimated GFR (African America >60 (>=60 mL/min/1.73m^2); Estimated GFR (Non-African Ame >60 (>=60 mL/min/1.73m^2); Glucose 104 mg/dL (74-106); Potassium 3.9 mmol/L (3.5-5.1); Sodium 140 mmol/L (136-145)
[2024-11-19 14:44] LABS: BOX Test Date Sent 09/03/25; BOX Test Reference Lab FRMC; BOX Test Sent Out PT/INR, PTT
[2024-11-19 14:45] LABS: BOX Test Result 09/03/25
== END 2024-11-18 14:49 | disposition home or self-care (01) ==
PROVIDERS: Visit Provider Urology
DX: Z01.812 Encounter for preprocedural laboratory examination (principal); Z01.818 Encounter for other preprocedural examination; N20.0 Calculus of kidney
CPT/HCPCS: 80048; 85025; 85610; 85730; G0463

== ENCOUNTER 2024-11-18 14:51 | Outpatient (OUT) | payer OTHER, SELFPAY ==
--- OUTSIDE RECORDS SUMMARY | 2024-11-06 23:59 | XMS_ITS | Continuity of Care Document ---
Author Organization [facility] Address Unknown Care Team Providers Care Concrete Tile Machine Operator Name Role Phone NONE, XXXX Primary Care Physician Unavailab le Encounter FT_FIN [id number] Date(s): 11/06/24 - 11/06/[address] [address] Discharge Disposition: Home (Routine DC) Attending Physician: Gene COLLINS MD Admitting Physician: Gene COLLINS MD Referring Physician: Gene COLLINS MD Encounter Type: Outpatient Allergies, Adverse Reactions, Alerts No Known Allergies Medications No Known Medications Problem List Condition Confirmation Course Effective Dates Status Health St atus Informant Gross hematuria Confirmed Active Kidney stones Confirmed Active Pelvic and perineal pain Confirmed 12/27/23 Active Recurrent UTI Confirmed Active Other urethral stricture, female Confirmed Active Procedures Procedure Date Related Diagnosis Body Site Status ESWL of kidney left 05/01/24 Compl eted Flexible cystoscopy 03/11/24 Compl eted Ablation of uterus Comple norris Social History Social History Type Response Smoking Status Never (less than 100 in lifetime) entered on: 03/10/24 Sex Female Sex Representation Female (finding) Patient Care team information Care Team Personnel Name: NONE, XXXX Position: FT Physician Member Role: Primary Care Physician Address: [facility] Care Team Related Persons Name: BOSTON, ANA CRISTINA Name: ANA CRISTINA BOSTON Insurance Providers Guarantor name: ANGELES BOSTON Health Plan Information #: 1 Payer: [facility] Payer Identifier: [id number] Member Number: [id number] Group Number: [id number] Subscriber Identifier: [id number] Relationship to Subscriber: Self Coverage Type: PRIVATE HEALTH INSURANCE Coverage Verification Date: 24 Telecom: [phone] Address: [facility] [address] [id number]
--- OUTSIDE RECORDS SUMMARY | 2024-11-18 14:53 | XMS_ITS | Clinical Summary ---
Author Organization [facility] Address [address] [place] [address] Phone Care Team Providers Care Terrazzo Worker Apprentice Name Role Phone Unavailable Primary Care Provider Unavailabl e Social History Tobacco Use Types Packs/Day Years Used Date Smoking Tobacco: Never Assessed Comments Unknown Sex and Gender Information Value Date Recorded Sex Assigned at Not on file Legal Sex Female 6:06 AM EST Gender Identity Not on file Sexual Orientation Not on file Plan of Treatment Not on file
--- OUTSIDE RECORDS SUMMARY | 2024-11-18 14:53 | XMS_ITS | Encounter Summary ---
Author Organization [employer] Address [id number] [address] [place] [address] Care Team Providers Care Cray Fishing Hand Name Role Phone Kane Campbell DO, Charles L Primary Care Provider Encounter Details Date Type Department Care Team (Late st Contact Info) Description 09/09/2021 Telephone [facility] [address] [place] [id number] Jf Farmre DO [address] [facility] [place] [address] Social History Tobacco Use Types Packs/Day Years Used Date Smoking Tobacco: Never Smokeless Tobacco: Never Alcohol Use Standard Drinks/Week Comments Yes 1 (1 standard drink = 0.6 oz pur e alcohol) twice a month Childcare Answer Date Recorded Childcare Unknown 08/28/2018 Employment Answer Date Recorded Employment Unknown 08/28/2018 Purpose - Life Answer Date Recorded Purpose and direction in life Unknown Comments No Sex and Gender Information Value Date Recorded Sex Assigned at Female 12/20/2021 8:29 PM EDT Legal Sex Female 11:26 AM EDT Gender Identity Female 12/20/2021 8:29 PM EDT Sexual Orientation Straight 12/20/2021 8: 29 PM EDT COVID-19 Exposure Response Date Recorded In the last month, have you been in contact with someone who was confirmed or suspected to have Coronavirus / COVID-19? No / Unsure 09/09/2021 2:50 AM EDT documented as of this encounter Miscellaneous Notes * Telephone Encounter - Beti Abbey - 09/09/2021 9:58 AM EDT LMOM for the patient to call and schedule their new pt appointment with [facility] per the ER request. documented in this encounter Plan of Treatment Not on file documented as of this encounter Visit Diagnoses Not on filedocumented in this encounter Care Teams Cray Fishing Hand Relationship Specialty Start Date End Date Rajiv Middleton Jr., [address] [place] [address] PCP - General Internal Medicine 02/27/17 documented as of this encounter
--- OUTSIDE RECORDS SUMMARY | 2024-11-18 14:53 | XMS_ITS | Encounter Summary ---
Author Organization [facility] Address [address] [place] [address] Care Team Providers Care Cracking Still Operator Name Role Phone Rajiv Middleton MD Primary Care Provider + [phone] Joanne Momin Unavailable Encounter Details Date Type Department Care Team (Late st Contact Info) Description 12/28/2023 Abstract [facility] Eugenie SHAFFER [address] [facility] [place] [address] Austyn Hassan DO [address] [facility] [address] [place], [facility] Social History Tobacco Use Types Packs/Day Years Used Date Smoking Tobacco: Never Alcohol Use Standard Drinks/Week Comments Yes 0 (1 standard drink = 0.6 oz pure alcohol) caffeine: 2-3 cups per day, coffee Comments No Sex and Gender Information Value Date Recorded Sex Assigned at Not on file Legal Sex Female 8:32 PM EDT Gender Identity Not on file Sexual Orientation Straight 09/25/2022 11 :56 AM EDT documented as of this encounter Plan of Treatment Upcoming Encounters Date Type Department Care Team (Late st Contact Info) Description 11/26/2024 10:30 AM EDT Procedure Visit [facility] SHAFFER [address] [place] [address] Joanne Momin PA [address] [facility] [address] [place], [place] [address] documented as of this encounter Visit Diagnoses Not on filedocumented in this encounter Care Teams Cracking Still Operator Relationship Specialty Start Date End Date Rajiv Middleton MD [address] [place] [address] PCP - General Internal Medicine 09/28/22 Joanne Momin PA [address] [place] [address] [place] [address] PCP - Medical [place] [employer] 10/17/22 05/01/24 documented as of this encounter
--- OUTSIDE RECORDS SUMMARY | 2024-11-18 14:53 | XMS_ITS | Clinical Summary ---
Author Organization [facility] Address [address] [place] [address] Care Team Providers Care Molding Supervisor Name Role Phone Rajiv Middleton MD Primary Care Provider + [phone] Allergies No known active allergies Medications sulfamethoxazol e-trimethoprim (Bactrim DS) 800-160 MG per tablet Take 1 tablet by mouth in the morning and 1 tablet before bedtime. 09/26/2023 Active Active Problems Problem Noted Date Diagnosed Date Menorrhagia with irregular cycle 12/10/2023 Pelvic pain in female 12/10/2023 Vaginal discharge 12/10/2023 Recurrent UTI 12/10/2023 Encounters Date Type Department Care Team Description 09/29/2024 Travel from Last 3 Months Family History Medical History Relation Name Comments No Known Problems Daughter No Known Problems Father Breast cancer Maternal Grandmother No Known Problems Mother No Known Problems Sister 1 No Known Problems Sister 2 No Known Problems Son 1 No Known Problems Son 2 Relation Name Status Comments Daughter Alive Father Alive Maternal Grandmother Mother Alive Sister 1 Alive Sister 2 Alive Son 1 Alive Son 2 Alive Social History Tobacco Use Types Packs/Day Years Used Date Smoking Tobacco: Never Tobacco Cessation:Counseling Given: Not Answered Alcohol Use Standard Drinks/Week Comments Yes 0 (1 standard drink = 0.6 oz pure alcohol) caffeine: 2-3 cups per day, coffee Comments No Sex and Gender Information Value Date Recorded Sex Assigned at Not on file Legal Sex Female 8:32 PM EDT Gender Identity Not on file Sexual Orientation Straight 09/25/2022 11 :56 AM EDT Last Filed Vital Signs Vital Sign Reading Time Taken Comments Blood Pressure 110/68 01/09/2024 3:40 PM EDT Pulse - - Temperature - - Respiratory Rate - - Oxygen Saturation - - Inhaled Oxygen Concentration - - Weight 59.4 kg (131 lb) 01/09/2024 3:40 PM EDT Height 162.6 cm (5' 4 ) 10/01/2023 11:51 AM EDT Body Mass Index 22.49 10/01/2023 11:51 AM EDT Plan of Treatment Upcoming Encounters Date Type Department Care Team (Late st Contact Info) Description 11/26/2024 10:30 AM EDT Procedure Visit ANNE SHAFFER [address] [facility] [place] [phone] Joanne Momin PA [address] [facility] [place] [address] Care Teams Molding Supervisor Relationship Specialty Start Date End Date Rajiv Middleton MD [facility] [place] [address] PCP - General Internal Medicine 09/28/22
--- OUTSIDE RECORDS SUMMARY | 2024-11-18 14:53 | XMS_ITS | Encounter Summary ---
Author Organization [facility] Address [address] [place] [address] Care Team Providers Care Associate Professor Computer Science Name Role Phone Rajiv Middleton MD Primary Care Provider + [phone] Joanne Momin Unavailable Encounter Details Date Type Department Care Team (Late st Contact Info) Description 01/09/2024 Abstract [facility] Eugenie SHAFFER [address] [facility] [address] Austyn Hassan DO [address] [facility] [address] [place], [facility]11 Social History Tobacco Use Types Packs/Day Years [...] AM EDT Procedure Visit [facility] SHAFFER [address] [place] [address] Joanne Momin PA [address] [facility] [address] [place], [place] [address] documented as of this encounter Visit Diagnoses Not on filedocumented in this encounter Care Teams Associate Professor Computer Science Relationship Specialty Start Date End Date Rajiv Middleton MD [address] [place] [address] PCP - General Internal Medicine 09/28/22 Joanne Momin PA [address] [place] [address] [place] [address] PCP - Medical [place] [employer] 10/17/22 05/01/24 documented as of this encounter
--- OUTSIDE RECORDS SUMMARY | 2024-11-18 14:53 | XMS_ITS | Encounter Summary ---
Author Organization [facility] Address [address] [place] [address] Care Team Providers Care Treasury Representative Name Role Phone Rajiv Middleton MD Primary Care Provider + [phone] Joanne Momin Unavailable Encounter Details Date Type Department Care Team (Late Contact Info) Description 08/22/2022 Abstract [facility] SHAFFER [address] [facility] [place] [address] Austyn Hassan DO [address] [facility] [address] [place], [facility]11 Social History Tobacco Use Types Packs/Day Years Used Date Smoking Tobacco: Never Tobacco Cessation:Counseling Given: Not Answered Alcohol Use Standard Drinks/Week Comments Yes 0 (1 standard drink = 0.6 oz pure alcohol) caffeine: 2-3 cups per day, coffee Comments Unknown Sex and Gender Information Value Date Recorded Sex Assigned at Not on file Legal Sex Female 8:32 PM EDT Gender Identity Not on file Sexual Orientation Straight 09/25/2022 11 :56 AM EDT documented as of this encounter Plan of Treatment Upcoming Encounters Date Type Department Care Team (Late Contact Info) Description 11/26/2024 10:30 AM EDT Procedure Visit [facility] SHAFFER [address] [facility] [place] [address] Joanne Momin PA [address] [facility] [address] [place], [facility]11 documented as of this encounter Visit Diagnoses Not on filedocumented in this encounter Care Teams Treasury Representative Relationship Specialty Start Date End Date Rajiv Middleton MD [facility] [place] [address] PCP - General Internal Medicine 09/28/22 Joanne Momin PA [address] [place] [address] [place] [address] PCP - Medical [place] [employer] 10/17/22 05/01/24 documented as of this encounter
--- OUTSIDE RECORDS SUMMARY | 2024-11-18 14:53 | XMS_ITS | Encounter Summary ---
Author Organization [facility] Address [address] [place] [address] Care Team Providers Care Wheel Molder Name Role Phone Rajiv Middleton MD Primary Care Provider + [phone] Joanne Momin Unavailable Encounter Details Date Type Department Care Team (Late Contact Info) Description 07/28/2022 Abstract [facility] Eugenie SHAFFER [address] [place] [address] [place] [address] Austyn Hassan DO [address] [facility] [address] [place], [facility]11 Social History Tobacco Use Types [...] Description 11/26/2024 10:30 AM EDT Procedure Visit [facility] Eugenie SHAFFER [address] [facility] [place] [address] Joanne Momin PA [address] [facility] [address] [place], [facility]11 documented as of this encounter Visit Diagnoses Not on filedocumented in this encounter Care Teams Wheel Molder Relationship Specialty Start Date End Date Rajiv Middleton MD [address] [facility] [place] [address] PCP - General Internal Medicine 09/28/22 Joanne Momin PA [address] [place] [address] [place] [address] PCP - Medical [place] [employer] 10/17/22 05/01/24 documented as of this encounter
--- OUTSIDE RECORDS SUMMARY | 2024-11-18 14:53 | XMS_ITS | Clinical Summary ---
Author Organization [employer] Address [id number] [address] 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 Abnormal mammogram of right breast 04/08/2018 Family History Medical History Relation Name Comments No Known Problems Father RED Breast cancer Maternal Grandmother No Known Problems Mother REMEDIOS Breast cancer Paternal Grandmother No Known Problems Sister 1 ONESIMO No Known Problems Sister 2 RAVI Relation Name Status Comments Father RED Alive Maternal Grandmother Mother REMEDIOS Alive Paternal Grandmother Sister 1 ONESIMO Alive Sister 2 RAVI Alive Social History Tobacco Use Types Packs/Day [...] Orientation Straight 12/20/2021 8: 29 PM EDT Last Filed Vital Signs Vital Sign Reading Time Taken Comments Blood Pressure 103/72 12/22/2021 7:46 AM EDT Pulse 68 12/22/2021 7:46 AM EDT Temperature 36.7 C (98.1 F) 12/22/2021 7:46 AM EDT Respiratory Rate 14 12/22/2021 7:46 AM EDT Oxygen Saturation 98% 12/22/2021 7:46 AM EDT Inhaled Oxygen Concentration - - Weight 60.2 kg (132 lb 11.2 oz) 12/22/2021 5:31 AM EDT Height 160 cm (5' 3 ) 12/20/2021 8:07 PM EDT Body Mass Index 23.51 12/20/2021 8:07 PM EDT Plan of Treatment Health Maintenance Due Date Last Done Comments Depression Screening 1996 Tobacco Screening 1996 DTaP,Tdap and Td Vaccines (1 - Tdap) 11/20/2003 Pap Smear 2005 Adult BMI Screening 12/22/2022 12/22/2021 Influenza Vaccine 11/17/2024 Goals Goal Patient Goal Type Associated Problems Recent Progress Patient-Stated? Author safe discharge to home General Yes Maya Newman, RN Note: Evaluation of progress towards goal: safe transition from hospital to home with family support. Medical Devices Not on file Insurance [employer] Advance Directives * Full Code (Latest Code Status on File) Date Activated Date Inactivated Comments 12/20/2021 11:46 PM 12/22/2021 7:21 PM * Full Code Date Activated Date Inactivated Comments 12/20/2021 11:39 PM 12/20/2021 11:46 PM Care Teams Heel Painter Relationship Specialty Start Date End Date Rajiv Middleton Jr., [address] [place] [address] PCP - General Internal Medicine 02/27/17
--- OUTSIDE RECORDS SUMMARY | 2024-11-18 14:53 | XMS_ITS | Encounter Summary ---
Author Organization [facility] Address [address] [place] [address] Care Team Providers Care Drum Sprayer Name Role Phone Rajiv Middleton MD Primary Care Provider + [phone] Joanne Momin Unavailable Encounter Details Date Type Department Care Team (Late Contact Info) Description 09/27/2022 Abstract [facility] SHAFFER [address] [place] [address] Joanne Momin PA [address] [place], [facility]11 Social History Tobacco Use Types Packs/Day [...] Orientation Straight 09/25/2022 11 :56 AM EDT COVID-19 Exposure Response Date Recorded In the last 10 days, have yo u been in contact with someone who was confirmed or suspected to have Coronavirus/COVID-19? No / Unsure 09/25/2022 11:59 AM EDT documented as of this encounter Plan of Treatment Upcoming Encounters Date Type Department Care Team (Late Contact Info) Description 11/26/2024 10:30 AM EDT Procedure Visit [facility] Eugenie SHAFFER [address] [place] [address] Joanne Momin PA [address] [place] [address] [place] [address] documented as of this encounter Visit Diagnoses Not on filedocumented in this encounter Care Teams Drum Sprayer Relationship Specialty Start Date End Date Rajiv Middleton MD [address] [place] [address] PCP - General Internal Medicine 09/28/22 Joanne oMmin PA [address] [place] [address] PCP - Medical [place] [employer] 10/17/22 05/01/24 documented as of this encounter
--- OUTSIDE RECORDS SUMMARY | 2024-11-18 14:53 | XMS_ITS | Encounter Summary ---
Author Organization [facility] Address [address] [place] [address] Care Team Providers Care Saddle Mechanic Name Role Phone Rajiv Middleton MD Primary Care Provider + [phone] Joanne Momin Unavailable Encounter Details Date Type Department Care Team (Late st Contact Info) Description 01/03/2024 Orders Only [facility] Dilcia [facility] [place] [place] [address] Umu Morillo LPN [address] [facility] Social History Tobacco Use Types Packs/Day Years [...] 11/26/2024 10:30 AM EDT Procedure Visit [facility] Dilcia [facility] [place] [address] Joanne Momin PA [address] [place], [place] [address] documented as of this encounter Procedures Procedure Name Priority Date/Time Associated Diagnosis Comments PAP SMEAR Routine 10/01/2023 12:00 AM EDT documented in this encounter Results * Pap Smear (10/01/2023 12:00 AM EDT) Swab Cervical swab / Unknown us Sonya Nurse [facility] Ob LAB CYTOLOGY ORDERABLES Final Result EXTERNAL LAB documented in this encounter Visit Diagnoses Not on filedocumented in this encounter Care Teams Saddle Mechanic Relationship Specialty Start Date End Date Rajiv Middleton MD [address] [place] [address] PCP - General Internal Medicine 09/28/22 Joanne Momin PA [address] [place] [address] [place] [address] PCP - Medical [place] [employer] 10/17/22 05/01/24 documented as of this encounter
--- OUTSIDE RECORDS SUMMARY | 2024-11-18 14:54 | XMS_ITS | Encounter Summary ---
Author Organization [facility] Address [address] [place] [address] Care Team Providers Care Medical Transcription Supervisor Name Role Phone Rajiv Douglass MD Primary Care Provider + [phone] Joanne Momin Unavailable Encounter Details Date Type Department Care Team (Late st Contact Info) Description 01/03/2024 Clinisync Result Encounter [facility] External Department Unsolicited Kerri Hassan DO [address] [place], [facility] Social History Tobacco Use Types Packs/Day [...] 10:30 AM EDT Procedure Visit [facility]enie OBGIANNA [address] [place] [place] [phone] Joanne Momin PA [address] [place], [place] [phone] documented as of this encounter Procedures Procedure Name Priority Date/Time Associated Diagnosis Comments US PELVIS W/ TRANSVAGINAL 01/03/2024 12:51 PM EDT documented in this encounter Results * US PELVIS W/ TRANSVAGINAL (01/03/2024 12:51 PM EDT) Anatomical Region Laterality Modality Other 01/03/2024 12:5 1 PM EDT Narrative 01/03/2024 12:54 [place] [address] Ultrasound Report Signed Patient: ANGELES ALAS MR#: [id number] : 1985 Acct:[id number] Age/Sex: 38 / F ADM Date: 01/01/24 Loc: US Attending Dr: Kerri Hassan D.O. Ordering Physician: Kerri Hassan D.O. Date of Service: 01/01/24 Procedure(s): US pelvis w/ transvaginal Accession Number(s): [id number] cc: Kerri Hassan D.O.; RAJIV DOUGLASS D.O. [place] [id number] Patient Name: ANGELES ALAS MRN: [id number] date: 1985 Sex: F Assigned Patient Location: Current Patient Location: Accession/Order Number: [id number] Exam Date: 01/01/2024 17:09 Report Date: 01/03/2024 12:51 At the request of: KERRI HASSAN Procedure: US pelvis w/ transvaginal EXAMINATION: US pelvis w/ transvaginal HISTORY: PELVIC PAIN IN FEMALE R10.2 COMPARISON: No relevant comparison available. FINDINGS: Transabdominal and transvaginal images The uterus is normal in size, contour and echotexture measuring 9.0 x 4.1 x 5.5 cm. Area of anechoic echogenicity in the cervix, nabothian cysts. The endometrium measures 8 mm, normal. The right ovary measures 2.8 x 1.7 x 3.2 cm. Normal color Doppler flow. Area of anechoic echogenicity measuring 1.7, simple cysts favored. 2.5 mm simple cyst adjacent to but inseparable from the right ovary. The left ovary measures 3.1 x 1.5 x 2.6 cm. 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 Signed By: 01/03/24 1254 DD/ 1251 TD/TT: Can Pusher: Procedure Note Radiology, Radiologist, MD - 01/03/2024 [place] [address] Ultrasound Report Signed Patient: ANGELES ALAS EMR#: [id number] : 1985Acct:[id number] Age/Sex: 38 / FADM Date: 01/01/24 Loc: US Attending Dr: Kerri Hassan D.O. Ordering Physician: Kerri Hassan D.O. Date of Service: 01/01/24 Procedure(s): US pelvis w/ transvaginal Accession Number(s): [id number] cc: Kerri Hassan D.O.; RAJIV DOUGLASS D.O. The [place] [id number] Patient Name: ANGELES ALAS MRN: [facility]:[id number] date: 1985 Sex: F Assigned Patient Location: US Current Patient Location: US Accession/Order Number: [id number] Exam Date: 01/01/2024 17:09 Report Date: 01/03/2024 12:51 At the request of: KERRI HASSAN Procedure: US pelvis w/ transvaginal EXAMINATION: US pelvis w/ transvaginal HISTORY: PELVIC PAIN IN FEMALE R10.2 COMPARISON: No relevant comparison available. FINDINGS: Transabdominal and transvaginal images The uterus is normal in size, contour and echotexture measuring 9.0 x 4.1x 5.5 cm. Area of anechoic echogenicity in the cervix, nabothian cysts. The endometrium measures 8 mm, normal. The right ovary measures 2.8 x 1.7 x 3.2 cm. Normal color Doppler flow.Area of anechoic echogenicity measuring 1.7, simple cysts favored. 2.5 mm simplecyst adjacent to but inseparable from the right ovary. The left ovary measures 3.1 x 1.5 x 2.6 cm. 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 Signed By:01/03/24 1254 DD/ 50 TD/TT: Can Pusher: us Kerri Sonya DO [facility] Final Result documented in this encounter Visit Diagnoses Not on filedocumented in this encounter Care Teams Medical Transcription Supervisor Relationship Specialty Start Date End Date Rajiv Douglass MD [address] [place] [id number] PCP - General Internal Medicine 09/28/22 Joanne Momin PA [address] [place] [address] [place] [address] PCP - [facility] [place] [facility] 10/17/22 05/01/24 documented as of this encounter
--- OUTSIDE RECORDS SUMMARY | 2024-11-18 15:12 | XMS_ITS | CCD ---
Author Organization [facility] ion [facility] Care Team Providers Care Disability Case Manager Name Role Phone JAZ LEI Admitting Unavailable JAZ LEI Attending Unavailable RAFAT, DR PRYOR Primary Care Unavailable JO CARRINGTON Consulting Unavailable NIKHIL THRASHER Consulting Unavailable LIOR SANTOS Consulting Unavailable Rajiv Middleton MD Primary Care Provider DO Austyn Hassan Attending Provider ILA GUNTER Attending Unavailable AUSTYN HASSAN Attending Unavailable AUSTYN HASSAN Attending Unavailable Austyn Hassan Attending Unavailable Austyn Hassan Admitting Unavailable Austyn Hassan Attending Unavailable Austyn Hassan Admitting Unavailable NONE, XXXX Primary Care Physician Unavailab Gene Mosqueda Admitting Unavailable Gene FLOWER Attending Unavailable Gene FLOWER Attending Unavailable Gene FLOWER Attending Unavailable Gene FLOWER Attending Unavailable Austyn HASSAN R Referring Unavailable Karina Singh Attending Unavailable Farzana CORDOVA, [facility] Primary Care Unavail able Farzana CORDOVA, [facility] Attending Unavail able Farzana CORDOVA, [facility] Primary Care Unavail able Xander Keller PA-C Attending Unavail able Farzana CORDOVA, [facility] Primary Care Unavail able Xander Keller PA-C Attending Unavail able Farzana CORDOVA, [facility] Primary Care Unavail dayan Dolan MD, Rosa Wilkes Attending Unavailable Farzana OCRDOVA, Samra Referring Unavail able Gene FLOWER Attending Unavailable Gene FLOWER Admitting Unavailable Gene FLOWER Referring Unavailable Gene FLOWER Attending Unavailable Gene FLOWER Attending Unavailable Gene FLOWER Attending Unavailable Medications Current Medications Medication Drug [...] 2 tab(s), Refills(s) 0, Pharmacy: [facility]/pharmacy #[id number], 160, cm, 12/27/23 10:47:00 EDT, Height/Length Dosing, 57, kg, 12/27/23 10:47:00 EDT, Weight Dosing Start Date: 12/27/23 Status: Ordered Problems Active Problems Problem Classification Problem Date Documented Date Episodic/Chronic Calculus of urinary tract (7 sources) Kidney stone; Translations: [Calculus of kidney] Onset: 12-27-2023 Episodic Contraceptive and procreative management (1 source) Sterilization requested; Translations: [Encounter for sterilization] 01-09-2024 Episodic Genitourinary symptoms and ill-defined conditions (6 sources) Blood in urine; Translations: [Gross hematuria] Onset: 12-27-2023 Episodic Malaise and fatigue (3 sources) Weakness; Translations: [WEAKNESS] Onset: 12-22-2021 Episodic Menstrual disorders (10 sources) Menorrhagia; Translations: [Excessive and frequent menstruation with regular cycle] Onset: 12-10-2023 01-09-2024 Chronic Other diseases of bladder and urethra (5 sources) Urethral stricture; Translations: [Other urethral stricture, [...] EXPOS COVID-19] Onset: 12-26-2021 Urinary tract infections (15 sources) Urinary tract infection, site not specified; Translations: [Tubulo-interstitial nephritis, not specified as acute or chronic] Onset: 12-26-2021 Episodic Past or Other Problems Problem Classification Problem Date Documented Da te Episodic/Chronic Abdominal pain (15 sources) Pelvic and perineal pain; Translations: [Pelvic and perineal pain] Onset: 12-10-2023 Episodic Results Test Name Value Interpretation Reference Range Facility XR IVPon 11-06-2024 XR IVP Exam Date/Time: 11/06/2024 08:47 EDT Reason for Exam: N20.0;Kidney stone Report IMPRESSION: SMALL NONOBSTRUCTING RENAL CALCULI. DEVELOPMENTAL DELAY DUPLICATED LEFT KIDNEY. OTHERWISE, NEGATIVE IVP. EXAM: XR IVP DATE: 11/06/2024 7:44 AM CLINICAL HISTORY: Kidney stone, N20.0. COMPARISON: None available. 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 FINDINGS: Three small calculi are noted within the upper pole moiety of the developmentally duplicated left kidney, the larger more superiorly measures approximately 6 x 4 mm. An approximately 3 mm calculus is noted within the upper pole of right kidney. There is no hydronephrosis, hydroureter, other significant calculi or findings of concern identified elsewhere. The urinary bladder is unremarkable. There is no significant postvoid residual volume. A few small phleboliths are noted in the pelvis. The bowel gas pattern is unremarkable. The visualized lung bases are clear. DAP 400.56 (\XB5\Gy*m\XB2\) Report Ordering Provider: Gene FLOWER FINAL REPORT Dictated: 11/06/2024 3:32 pm Dilip Cervantes MD Signed (Electronic Signature): 11/06/2024 3:32 pm Signed by: Dilip Cervantes MD Transcribed by: RAJANI Technologist: CARLOS [facility] EC Echocardiogramon 11-06-19 EC Echocardiogram TRANSTHORACIC ECHOCARDIOGRAM Study Date/Time: Nov 04 2024 8:36AM BP: 99 / 69 HR: 65 bpm HT/WT: 162.6 cm (64 in) / 59 kg (130 lb) BSA/BMI: 1.63 m^2 / 22.3 kg/m^2 ORDERING PROVIDER: Samra Yanes INTERPRETING PHYSICIAN: Rosa Dolan MD HOME CARE ASSISTANT: Radha Spain RD INDICATIONS: Palpitations. CONCLUSIONS SUMMARY: 1. Left ventricle: Systolic function is normal. The estimated ejection fraction is 60-65%. 2. Right ventricle: The RVSP is normal. STUDY DATA: M-mode, complete 2D, complete spectral Doppler, and color Doppler. Study status: Routine. Patient status: Outpatient. Location: Echo laboratory 4. Procedure: A transthoracic echocardiogram was performed. Image quality was adequate. FINDINGS LEFT VENTRICLE: The cavity size is normal. Wall thickness is normal. Systolic function is normal. The estimated ejection fraction is 60-65%. Wall motion is normal; there are no regional wall motion abnormalities. Left ventricular diastolic function parameters are normal. LEFT ATRIUM: The atrium is normal in size. RIGHT VENTRICLE: The cavity size is normal. Systolic function is normal. Systolic pressure is within the normal range. The RVSP is normal. RIGHT ATRIUM: The atrium is normal in size. VENTRICULAR SEPTUM: Thickness is normal. Normal septal motion. Normal contour. ATRIAL SEPTUM: The septum is normal. MITRAL VALVE: The valve is structurally normal. Leaflet motion is normal. Inflow velocity is within the normal range. There is no evidence for stenosis. There is physiologic regurgitation. The peak diastolic gradient is 4 mm Hg. The valve area by pressure half-time is 3.66 cm^2. AORTIC VALVE: The valve is structurally normal. The valve is trileaflet. Cusp separation is normal. Velocity is within the normal range. There is no stenosis. There is no regurgitation. Doppler: The mean systolic gradient is 2.14 mm Hg. The peak systolic gradient is 3.73 mm Hg. TRICUSPID VALVE: The valve is structurally normal. Leaflet motion is normal. Inflow velocity is within the normal range. There is no evidence for stenosis. There is trivial regurgitation. PULMONIC VALVE: The valve is structurally normal. Cusp motion is normal. Velocity is within the normal range. There is no regurgitation. AORTA: Aortic root: The root is normal-sized. The root is normal-sized. PERICARDIUM: There is no pericardial effusion. SYSTEMIC VEINS: Inferior vena cava: The IVC is normal-sized. The IVC is normal-sized. Respirophasic diameter changes are in the normal range (>= 50%). Measurements Left ventricle Value Reference LV ID, ED, PLAX, chordal 4.27 cm 3.80 - 5.20 LV ID, ES, PLAX maximal 2.98 cm 2.20 - 3.50 LV fx shortening, PLAX 30.05 % 27 - 45 LV PW thickness, ES, PLAX 1.04 cm IVS thickness, ED 0.7 cm 0.6 - 0.9 IVS thickness, ES 0.9 cm LV PW thickness, ED 0.7 cm 0.6 - 0.9 LV E/e', medial 8.36 LVOT Value Reference LVOT peak velocity, S 1.11 m/sec LVOT VTI, S 22.44 cm LVOT peak gradient, S 4.9 mm Hg Right ventricle Value Reference RV ID, ED, PLAX 2.76 cm RV pressure, S, DP 18.3 mm Hg Left atrium Value Reference LA volume, S 28 ml 22 - 52 LA volume/bsa, S 17 ml/m^2 16 - 34 LA volume/bsa, ES, 2-p 18.20 ml/m^2 16.00 - 34.00 LA ID, A-P, ES, MM (L) 2.25 cm 2.70 - 3.80 LA/aortic root ratio, MM 0.91 Aortic valve Value Reference Aortic valve peak 0.97 m/sec velocity, S Aortic valve mean 0.69 m/sec velocity, S Aortic valve VTI, S 20.2 cm Aortic mean gradient, S 2.14 mm Hg Aortic peak gradient, S 3.73 mm Hg Mitral valve Value Reference Mitral E-wave peak 0.95 m/sec velocity Mitral A-wave peak 0.46 m/sec velocity Mitral deceleration time 207.2 ms Mitral pressure half-time 60 ms Mitral peak gradient, D 4 mm Hg Mitral E/A ratio, peak 2.04 Mitral valve area, PHT, 3.66 cm^2 DP Pulmonic valve Value Reference Pulmonic valve peak 0.62 m/sec velocity, S Pulmonic valve mean 0.62 m/sec velocity, S Pulmonic peak gradient, S 1.5 mm Hg Tricuspid valve Value Reference Tricuspid regurg peak 1.96 m/sec <=2.8 velocity Tricuspid peak RV-RA 15.3 mm Hg gradient Aortic root Value Reference Aortic root ID 2.76 cm 2.33 - 3.27 Aort (more content not included)... Normal [facility] Otolaryngology Office/Clinic Noteon 10-31-2024 Otolaryngology Office/Clinic Note Chief Complaint PT states, I'm here for foreign body sensation in throat for nine years. History of Present Illness Patient presents today for a globus sensation which she feels has been ongoing for 12 years. She states this has not caused her any wheezing shortness of breath or stridor that has not been too bothersome which is why she never had it evaluated. However, she was hoping it would eventually go away. She feels as if it slightly worsened over time. 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 She will cough and clear her throat. She feels as if there is something always caught she will have tightness with swallowing. Sometimes she feels as if there is pressure on the anterior portion of the neck. She denies any nasal congestion or allergic rhinitis she denies any overt acid reflux. She has not had any fevers or night sweats she denies any unintentional weight changes. She does not use tobacco or alcohol. She has no concerns for sleep apnea Physical Exam Vitals & Measurements T: 36.4 ?C (Temporal Artery) HR: 78 (Peripheral) BP: 104/71 HT: 163 cm WT: 58.9 kg (Dosing) WT: 58.9 kg BMI: 22.17 General: No acute distress, alert and oriented x3 Voice: Appropriate for age. Normal tone, volume, and projection noted. Head: Normocephalic atraumatic, no abnormal masses or lesions noted Face: Facial function symmetric and equal bilaterally. Ears: External ears and mastoids appear normal bilaterally. Nose: External nasal dorsum is straight. Mouth: Dentition is good. Oral tongue has normal mobility Oropharynx: Posterior oropharynx shows no abnormal masses or lesions. Neck: Neck is supple. Laryngeal crepitus is normal. The following additional exam findings were noted today: Intranasal anatomy is noncongested and well-hydrated, septum is midline. There is erythema of the tonsillar pillars and posterior oropharynx with postnasal drip noted. No palpable thyroid nodules or thyromegaly Additional Vitals BP Position/Location: Sitting, Right arm Assessment/Plan Chronic cough Chronic throat clearing Globus sensation LPRD (laryngopharyngeal reflux disease) Inform the patient I feel her chronic cough, chronic throat clearing and globus sensation are likely due to to LPRD I feel improper voice use is also contributing. Discussed options of omeprazole 40 mg twice daily for her LPRD also discussed referral to speech therapy as well as flexible nasolaryngoscopy. Patient would like to see how she does on medical management with omeprazole 40 mg twice daily before any referral to speech therapy or scope. We will have her return in 2 months to assess her response she will call in the interim for any new or worsening symptoms. Additionally discussed if she does change her mind in regards to scope or speech therapy she should contact me and we will set that up Orders: omeprazole, 1 caps, Oral, BID, Please take 1 capsule 30 minutes before the morning meal and 1 capsule 30 minutes before the evening meal, # 60 caps, 11 Refill(s), Pharmacy: [facility]/pharmacy #[id number] Provider Comments This note was generated using voice recognition software. Though proofreading has been done, there is still a chance of some unintentional typos and/or errors. Problem List/Past Medical History Ongoing No chronic problems Historical No qualifying data Procedure/Surgical History denies Medications No active medications Allergies No Known Allergies Social History Tobacco Never (less than 100 in lifetime) Use:. Electronically signed by Xander Keller PA-C 10/31/24 10:25 EDT Electronically signed by Faisal Marie 10/31/2024 10:[address] [facility] Ambulatory Visit Summaryon 0 10-27-2024 Ambulatory Visit Summary Ambulatory Visit Summary ANGELES ALAS :1985 Visit Date:10/27/2024 Ambulatory Visit Instructions Your Diagnosis Kidney stones Other urethral stricture, female Microscopic hematuria Tests Performed XR IVP -- Results Pending -- Please visit your patient portal for your results or contact your primary care physician. Your Care Team Attending Physician - Gene FLOWER MD Primary Care Physician - NONE, XXXX Procedures Performed ESWL of kidney (05/01/2024), Flexible cystoscopy (03/11/2024), Ablation. Discharge Vitals Heart Rate (Peripheral) 78 Respiratory Rate 17 Blood Pressure 136/81 Height 160 cm Height 63 in Weight 58.8 kg Weight 129.632 lb BMI 22.97 What to do next You Need to Schedule the Following Appointments Follow Up with KARINA CORDOVA, Gene Griffith, URL When: Comments: f/u pending IVP results Where: [address] [place] [address] [place] [address] Allergies No Known Allergies Problems Ongoing - [...] choosing us for your care. Education [employer] Laser Therapy for Kidney Stones Laser therapy for kidney stones is a procedure to break up rock-like masses that form inside the kidneys (kidney stones). It is done using a device that beams a strong light (laser) on the kidney stones. This breaks the stones up into small pieces. These small pieces may leave your body when you pee (urinate) or may be taken out during the procedure. You may need laser therapy if you have kidney stones that are painful or that are stopping you from being able to pee. Tell a health care provider about: ??? Any allergies you have. ??? All medicines you are taking, including vitamins, herbs, eye drops, creams, and hpqs-lhd-dhaalzd medicines. ??? Any problems you or family members have had with anesthesia. ??? Any bleeding problems you have. ??? Any surgeries you have had. ??? Any medical conditions you have. ??? Whether you are or may be . What are the risks? Your health care provider will talk with you about risks. These may include: ??? Infection. ??? Bleeding. ??? Allergic reactions to medicines. ??? Damage to: ? The part of your body that drains pee (urine) from the bladder (urethra). ? The bladder. ? The tube that connects the bladder to the kidneys (ureter). ??? Urinary tract infection (UTI). ??? Urethral stricture. This is when the urethra is narrowed by scarring. ??? Trouble peeing. ??? Blockage of the kidney. This may be caused by a piece of kidney stone. What happens before the procedure? When to stop eating and drinking Follow instructions from your provider about what you may eat and drink. These may include: ??? 8 hours before the procedure ? Stop eating most foods. Do not eat meat, fried foods, or fatty foods. ? Eat only light foods, such as toast or crackers. ? All liquids are okay except energy drinks and alcohol. ??? 6 hours before the procedure ? Stop eating. ? Drink only clear liquids, such as water, clear fruit juice, black coffee, plain tea, and sports drinks. ? Do not drink energy drinks or alcohol. ??? 2 hours before the procedure ? Stop drinking all liquids. ? You may be allowed to take medicines with small sips of water. ??? If you do not follow your provider's instructions, your procedure may be delayed or canceled. Medicines ??? Ask your provider about: ? Changing or stopping your regular medicines. These include any diabetes medicines or blood thinners you take. ? Taking medicines such as aspirin and ibuprofen. These medicines can thin your blood. Do not take them unless your provider tells you to. ? Taking tdpm-nek-zyebvaj medicines, vitamins, herbs, and supplements. Tests ??? You may have a physical exam before the procedure. You may also have tests done. These may include: ? Imaging tests. ? Blood or pee tests. Surgery safety ??? Ask your provider: ? How your surgery site will be marked. ? What steps will be taken to help prevent infection. These steps may include: ? Removing hair at the surgery site. ? Washing skin with a soap that kills germs. ? Taking antibiotics. General instructions ??? Do not use any products that contain nicotine or tobacco for at least 4 weeks before the procedure. These products include cigarettes, chewing tobacco, and vaping devices, such as e-cigarettes. If you need help quitting, ask your provider. ??? If you will be going home right after the procedure, plan to bunn (more content not included)... Normal [facility] Urology Office/Clinic Noteon 10-27-2024 Urology Office/Clinic Note Urology Office/Clinic Note Chief Complaint 6 month f/u with KUB HPI Staff Pt is a 38 year old female here for 6 month follow up with KUB DX: gross hematuria, recurrent UTI, kidney stones, pelvic and perineal pain No new KUB done for this appointment. Pt denies all urinary complaints at this time. Denies any visible blood in urine at any time. Denies pain of any kind. History of Present Illness Tests reviewed: reviewed UA, op note I have reviewed the previous health record information and history for this patient from Dr. Flower. I have reviewed and verified the staff [...] HPI. Physical Exam Vitals & Measurements HR: 78(Peripheral) RR: 17 BP: 136/81 HT: 160 cm HT: 63 in WT: 58.8 kg WT: 129.632 lb BMI: 22.97 General Appearance: alert , no acute distress, well nourished, well developed female. Assessment/Plan 1. Kidney stones (N20.0: Calculus of kidney) CT AP wo con 12/22/21 - R [...] stones up to 8 mm. No hydro. [1] S/p L ESWL 05/01/24. R ESWL was cx'd as no R renal stones were visible on KUB from 05/01/24. Passed some sediments after ESWL. No issues. Pt did not obtain KUB for appt today. Recommended pt to obtain this to determine if R ESWL can be done. If stones are seen on x-ray, will proceed with R ESWL. If no stones are seen, will proceed with ureteroscopy with laser lithotripsy. Risks/benefits of each option discussed. First stone event in high school. 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 Denies ever doing a metabolic workup. Discussed completing a metabolic workup to determine the etiology of kidney stone formation, including genetic predisposition, dietary factors, and different metabolism in patients. -Obtain IVP. Will call pt with results and schedule procedure based on findings. -Complete metabolic workup after stone procedure 2. Other urethral stricture, female (N35.82: Other urethral stricture, female) S/p Cysto/UD 03/11/24 - Dilated 20-30 Fr. 3. Microscopic hematuria (R31.29: Other microscopic hematuria) RAAD 01/01/24 [facility] - Neg. Neg cysto, FISH/cytol 03/11/24. UA today shows moderate blood. Shares she is at the end of her menstrual cycle. Denies gross hematuria. -Cont sx monitoring and routine UAs. Pt knows to notify the office if she were to experience gross hematuria or clots. Follow-up With When Contact Information KARINA CORDOVA, Gene Griffith, URL [address] [facility] [address] Additional Instructions: f/u pending IVP results Patient Education Laser Therapy for Kidney Stones 24-Hour Urine Collection IRadha, personally scribed for Dr. Flower on 10/27/2024 16:32:20. . Documentation recorded by the scribe, Radha Leal, accurately reflects the services(s) I performed and decisions made by me. Authenticated by Dr. Flower on 10/27/2024 16:36:03. Problem List/Past Medical History Ongoing Gross hematuria Kidney stones Other urethral stricture, female Pelvic and perineal pain Recurrent UTI Historical No qualifying data Procedure/Surgical History ESWL of kidney (05/01/2024), Flexible cystoscopy (03/11/2024), Ablation. Medications No active medications Allergies No Known Allergies Social History Alcohol - Low Risk, 12/27/2023 Never., 03/10/2024 Substance Abuse Never., 03/10/2024 Tobacco Never (less than 100 in lifetime) Tobacco Use:., 03/10/2024 Family History Arthritis: Mother. Primary malignant neoplasm of female breast: Grandparent. Lab Results Ambulatory Point of Care Results Bilirubin Urine Dipstick: Negative (10/27/24 15:27:00) Blood Urine Dipstick: 2+ Moderate (10/27/24 15:27:00) Glucose Urine Dipstick: Negative (10/27/24 15:27:00) Ketones Urine Dipstick: Trace - 5 mg/dl (10/27/24 15:27:00) Leukocytes Urine Dipstick: Negative (10/27/24 15:27:00) Nitrite Urine Di (more content not included)... Normal [facility] Comment on above: Result Comment: Elec tronically Signed By: Gene FLOWER MD\.br\Date and Time Signed: 10/27/24 16:36 EDT\.br\Electronically Co-Signed By: Radha Leal\.br\Date and Time Co-Signed: 10/27/24 16:32 EDT [facility] Fish and Urine Cyt o ([facility])on 03-20-2024 [facility] Diagnosis Info Invalid Interpretation Code [facility] Comment on above: Result Comment: A:Ur [...] with cytology and cystoscopy results. * CPT: 16380, 13812. Microscopic Notes - Microscopic Notes - Abnormal cells 9p21 deletions: Abnormal cells aneploid events: Total cells analyzed: 108 Hematuria: Gross Description Site ID:A color Yellow fixative Alcohol Received 100 mls of clear yellow fluid with the patient's name and, Bladder Wash on the vial. Electronically signed by : on: 03/20/2024 10:15:45 Performed By: #### 1 [id number] #### [facility] [address] [place] [id number] Ambulatory Visit Summaryon 1 05-12-2023 Ambulatory Visit Summary Ambulatory Visit Summary ALAS, ANGELES :1985 Visit Date:03/11/2024 Ambulatory Visit Instructions Your Diagnosis Gross hematuria Recurrent UTI Kidney stones Pelvic and perineal pain Other urethral stricture, female Your Care Team Attending Physician - Gene FLOWER MD This Is Your Medications List ciprofloxacin (Cipro 500 mg Tab) Procedures Performed Flexible cystoscopy (03/11/2024). Discharge Vitals Heart Rate (Peripheral) 70 Blood Pressure 124/84 Height 160 cm Height 63 in Weight 60.0 kg Weight 132.277 lb BMI 23.44 What to do next You Need to Schedule the Following Appointments Follow Up with Gene FLOWER MD, URL When: Where: [facility] [address], [place] [address]- Medications What How Much When Instructions Unchanged [...] these instructions at home: Medicines ??? Take iamy-wzz-szpvwma and prescription medicines only as told by [...] blood in (more content not included)... Normal [facility] Fish and Urine Cyt o ([facility])on 03-11-2024 [facility] Method of Extraction Bladder Wash Normal [facility] Comment on above: Performed By: #### 1 [id number] #### [facility] [address] [place] [address] [facility] Number of Jars 1 Invalid Interpretation Code [facility] Comment on above: Performed By: #### 1 [id number] #### [facility] [address] [place] [address] [facility] Specimen Bladder Wash Normal [facility] Comment on above: Performed By: #### 1 [id number] #### [facility] [address] [place] [address] [facility] Type of Service Technical Only Normal [facility] Comment on above: Performed By: #### 1 [id number] #### [facility] [address] [place] [address] Urology Office/Clinic Noteon 03-11-2024 Urology Office/Clinic Note [...] urine The Urethra was dilated to: 20-30 [place] Citizen with sounds. Specimens Removed: Bladder wash sent [...] Contact Information Gene FLOWER MD, [facility] Urology [address], [place] [address]- Additional Instructions: schedule Left ESWL Patient Education [...] data Proced (more content not included)... Normal [facility] Comment on above: Result Comment: Elec tronically Signed By: Gene FLOWER MD\.br\Date and Time Signed: 03/11/24 08:22 EST\.br\Electronically Co-Signed By: Rossi Aceves\.br\Date and Time Co-Signed: 03/11/24 08:19 EST ALL CBC WITH AUTO DIFFon BASOPHILS ABSOLUTE AUTO 0.1 [facility] Basophils/100 WBC (Bld) 1.3 % 0.2 - 2.0 % [facility] Eosinophils/100 WBC (Bld) 2.4 % 0.9 - 7.0 % [facility] Erythrocyte distribution width (RBC) [Ratio] 12.4 % 11.0 - 15.0 % [facility] Hematocrit (Bld) [Volume fraction] 37.5 % 36.0 - 48.0 % [facility] Hemoglobin (Bld) [Mass/Vol] 12.7 g/dL 12.0 - 16.0 g/dL [facility] IMMATURE GRANULOCYTES ABS AUTO 0.01 [facility] Immature granulocytes/100 WBC (Bld) 0.2 % 0.0 - 0.5 % [facility] LYMPHOCYTES ABSOLUTE AUTO 1.6 [facility] Lymphocytes/100 WBC (Bld) 35.8 % 20.5 - 60.0 % [facility] MCH (RBC) [Entitic mass] 30.1 pg 26.7 - 34.0 pg [facility] MCHC (RBC) [Mass/Vol] 33.9 g/dL 29.9 - 35.2 g/dL [facility] MCV (RBC) [Entitic vol] 88.9 fL 81.0 - 99.0 fL [facility] MONOCYTES ABSOLUTE AUTO 0.5 [facility] Monocytes/100 WBC (Bld) 11.1 % 1.7 - 12.0 % [facility] NEUTROPHILS ABSOLUTE AUTO 2.2 [facility] Neutrophils/100 WBC (Bld) 49.2 % 43.0 - 75.0 % [facility] Platelet mean volume (Bld) [Entitic vol] 10 fL 9.5 - 13.5 fL [facility] TB EO # 0.1 [facility] PLT 200 [facility] RBC 4.22 [facility] WBC 4.5 [facility] Itz 02-08-2024 L - -------- Specimen: [id number] Received: 02/11/24 Status: CIPRIANO Ghotracherri Num: [id number] Spec Type: Surgical Subm Dr: Austyn Hassan Tissues: A Fallopian Tube - Sterilization (BILAT FAL TUBES) Procedures: MARIBEL, Gross/Micro L2 -------- Age/ Patient Sex Location Account Attending Physician -------- Angeles Alas 38/F LABELL [id number] Austyn Hassan -------- SPEC NUM: [id number] RECD: 02/11/24 STATUS: CIPRIANO TRAN NUM: [id number] GARY: 02/08/[address]: Austyn Hassan ENTERED: 02/11/[address]: Eugenie,Lab SPEC TYPE: Surgical DEPT: JERAMY BLAS ENTERED BY: [id number] RECV BY: [id number] ORDERED: HE/3, Gross/Micro L2 ORDERED: HE/3, Gross/Micro L2 Pathological Diagnosis Bilateral fallopian tubes, [...] 6.9 x 0.9 cm. The serosa is bennett-purple, smooth and glistening with paratubal cysts, 0.9 [...] cysts, longer tube inked black) -------- Specimen: [id number] Received: 02/11/24 Status: CIPRIANO Macias Num: [id number] Spec Type: Surgical Subm Dr: Austyn Hassan Tissues: A Fallopian Tube - Sterilization (BILAT FAL TUBES) Procedures: , Gross/Micro L2 -------- Patient: AlasAngeles mariscal [id number] (Continued) -------- Specimen: [id number] Received: 02/11/24 (Continued) Gross Description (Continued) Signed (signature on file) Osman Hoyt MD 02/13/24 1636 -------- Specimen: [id number] Received: 02/11/24 Status: CIPRIANO Macias Num: [id number] Spec Type: Surgical Subm Dr: Austyn Hassan Tissues: A Fallopian Tube - Sterilization (BILAT FAL TUBES) Procedures: HE/3Otto/Kimberly L2 -------- Patient: Angeles Alas [id number] (Continued) -------- Specimen: [id number] Received: 02/11/24 (Continued) Gross Description (Continued) (3, , [id number] A)ANA Microscopic Description Microscopic examinations are performed supporting the above interpretation CPT Codes 20864 -------- -------- Specimen: [id number] Received: 02/11/24 Status: CIPRIANO Macias Num: [id number] Spec Type: Surgical Subm Dr: Austyn Hassan Tissues: A Fallopian Tube - Sterilization (BILAT FAL TUBES) Procedures: HE/3, Gross/Micro L2 -------- Patient: Angeles Alas [id number] (Continued) -------- Signed (signature on file) Omar-Jw Hoyt MD 02/13/24 1636 Normal [facility] HCG ( test) Ql (U)O rdered By: Smiley Brown on 01-09-2024 Interpretation and review of laboratory results Normal [facility] Healthcare Preg Test, Ur Negative [facility] Pathology Request for Lab Co rpon 01-09-2024 Pathology Request for Lab Hang Normal [facility] Comment on above: Order Comment: PATHO LOGY EMB SPECIMEN Result Comment: See report. Scanned copy available in EMR. PERFORMED BY: [facility] [address] [place] [address] PATHOLOGIST [employer] ASSOCIATE XANDER SNOW M.D. Performed By: #### P ATH TO [facility] #### [facility] [address] Provider Letteron 12-27-2023 Provider Letter Provider Letter December 27, 2023 ANGELES ALAS [address] [place] [address] : 1985 To Whom It May Concern, Please excuse above patient from work. Date of Illness: From: 12/27/23 To: 12/27/23 May Return to Work On: 12/27/23 Restrictions: None Comments: Patient had an appointment with Karina Singh CNP on 12/27/23 Sincerely, [facility] Normal [facility] URETHRITIS/DISCHARGE PLUS VA GINITIS (HTRX)on 12-11-2023 ATOPOBIUM VAGINAE 0.000 [facility] ATOPOBIUM VAGINAE Not detected [facility] BVAB 2,3 (BACTERIAL VAGINOSIS ASSOCIATED BACTERIA 2, 3); MOBILUNCUS SPP 0.000 [facility] BVAB 2,3 (BACTERIAL VAGINOSIS ASSOCIATED BACTERIA 2, 3); MOBILUNCUS SPP Not detected [facility] AMY ALBICANS, PARAPSILOSIS, TROPICALIS 0.000 [facility] AMY ALBICANS, PARAPSILOSIS, TROPICALIS Not detected [facility] AMY GLABRATA 0.000 [facility] AMY GLABRATA Not detected [facility] AMY KRUSEI 0.000 [facility] AMY KRUSEI Not detected [facility] CHLAMYDIA TRACHOMATIS 0.000 [facility] CHLAMYDIA TRACHOMATIS Not detected [facility] GARDNERELLA VAGINALIS 0.000 [facility] GARDNERELLA VAGINALIS Not detected [facility] MEGASPHAERA (TYPES 1, 2) 0.000 [facility] MEGASPHAERA (TYPES 1, 2) Not detected [facility] MYCOPLASMA GENITALIUM 0.000 [facility] MYCOPLASMA GENITALIUM Not detected [facility] NEISSERIA GONORRHOEAE 0.000 [facility] NEISSERIA GONORRHOEAE Not detected [facility] TRICHOMONAS VAGINALIS 0.000 [facility] TRICHOMONAS VAGINALIS Not detected [facility] Urinalysis macro (dipstick) panel (U)on 12-10-2023 Bilirubin, UA Negative Negative - 4(70) +++ mg/dL [facility] Blood, UA Positive Negative - 50 Kei/mcL [facility] Clarity, UA Clear [facility] Color, UA Yellow [facility] Glucose, UA Negative Negative - 1999(110) ++++ mg/dL [facility] Interpretation and review of laboratory results Abnormal [facility] Ketones, UA Positive Negative - 160(16) ++++ mg/dL [facility] Leukocytes, UA Positive Negative - 500+++ Richard/mcL [facility] Nitrite, UA Negative Negative - Positive [facility] pH, UA 6.0 5 - 9 [facility] Protein, UA Negative Negative - 2000(20) ++++ mg/dL [facility] Spec Grav, UA 1.030 1 - 1.03 [facility] Urobilinogen, UA 1.0 0.2 - 12 mg/dL [facility] CT ABD/PELVIS WO CONon 12-23 [...] LIOR SANTOS Date: 2021-12-22 22:07 Normal [facility] CBC AUTO DIFFon 12-22-2021 BASO # 0.0 103/ul Normal 0.0-0.1 [facility] Comment on above: Performed By: #### C BC #### [facility] [address] [place] [address] Dr. Shannon Hoyt Basophils/100 WBC (Bld) 0.5 % Normal 0.2-2.0 [facility] Comment on above: Performed By: #### C BC #### [facility] [address] [place] [address] Dr. Shannon Hoyt EO # 0.1 103/ul Normal 0.0-0.7 [facility] Comment on above: Performed By: #### C BC #### [facility] [address] [place] [address] Dr. Shannon Hoyt Eosinophils/100 WBC (Bld) 1.0 % Normal 0.9-7.0 [facility] Comment on above: Performed By: #### C BC #### [facility] [address] [place] [address] Dr. Shannon Hoyt Erythrocyte distribution width (RBC) [Ratio] 11.8 % Normal 11.0-15.0 [facility] Comment on above: Performed By: #### C BC #### [facility] [address] [place] [address] Dr. Shannon Hoyt Hematocrit (Bld) [Volume fraction] 33.9 % Critically low 36.0-48.0 [facility] Comment on above: Performed By: #### C BC #### [facility] [address] [place] [address] Dr. Shannon Hoyt Hemoglobin (Bld) [Mass/Vol] 11.3 g/dL Critically low 12.0-16.0 [facility] Comment on above: Performed By: #### C BC #### [facility] [address] [place] [address] Dr. Shannon Hoyt IG # 0.02 10e3/ul Normal 0.00-0.03 [facility] Comment on above: Performed By: #### C BC #### [facility] [address] [place] [address] Dr. Shannon Hoyt IG % 0.3 % Normal 0.0-0.5 [facility] Comment on above: Performed By: #### C BC #### [facility] [address] [place] [address] Dr. Shannon Hoyt LYMPH # 1.2 103/ul Normal 1.2-3.8 [facility] Comment on above: Performed By: #### C BC #### [facility] [address] [place] [address] Dr. Shannon Hoyt Lymphocytes/100 WBC (Bld) 20.5 % Normal 20.5-60.0 [facility] Comment on above: Performed By: #### C BC #### [facility] [address] [place] [address] Dr. Shannon Hoyt MANUAL DIFF REQ NO Normal [facility] Comment on above: Performed By: #### C BC #### [facility] [address] [place] [address] Dr. Shannon Hoyt MCH (RBC) [Entitic mass] 30.1 pg Normal 26.7-34.0 [facility] Comment on above: Performed By: #### C BC #### [facility] [address] [place] [address] Dr. Shannon Hoyt MCHC (RBC) [Mass/Vol] 33.3 g/dL Normal 29.9-35.2 [facility] Comment on above: Performed By: #### C BC #### [facility] [address] [place] [address] Dr. Shannon Hoyt MCV (RBC) [Entitic vol] 90.2 fL Normal 81.0-99.0 [facility] Comment on above: Performed By: #### C BC #### [facility] [address] [place] [address] Dr. Shannon Hoyt MONO # 0.7 103/ul Normal 0.3-0.8 [facility] Comment on above: Performed By: #### C BC #### [facility] [address] [place] [address] Dr. Shannon Hoyt Monocytes/100 WBC (Bld) 11.7 % Normal 1.7-12.0 [facility] Comment on above: Performed By: #### C BC #### [facility] [address] [place] [address] Dr. Shannon Hoyt NEUT # 4.0 103/ul Normal 1.4-6.5 [facility] Comment on above: Performed By: #### C BC #### [facility] [address] [place] [address] Dr. Shannon Hoyt Neutrophils/100 WBC (Bld) 66.0 % Normal 43.0-75.0 [facility] Comment on above: Performed By: #### C BC #### [facility] [address] [place] [address] Dr. Shannon Hoyt Platelet mean volume (Bld) [Entitic vol] 9.9 fL Normal 9.5-13.5 [facility] Comment on above: Performed By: #### C BC #### [facility] [address] [place] [address] Dr. Shannon Hoyt PLT 191 103/ul Normal 150-450 [facility] Comment on above: Performed By: #### C BC #### [facility] [address] [place] [address] Dr. Shannon Hoyt RBC 3.76 106/ul Critically low 4.20-5.40 [facility] Comment on above: Performed By: #### C BC #### [facility] [address] [place] [address] Dr. Shannon Hoyt WBC 6.0 103/ul Normal 4.0-11.0 [facility] Comment on above: Performed By: #### C BC #### [facility] [address] [place] [address] Dr. Shannon Hoyt CULTURE URINEon 12-22-2021 CULTURE URINE Culture Observations : NO GROWTH. Normal [facility] Comment on above: Performed By: #### U RCX #### [facility] [address] [place] [address] Dr. Shannon Hoyt Covid-19 PCR [facility]on SARS-CoV-2 (COVID-19) RNA RICHARD+probe Ql (Unsp spec) Not detected Normal NOT DETECTED [facility] Comment on above: Result Comment: When [...] for this test is supported by the Rn Pain Management of Health and Human Service's declaration that [...] longer be used). Performed By: #### [facility] #### [facility] [address] [place] [address] Dr. Shannon Hoyt ER URINE PROFILEon 2 Bilirubin Ql (U) Negative Normal NEGATIVE [facility] Comment on above: Performed By: #### Cipriano REYEZ UMICRO #### [facility] [address] [place] [address] Dr. Shannon Hoyt Clarity (U) CLEAR Normal CLEAR [facility] Comment on above: Performed By: #### Cipriano REYEZ UMICRO #### [facility] [address] [place] [address] Dr. Shannon Hoyt Color (U) LT. YELLOW Normal YELLOW [facility] Comment on above: Performed By: #### E DEREJE UMICRO #### [facility] [address] [place] [address] Dr. Shannon Hoyt ERUAHD A micrscopic examination will be performed if indicated. Normal [facility] Comment on above: Performed By: #### E RACHELR UMICRO #### [facility] [address] [place] [address] Dr. Shannon Hoyt Glucose Ql (U) Negative Normal NEGATIVE [facility] Comment on above: Performed By: #### E RACHELR UMICRO #### [facility] [address] [place] [address] Dr. Shannon Hoyt Hemoglobin Ql (U) SMALL Abnormal NEGATIVE [facility] Comment on above: Performed By: #### BRITTANEY TOUSSAINTRO #### [facility] [address] [place] [address] Dr. Shannon Hoyt Ketones Ql (U) 40 mg/dl Abnormal NEGATIVE [facility] Comment on above: Performed By: #### BRITTANEY TOUSSAINTRO #### [facility] [address] [place] [address] Dr. Shannon Hoyt LEUKOCYTES Negative Normal NEGATIVE [facility] Comment on above: Performed By: #### BRITTANEY TOUSSAINTRO #### [facility] [address] [place] [address] Dr. Shannon Hoyt Nitrite Ql (U) Negative Normal NEGATIVE [facility] Comment on above: Performed By: #### BRITTANEY TOUSSAINTRO #### [facility] [address] [place] [address] Dr. Shannon Hoyt pH (U) 6.0 [pH] Normal 5-9 [facility] Comment on above: Performed By: #### BRITTANEY TOUSSAINTRO #### [facility] [address] [place] [address] Dr. Shannon Hoyt SPEC GRAVITY 1.020 Normal 1.005-<=1.025 [facility] Comment on above: Performed By: #### BRITTANEY TOUSSAINTRO #### [facility] [address] [place] [address] Dr. Shannon Hoyt UA PROTEIN Negative Normal NEGATIVE/ TRACE [facility] Comment on above: Performed By: #### BRITTANEY TOUSSAINTRO #### [facility] [address] [place] [address] Dr. Shannon Hoyt UR MICRO IND INDICATED Normal [facility] Comment on above: Performed By: #### BRITTANEY TOUSSAINTRO #### [facility] [address] [place] [address] Dr. Shannon Hoyt Urobilinogen Qn (U) 0.2 {Galileo'U}/dL Normal 0.2 - 1. 0 [facility] Comment on above: Performed By: #### E BRITTANEY REYEZRO #### [facility] [address] [place] [address] Dr. Shannon Hoyt LACTATE/LACTIC ACIDon 2021 Lactate [Moles/Vol] 1.0 mmol/L Normal 0.4-1.9 [facility] Comment on above: Performed By: #### L ACT #### [facility] [address] [place] [address] Dr. Shannon Hoyt LIPASEon 12-22-2021 Lipase [Catalytic activity/Vol] 58.0 U/L Critically low 73.0-393.0 [facility] Comment on above: Performed By: #### L IPA, CMP #### [facility] [address] [place] [address] Dr. Shannon Hoyt PREG HCG QUALon 12-22-2021 , QUAL Negative Normal NEGATIVE [facility] Comment on above: Performed By: #### P REG #### [facility] [address] [place] [address] Dr. Shannon Hoyt PROF 14(COMP METB)on 022 Albumin [Mass/Vol] 2.9 g/dL Critically low 3.4-5.0 [facility] Comment on above: Performed By: #### L IPA, CMP #### [facility] [address] [place] [address] Dr. Shannon Hoyt Albumin/Globulin [Mass ratio] 0.8 {ratio} Normal [facility] Comment on above: Performed By: #### L IPA, CMP #### [facility] [address] [place] [address] Dr. Shannon Hoyt ALP [Catalytic activity/Vol] 58 U/L Normal 46-116 [facility] Comment on above: Performed By: #### L IPA, CMP #### [facility] [address] [place] [address] Dr. Shannon Hoyt ALT [Catalytic activity/Vol] 33 U/L Normal 14-59 [facility] Comment on above: Performed By: #### L IPA, CMP #### [facility] [address] [address] [address] Shannon Hoyt Anion gap [Moles/Vol] 8.0 mmol/L Normal [facility] Comment on above: Performed By: #### L IPA, CMP #### [facility] [address] [address] [address] Shannon Hoyt AST [Catalytic activity/Vol] 21 U/L Normal 15-37 [facility] Comment on above: Performed By: #### L IPA, CMP #### [facility] [address] [address] [address] Shannon Hoyt Bilirubin [Mass/Vol] 0.2 mg/dL Normal 0.2-1.0 [facility] Comment on above: Performed By: #### L IPA, CMP #### [facility] [address] [address] [address] Shannon Hoyt Calcium [Mass/Vol] 8.2 mg/dL Critically low 8.5-10.1 [facility] Comment on above: Performed By: #### L IPA, CMP #### [facility] [address] [address] [address] Shannon Hoyt Chloride [Moles/Vol] 106 mmol/L Normal 98-107 [facility] Comment on above: Performed By: #### L IPA, CMP #### [facility] [address] [address] [address] Shannon Hoyt CO2 [Moles/Vol] 27.9 mmol/L Normal 21.0-32.0 [facility] Comment on above: Performed By: #### L IPA, CMP #### [facility] [address] [address] [address] Shannon Hoyt Creatinine [Mass/Vol] 0.70 mg/dL Normal 0.55-1.02 [facility] Comment on above: Performed By: #### L IPA, CMP #### [facility] [address] [address] [address] Shannon Hoyt EGFR-AF SALVADOREAN >60 Normal >=60 [facility] Comment on above: Performed By: #### L IPA, CMP #### [facility] [address] [address] [address] Shannon Hoyt EGFR-NON AF SALVADOREAN >60 Normal >=60 [facility] Comment on above: Performed By: #### L IPA, CMP #### [facility] [address] [address] [address] Shannon Hoyt Globulin (S) [Mass/Vol] 3.5 g/dL Normal [facility] Comment on above: Performed By: #### L IPA, CMP #### [facility] [address] [address] [address] Shannon Hoyt Glucose [Mass/Vol] 108 mg/dL Critically high 74-106 T [facility] Comment on above: Performed By: #### L IPA, CMP #### [facility] [address] [address] [address] Shannon Hoyt Potassium [Moles/Vol] 3.9 mmol/L Normal 3.5-5.1 [facility] Comment on above: Performed By: #### L IPA, CMP #### [facility] [address] [place] [address] Dr. Shannon Hoyt Protein [Mass/Vol] 6.4 g/dL Normal 6.4-8.2 [facility] Comment on above: Performed By: #### L IPA, CMP #### [facility] [address] [address] [address] Shannon Hoyt Sodium [Moles/Vol] 138 mmol/L Normal 136-145 [facility] Comment on above: Performed By: #### L IPA, CMP #### [facility] [address] [place] [address] Dr. Shannon Hoyt Urea nitrogen [Mass/Vol] 7.0 mg/dL Normal 7.0-18.0 [facility] Comment on above: Performed By: #### L IPA, CMP #### [facility] [address] [address] [address] Shannon Hoyt Urea nitrogen/Creatinine [Mass ratio] 10.0 mg/mg Normal [facility] Comment on above: Performed By: #### L IPA, CMP #### [facility] [address] [place] [address] Dr. Shannon Hoyt URINE MICROSCOPIC ONLYon BACTERIA SMALL Abnormal NONE SEEN [facility] Comment on above: Performed By: #### BRITTANEY TOUSSAINTRO #### [facility] [address] [place] [address] Dr. Shannon Hoyt Bacteria identified Cx Nom (U) INDICATED Normal [facility] Comment on above: Performed By: #### Cipriano REYEZ UMICRO #### [facility] [address] [place] [address] Dr. Shannon Hoyt CAST NONE SEEN Normal NONE SEEN [facility] Comment on above: Performed By: #### KEKE TOUSSAINTICRO #### [facility] [address] [place] [address] Dr. Shannon Hoyt Crystals LM Nom (Urine sed) NONE SEEN Normal NONE SEEN [facility] Comment on above: Performed By: #### KEKE TOUSSAINTICRO #### [facility] [address] [place] [address] Dr. Shannon Hoyt Epithelial cells LM Ql (Urine sed) FEW Abnormal NONE SEEN /RARE [facility] Comment on above: Performed By: #### BRITTANEY TOUSSAINTRO #### [facility] [address] [place] [address] Dr. Shannon Hoyt MUCOUS TRACE Abnormal NONE SEEN [facility] Comment on above: Performed By: #### BRITTANEY TOUSSAINTRO #### [facility] [address] [place] [address] Dr. Shannon Hoyt RBC 0-2 Normal 0-2 [facility] Comment on above: Performed By: #### KEKE TOUSSAINTICRO #### [facility] [address] [place] [address] Dr. Shannon Hoyt WBC 20-50 Abnormal NONE SEEN [facility] Comment on above: Performed By: #### KEKE TOUSSAINTICRO #### [facility] [address] [place] [address] Dr. Shannon Hoyt Vital Signs Date Time Vital Sign Value Performing Clinician Facility 03-11-2024 07:55-0500 Blood Pressure Location Gene FLOWER [facility] 03-11-2024 07:55-0500 Diastolic blood pressure 84 mm[Hg] Gene FLOWER [facility] 03-11-2024 07:55-0500 Heart rate 70 /min Gene FLOWER [facility] 03-11-2024 07:55-0500 Systolic blood pressure 124 mm[Hg] Gene FLOWER [facility] 01-09-2024 15:40-0400 Body mass index (BMI) [Ratio] 22.49 kg/m2 Austyn Sonya DO Work Phone: [facility] 01-09-2024 15:40-0400 Body weight 59.42 kg Austyn Sonya DO Work Phone: [facility] 01-09-2024 15:40-0400 Diastolic blood pressure 68 mm[Hg] Austyn Sonya DO Work Phone: [facility] 01-09-2024 15:40-0400 Systolic blood pressure 110 mm[Hg] Austyn Sonya DO Work Phone: [facility] 12-27-2023 10:45-0400 Blood Pressure Location Karina Galea [facility] 12-27-2023 10:45-0400 Diastolic blood pressure 78 mm[Hg] Karina Galea [facility] 12-27-2023 10:45-0400 Heart rate 73 /min Karina Galea [facility] 12-27-2023 10:45-0400 Respiratory rate 18 /min Karina Galea [facility] 12-27-2023 10:45-0400 Systolic blood pressure 117 mm[Hg] Karina Singh [facility] 12-10-2023 10:53-0400 Body mass index (BMI) [Ratio] 22.34 kg/m2 Austyn Sonya DO Work Phone: [facility] 12-10-2023 10:53-0400 Body weight 59.02 kg Austyn Sonya DO Work Phone: [facility] 12-10-2023 10:53-0400 Diastolic blood pressure 70 mm[Hg] Austyn Sonya DO Work Phone: [facility] 12-10-2023 10:53-0400 Systolic blood pressure 118 mm[Hg] Austyn Sonya DO Work Phone: [facility] Encounters Encounter Date Encounter Type Care Provider Facility Start: 11-27-2024 ambulatory Gene FLOWER Facili ty:CD:[id number] Start: 11-20-2024 ambulatory Gene FLOWER Facili ty:CD:[id number] Start: 11-06-2024 End: 11-06-2024 ambulatory Gene FLOWER Facility[facility] Start: 11-04-2024 End: 11-05-2024 ambulatory Samra Yanes MD Facility:[facility] Start: 10-31-2024 End: 10-31-2024 ambulatory Samra Yanes MD Facility:[facility] Start: 10-27-2024 End: 10-27-2024 ambulatory Gene FLOWER Facility:[facility] [place] Start: 10-27-2024 End: 10-27-2024 Patient encounter procedure Gene FLOWER [facility] Start: 05-08-2024 ambulatory Gene FLOWER Facili ty:CD:[id number] Start: 05-01-2024 End: 05-01-2024 ambulatory Gene FLOWER Facility:CD:[id number] Start: 03-11-2024 End: 03-11-2024 ambulatory Gene FLOWER Facility:[facility] Start: 03-11-2024 End: 03-11-2024 Lab Drop off Gene FLOWER [facility] Start: 03-11-2024 End: 03-11-2024 ambulatory Gene FLOWER Facility: [facility] Start: 03-11-2024 End: 03-11-2024 Patient encounter procedure Gene FLOWER [facility] Start: 02-08-2024 End: 02-08-2024 Clinisync Result Encounter Austyn Sonya DO Work Phone: [facility] Unsolicited Start: 02-08-2024 End: 02-08-2024 Clinisync Result Encounter Austyn Sonya DO Work Phone: [facility] Unsolicited Start: 02-08-2024 End: 02-08-2024 ambulatory Austyn Hassan Facility:[facility] Start: 01-09-2024 End: 01-09-2024 Departed Referred DO Austyn Sonya Work Phone: [facility] Start: 01-09-2024 End: 01-09-2024 Patient encounter procedure Austyn Sonya DO Work Phone: [facility] Comment on above: Pre-op examination; Request for sterilization; Menorrhagia with regular cycle; Abnormal uterine bleeding (AUB); Pelvic pain in female Start: 01-09-2024 End: 01-09-2024 Preprocedural examination done Austyn Sonya DO Work Phone: [facility] Start: 01-09-2024 End: 01-09-2024 [facility] Start: 12-27-2023 End: 12-27-2023 ambulatory Austyn R SONYA Facility: [facility] Start: 12-27-2023 End: 12-27-2023 Patient encounter procedure Karina Swain [facility] [place] Start: 12-11-2023 [facility]ulatory [facility] Start: 12-10-2023 End: 12-10-2023 Bamboo flowsheet Austyn Sonya DO Work Phone: [facility] Start: 12-10-2023 End: 12-11-2023 Bamboo flowsheet Austyn Sonya DO Work Phone: [facility] Start: 12-10-2023 End: 12-11-2023 External Result Encounter Austyn Sonya DO Work Phone: [facility] Unsolicited Start: 12-10-2023 End: 12-10-2023 ambulatory AUSTYN SONYA Not Available Start: 12-10-2023 End: 12-10-2023 Office outpatient visit 15 minutes Austyn Sonya DO Work Phone: [facility] Comment on above: Pelvic pain in femal e; Recurrent UTI; Vaginal discharge; Pelvic pressure in female; Menorrhagia with irregular cycle; Menorrhagia with regular cycle Start: 10-01-2023 End: 10-01-2023 ambulatory ILA GUNTER Not Available Start: 12-22-2021 End: 12-23-2021 ambulatory JAZ LEI Facility:[facility] Procedures Date Procedure Procedure Detail Performing Clinician Start: 05-01-2024 Extracorporeal shock wave lithotripsy of calculus of kidney Gene FLOWER Start: 03-11-2024 Flexible cystoscopy Nayeli FLOWER Start: 02-08-2024 ALL CBC WITH AUTO DIFF Austyn Sonya DO Work Phone: Start: 01-09-2024 Urine test visual color cmprsn meths Austyn Sonya DO Work Phone: Start: 12-10-2023 URETHRITIS/DISCHARGE PLUS VAGINITIS (HTRX) Austyn Sonya DO Work Phone: Start: 12-10-2023 Urnls dip stick/tabl et rgnt non-auto w/o micrscp Austyn Sonya DO Work Phone: Destructive procedure Dario FLOWER Plan of Treatment Date Care Activity Detail Author Start: 01-13-2025 ambulatory Ambulatory Facility:[facility] Start: 10-02-2024 End: 10-02-2024 Patient encounter procedure 10/02/2024 10:00 AM EDT Office Visit [facility] [address] [place] [address] Austyn Hassan, DO [address] [place], [place] [id number] [facility] Start: 01-09-2024 End: 01-09-2024 Patient encounter procedure 01/09/2024 3:30 PM EDT Procedure Visit [facility] [address] [place] [address] Austyn Hassan, DO [address] [place], [place] [id number] [facility] Start: 12-10-2023 End: 12-09-2024 aPTT in Blood by Coagulation assay APTT Lab Routine Pelvic pain in female Vaginal discharge Pelvic pressure in female Menorrhagia with irregular cycle Expected: 12/10/2023 (Approximate), Expires: 12/09/2024 [facility] Comment on above: Expected: 12/10/2023 (Approximate), Expires: 12/09/2024 Start: 12-10-2023 End: 12-09-2024 SURESWAB(R) ADVANCED VAGINITIS PLUS, TMA SURESWAB(R) ADVANCED VAGINITIS PLUS, TMA Pathology and Cytology Routine Pelvic pain in female Expected: 12/10/2023 (Approximate), Expires: 12/09/2024 [facility] Work Phone: Comment on above: Expected: 12/10/2023 (Approximate), Expires: 12/09/2024 Start: 12-10-2023 End: 12-09-2024 US for US PELVIS-TRANSVAG IF INDICATED Imaging Routine Pelvic pain in female Vaginal discharge Pelvic pressure in female Expected: 12/10/2023 (Approximate), Expires: 12/09/2024 [facility] Comment on above: Expected: 12/10/2023 (Approximate), Expires: 12/09/2024 CBC W Auto Different ial panel - Blood CBC and differential Lab Routine Pelvic pain in female Vaginal discharge Pelvic pressure in female Menorrhagia with irregular cycle Ordered: 12/10/2023 [facility] Comment on above: Ordered: 12/10/2023 CHLAMYDIA TRACHOMATI S (GENITO/STI) CHLAMYDIA TRACHOMATIS (GENITO/STI) Lab Routine Pelvic pain in female Ordered: 12/10/2023 [facility] Comment on above: Ordered: 12/10/2023 Endometrial biopsy Endometrial b iopsy Procedures Routine Menorrhagia with regular cycle Abnormal uterine bleeding (AUB) Pelvic pain in female Ordered: 01/09/2024 [facility] Work Phone: Comment on above: Ordered: 01/09/2024 hCG, quantitative, hCG, quantitative, Lab Routine Pelvic pain in female Vaginal discharge Pelvic pressure in female Menorrhagia with irregular cycle Ordered: 12/10/2023 [facility] Comment on above: Ordered: 12/10/2023 Hemoglobin A1c/Hemoglobin.total in Blood Hemoglobin A1c Lab Routine Pelvic pain in female Vaginal discharge Pelvic pressure in female Menorrhagia with irregular cycle Ordered: 12/10/2023 [facility] Comment on above: Ordered: 12/10/2023 Neisseria gonorrhoea e DNA [Presence] in Unspecified specimen by RICHARD with probe detection Neisseria gonorrhea DNA probe, direct Lab Routine Pelvic pain in female Ordered: 12/10/2023 [facility] Comment on above: Ordered: 12/10/2023 Prothrombin time (PT ) in Blood by Coagulation assay Protime-INR Lab Routine Pelvic pain in female Vaginal discharge Pelvic pressure in female Menorrhagia with irregular cycle Ordered: 12/10/2023 [facility] Comment on above: Ordered: 12/10/2023 Thyrotropin [Units/volume] in Serum or Plasma TSH Lab Routine Pelvic pain in female Vaginal discharge Pelvic pressure in female Menorrhagia with irregular cycle Ordered: 12/10/2023 [facility] Comment on above: Ordered: 12/10/2023 Thyroxine (T4) free [Mass/volume] in Serum or Plasma T4, free Lab Routine Pelvic pain in female Vaginal discharge Pelvic pressure in female Menorrhagia with irregular cycle Ordered: 12/10/2023 [facility] Comment on above: Ordered: 12/10/2023 Payers Date Payer Category Payer Private Health Insurance [id number] 2024 Self-pay 2022 Private Health Insurance [id number] 2022 Unknown [id number] 1984 Unknown [id number] 2.16.84 [id number] 1984 Unknown [id number] 2.16.84 [id number] 1984 Unknown [id number] 2.16.84 [id number] 1984 Unknown [id number] 2.16.84 0.1.800041.3.579.2.1259 1984 Unknown [id number] 2.16.8 40.1.638392.3.579.2.727 1984 Unknown [id number] 2.16.8 40.1.842892.3.579.2.727 1984 Unknown [id number] 2.16.8 40.1.018100.3.579.2.727 1984 Unknown [id number] 2.16.8 40.1.791253.3.579.2.727 1984 Unknown [id number] 2.16.8 40.1.750714.3.579.2.727 1984 Unknown [id number] 2.16. [id number] 1984 Unknown [id number] 2.16. 840.1.225408.3.579.2.196 1984 Unknown [id number] 2.16. [id number] 1984 Unknown [id number] 2.16. [id number] 1984 Unknown [id number] 2.16.8 40.1.449553.3.579.2.727 1984 Unknown [id number] 2.16.8 40.1.555657.3.579.2.727 1984 Unknown [id number] 2.16.8 40.1.475124.3.579.2.727 1984 Unknown [id number] 2.16.8 [id number] 1959 Unknown [id number] Social History Date Type Detail Facility Start: 12-27-2023 End: 03-10-2024 Tobacco smoking status Never smoked tobacco (finding) [facility] Start: 04-06-2023 Sex Assigned At Female [facility] Start: 10-01-2023 End: 12-10-2023 Alcoholic beverage intake Current drinker of alcohol (finding) [facility] Start: 04-06-2023 History of Social function [facility] Start: 08-22-2022 Alcohol Comment caffeine: 2-3 cups per day, coffee [facility] Start: 1985 Sex assigned at Not on file [facility] Start: 09-25-2022 Sexual orientation Heterosexual (finding) [facility] Start: 1985 Sex Assigned At Female [facility] Sexual Orientation [facility] Start: 05-26-2020 Sex Female (finding) [facility] Functional Status Date Assessment Result Facility 03-11-2024 Functional Status N/A [facility] 12-27-2023 Functional Status N/A [facility] Clinical Notes 12-10-2023 to 10-27-2024 Melissa Stanton - 01/09/2024 3:30 PM EDTSarabella Johansen LPN - 12/10/2023 10:20 AM EDTRadiology Note Date & Type Note Facility 10-27-2024 Hospital Discharge instructions Patient Education 10/27/2024 16:24:11 Laser Therapy for Kidney Stones Laser Therapy for Kidney Stones Laser therapy for kidney stones is a procedure to break up rock-like masses that form inside the kidneys (kidney stones). It is done using a device that beams a strong light (laser) on the kidney stones. This breaks the stones up into small pieces. These small pieces may leave your body when you pee (urinate) or may be taken out during the procedure. You may need laser therapy if you have kidney stones that are painful or that are stopping you from being able to pee. Tell a health care provider about: Any allergies you have. All medicines you are taking, including vitamins, herbs, eye drops, creams, and cxif-ghh-cpktqpz medicines. Any problems you or family members have had with anesthesia. Any bleeding problems you have. Any surgeries you have had. Any medical conditions you have. Whether you are or may be . What are the risks? Your health care provider will talk with you about risks. These may include: Infection. Bleeding. Allergic reactions to medicines. Damage to: ?The part of your body that drains pee (urine) from the bladder (urethra). ?The bladder. ?The tube that connects the bladder to the kidneys (ureter). Urinary tract infection (UTI). Urethral stricture. This is when the urethra is narrowed by scarring. Trouble peeing. Blockage of the kidney. This may be caused by a piece of kidney stone. What happens before the procedure? When to stop eating and drinking Follow instructions from your provider about what you may eat and drink. These may include: 8 hours before the procedure ?Stop eating most foods. Do not eat meat, fried foods, or fatty foods. ?Eat only light foods, such as toast or crackers. ?All liquids are okay except energy drinks and alcohol. 6 hours before the procedure ?Stop eating. ?Drink only clear liquids, such as water, clear fruit juice, black coffee, plain tea, and sports drinks. ?Do not drink energy drinks or alcohol. 2 hours before the procedure ?Stop drinking all liquids. ?You may be allowed to take medicines with small sips of water. If you do not follow your provider's instructions, your procedure may be delayed or canceled. Medicines Ask your provider about: ?Changing or stopping your regular medicines. These include any diabetes medicines or blood thinners you take. ?Taking medicines such as aspirin and ibuprofen. These medicines can thin your blood. Do not take them unless your provider tells you to. ?Taking nxxa-udx-arlrtmd medicines, vitamins, herbs, and supplements. Tests You may have a physical exam before the procedure. You may also have tests done. These may include: ?Imaging tests. ?Blood or pee tests. Surgery safety Ask your provider: ?How your surgery site will be marked. ?What steps will be taken to help prevent infection. These steps may include: ?Removing hair at the surgery site. ?Washing skin with a soap that kills germs. ?Taking antibiotics. General instructions Do not use any products that contain nicotine or tobacco for at least 4 weeks before the procedure. These products include cigarettes, chewing tobacco, and vaping devices, such as e-cigarettes. If you need help quitting, ask your provider. If you will be going home right after the procedure, plan to have a responsible adult: ?Take you home from the hospital or clinic. You will not be allowed to drive. ?Care for you for the time you are told. What happens during the procedure? An IV will be inserted into one of your veins. You will be given: ?A sedative. This helps you relax. ?Anesthesia. This keeps you from feeling pain. It will make you fall asleep for surgery. A tool with a camera on the end (ureteroscope) will be put into your urethra. It will be moved through your bladder to your kidney. It will send pictures to a screen in the operating room. This will show what parts of your kidney need to be treated. A tube will be put through the ureteroscope. It will be moved into your kidney. The laser device will be put into your kidney through the tube. The laser will be used to break up the kidney stones. A tool with a tiny wire basket may be put through the tube into your kidney. This can help remove the small pieces of the kidney stone. A small mesh tube (stent) may be placed to allow your kidney to drain. The tube and ureteroscope will be taken out at the end of the surgery. The procedure may vary among providers and hospitals. What happens after the procedure? Your blood pressure, heart rate, breathing rate, and blood oxygen level will be monitored until you leave the hospital or clinic. If you had a stent placed, it may have a string that will be secured to your skin. This helps your provider remove the stent. You may be given a strainer to collect any stone pieces that you pass in your pee. Your provider may have these tested. This information is not intended to replace advice given to you by your health care provider. Make sure you discuss any questions you have with your health care provider. Document Revised: 11/03/2022 Document Reviewed: 11/03/2022 [employer] Patient Education 2023 [employer]. 10/27/2024 16:24:06 24-Hour Urine Collection 24-Hour Urine Collection Why am I having this test? A 24-hour urine specimen is a lab test that requires you to collect all of your urine for an entire day. This is sometimes called a timed urine test. It can provide more information than a single urine sample. There are many reasons to have this test. Your health care provider may order the test to check for or monitor the following conditions: High blood pressure. Kidney disease. Kidney stones. Urinary tract infections. . Diabetes. How do I prepare for this test? You may be asked to follow a special diet during or before the collection period. Follow any instructions from your health care provider. If no special instructions are given, you may eat and drink normally. Take wgbg-pkg-noufebn and prescription medicines only as told by your health care provider. Let your health care provider know about any medicines that you are taking, including rchm-doq-ewcpymw medicines, vitamins, herbs, and supplements. Choose a collection day when you can be at home or when you have a place to store the urine. All urine must be collected during the testing period. How do I do a 24-hour urine collection? When you get up in the morning, urinate in the toilet and flush. Write down the time. This will be your start time on the day of collection and your end time on the next morning. From the start time on, all of your urine should be kept in the collection jug that you received from the lab. If the jug that is given to you already has liquid in it, that is okay. Do not throw out the liquid or rinse out the jug. Urinate into a specimen container, such as a urinal or ordoñez that sits over the toilet. Pour the urine from the container into the collection jug. Be careful not to spill any of the urine. Use the equipment provided by the lab. Do not let any toilet paper or stool (feces) get into the jug. This will contaminate the sample. Stop collecting your urine 24 hours after you started. Collect the last specimen as close as possible to the end of the 24-hour period. Keep the jug cool in an ice chest or keep it in the refrigerator during collection. When the 24-hour collection is complete, take the jug to the lab as soon as possible. Keep the jug cool in an ice chest while you are bringing it to the lab. What do the results mean? Talk with your health care provider about what your results mean. Questions to ask your health care provider Ask your health care provider, or the department that is doing the test: When will my results be ready? How will I get my results? What are my treatment options? What other tests do I need? What are my next steps? Summary A 24-hour urine specimen is a lab test that requires you to collect all of your urine for an entire day. When you get up in the morning, urinate in the toilet and flush. Write down the time. For the next 24 hours, collect all of your urine in the collection jug that you received from the lab. Keep the jug cool while collecting the urine and while bringing it back to the lab. Take the jug of urine back to the lab as soon as possible after the collection period has ended. This information is not intended to replace advice given to you by your health care provider. Make sure you discuss any questions you have with your health care provider. Document Revised: 09/09/2021 Document Reviewed: 09/09/2021 [employer] Patient Education 2023 [employer]. Follow Up Care 05/07/2024 08:44:33 With:KARINA CORDOVAGene, URL Address: [address] [place] [address] When: Unknown Comments:f/u pending IVP results [facility] [place] 10-27-2024 Note Patient Education Nephrology Laser Therapy for Kidney Stones Laser therapy for kidney stones is a procedure to break up rock-like masses that form inside the kidneys (kidney stones). It is done using a device that beams a strong light (laser) on the kidney stones. This breaks the stones up into small pieces. These small pieces may leave your body when you pee (urinate) or may be taken out during the procedure. You may need laser therapy if you have kidney stones that are painful or that are stopping you from being able to pee. Tell a health care provider about: ??? Any allergies you have. ??? All medicines you are taking, including vitamins, herbs, eye drops, creams, and ciau-xiq-mmmvxjx medicines. ??? Any problems you or family members have had with anesthesia. ??? Any bleeding problems you have. ??? Any surgeries you have had. ??? Any medical conditions you have. ??? Whether you are or may be . What are the risks? Your health care provider will talk with you about risks. These may include: ??? Infection. ??? Bleeding. ??? Allergic reactions to medicines. ??? Damage to: ? The part of your body that drains pee (urine) from the bladder (urethra). ? The bladder. ? The tube that connects the bladder to the kidneys (ureter). ??? Urinary tract infection (UTI). ??? Urethral stricture. This is when the urethra is narrowed by scarring. ??? Trouble peeing. ??? Blockage of the kidney. This may be caused by a piece of kidney stone. What happens before the procedure? When to stop eating and drinking Follow instructions from your provider about what you may eat and drink. These may include: ??? 8 hours before the procedure ? Stop eating most foods. Do not eat meat, fried foods, or fatty foods. ? Eat only light foods, such as toast or crackers. ? All liquids are okay except energy drinks and alcohol. ??? 6 hours before the procedure ? Stop eating. ? Drink only clear liquids, such as water, clear fruit juice, black coffee, plain tea, and sports drinks. ? Do not drink energy drinks or alcohol. ??? 2 hours before the procedure ? Stop drinking all liquids. ? You may be allowed to take medicines with small sips of water. ??? If you do not follow your provider's instructions, your procedure may be delayed or canceled. Medicines ??? Ask your provider about: ? Changing or stopping your regular medicines. These include any diabetes medicines or blood thinners you take. ? Taking medicines such as aspirin and ibuprofen. These medicines can thin your blood. Do not take them unless your provider tells you to. ? Taking tint-iks-gfobzfg medicines, vitamins, herbs, and supplements. Tests ??? You may have a physical exam before the procedure. You may also have tests done. These may include: ? Imaging tests. ? Blood or pee tests. Surgery safety ??? Ask your provider: ? How your surgery site will be marked. ? What steps will be taken to help prevent infection. These steps may include: ? Removing hair at the surgery site. ? Washing skin with a soap that kills germs. ? Taking antibiotics. General instructions ??? Do not use any products that contain nicotine or tobacco for at least 4 weeks before the procedure. These products include cigarettes, chewing tobacco, and vaping devices, such as e-cigarettes. If you need help quitting, ask your provider. ??? If you will be going home right after the procedure, plan to have a responsible adult: ? Take you home from the hospital or clinic. You will not be allowed to drive. ? Care for you for the time you are told. What happens during the procedure? An IV will be inserted into one of your veins. ??? You will be given: ? A sedative. This helps you relax. ? Anesthesia. This keeps you from feeling pain. It will make you fall asleep for surgery. ??? A tool with a camera on the end (ureteroscope) will be put into your urethra. It will be moved through your bladder to your kidney. It will send pictures to a screen in the operating room. This will show what parts of your kidney need to be treated. ??? A tube will be put through the ureteroscope. It will be moved into your kidney. ??? The laser device will be put into your kidney through the tube. The laser will be used to break up the kidney stones. ??? A tool with a tiny wire basket may be put through the tube into your kidney. This can help remove the small pieces of the kidney stone. ??? A small mesh tube (stent) may be placed to allow your kidney to drain. ??? The tube and ureteroscope will be taken out at the end of the surgery. The procedure may vary among providers and hospitals. What happens after the procedure? Your blood pressure, heart rate, breathing rate, and blood oxygen level will be monitored until you leave the hospital or clinic. ??? If you had a stent placed, it may have a string that will be secured to your skin. This helps yo (more content not included)... [facility] 03-11-2024 Evaluation + Plan note Diagnostic Tests PendingUroVysion Fish and Urine Cyto ([facility]) 03/11/24 [facility] 03-11-2024 Hospital Discharge instructions Patient Education 03/11/2024 [...] Follow these instructions at home: Medicines Take huud-qzx-viuvwhn and prescription medicines only as told by [...] or the blood stops without treatment. Take ihka-xtz-beuwewt and prescription medicines only as told by your health care provider. Drink enough fluid to keep your urine pale yellow. This information is not intended to replace advice given to you by your health care provider. Make sure you discuss any questions you have with your health care provider. Document Revised: 11/03/2020 Document Reviewed: 11/03/2020 [employer] Patient Education 2023 [employer]. Follow Up Care 01/08/2024 12:04:03 With:KARINA CORDOVA, Gene Griffith, URL Address: [facility] [address], [place] [id number]- When: Unknown [facility] Mahad 03-11-2024 Note Patient Education Urology Hematuria, Adult [...] these instructions at home: Medicines ??? Take imou-hpz-pdhwibo and prescription medicines only as told by [...] the blood stops without treatment. ??? Take ebtd-umi-jmcdxns and prescription medicines only as told by your health care provider. ??? Drink enough fluid to keep your urine pale yellow. This information is not intended to replace advice given to you by your health care provider. Make sure you discuss any questions you have with your health care provider. Document Revised: 11/03/2020 Document Reviewed: 11/03/2020 [employer] Patient Education ? 2023 [employer] [facility] 01-09-2024 History of Present illness Narrative Reason for Appointment: Patient ID: Angeles Alas is a 38 y.o. female who presents for Pre-op Visit and Endometrial Biopsy Patient presents today for Pre Op/Endometrial Biopsy appointment. Patient is scheduled to undergo Da Diego assisted Bilateral Laparoscopic Salpingectomy and Endometrial Ablation with Melonie on 02/08/[address] Hassan at [facility]. MEDICATIONS Current Outpatient Medications Medication Instructions [...] nursing note reviewed. Exam conducted with a commercial instructor supervisor present. Vitals: Estimated body mass index is [...] reviewed, and patient is to proceed to [facility] OR. Follow Up: Patient is to follow up between 1-2 weeks post op to assess proper healing and recovery from procedure. Documented by Amy Zaays LPN on behalf of: Austyn Hassan DO documented in this encounter [facility] 12-27-2023 Hospital Discharge instructions Patient Education 12/27/2023 11:40:24 Kidney Stones, Smht-dn-Sybn Kidney Stones Kidney stones are rock-like masses [...] Follow these instructions at home: Medicines Take gqyx-tkv-xeixukq and prescription medicines only as told by [...] provider. Document Revised: 10/27/2022 Document Reviewed: 10/27/2022 [employer] Patient Education 2023 [employer]. 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 [...] Flower -RAAD and KUB now at [facility] (pt has transvaginal US scheduled for Sunday, will attempt to complete imaging at this time) -Will send cytology at cystoscopy if KUB/RAAD negative for stones -Increase fluids -Start MET if KUB/RAAD + for ureteral stone(s) -F/U pending imaging and cysto Ordered: E&M of New Patient Moderate 45-59 Min 93721 US Renal XR Abdomen 1 View 2. Recurrent UTI (N39.0: Urinary tract infection, site not specified) 12/22/21 cx negative 09/29/23 cx - 20-30k E. Coli, treated with Bactrim DS x7 days (urgent care) -See #1 Ordered: E&M of New Patient Moderate 45-59 Min 97858 Urnls Dip Stick Auto w/o Microscopy POC 12810 US Renal XR Abdomen 1 View 3. [...] E&M of New Patient Moderate 45-59 Min 83274 US Renal XR Abdomen 1 View 4. Pelvic pain (R10.2: Pelvic and perineal pain) Pt being treated by Dr. Hassan for pelvic pain and painful intercourse. She has a transvaginal US scheduled for Sunday at [facility] and diagnostic lap with bilateral salpingectomy and ablation scheduled with Dr. Hassan (more content not included)... [facility] Comment on above: Result Comment: Elec tronically Signed By: Samantha KIM, Karina Swain\.br\Date and Time Signed: 12/27/23 11:42 EDT 12-27-2023 [...] these instructions at home: Medicines ? Take fbwx-scp-byelzrx and prescription medicines only as told by [...] provider. Document Revised: 10/27/2022 Document Reviewed: 10/27/2022 [employer] Patient Education ? 2023 [employer]. [facility] 12-10-2023 History of Present illness Narrative Referral urology Reason for Appointment: Patient ID: Angeles Alas is a 38 y.o. female who [...] nursing note reviewed. Exam conducted with a commercial instructor supervisor present. Vitals: Estimated body mass index is [...] by Beti Johansen LPN on behalf of: Austyn Hassan DO documented in this encounter [facility] Healthcare Evaluation + Plan note No data available for this section [facility] Evaluation + Plan note Future Appointments Appointment Date:11/06/2024 08:00:00 AM Scheduled Provider: Location:FT.XRAY Appointment Type:XR Genital/Urinary Procedures (FT) Future Scheduled TestsXR IVP 11/06/24 [facility] Evaluation note Diagnosis Pre-op examination Request for sterilization Menorrhagia with regular cycle Abnormal uterine bleeding (AUB) Pelvic pain in female Unspecified symptom associated with female genital organs documented in this encounter [facility] HealthcareEvaluation noteNo assessment information [facility] Work Phone: Evaluation note* Diagnosis Pelvic pain in female Unspecified symptom associated with female genital organs Recurrent UTI Urinary tract infection, site not specified Vaginal discharge Leukorrhea, not specified as infective Pelvic pressure in female Menorrhagia with irregular cycle Menorrhagia with regular cycle documented in this encounter [facility] HealthcareHospital Discharge instructions No data available for this section [facility] Progress note No data available for this section [facility] reason for referral (narrative)* Consultation (Routine) - Pending Review Specialty Diagnoses / Procedures Referred By Vaughn ram Referred To Contact Urology Diagnoses Recurrent UTI Procedures DC OFFICE/OUTPATIENT NEW HIGH MDM 60 MINUTES Austyn Hassan DO [address] [place] [address] Shalini Figueredo MD [address] [place] [id number] Referral ID Status Reason Start Date Expiration Date Visits Requested Visits Authorized [id number] Pending Review Specialty Services Required 12/11/2023 06/08/2024 1 1 [facility] Summary Purpose Family History No Family History Records Found No data available [...] and content) DATE CREATED AUTHOR 12/26/2021 [facility] pital DATE CREATED AUTHOR AUTHOR'S ORGANIZ ATION 01/11/2024 [facility] EPIC DATE CREATED AUTHOR AUTHOR'S ORGANIZ ATION 02/13/2024 [facility] DATE CREATED AUTHOR AUTHOR'S ORGANIZ ATION 10/28/2024 [facility] DATE CREATED AUTHOR AUTHOR'S ORGANIZ ATION 11/08/[address] [facility] DATE CREATED AUTHOR AUTHOR'S ORGANIZ ATION 11/13/2024 [facility] Reason for Visit (unrecogniz ed section and content) Reason Comments Pre-op Visit Endometrial Biopsy Reason Comments Pelvic Pain recurrent UTI Care Teams (unrecognized sec tion and content) Team Status: Inactive Member Role Status Dates Austyn Hassan DO Attending Provider Active Start : January 09, 2024 End: January 09, 2024 Disability Case Manager Relationship Specialty Start Date End Date Rajiv Middleton MD [address] [place] [address] PCP - General Internal Medicine 09/28/22 Goals [...] BE BASED ON THE PRIMARY CLINICAL RECORDS. [facility]. provides no warranty or guarantee of the accuracy or completeness of information in this document.
== END 2024-11-18 14:52 | disposition home or self-care (01) ==
LOC: PST 14:51
PROVIDERS: PCP Internal Medicine; Visit Provider Urology
DX: Z01.818 Encounter for other preprocedural examination (principal); N20.0 Calculus of kidney

== ENCOUNTER 2024-11-20 06:55 | Day surgery (SDC) | payer OTHER, SELFPAY ==
[2024-11-18 15:20] VITALS: BP 113/84; PULSE 77; TEMP 36.4; O2SAT 99; BMI 22.4
[2024-11-20] VITALS (11 sets, daily range): BP systolic 104–127; BP diastolic 58–80; PULSE 59–76; TEMP 36.1–36.4; O2SAT 93–100; BMI 22.0
--- OUTSIDE RECORDS SUMMARY | 2024-11-20 06:57 | XMS_ITS | CCD ---
Author Organization [facility] CliniSyal Care Team Providers Care Gourmet Coffee Attendant Name Role Phone JAZ LEI Admitting Unavailable JAZ LEI Attending Unavailable RFAAT, DR PRYOR Primary Care Unavailable JO CARRINGTON Consulting Unavailable ANNA MARIE, NIKHIL Consulting Unavailable LIOR SANTOS Consulting Unavailable Rajiv Middleton MD Primary Care Provider DO Austyn Hassan Attending Provider [phone] ILA GUNTER Attending Unavailable AUSTYN HASSAN Attending Unavailable SONYA, AUSTYN Attending Unavailable Sonya, Austyn Attending Unavailable Austyn Hassan Admitting Unavailable Sonya, Austyn Attending Unavailable Sonya, Austyn Admitting Unavailable NONE, XXXX Primary Care Physician Unavailab Gene Mosqueda Admitting Unavailable Gene FLOWER Attending Unavailable Gene FLOWER Attending Unavailable Gene FLOWER Attending Unavailable Gene FLOWER Attending Unavailable Austyn HASSAN Referring Unavailable Karina Singh Attending Unavailable Farzana CORDOVA, [facility] Primary Care Unavail able Farzana CORDOVA, Samra Attending Unavail able Farzana CORDOVA, [facility] Primary Care Unavail able Xander Keller PA-C Attending Unavail able Farzana CORDOVA, [facility] Primary Care Unavail able Xander Keller PA-C Attending Unavail able Farzana CORDOVA, [facility] Primary Care Unavail dayan Dolan MD, Rosa Wilkes Attending Unavailable Farzana CORDOVA, Samra Referring Unavail able Gene FLOWER Attending Unavailable Gene FLOWER Admitting Unavailable Gene FLOWER Referring Unavailable Gene FLOWER Attending Unavailable Gene FLOWER Attending Unavailable Gene FLOWER Attending Unavailable Karina CORDOVA, Gene Attending Provider Medications Current Medications Medication Drug Class(es) Dates [...] procedure, # 2 tab(s), Refills(s) 0, Pharmacy: [facility]/pharmacy #[id number], 160, cm, 12/27/23 10:47:00 EDT, [...] Test Name Value Interpretation Reference Range Facility INR in Platelet poor plasma by Coagulation assayOrdered By: Gene Flower on 11-18-2024 INR Coag (PPP) [Relative time] 1.0 {INR} [facility] Comment on above: INR Therapeutic Rang e A) Pre- and Peroperative OAT started two weeks before surgery. NOT HIP SURGERY: 1.5 - 2.5 HIP SURGERY: 2 - 3B) Primary and secondary prevention of venous THROMBOSIS: 2 - 3C) Active venous thrombosis, pulmonary embolismand prevention of recurrent venous thrombosis: 2 - 3D) Prevention of arterial thromboembolismincluding patients with mechanical heart valves: 3 - 4.5 Prothrombin time (PT)Ordered By: Gene Flower on 11-18-2024 PT Coag (PPP) [Time] 11.4 s 9.0-12.9 [facility] Comment on above: A hematocrit value g reater than 55% may lead to inaccurate results in coagulation testing. Patients having hematocrit values >55% require a special collection tube for coagulation studies. Please contact the laboratory at [phone] for redraw instructions. aPTT in Platelet poor plasma by Coagulation assayOrdered By: Gene Flower on 11-18-2024 aPTT Coag (PPP) [Time] 28.9 s 25.1-36.5 [facility] Comment on above: A hematocrit value g reater than 55% may lead to inaccurate results in coagulation testing. Patients having hematocrit values >55% require a special collection tube for coagulation studies. Please contact the laboratory at [phone] for redraw instructions. XR IVPon 11-06-2024 XR IVP Exam Date/Time: 11/06/2024 08:47 EDT Reason for Exam: N20.0;Kidney stone Report IMPRESSION: SMALL NONOBSTRUCTING RENAL CALCULI. DEVELOPMENTAL DELAY DUPLICATED LEFT KIDNEY. OTHERWISE, NEGATIVE IVP. EXAM: XR IVP DATE: 11/06/2024 7:44 AM CLINICAL HISTORY: Kidney stone, N20.0. COMPARISON: None available. TECHNIQUE: Hand Packer/Packager radiographs of the abdomen and pelvis and [...] MD Transcribed by: RAJANI Technologist: CARLOS Hollis [facility] EC Echocardiogramon 11-06-19 EC Echocardiogram TRANSTHORACIC ECHOCARDIOGRAM Study Date/Time: Nov 04 2024 8:36AM BP: 99 / 69 HR: 65 bpm HT/WT: 162.6 cm (64 in) / 59 kg (130 lb) BSA/BMI: 1.63 m^2 / 22.3 kg/m^2 ORDERING PROVIDER: Samra Yanes INTERPRETING PHYSICIAN: Rosa Dolan MD ELECTRIC TRACK SWITCH MAINTAINER: Radha Spain RDCS INDICATIONS: Palpitations. CONCLUSIONS SUMMARY: 1. Left ventricle: [...] 3.27 Aort (more content not included)... Normal [facility] Otolaryngology Office/Clinic Noteon 10-31-2024 Otolaryngology Office/Clinic Note [...] slightly worsened over time. 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 [...] meal, # 60 caps, 11 Refill(s), Pharmacy: [facility]/pharmacy #[id number] Provider Comments This note was generated using [...] PA-C 10/31/24 10:25 EDT Electronically signed by MarieGordonmanolo Weiss 10/31/2024 10:10 EDT Normal [facility] Ambulatory Visit Summaryon 0 10-27-2024 Ambulatory Visit Summary Ambulatory Visit Summary ANGELES ALAS :1985 Visit Date:10/27/2024 Ambulatory Visit Instructions Your Diagnosis Kidney stones Other urethral stricture, female Microscopic hematuria Tests Performed XR IVP -- Results Pending -- Please visit your patient portal for your results or contact your primary care physician. Your Care Team Attending Physician - KARINA CORDOVA, Gene Griffith Primary Care Physician - NONE, XXXX Procedures [...] pending IVP results Where: [address] [facility] [place] [address] Allergies No Known Allergies Problems Ongoing - [...] including vitamins, herbs, eye drops, creams, and yxth-gdc-pagahhn medicines. ??? Any problems you or family [...] your provider tells you to. ? Taking rvpi-iht-zqfaflt medicines, vitamins, herbs, and supplements. Tests ??? [...] to bunn (more content not included)... Normal [facility] Urology Office/Clinic Noteon 10-27-2024 Urology Office/Clinic Note [...] or clots. Follow-up With When Contact Information Gene FLOWER MD, URL [address] [address] [place] [address] Additional Instructions: f/u pending IVP results Patient [...] Urine Di (more content not included)... Normal [facility] Comment on above: Result Comment: Elec tronically Signed By: Gene FLOWER MD\.br\Date and Time Signed: 10/27/24 16:36 EDT\.br\Electronically Co-Signed By: Radha Leal\.tre\Date and Time Co-Signed: 10/27/24 16:32 EDT [facility] Fish and Urine Cyt o ([facility])on 03-20-2024 UVFISH & UC Diagnosis Info Invalid Interpretation Code [facility] Comment on above: Result Comment: A:Ur ine,Bladder [...] with cytology and cystoscopy results. * CPT: 28212, 70484. Microscopic Notes - Microscopic Notes - Abnormal cells 9p21 deletions: Abnormal cells aneploid events: Total cells analyzed: 108 Hematuria: Gross Description Site ID:A color Yellow fixative Alcohol Received 100 mls of clear yellow fluid with the patient's name and, Bladder Wash on the vial. Electronically signed by : on: 03/20/2024 10:15:45 Performed By: #### 1 [id number] #### [facility] Laboratory [address] [place] [address] Ambulatory Visit Summaryon 1 05-12-2023 Ambulatory Visit Summary Ambulatory Visit Summary ANGELES ALAS :1985 Visit Date:03/11/2024 Ambulatory Visit Instructions [...] URL When: Where: [facility] [address] [place] [address]- Medications What How Much When Instructions Unchanged [...] these instructions at home: Medicines ??? Take yzvl-xap-jjfrmcd and prescription medicines only as told by [...] blood in (more content not included)... Normal [facility] Uro[facility] Fish and Urine Cyt o ([facility])on 03-11-2024 [facility] Method of Extraction Bladder Wash Normal [facility] Comment on above: Performed By: #### 1 [id number] #### [facility] Laboratory [address] [place] [address] [facility] Number of Jars 1 Invalid Interpretation Code [facility] Comment on above: Performed By: #### 1 [id number] #### [facility] Laboratory [address] [place] [address] [facility] Specimen Bladder Wash Normal [facility] Comment on above: Performed By: #### 1 [id number] #### [facility] Laboratory [address] [place] [address] [facility] Type of Service Technical Only Normal [facility] Comment on above: Performed By: #### 1 [id number] #### [facility] [address] [facility] [place] [address] Urology Office/Clinic Noteon 03-11-2024 Urology Office/Clinic Note [...] urine The Urethra was dilated to: 20-30 Uzbek with sounds. Specimens Removed: Bladder wash sent [...] With When Contact Information Gene FLOWER MD, URL [facility] [address] [place] [address]- Additional Instructions: schedule Left ESWL Patient Education [...] data Proced (more content not included)... Normal [facility] Comment on above: Result Comment: Elec tronically Signed By: Gene FLOWER MD\.br\Date and Time Signed: 03/11/24 08:22 EST\.br\Electronically Co-Signed By: Rossi Aceves\.br\Date and Time Co-Signed: 03/11/24 08:19 EST ALL CBC WITH AUTO DIFFon BASOPHILS ABSOLUTE AUTO 0.1 [facility] Basophils/100 WBC (Bld) 1.3 % 0.2 - 2.0 % [facility] Eosinophils/100 WBC (Bld) 2.4 % 0.9 - 7.0 % [facility] Erythrocyte distribution width (RBC) [Ratio] 12.4 % 11.0 - 15.0 % [facility] Hematocrit (Bld) [Volume fraction] 37.5 % 36.0 - 48.0 % [facility] Hemoglobin (Bld) [Mass/Vol] 12.7 g/dL 12.0 - 16.0 g/dL [facility] IMMATURE GRANULOCYTES ABS AUTO 0.01 [facility] Immature granulocytes/100 WBC (Bld) 0.2 % 0.0 - 0.5 % [facility] LYMPHOCYTES ABSOLUTE AUTO 1.6 [facility] Lymphocytes/100 WBC (Bld) 35.8 % 20.5 - 60.0 % [facility] MCH (RBC) [Entitic mass] 30.1 pg 26.7 - 34.0 pg [facility] MCHC (RBC) [Mass/Vol] 33.9 g/dL 29.9 - 35.2 g/dL [facility] MCV (RBC) [Entitic vol] 88.9 fL 81.0 - 99.0 fL [facility] MONOCYTES ABSOLUTE AUTO 0.5 [facility] Monocytes/100 WBC (Bld) 11.1 % 1.7 - 12.0 % [facility] NEUTROPHILS ABSOLUTE AUTO 2.2 [facility] Neutrophils/100 WBC (Bld) 49.2 % 43.0 - 75.0 % [facility] Platelet mean volume (Bld) [Entitic vol] 10 fL 9.5 - 13.5 fL [facility] TBH EO # 0.1 [facility] PLT 200 [facility] RBC 4.22 [facility] WBC 4.5 [facility] Itz 02-08-2024 L ------- Specimen: [id number] Received: 02/11/24 Status: CIPRIANO Macias Num: [id number] Spec Type: Surgical Subm Dr: Austyn Hassan Tissues: A Fallopian Tube - Sterilization (BILAT FAL TUBES) Procedures: HE/3, Gross/Micro L2 Age/ Patient Sex Location Account Attending Physician Angeles Alas 38/F LABELL [id number] Austyn Hassan SPEC NUM: [id number] RECD: 02/11/24 STATUS: CIPRIANO [place] NUM: [id number] GARY: 02/08/[address] [facility] [address]: Austyn Hassan ENTERED: 02/11/24 [facility] DR: Eugenie,Aretha SPEC TYPE: Surgical DEPT: JERAMY BLAS ENTERED BY: [id number] RECV BY: [id number] ORDERED: HE/3, Gross/Micro L2 ORDERED: HE/3, Gross/Micro [...] include paratubal cysts, longer tube inked black) Specimen: [id number] Received: 02/11/24 Status: CIPRIANO Macias Num: [id number] Spec Type: Surgical Subm Dr: Austyn Hassan Tissues: A Fallopian Tube - Sterilization (BILAT FAL TUBES) Procedures: HE/3, Gross/Micro L2 Patient: Angeles Alas [id number] (Continued) Specimen: [id number] Received: 02/11/24 (Continued) Gross Description (Continued) Signed (signature on file) Osman Hoyt MD 02/13/24 2846 Specimen: [id number] Received: 02/11/24 Status: CIPRIANO Colleen Num: [id number] Spec Type: Surgical Subm Dr: Austyn Hassan Tissues: A Fallopian Tube - Sterilization (BILAT FAL TUBES) Procedures: HE/3, Gross/Micro L2 Patient: Angeles Alas Cipriano [id number] (Continued) Specimen: [id number] Received: 02/11/24 (Continued) Gross Description (Continued) (3, , [id number] A)Brynn Microscopic Description Microscopic examinations are performed supporting the above interpretation CPT Codes 21435 Specimen: [id number] Received: 02/11/24-3 Status: CIPRIANO Macias Num: [id number] Spec Type: Surgical Subm Dr: Austyn Hassan Tissues: A Fallopian Tube - Sterilization (BILAT FAL TUBES) Procedures: HE/3, Gross/Micro L2 Patient: Angeles Alas [id number] (Continued) Signed (signature on file) Osman Hoyt MD 02/13/24 1636 Normal [facility] HCG ( test) Ql (U)O rdered By: Smiley Brown on 01-09-2024 Interpretation and review of laboratory results Normal [facility] Preg Test, Ur Negative [facility] Pathology Request for Lab Co rpon 01-09-2024 Pathology Request for Lab Hang Normal [facility] Comment on above: Order Comment: PATHO LOGY EMB SPECIMEN Result Comment: See report. Scanned copy available in EMR. PERFORMED BY: [place] [id number] PATHOLOGIST CONE MACHINE OPERATOR XANDER SNOW M.D. Performed By: #### P ATH TO [facility] #### [place] [id number] [facility] Provider Letteron 12-27-2023 Provider Letter Provider Letter December 27, 2023 ANGELES [place]AS [address] [place] [address] : 1985 To Whom It May Concern, Please excuse above patient from work. Date of Illness: From: 12/27/23 To: 12/27/23 May Return to Work On: 12/27/23 Restrictions: None Comments: Patient had an appointment with Karina Singh CNP on 12/27/23 Sincerely, [facility] URETHRITIS/DISCHARGE PLUS VA GINITIS (HTRX)on 12-11-2023 ATOPOBIUM VAGINAE 0.000 [facility] ATOPOBIUM VAGINAE Not detected [facility] BVAB 2,3 (BACTERIAL VAGINOSIS ASSOCIATED BACTERIA 2, 3); MOBILUNCUS SPP 0.000 [facility] Healthcare BVAB 2,3 (BACTERIAL VAGINOSIS ASSOCIATED BACTERIA 2, 3); MOBILUNCUS SPP Not detected [facility] AMY ALBICANS, PARAPSILOSIS, TROPICALIS 0.000 [facility] AMY ALBICANS, PARAPSILOSIS, TROPICALIS Not detected [facility] AMY GLABRATA 0.000 [facility] AMY GLABRATA Not detected [facility] AMY KRUSEI 0.000 [facility] AMY KRUSEI Not detected [facility] CHLAMYDIA TRACHOMATIS 0.000 [facility] CHLAMYDIA TRACHOMATIS Not detected [facility] GARDNERELLA VAGINALIS 0.000 [facility] GARDNERELLA VAGINALIS Not detected [facility] MEGASPHAERA (TYPES 1, 2) 0.000 [facility] MEGASPHAERA (TYPES 1, 2) Not detected [facility] MYCOPLASMA GENITALIUM 0.000 [facility] MYCOPLASMA GENITALIUM Not detected [facility] NEISSERIA GONORRHOEAE 0.000 [facility] NEISSERIA GONORRHOEAE Not detected [facility] TRICHOMONAS VAGINALIS 0.000 [facility] TRICHOMONAS VAGINALIS Not detected [facility] Urinalysis macro (dipstick) panel (U)on 12-10-2023 Bilirubin, UA Negative Negative - 4(70) +++ mg/dL [facility] Blood, UA Positive Negative - 50 Kei/mcL [facility] Clarity, UA Clear [facility] Color, UA Yellow [facility] Glucose, UA Negative Negative - 1999(110) ++++ mg/dL [facility] Interpretation and review of laboratory results Abnormal [facility] Ketones, UA Positive Negative - 160(16) ++++ mg/dL [facility] Leukocytes, UA Positive Negative - 500+++ Richard/mcL [facility] Nitrite, UA Negative Negative - Positive [facility] pH, UA 6.0 5 - 9 [facility] Protein, UA Negative Negative - 1999(20) ++++ mg/dL [facility] Spec Grav, UA 1.030 1 - 1.03 [facility] Urobilinogen, UA 1.0 0.2 - 12 mg/dL [facility] CT ABD/PELVIS WO CONon 12-23 CT ABD/PELVIS [...] Date: 2021-12-22 22:07 Normal [facility] CBC AUTO DIFFon 12-22-2021 BASO # 0.0 103/ul Normal 0.0-0.[address] [facility] Comment on above: Performed By: #### C BC #### [facility] Laboratory [address] [address] [address] Shannon Hoyt Basophils/100 WBC (Bld) 0.5 % Normal 0.2-2.[address] [facility] Comment on above: Performed By: #### C BC #### [facility] [address] [address] [address] Shannon Hoyt EO # 0.1 103/ul Normal 0.0-0.[address] [facility] Comment on above: Performed By: #### C BC #### [facility] [address] [address] [address] Shannon Hoyt Eosinophils/100 WBC (Bld) 1.0 % Normal 0.9-7.0 [facility] Comment on above: Performed By: #### C BC #### [facility] [address] [place] [address] Dr. Shannon Hoyt Erythrocyte distribution width (RBC) [Ratio] 11.8 % Normal 11.0-15.0 [facility] Comment on above: Performed By: #### C BC #### [facility] [address] [place] [address] Dr. Shannon Hoyt Hematocrit (Bld) [Volume fraction] 33.9 % Critically low 36.0-48.0 [facility] Comment on above: Performed By: #### C BC #### [facility] [address] [place] [address] Dr. Shannon Hoyt Hemoglobin (Bld) [Mass/Vol] 11.3 g/dL Critically low 12.0-16.0 [facility] Comment on above: Performed By: #### C BC #### [facility] [address] [place] [address] Dr. Shannon Hoyt IG # 0.02 10e3/ul Normal 0.00-0.03 [facility] Comment on above: Performed By: #### C BC #### [facility] [address] [place] [address] Dr. Shannon Hoyt IG % 0.3 % Normal 0.0-0.5 [facility] Comment on above: Performed By: #### C BC #### [facility] [address] [place] [address] Dr. Shannon Hoyt LYMPH # 1.2 103/ul Normal 1.2-3.[address] [facility] Comment on above: Performed By: #### C BC #### [facility] [address] [place] [address] Dr. Shannon Hoyt Lymphocytes/100 WBC (Bld) 20.5 % Normal 20.5-60.0 [facility] Comment on above: Performed By: #### C BC #### [facility] [address] [place] [address] Dr. Shannon Hoyt MANUAL DIFF REQ NO Normal [facility] Comment on above: Performed By: #### C BC #### [facility] [address] [place] [address] Dr. Shannon Hoyt MCH (RBC) [Entitic mass] 30.1 pg Normal 26.7-34.[address] [facility] Comment on above: Performed By: #### C BC #### [facility] [address] [place] [address] Dr. Shannon Hoyt MCHC (RBC) [Mass/Vol] 33.3 g/dL Normal 29.9-35.[address] [facility] Comment on above: Performed By: #### C BC #### [facility] [address] [place] [address] Dr. Shannon Hoyt MCV (RBC) [Entitic vol] 90.2 fL Normal 81.0-99.0 [facility] Comment on above: Performed By: #### C BC #### [facility] [address] [place] [address] Dr. Shannon Hoyt MONO # 0.7 103/ul Normal 0.3-0.[address] [facility] Comment on above: Performed By: #### C BC #### [facility] [address] [place] [address] Dr. Shannon Hoyt Monocytes/100 WBC (Bld) 11.7 % Normal 1.7-12.0 [facility] Comment on above: Performed By: #### C BC #### [facility] [address] [place] [address] Dr. Shannon Hoyt NEUT # 4.0 103/ul Normal 1.4-6.[address] [facility] Comment on above: Performed By: #### C BC #### [facility] [address] [place] [address] Dr. Shannon Hoyt Neutrophils/100 WBC (Bld) 66.0 % Normal 43.0-75.[address] [facility] Comment on above: Performed By: #### C BC #### [facility] [address] [place] [address] Dr. Shannon Hoyt Platelet mean volume (Bld) [Entitic vol] 9.9 fL Normal 9.5-13.[address] [facility] Comment on above: Performed By: #### C BC #### [facility] [address] [address] [address] Shannon Hoyt PLT 191 103/ul Normal 150-[address] [facility] Comment on above: Performed By: #### C BC #### [facility] [id number] Shannon Hoyt RBC 3.76 106/ul Critically low 4.20-5.40 [facility] Comment on above: Performed By: #### C BC #### [facility] [address] [address] [address] Shannon Hoyt WBC 6.0 103/ul Normal 4.0-11.[address] [facility] Comment on above: Performed By: #### C BC #### [facility] [address] [place] [address] Dr. Shannon Hoyt CULTURE URINEon 12-22-2021 CULTURE URINE Culture Observations : NO GROWTH. Normal [facility] Comment on above: Performed By: #### U RCX #### [facility] [address] [address] [address] Shannon Hoyt [facility]on SARS-CoV-2 (COVID-19) RNA RICHARD+probe Ql (Unsp spec) Not detected Normal NOT DETECTED [facility] Comment on above: Result Comment: [...] for this test is supported by the [place] of Health and Human Service's declaration that [...] By: #### C VDTB #### [facility] [address] [address] [address] Shannon Hoyt ER URINE PROFILEon 2 Bilirubin Ql (U) Negative Normal NEGATIVE [facility] Comment on above: Performed By: #### Cipriano REYEZ, UMICRO #### [facility] [address] [address] [address] Shannon Hoyt Clarity (U) CLEAR Normal CLEAR [facility] Comment on above: Performed By: #### E DEREJE UMICRO #### [facility] [address] [address] [address] Shannon Hoyt Color (U) LT. YELLOW Normal YELLOW [facility] Comment on above: Performed By: #### E DEREJE UMICRO #### [facility] [address] [place] [address] Dr. Shannon Hoyt ERUAHD A micrscopic examina tion will be performed if indicated. Normal [facility] Comment on above: Performed By: #### Cipriano REYEZ UMICRO #### [facility] [address] [address] [address] Shannon Hoyt Glucose Ql (U) Negative Normal NEGATIVE [facility] Comment on above: Performed By: #### Cipriano REYEZ, UMICRO #### [facility] [address] [place] [address] Dr. Shannon Hoyt Hemoglobin Ql (U) SMALL Abnormal NEGATIVE [facility] Comment on above: Performed By: #### Cipriano REYEZ, UMICRO #### [facility] [address] [address] Dr. Shannon Hoyt Ketones Ql (U) 40 mg/dl Abnormal NEGATIVE [facility] Comment on above: Performed By: #### Cipriano REYEZ UMICRO #### [facility] [address] [place] [address] Dr. Shannon Hoyt LEUKOCYTES Negative Normal NEGATIVE [facility] Comment on above: Performed By: #### Cipriano REYEZ UMICRO #### [facility] [address] [place] [address] Dr. Shannon Hoyt Nitrite Ql (U) Negative Normal NEGATIVE [facility] Comment on above: Performed By: #### RAOUL TOUSSAINT #### [facility] [address] [place] [address] Dr. Shannon Hoyt pH (U) 6.0 [pH] Normal 5-9 [facility] Comment on above: Performed By: #### RAOUL TOUSSAINT #### [facility] [address] [place] [address] Dr. Shannon Hoyt SPEC GRAVITY 1.020 Normal 1.005-<=1.0 25 [facility] Comment on above: Performed By: #### RAOUL TOUSSAINT #### [facility] [address] [place] [address] Dr. Shannon Hoyt UA PROTEIN Negative Normal NEGATIVE/ TRACE [facility] Comment on above: Performed By: #### RAOUL TOUSSAINT #### [facility] [address] [place] [address] Dr. Shannon Hoyt UR MICRO IND INDICATED Normal [facility] Comment on above: Performed By: #### RAOUL TOUSSAINT #### [facility] [address] [place] [address] Dr. Shannon Hoyt Urobilinogen Qn (U) 0.2 {Galileo'U}/dL Normal 0.2 - 1. 0 [facility] Comment on above: Performed By: #### BRITTANEY TOUSSAINTRO #### [facility] [address] [place] [address] Dr. Shannon Hoyt LACTATE/LACTIC ACIDon 2021 Lactate [Moles/Vol] 1.0 mmol/L Normal 0.4-1.9 [facility] Comment on above: Performed By: #### L ACT #### [facility] [address] [place] [address] Dr. Shannon Hoyt LIPASEon 12-22-2021 Lipase [Catalytic activity/Vol] 58.0 U/L Critically low 73.0-393.0 [facility] Comment on above: Performed By: #### L IPA, CMP #### [facility] [address] [address] [address] Shannon Hoyt PREG HCG QUALon 12-22-2021 , QUAL Negative Normal NEGATIVE [facility] Comment on above: Performed By: #### P REG #### [facility] [address] [address] [address] Shannon Hoyt PROF 14(COMP METB)on 022 Albumin [Mass/Vol] 2.9 g/dL Critically low 3.4-5.[address] [facility] Comment on above: Performed By: #### L IPA, CMP #### [facility] [address] [address] [address] Shannon Hoyt Albumin/Globulin [Mass ratio] 0.8 {ratio} Normal [facility] Comment on above: Performed By: #### L IPA, CMP #### [facility] [address] [place] [address] Dr. Shannon Hoyt ALP [Catalytic activity/Vol] 58 U/L Normal 46-116 [facility] Comment on above: Performed By: #### L IPA, CMP #### [facility] [address] [address] [address] Shannon Hoyt ALT [Catalytic activity/Vol] 33 U/L Normal 14-59 [facility] Comment on above: Performed By: #### L IPA, CMP #### [facility] [address] [address] [address] Shannon Hoyt Anion gap [Moles/Vol] 8.0 mmol/L Normal [facility] Comment on above: Performed By: #### L IPA, CMP #### [facility] [address] [address] [address] Shannon Hoyt AST [Catalytic activity/Vol] 21 U/L Normal 15-37 [facility] Comment on above: Performed By: #### L IPA, CMP #### [facility] [address] [address] [address] Shannon Hoyt Bilirubin [Mass/Vol] 0.2 mg/dL Normal 0.2-1.0 [facility] Comment on above: Performed By: #### L IPA, CMP #### [facility] [address] [address] [address] Shannon Hoyt Calcium [Mass/Vol] 8.2 mg/dL Critically low 8.5-10.1 [facility] Comment on above: Performed By: #### L IPA, CMP #### [facility] [address] [address] [address] Shannon Hoyt Chloride [Moles/Vol] 106 mmol/L Normal 98-107 [facility] Comment on above: Performed By: #### L IPA, CMP #### [facility] [address] [address] [address] Shannon Hoyt CO2 [Moles/Vol] 27.9 mmol/L Normal 21.0-32.0 [facility] Comment on above: Performed By: #### L IPA, CMP #### [facility] [address] [place] [address] Dr. Shannon Hoyt Creatinine [Mass/Vol] 0.70 mg/dL Normal 0.55-1.02 [facility] Comment on above: Performed By: #### L IPA, CMP #### [facility] [address] [place] [address] Dr. Shannon Hoyt EGFR-AF BENINESE >60 Normal >=60 [facility] Comment on above: Performed By: #### L IPA, CMP #### [facility] [address] [place] [address] Dr. Shannon Hoyt EGFR-NON AF BENINESE >60 Normal >=60 [facility] Comment on above: Performed By: #### L IPA, CMP #### [facility] [address] [place] [address] Dr. Shannon Hoyt Globulin (S) [Mass/Vol] 3.5 g/dL Normal [facility] Comment on above: Performed By: #### L IPA, CMP #### [facility] [address] [address] [address] Shannon Hoyt Glucose [Mass/Vol] 108 mg/dL Critically high 74-106 [facility] Comment on above: Performed By: #### L IPA, CMP #### [facility] [address] [address] [address] Shannon Hoyt Potassium [Moles/Vol] 3.9 mmol/L Normal 3.5-5.1 [facility] Comment on above: Performed By: #### L IPA, CMP #### [facility] [address] [place] [address] Dr. Shannon Hoyt Protein [Mass/Vol] 6.4 g/dL Normal 6.4-8.2 [facility] Comment on above: Performed By: #### L IPA, CMP #### [facility] [address] [place] [address] Dr. Shannon Hoyt Sodium [Moles/Vol] 138 mmol/L Normal 136-145 [facility] Comment on above: Performed By: #### L IPA, CMP #### [facility] [address] [place] [address] Dr. Shannon Hoyt Urea nitrogen [Mass/Vol] 7.0 mg/dL Normal 7.0-18.0 [facility] Comment on above: Performed By: #### L IPA, CMP #### [facility] [address] [place] [address] Dr. Shannon Hoyt Urea nitrogen/Creatinine [Mass ratio] 10.0 mg/mg Normal [facility] Comment on above: Performed By: #### L IPA, CMP #### [facility] [address] [place] [address] Dr. Shannon Hoyt URINE MICROSCOPIC ONLYon BACTERIA SMALL Abnormal NONE SEEN The [facility] Comment on above: Performed By: #### E RUR, UMICRO #### [facility] [address] [place] [address] Dr. Shannon Hoyt Bacteria identified Cx Nom (U) INDICATED Normal [facility] Comment on above: Performed By: #### E RUR, UMICRO #### [facility] [address] [place] [address] Dr. Shannon Hoyt CAST NONE SEEN Normal NONE SEEN [facility] Comment on above: Performed By: #### E RUR, UMICRO #### [facility] [address] [address] [address] Shannon Hoyt Crystals LM Nom (Urine sed) NONE SEEN Normal NONE SEEN [facility] Comment on above: Performed By: #### Cipriano REYEZ UMICRO #### [facility] [address] [place] [address] Dr. Shannon Hoyt Epithelial cells LM Ql (Urine sed) FEW Abnormal NONE SEEN /RARE [facility] Comment on above: Performed By: #### Cipriano REYEZ UMICRO #### [facility] [address] [place] [address] Dr. Shannon Hoyt MUCOUS TRACE Abnormal NONE SEEN [facility] Comment on above: Performed By: #### Cipriano REYEZ UMICRO #### [facility] [address] [place] [address] Dr. Shannon Hoyt RBC 0-2 Normal 0-[address] [facility] Comment on above: Performed By: #### Cipriano REYEZ UMICRO #### [facility] [address] [place] [address] Dr. Shannon Hoyt WBC 20-50 Abnormal NONE SEEN [facility] Comment on above: Performed By: #### Cipriano REYEZ UMICRO #### [facility] [address] [place] [address] Dr. Shannon Hoyt Vital Signs Date Time Vital Sign Value Performing Clinician Facility 03-11-2024 07:55-0500 Blood Pressure Location Gene FLOWER [facility] 03-11-2024 07:55-0500 Diastolic blood pressure 84 mm[Hg] Gene FLOWER [facility] 03-11-2024 07:55-0500 Heart rate 70 /min Gene FLOWER [facility] 03-11-2024 07:55-0500 Systolic blood pressure 124 mm[Hg] Gene FLOWER [facility] 01-09-2024 15:40-0400 Body mass index (BMI) [Ratio] 22.49 kg/m2 Austyn Sonya DO Work Phone: [facility] 01-09-2024 15:40-0400 Body weight 59.42 kg Austyn Sonya DO Work Phone: [facility] 01-09-2024 15:40-0400 Diastolic blood pressure 68 mm[Hg] Austyn Sonya DO Work Phone: [facility] 01-09-2024 15:40-0400 Systolic blood pressure 110 mm[Hg] Austyn Sonya DO Work Phone: [facility] 12-27-2023 10:45-0400 Blood Pressure Location Karina Galea [facility] 12-27-2023 10:45-0400 Diastolic blood pressure 78 mm[Hg] Karina Galea [facility] 12-27-2023 10:45-0400 Heart rate 73 /min Karina Galea [facility] 12-27-2023 10:45-0400 Respiratory rate 18 /min Karina Galea [facility] 12-27-2023 10:45-0400 Systolic blood pressure 117 mm[Hg] Karina Galea [facility] 12-10-2023 10:53-0400 Body mass index (BMI) [Ratio] 22.34 kg/m2 Austyn Sonya DO Work Phone: [facility] 12-10-2023 10:53-0400 Body weight 59.02 kg Austyn Sonya DO Work Phone: [facility] 12-10-2023 10:53-0400 Diastolic blood pressure 70 mm[Hg] Austyn Sonya DO Work Phone: [facility] 12-10-2023 10:53-0400 Systolic blood pressure 118 mm[Hg] Austyn Sonya DO Work Phone: [facility] Encounters Encounter Date Encounter Type Care Provider Facility Start: 11-27-2024 ambulatory Gene FLOWER Facili ty:CD:[id number] Start: 11-20-2024 ambulatory Gene Victori ty:CD:[id number] Start: 11-18-2024 End: 11-18-2024 ambulatory Gene Flower MD Work Phone: [facility] Work Phone: Start: 11-18-2024 End: 11-18-2024 Departed Referred Gene Flower MD -[facility] Start: 11-06-2024 End: 11-06-2024 ambulatory Gene FLOWER [place] Start: 11-04-2024 End: 11-05-2024 ambulatory Samra Yanes MD Facility:[facility] Start: 10-31-2024 End: 10-31-2024 ambulatory Samra Yanes MD Facility:[facility] Start: 10-27-2024 End: 10-27-2024 ambulatory Gene FLOWER Facility:[facility] Start: 10-27-2024 End: 10-27-2024 Patient encounter procedure Gene FLOWER [facility] Start: 05-08-2024 ambulatory Gene FLOWER Facili ty:CD:[id number] Start: 05-01-2024 End: 05-01-2024 ambulatory Gene FLOWER Facility:CD:[id number] Start: 03-11-2024 End: 03-11-2024 ambulatory Gene FLOWER Facility[place] Start: 03-11-2024 End: 03-11-2024 Lab Drop off Gene FLOWER [facility] Start: 03-11-2024 End: 03-11-2024 ambulatory Gene Gladis KARINA Facility: [facility] Start: 03-11-2024 End: 03-11-2024 Patient encounter procedure Gene Griffith KARINA [facility] Start: 02-08-2024 End: 02-08-2024 Clinisync Result Encounter Austyn Sonya DO Work Phone: [facility] Unsolicited Start: 02-08-2024 End: 02-08-2024 Clinisync Result Encounter Austyn Sonya DO Work Phone: [facility] Unsolicited Start: 02-08-2024 End: 02-08-2024 ambulatory Austyn Sonya Facility:[facility] Start: 01-09-2024 End: 01-09-2024 Departed Referred DO Austyn Sonya Work Phone: [facility] Start: 01-09-2024 End: 01-09-2024 Patient encounter procedure Austyn Sonya DO Work Phone: [facility] Comment on above: Pre-op examination; Request for sterilization; Menorrhagia with regular cycle; Abnormal uterine bleeding (AUB); Pelvic pain in female Start: 01-09-2024 End: 01-09-2024 Preprocedural examination done Austyn Sonay DO Work Phone: [facility] Start: 01-09-2024 End: 01-09-2024 ambulatory AUSTYN SONYA [facility] Work Phone: Start: 12-27-2023 End: 12-27-2023 ambulatory Austyn R SONYA Facility:[facility] Start: 12-27-2023 End: 12-27-2023 Patient encounter procedure Karina Singh [facility] Start: 12-11-2023 ambulatory Gene FLOWER Facility :[facility] Start: 12-10-2023 End: 12-10-2023 Bamboo flowsheet Austyn Sonya DO Work Phone: [facility] Start: 12-10-2023 End: 12-11-2023 Bamboo flowsheet Austyn Sonya DO Work Phone: [facility] Start: 12-10-2023 End: 12-11-2023 External Result Encounter Austyn Sonya DO Work Phone: [facility] External [facility] Unsolicited Start: 12-10-2023 End: 12-10-2023 ambulatory AUSTYN GATESO Not Available Start: 12-10-2023 End: 12-10-2023 Office [...] procedure 10/02/2024 10:00 AM EDT Office Visit [facility] [address] [place] [id number] Austyn Hassan, DO [address] [place] [address] [facility] Start: 01-09-2024 End: 01-09-2024 Patient encounter procedure 01/09/2024 3:30 PM EDT Procedure Visit [facility] [address] [place] [id number] Austyn Hassan, DO [address] [place] [address] [facility] Start: 12-10-2023 End: 12-09-2024 aPTT in Blood by Coagulation assay APTT Lab Routine Pelvic pain in female Vaginal discharge Pelvic pressure in female Menorrhagia with irregular cycle Expected: 12/10/2023 (Approximate), Expires: 12/09/2024 [facility] Comment on above: Expected: 12/10/2023 (Approximate), Expires: 12/09/2024 Start: 12-10-2023 End: 12-09-2024 SURESWAB(R) ADVANCED VAGINITIS PLUS, TMA SURESWAB(R) ADVANCED VAGINITIS PLUS, TMA Pathology and Cytology Routine Pelvic pain in female Expected: 12/10/2023 (Approximate), Expires: 12/09/2024 [facility] Work Phone: Comment on above: Expected: 12/10/2023 (Approximate), Expires: 12/09/2024 Start: 12-10-2023 End: 12-09-2024 US for US PELVIS-TRANSVAG IF INDICATED Imaging Routine Pelvic pain in female Vaginal discharge Pelvic pressure in female Expected: 12/10/2023 (Approximate), Expires: 12/09/2024 [facility] Comment on above: Expected: 12/10/2023 (Approximate), Expires: 12/09/2024 CBC W Auto Different ial panel - Blood CBC and differential Lab Routine Pelvic pain in female Vaginal discharge Pelvic pressure in female Menorrhagia with irregular cycle Ordered: 12/10/2023 [facility] Comment on above: Ordered: 12/10/2023 CHLAMYDIA TRACHOMATI S (GENITO/STI) CHLAMYDIA TRACHOMATIS (GENITO/STI) Lab Routine Pelvic pain in female Ordered: 12/10/2023 [facility] Comment on above: Ordered: 12/10/2023 Endometrial biopsy Endometrial b iopsy Procedures Routine Menorrhagia with regular cycle Abnormal uterine bleeding (AUB) Pelvic pain in female Ordered: 01/09/2024 [facility] Work Phone: Comment on above: Ordered: 01/09/2024 hCG, quantitative, hCG, quantitative, Lab Routine Pelvic pain in female Vaginal discharge Pelvic pressure in female Menorrhagia with irregular cycle Ordered: 12/10/2023 [facility] Comment on above: Ordered: 12/10/2023 Hemoglobin A1c/Hemoglobin.total in Blood Hemoglobin A1c Lab Routine Pelvic pain in female Vaginal discharge Pelvic pressure in female Menorrhagia with irregular cycle Ordered: 12/10/2023 [facility] Comment on above: Ordered: 12/10/2023 Neisseria gonorrhoea e DNA [Presence] in Unspecified specimen by RICHARD with probe detection Neisseria gonorrhea DNA probe, direct Lab Routine Pelvic pain in female Ordered: 12/10/2023 [facility] Comment on above: Ordered: 12/10/2023 Prothrombin time (PT ) in Blood by Coagulation assay Protime-INR Lab Routine Pelvic pain in female Vaginal discharge Pelvic pressure in female Menorrhagia with irregular cycle Ordered: 12/10/2023 [facility] Comment on above: Ordered: 12/10/2023 Thyrotropin [Units/volume] in Serum or Plasma TSH Lab Routine Pelvic pain in female Vaginal discharge Pelvic pressure in female Menorrhagia with irregular cycle Ordered: 12/10/2023 [facility] Comment on above: Ordered: 12/10/2023 Thyroxine (T4) free [Mass/volume] in Serum or Plasma T4, free Lab Routine Pelvic pain in female Vaginal discharge Pelvic pressure in female Menorrhagia with irregular cycle Ordered: 12/10/2023 [facility] Comment on above: Ordered: 12/10/2023 Payers Date Payer Category Payer Private Health Insurance [id number] 2024 Self-pay 2022 Private Health Insurance [id number] 2022 Unknown [id number] 1984 Unknown [id number] 2.16.84 [id number] 1984 Unknown [id number] 2.16.84 0.1.175648.3.579.2.1259 1984 Unknown [id number] 2.16.84 0.1.242223.3.579.2.1259 1984 Unknown [id number] 2.16.84 0.1.259456.3.579.2.1259 1984 Unknown [id number] 2.16.8 40.1.455969.3.579.2.727 1984 Unknown [id number] 2.16.8 40.1.627446.3.579.2.727 1984 Unknown [id number] 2.16.8 40.1.396164.3.579.2.727 1984 Unknown [id number] 2.16.8 40.1.673672.3.579.2.727 1984 Unknown [id number] 2.16.8 40.1.124025.3.579.2.727 1984 Unknown [id number] 2.16. 840.1.863373.3.579.2.196 1984 Unknown [id number] 2.16. 840.1.375897.3.579.2.196 1984 Unknown [id number] 2.16. 840.1.958358.3.579.2.196 1984 Unknown [id number] 2.16. 840.1.936376.3.579.2.196 1984 Unknown [id number] 2.16.8 40.1.229936.3.579.2.727 1984 Unknown [id number] 2.16.8 40.1.435175.3.579.2.727 1984 Unknown [id number] 2.16.8 40.1.497258.3.579.2.727 1984 Unknown [id number] 2.16.8 40.1.150450.3.579.2.727 1959 Unknown [id number] Social History Date Type Detail Facility Start: 12-27-2023 End: 03-10-2024 Tobacco smoking status Never smoked tobacco (finding) [facility] Start: 04-06-2023 Sex Assigned At Female [facility] Start: 10-01-2023 End: 12-10-2023 Alcoholic beverage intake Current drinker of alcohol (finding) [facility] Start: 04-06-2023 History of Social function [facility] Start: 08-22-2022 Alcohol Comment caffeine: 2-3 cups per day, coffee [facility] Start: 1985 Sex assigned at Not on file [facility] Start: 09-25-2022 Sexual orientation Heterosexual (finding) [facility] Start: 1985 Sex Assigned At Female [facility] Sexual Orientation [facility] Start: 05-26-2020 Sex Female (finding) [facility] Work Phone: Functional Status Date Assessment Result Facility 03-11-2024 Functional Status N/A [facility] 12-27-2023 Functional Status N/A [facility] Clinical Notes 12-10-2023 to 10-27-2024 Melissa Stanton - 01/09/2024 3:30 PM MARAGuevara Johansen LPN - 12/10/2023 10:20 AM EDTRadiology [...] including vitamins, herbs, eye drops, creams, and hzlw-vxo-ncoyhfv medicines. Any problems you or family members [...] unless your provider tells you to. ?Taking gisz-yle-gtzlroh medicines, vitamins, herbs, and supplements. Tests You [...] provider. Document Revised: 11/03/2022 Document Reviewed: 11/03/2022 [employer] Patient Education 2023 [employer]. 10/27/2024 16:24:06 24-Hour Urine Collection 24-Hour Urine [...] you may eat and drink normally. Take awwm-gqk-cohkkes and prescription medicines only as told by your health care provider. Let your health care provider know about any medicines that you are taking, including jhoi-aby-dbyhkmq medicines, vitamins, herbs, and supplements. Choose a [...] provider. Document Revised: 09/09/2021 Document Reviewed: 09/09/2021 Elsevier Patient Education 2023 [employer]j. Follow Up Care 05/07/2024 08:44:33 With:KARINA CORDOVA, Gene Griffith, URL Address: [address] [place] [address] When: Unknown Comments:f/u pending IVP results [facility] 10-27-2024 Note Patient Education Nephrology Laser Therapy [...] including vitamins, herbs, eye drops, creams, and pryk-kdd-qnrvnca medicines. ??? Any problems you or family [...] your provider tells you to. ? Taking komf-isr-wenkhka medicines, vitamins, herbs, and supplements. Tests ??? [...] This helps yo (more content not included)... [facility] 03-11-2024 Evaluation + Plan note Diagnostic Tests [facility]ys[facility] Fish and Urine Cyto ([facility]) 03/11/24 [facility] 03-11-2024 Hospital Discharge instructions Patient Education [...] Follow these instructions at home: Medicines Take jlbm-sag-pschmcx and prescription medicines only as told by [...] or the blood stops without treatment. Take regs-xqi-vupvylg and prescription medicines only as told by your health care provider. Drink enough fluid to keep your urine pale yellow. This information is not intended to replace advice given to you by your health care provider. Make sure you discuss any questions you have with your health care provider. Document Revised: 11/03/2020 Document Reviewed: 11/03/2020 [employer] Patient Education 2023 [employer]. Follow Up Care 01/08/2024 12:04:03 With:KARINA CORDOVA, Gene Griffith, URL Address: [facility] [address] , [place] [address]- When: Unknown [facility] 03-11-2024 Note Patient Education Urology Hematuria, Adult [...] these instructions at home: Medicines ??? Take qgqr-rtq-qzvkckh and prescription medicines only as told by [...] the blood stops without treatment. ??? Take nutl-rns-znkgmts and prescription medicines only as told by your health care provider. ??? Drink enough fluid to keep your urine pale yellow. This information is not intended to replace advice given to you by your health care provider. Make sure you discuss any questions you have with your health care provider. Document Revised: 11/03/2020 Document Reviewed: 11/03/2020 [employer] Patient Education ? 2023 Bridj. [facility] 01-09-2024 History of Present illness Narrative Reason for Appointment: Patient ID: Angeles Alas is a 38 y.o. female who presents for Pre-op Visit and Endometrial Biopsy Patient presents today for Pre Op/Endometrial Biopsy appointment. Patient is scheduled to undergo Da Diego assisted Bilateral Laparoscopic Salpingectomy and Endometrial Ablation with Melonie on 02/08/[address] Hassan at [facility]. MEDICATIONS Current Outpatient Medications Medication [...] nursing note reviewed. Exam conducted with a policewoman present. Vitals: Estimated body mass index is [...] reviewed, and patient is to proceed to [facility] OR. Follow Up: Patient is to follow up between 1-2 weeks post op to assess proper healing and recovery from procedure. Documented by Amy Zayas LPN on behalf of: Austyn Hassan DO documented in this encounter [facility] 12-27-2023 Hospital Discharge instructions Patient Education 12/27/2023 11:40:24 Kidney Stones, Dsmq-bh-Fopa Kidney Stones Kidney stones are rock-like masses [...] Follow these instructions at home: Medicines Take rfce-uec-daoestk and prescription medicines only as told by [...] provider. Document Revised: 10/27/2022 Document Reviewed: 10/27/2022 [employer] Patient Education 2023 Bridj. 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 [...] order Local anesthesia. -Schedule cystoscopy with Dr. Karina PEMBERTON and KUB now at [facility] (pt has transvaginal US scheduled for Sunday, will attempt to complete imaging at this time) -Will send cytology at cystoscopy if KUB/RAAD negative for stones -Increase fluids -Start MET if KUB/RAAD + for ureteral stone(s) -F/U pending imaging and cysto Ordered: E&M of New Patient Moderate 45-59 Min 75527 US Renal XR Abdomen 1 View 2. Recurrent UTI (N39.0: Urinary tract infection, site not specified) 12/22/21 cx negative 09/29/23 cx - 20-30k E. Coli, treated with Bactrim DS x7 days (urgent care) -See #1 Ordered: E&M of New Patient Moderate 45-59 Min 53504 Urnls Dip Stick Auto w/o Microscopy POC 23717 US Renal XR Abdomen 1 View 3. [...] E&M of New Patient Moderate 45-59 Min 75182 US Renal XR Abdomen 1 View 4. Pelvic pain (R10.2: Pelvic and perineal pain) Pt being treated by Dr. Hassan for pelvic pain and painful intercourse. She has a transvaginal US scheduled for Sunday at [facility] and diagnostic lap with bilateral salpingectomy and ablation scheduled with Dr. Hassan (more content not included)... [facility] Comment on above: Result Comment: Elec tronically Signed By: Samantha KIM, Karina Swain\.tre\Date and Time Signed: 12/27/23 11:42 EDT 12-27-2023 [...] these instructions at home: Medicines ? Take iekw-xge-vudxzao and prescription medicines only as told by [...] provider. Document Revised: 10/27/2022 Document Reviewed: 10/27/2022 [employer] Patient Education ? 2023 Bridj. [facility] 12-10-2023 History of Present illness Narrative Referral [...] nursing note reviewed. Exam conducted with a policewoman present. Vitals: Estimated body mass index is [...] Austyn Hassan DO documented in this encounter [facility] Healthcare Evaluation + Plan note No data available for this section [facility] Evaluation + Plan note Future Appointments Appointment Date:11/06/2024 08:00:00 AM Scheduled Provider: Location:FT.XRAY Appointment Type:XR Genital/Urinary Procedures (FT) Future Scheduled TestsXR IVP 11/06/24 [facility] Evaluation note Diagnosis Pre-op examination Request for sterilization Menorrhagia with regular cycle Abnormal uterine bleeding (AUB) Pelvic pain in female Unspecified symptom associated with female genital organs documented in this encounter [facility] HealthcareEvaluation noteNo assessment information availableOhiohealth [facility] Work Phone: Evaluation note* Diagnosis Pelvic pain in female Unspecified symptom associated with female genital organs Recurrent UTI Urinary tract infection, site not specified Vaginal discharge Leukorrhea, not specified as infective Pelvic pressure in female Menorrhagia with irregular cycle Menorrhagia with regular cycle documented in this encounter [facility] HealthcareHospital Discharge instructions No data available for this section [facility] Progress note No data available for this section [facility] reason for referral (narrative)* Consultation (Routine) - Pending Review Specialty Diagnoses / Procedures Referred By Vaughn ram Referred To Contact Urology Diagnoses Recurrent UTI Procedures NV OFFICE/OUTPATIENT NEW HIGH MDM 60 MINUTES Austyn Hassan DO [address] [place] [address] [place] [address] Shalini Figueredo MD [address] [place] [id number] Referral ID Status Reason Start Date Expiration Date Visits Requested Visits Authorized [id number] Pending Review Specialty Services Required 12/11/2023 06/08/2024 1 1 [facility] HealthcareReason for referral (narrative)No reason for referral information availableOhiohealth [facility] Work Phone: Summary Purpose Family History No Family History [...] and content) DATE CREATED AUTHOR 12/26/2021 [facility] DATE CREATED AUTHOR AUTHOR'S ORGANIZ ATION 01/11/2024 [facility] EPIC DATE CREATED AUTHOR AUTHOR'S ORGANIZ ATION 02/13/2024 [facility] DATE CREATED AUTHOR AUTHOR'S ORGANIZ ATION 10/28/2024 [facility] DATE CREATED AUTHOR AUTHOR'S ORGANIZ ATION 11/08/2024 [facility] DATE CREATED AUTHOR AUTHOR'S ORGANIZ ATION 11/13/2024 [facility] Reason for Visit (unrecogniz ed section and content) Reason Comments Pre-op Visit Endometrial Biopsy Reason Comments Pelvic Pain recurrent UTI Care Teams (unrecognized sec tion and content) Team Status: Inactive Member Role Status Dates Gene Flower MD Attending Provider Active St art: November 18, 2024 End: November 18, 2024 Team Status: Inactive Member Role Status Dates Austyn Hassan DO Attending Provider Active Start : January 09, 2024 End: January 09, 2024 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 [facility]. provides no warranty or guarantee of the accuracy or completeness of information in this document.
--- NOTE | 2024-11-20 07:06 | XR_ITS ---
The [address] [address] Patient Name: ANGELES BOSTON MRN: [id number] date: 1985 Sex: F Assigned Patient Location: [facility] Current Patient Location: [facility] Accession/Order Number: [id number] Exam Date: 11/20/2024 07:03 Report Date: 11/20/2024 09:45 At the request of: DEON COLLINS MD Procedure: XR abdomen 1V SINGLE VIEW ABDOMEN CLINICAL DATA: Follow-up kidney stones. Presurgical planning. COMPARISON: 05/01/[address] 12/22/2021 Supine view of the abdomen and pelvis was obtained. There is air and stool within the colon. There is some air within the stomach. No dilated small bowel loops are seen. The kidneys are partially obscured, greater on the right. There is redemonstration of 2 calcifications overlying the mid and upper pole of the left kidney suggesting stones. The larger measures approximately 6 mm in size. There is also a possible 2 - 3 mm stone at the mid to upper kidney on the right. There is suspected left pelvic phleboliths. No soft tissue masses are seen. The bony structures are intact. XR/XR abdomen 1V IMPRESSION: SUSPECTED BILATERAL NEPHROLITHIASIS. Impression dictated by: Amy Ellis M.D. 11/20/2024 9:45 AM Dictation Location: [place] [address] Electronically authenticated by: [id number] Y Date: 11/20/2024 09:45
[2024-11-20] MEDS: CEFAZOLIN SODIUM 2 GM/50 ML D5W PREMIX IV (08:58)
[2024-11-20] MEDS: IOHEXOL 300 MG/ML - 50 ML BTL INJ (10:20)
--- NOTE | 2024-11-20 10:32 | P.URON_ITS ---
Urology Surgery Operative Note Operative Note Procedure Date: 11/20/24 Time Out Performed: yes Pre-op Diagnosis: left nephrolithiasis Post-op Diagnosis: same as pre-op Procedures performed: 1. Left ESWL. 2. Cystoscopy. 3. Left retrograde pyelogram. 4. Left ureteroscopy. 5. Placement of 6 Greek variable length left ureteral stent in the upper pole moiety Anesthesia: General-LMA Primary Surgeon: Gene Flower Complications: None Estimated blood loss (mL): 5 Findings: 1. Larger stone in the upper pole moiety is inaccessible via ureteroscopy. 2. The smaller stone seems to be cortical in nature and not within the collecting system. Specimens: None Drains: 6 Greek variable length left ureteral stent Indications for Procedures: This lady has 2 left renal stones and a smaller 1 in the mid to lower pole and a larger 1 in the upper pole. She underwent ESWL once and did not get satisfactory fragmentation. She now presents for repeat ESWL and possible ureteroscopic stone manipulation and stent placement. She has signed an informed consent after risks were explained. Some of these risks include bleeding, perinephric hematoma, infection and anesthesia to name a few. Detailed description of Procedure: The patient was brought to the Operating Room and placed on Siemens electro magnetic lithotripsy treatment table in the supine position. SCDs were placed on their lower extremities and turned on and functioning during the entire case. Timeout was done by all parties in the room. We all agreed upon the patient's identification and the planned procedures for this patient. General Anesthesia was then administered via LMA. Treatment head was then brought to the patient's correct side. While using flourscopy the stone was identified and lined up into the crosshairs. We then began applying shocks. I started at a power level 2.0 and increased to a maximum power level of 3.5. Intermittent fluoroscopy revealed that the stone did not fragment. We began experiencing some PVCs for which we did multiple maneuvers with table position changes but they kept reoccurring. Therefore, we stopped ESWL after 1500 shocks. Since the stone was not fragmenting we were going to resort to ureteroscopy and laser. The patient was then repositioned into the modified dorsolithotomy position. All pressure points were satisfactorily padded. Genitalia were sterilely prepped and draped in the usual fashion. I started by passing a 22 Greek Olympus cystoscope per urethra and into the bladder. 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 A solitary 1 on the right. We passed a 6 Greek open-ended catheter through the inferior and medial ureter so as to get contrast in the upper pole moiety. Initially the stone appeared adjacent to the tip of a calyx but then contrast did surround the stone thereafter. I then passed a wire through the scope up into the kidney and then removed the scope. A 10/12 Greek access sheath was passed over the wire and up to the L5 position. The wire and stylette were then removed. I then passed a flexible ureteroscope through the access sheath and into the ureter. I ascended up the ureter and entered into the upper pole calyceal system. Although there were a few blood clots with some apparent stony debris attached, we were unable to identify the stone. We found a very tiny passageway through which we passed a wire but we were unable to get the wire in the direction of the stone. We then did a retrograde through the scope and with some significant contrast volume eventually we are able to show a filling defect around the stone. Unfortunately, we were unable to safely get the scope into the area where the stone was located despite multiple attempts. The wire was then passed back into the kidney and the scope was removed. Cystoscope was then backloaded over the wire and passed into the bladder. I then slid a 6 Greek variable length stent over the wire up to the upper pole moiety. The wire was removed and there were good curls in the kidney and in the bladder. I then passed the open-ended catheter through the scope and did a retrograde into the lower pole moiety ureter. To my surprise, the smaller stone seemed to be located within cortical tissue and not within the collecting system. All of the lower pole calyces filled out with contrast and this smaller stone was a few centimeters cephalad. Therefore the bladder was drained of its contents and the scope was then removed. She was then [facility] and wheeled to PACU in stable condition. We will get a CT scan of her kidneys to shed light on her right sided stone situation. As long as they do appear within the collecting system we then will do ureteroscopy and laser on the right side next week.
[2024-11-20] MEDS: SOLIFENACIN SUCCINATE 10 MG TABLET PO (10:55)
== END 2024-11-20 12:14 | disposition home or self-care (01) ==
LOC: SURGOUT 06:55
PROVIDERS: Visit Provider Urology
PROC: (CPT 00873; principal; 2024-11-20 08:40)
DX: N20.0 Calculus of kidney (principal)
CPT/HCPCS: 00873; 00910; 50590; 52332; 52351; 36415; 74018; 84703; J0131; J0690; J1100; J1885; J2250; J2405; J2704; J3010; Q9967

== ENCOUNTER 2024-11-24 14:25 | Outpatient (OUT) | payer OTHER, SELFPAY ==
--- OUTSIDE RECORDS SUMMARY | 2024-11-24 14:29 | XMS_ITS | Clinical Summary ---
Author Organization [place] Address [address] [place] [address] Phone Care Team Providers Care Construction Trades Teacher Name Role Phone Unavailable Primary Care Provider [...]
--- OUTSIDE RECORDS SUMMARY | 2024-11-24 14:29 | XMS_ITS | Encounter Summary ---
Author Organization [facility] Address [address] [place] [address] Care Team Providers Care Car Ferrier Name Role Phone Rajiv Middleton MD Primary Care Provider + [phone] Joanne Momin Unavailable Encounter Details Date Type Department Care Team (Late st Contact Info) Description 12/28/2023 Abstract [facility] Eugenie SHAFFER [address] [place] [address] Austyn Hassan DO [address] [facility] [address] Peterson [place], [facility]11 Social History Tobacco Use Types Packs/Day [...] AM EDT Procedure Visit [facility] SHAFFER [address] [place] [address] Joanne Momin PA [address] [facility] [address] [place], [place] [address] documented as of this encounter Visit Diagnoses Not on filedocumented in this encounter Care Teams Car Ferrier Relationship Specialty Start Date End Date Rajiv Middleton MD [address] [place] [address] PCP - General Internal Medicine 09/28/22 Joanne Momin PA [address] [place] [address] [place] [address] PCP - Medical [employer] 10/17/22 05/01/24 documented as of this encounter
--- OUTSIDE RECORDS SUMMARY | 2024-11-24 14:29 | XMS_ITS | Encounter Summary ---
Author Organization [facility] Address [address] [place] [address] Care Team Providers Care Detacker Name Role Phone Rajiv Middleton MD Primary Care Provider + [phone] Joanne Momin Unavailable Encounter Details Date Type Department Care Team (Late Contact Info) Description 07/28/2022 Abstract [facility] Eugenie SHAFFER [address] [place] [address] [place] [address] Austyn Hassan DO [address] [facility] [address] Peterson [place], [facility]11 Social History Tobacco Use Types Packs/Day [...] EDT Procedure Visit [facility] Eugenie SHAFFER [address] [facility] [place] [address] Joanne Momin PA [address] [facility] [address] [place], [facility]11 documented as of this encounter Visit Diagnoses Not on filedocumented in this encounter Care Teams Detacker Relationship Specialty Start Date End Date Rajiv Middleton MD [address] [facility] [place] [address] PCP - General Internal Medicine 09/28/22 Joanne Momin PA [address] [place] [address] [place] [address] PCP - Medical [employer] 10/17/22 05/01/24 documented as of this encounter
--- OUTSIDE RECORDS SUMMARY | 2024-11-24 14:29 | XMS_ITS | Encounter Summary ---
Author Organization [facility] Address [address] [place] [address] Care Team Providers Care Small Piece Cutter Name Role Phone Rajiv Middleton MD Primary Care Provider + [phone] Joanne Momin Unavailable Encounter Details Date Type Department Care Team (Late Contact Info) Description 08/22/2022 Abstract [facility] SHAFFER [address] [facility] [place] [place] [address] Austyn Hassan DO [address] [facility] [address] Peterson [place], [facility]11 [...] AM EDT Procedure Visit N[facility] SHAFFER [address] [facility] [place] [address] Joanne Momin PA [address] [facility] [address] [place], [facility]11 documented as of this encounter Visit Diagnoses Not on filedocumented in this encounter Care Teams Small Piece Cutter Relationship Specialty Start Date End Date Rajiv Middleton MD [facility] [place] [address] PCP - General Internal Medicine 09/28/22 Joanne Momin PA [address] [place] [address] [place] [address] PCP - Medical [place] [employer] 10/17/22 05/01/24 documented as of this encounter
--- OUTSIDE RECORDS SUMMARY | 2024-11-24 14:29 | XMS_ITS | Encounter Summary ---
Author Organization [facility] Address [address] [place] [address] Care Team Providers Care Room Service Server Name Role Phone Rajiv Middleton MD Primary Care Provider + [phone] Joanne Momin Unavailable Encounter Details Date Type Department Care Team (Late st Contact Info) Description 01/03/2024 Orders Only [facility] Dilcia SHAFFER [facility] [employer] [facility] [place] [address] Umu Morillo LPN [address] [facility]11 Social History Tobacco Use Types Packs/Day Years [...] AM EDT Procedure Visit [facility] Dilcia SHAFFER [facility] [employer] [facility] [place] [address] Joanne Momin PA [address] [place], [place] [address] documented as of this encounter Procedures Procedure [...] on filedocumented in this encounter Care Teams Room Service Server Relationship Specialty Start Date End Date Rajiv Middleton MD [address] [place] [address] PCP - General Internal Medicine 09/28/22 Joanne Momin PA [address] [place] [address] [place] [address] PCP - Medical [place] [employer] 10/17/22 05/01/24 documented as of this encounter
--- OUTSIDE RECORDS SUMMARY | 2024-11-24 14:29 | XMS_ITS | Encounter Summary ---
Author Organization [facility] Address [address] [place] [address] Care Team Providers Care Fabric Separator Operator Name Role Phone Rajiv Middleton MD Primary Care Provider + [phone] Joanne Momin Unavailable Encounter Details Date Type Department Care Team (Late Contact Info) Description 09/27/2022 Abstract [facility] SHAFFER [address] [facility] [place] [address] Joanne Momin PA [address] [place], [facility]11 Social History Tobacco Use Types Packs/Day [...] EDT Procedure Visit [facility] Eugenie SHAFFER [address] [facility] [place] [place] [address] Joanne Momin PA [address] [place] [address] [place] [address] documented as of this encounter Visit Diagnoses Not on filedocumented in this encounter Care Teams Fabric Separator Operator Relationship Specialty Start Date End Date Rajiv Middleton MD [address] [place] [address] PCP - General Internal Medicine 09/28/22 Joanne Momin PA [address] [place] [address] PCP - Medical [employer] 10/17/22 05/01/24 documented as of this encounter
--- OUTSIDE RECORDS SUMMARY | 2024-11-24 14:29 | XMS_ITS | Clinical Summary ---
Author Organization [facility] Address [id number] [address] [place] [address] Care Team Providers Care Family Service Counselor Name Role Phone Kane Campbell DO, Charles [...] 11:39 PM 12/20/2021 11:46 PM Care Teams Family Service Counselor Relationship Specialty Start Date End Date Rajiv Middleton Jr., [address] [place] [address] PCP - General Internal Medicine 02/27/17
--- OUTSIDE RECORDS SUMMARY | 2024-11-24 14:29 | XMS_ITS | Encounter Summary ---
Author Organization [facility] Address [address] [place] [address] Care Team Providers Care Zone Supervisor Firearms Name Role Phone Rajiv Douglass MD Primary Care Provider + [phone] Joanne Momin Unavailable Encounter Details Date Type Department Care Team (Late st Contact Info) Description 01/03/2024 Clinisync Result Encounter [facility] External Department Unsolicited Kerri Hassan DO [address] [place], [facility]11 Social History Tobacco Use Types Packs/Day Years [...] EDT Procedure Visit [facility] Eugenie OBGIANNA [address] [facility] [place] [address] Joanne Momin PA [address] [place], [place] [address] documented as of this encounter Procedures Procedure Name Priority Date/Time Associated Diagnosis Comments US PELVIS W/ TRANSVAGINAL 01/03/2024 12:51 PM EDT documented in this encounter Results * US PELVIS W/ TRANSVAGINAL (01/03/2024 12:51 PM EDT) Anatomical Region Laterality Modality Other 01/03/2024 12:5 1 PM EDT Narrative 01/03/2024 12:54 [place] [address] Ultrasound Report Signed Patient: ANGELES ALAS MR#: [id number] : 1985 Acct:[id number] Age/Sex: 38 / F ADM Date: 01/01/24 Loc: US Attending Dr: Kerri Hassan D.O. Ordering Physician: Kerri Hassan D.O. Date of Service: 01/01/24 Procedure(s): US pelvis w/ transvaginal Accession Number(s): [id number] cc: Kerri Hassan D.O.; RAJIV DOUGLASS D.O. [place] [id number] Patient Name: ANGELES ALSA MRN: [id number] date: 1985 Sex: F Assigned Patient Location: Current Patient Location: Accession/Order Number: [id number] Exam Date: 01/01/2024 17:09 Report Date: 01/03/2024 [...] Signed By: 01/03/24 1254 DD/ 1251 TD/TT: Hospital Sales Representative: Procedure Note Radiology, Radiologist, MD - 01/03/2024 [place] [address] Ultrasound Report Signed Patient: ANGELES ALAS EMR#: [id number] : 1985Acct:[id number] Age/Sex: 38 / FADM Date: 01/01/24 Loc: US Attending Dr: Kerri Hassan D.O. Ordering Physician: Kerri Hassan D.O. Date of Service: 01/01/24 Procedure(s): US pelvis w/ transvaginal Accession Number(s): [id number] cc: Kerri Hassan D.O.; RAJIV DOUGLASS D.O. The [place] [id number] Patient Name: ANGELES ALAS MRN: [facility]:[id number] date: 1985 Sex: F Assigned Patient Location: US Current Patient Location: US Accession/Order Number: [id number] Exam Date: 01/01/2024 17:09 Report Date: 01/03/2024 [...] M.D. Signed By:01/03/24 1254 DD/ 50 TD/TT: Hospital Sales Representative: us Kerri Sonya DO [facility] Final Result documented in this encounter Visit Diagnoses Not on filedocumented in this encounter Care Teams Zone Supervisor Firearms Relationship Specialty Start Date End Date Rajiv Douglass MD [address] [place] [address] PCP - General Internal Medicine 09/28/22 Joanne Momin PA [address] [place] [address] [place] [address] PCP - Medical [place] [employer] 10/17/22 05/01/24 documented as of this encounter
--- OUTSIDE RECORDS SUMMARY | 2024-11-24 14:29 | XMS_ITS | Encounter Summary ---
Author Organization [facility] Address [address] [place] [address] Care Team Providers Care Library Media Assistant Name Role Phone Rajiv Middleton MD Primary Care Provider + [phone] Joanne Momin Unavailable Encounter Details Date Type Department Care Team (Late st Contact Info) Description 01/16/2024 Abstract [facility] SHAFFER [address] [facility] [place] [address] Austyn Hassan DO [address] [facility] [address] [place], [facility] Social History Tobacco Use Types Packs/Day [...] EDT Procedure Visit [facility] Eugen[facility] SHAFFER [address] [place] [address] Joanne Momin PA [address] [facility] [address] [place], [place] [address] documented as of this encounter Visit Diagnoses Not on filedocumented in this encounter Care Teams Library Media Assistant Relationship Specialty Start Date End Date Rajiv Middleton MD [address] [place] [id number] PCP - General Internal Medicine 09/28/22 Joanne Momin PA [address] [place] [address] [place] [address] PCP - Medical [place] [facility] 10/17/22 05/01/24 documented as of this encounter
--- OUTSIDE RECORDS SUMMARY | 2024-11-24 14:29 | XMS_ITS | Encounter Summary ---
Author Organization [facility] Address [address] [place] [address] Care Team Providers Care Director Of Healthcare Systems Name Role Phone Rajiv Middleton MD Primary Care Provider + [phone] Joanne Momin Unavailable Encounter Details Date Type Department Care Team (Late st Contact Info) Description 01/09/2024 Abstract [facility] Eugenie SHAFFER [address] [facility] [place] [address] Austyn Hassan DO [address] [facility] [address] [place], [facility] Social History Tobacco Use Types Packs/Day [...] AM EDT Procedure Visit [facility] SHA[facility] [address] [place] [address] Joanne Momin PA [address] [facility] [address] [place], [place] [address] documented as of this encounter Visit Diagnoses Not on filedocumented in this encounter Care Teams Director Of Healthcare Systems Relationship Specialty Start Date End Date Rajiv Middleton MD [address] [place] [id number] PCP - General Internal Medicine 09/28/22 Joanne Momin PA [address] [place] [address] [place] [address] PCP - Medical [place] [facility] 10/17/22 05/01/24 documented as of this encounter
--- OUTSIDE RECORDS SUMMARY | 2024-11-24 14:29 | XMS_ITS | Clinical Summary ---
Author Organization [facility] Address [address] [place] [address] Care Team Providers Care Transverse Abdominal Muscle Nurse Name Role Phone Rajiv Middleton MD Primary Care Provider + [phone] Allergies No known active allergies Medications sulfamethoxazol [...] AM EDT Procedure Visit ANNE SHAFFER [address] [facility] [place] [address] Joanne Momin PA [address] [facility] [place] [address] Care Teams Transverse Abdominal Muscle Nurse Relationship Specialty Start Date End Date Rajiv Middleton MD [facility] [place] [address] PCP - General Internal Medicine 09/28/22
--- OUTSIDE RECORDS SUMMARY | 2024-11-24 14:29 | XMS_ITS | Encounter Summary ---
Author Organization [facility] Address [id number] [address] [place] [address] Care Team Providers Care Editorial Project Manager Name Role Phone Kane Campbell DO, Charles L Primary Care Provider Encounter Details Date Type Department Care Team (Late st Contact Info) Description 09/09/2021 Telephone [facility] [address] [place] [phone] Jf Farmer DO [address] [facility] [place] [address] Social History Tobacco Use Types Packs/Day Years [...] on filedocumented in this encounter Care Teams Editorial Project Manager Relationship Specialty Start Date End Date Rajiv Middleton Jr., [address] [place] [address] PCP - General Internal Medicine 02/27/17 documented as of this encounter
--- NOTE | 2024-11-24 14:32 | CT_ITS ---
The [address] [address] Patient Name: ANGELES BOSTON MRN: [id number] date: 1985 Sex: F Assigned Patient Location: CT Current Patient Location: CT Accession/Order Number: [id number] Exam Date: 11/24/2024 14:48 Report Date: 11/24/2024 15:36 At the request of: DEON COLLINS MD Procedure: CT abdomen pelvis wo con CT ABDOMEN AND PELVIS WITHOUT INTRAVENOUS CONTRAST: CLINICAL HISTORY: Kidney Stone, Flank Pain COMPARISON: KUB 11/20/2024 TECHNIQUE: Spiral images were obtained through the abdomen and pelvis without intravenous contrast. This CT exam was performed using one or more following dose reduction techniques: Automated exposure control, adjustment of the mA and/or kV according to patient size, or use of iterative reconstruction technique. FINDINGS: Lung Bases: [No acute process.] Organs:Suboptimal evaluation due to lack of IV contrast. Liver cyst. Additional subcentimeter low attenuating lesions are seen involving the liver too small for accurate characterization. Spleen pancreas and adrenal glands all appear unremarkable. Punctate left nephrolithiasis. Left-sided double-J ureteral stent is in place. No stone is seen along the course of the stent. Right kidney appears unremarkable. Aorta appears normal in caliber.[ GI: Stomach is grossly unremarkable. Small bowel appears nondilated. Appendix is normal. No acute colonic abnormality.[ Pelvis:[Punctate amount of air seen within urinary bladder lumen. Uterus is grossly unremarkable.] Peritoneum/Retroperitoneum:No free air or free fluid or lymphadenopathy.[ Abd wall/Bones:Abdominal wall demonstrates no acute process. Osseous structures demonstrate no acute findings.[ CT/CT abdomen pelvis wo con IMPRESSION: 1. Left nephrolithiasis with left-sided double-J ureteral stent in place. No stone is seen along the course of the stent. No hydronephrosis. Impression dictated by: Brian Mariee Jr. DOliverOOliver 11/24/2024 3:36 PM Dictation Location: [place] [address] Electronically authenticated by: [id number] Y Date: 11/24/2024 15:36
--- OUTSIDE RECORDS SUMMARY | 2024-11-24 16:59 | XMS_ITS | CCD ---
Author Organization [facility] Providers Care Instrument Technologist Name Role Phone JAZ LEI Admitting Unavailable JAZ LEI Attending Unavailable RAFAT, DR PRYOR Primary Care Unavailable JO CARRINGTON Consulting Unavailable ANNA MARIE, NIKHIL Consulting Unavailable LIOR SANTOS Consulting Unavailable Rajiv Middleton MD Primary Care Provider DO Austyn Hassan Attending Provider ILA GUNTER Attending Unavailable AUSTYN HASSAN Attending Unavailable AUSTYN HASSAN Attending Unavailable NONE, XXXX Primary Care Physician Unavailab Gene Mosqueda Admitting Unavailable Gene FLOWER Attending Unavailable Gene FLOWER Attending Unavailable Gene FLOWER Attending Unavailable Gene FLOWER Attending Unavailable Austyn HASSAN Referring Unavailable Karina Singh Attending Unavailable Farzana CORDOVA, [facility] Primary Care Unavail able Farzana CORDOVA, Samra Attending Unavail able Farzana CORDOVA, [facility] Primary Care Unavail able Arianna MURPHY, Xander Caicedo Attending Unavail able Farzana CORDOVA, [facility] Primary Care Unavail able Arianna MURPHY, Xander Caicedo Attending Unavail able Farzana CORDOVA, [facility] Primary Care Unavail able Rosa Dolan MD Attending Unavailable Farzana CORDOVA, Samra Referring Unavail able Gene FLOWER Attending Unavailable Gene FLOWER Admitting Unavailable Gene FLOWER Referring Unavailable Gene FLOWER Attending Unavailable Gene FLOWER Attending Unavailable Gene FLOWER Attending Unavailable Gene Flower MD Attending Provider [phone] Austyn Hassan Attending Unavailable Austyn Hassan Admitting Unavailable Austyn Hassan Admitting Unavailable Austyn Hassan Attending Unavailable Gene Flower Admitting Unavailable Gene Flower Attending Unavailable Medications Current Medications Medication Drug [...] procedure, # 2 tab(s), Refills(s) 0, Pharmacy: [facility]/pharmacy #[id number], 160, cm, 12/27/23 10:47:00 EDT, [...] INR Coag (PPP) [Relative time] 1.0 {INR} Normal [facility] Comment on above: INR Therapeutic Rang [...] with mechanical heart valves: 3 - 4.5 Result Comment: INR Therapeutic Range A) Pre- and Peroperative OAT started two weeks before surgery. NOT HIP SURGERY: 1.5 - 2.5 HIP SURGERY: 2 - 3 B) Primary and secondary prevention of venous THROMBOSIS: 2 - 3 C) Active venous thrombosis, pulmonary embolism and prevention of recurrent venous thrombosis: 2 - 3 D) Prevention of arterial thromboembolism including patients with mechanical heart valves: 3 - 4.5 Performed By: #### P TT, PT #### [address] [place] [address] [facility] Partial Thromboplastin Timeo n 11-18-2024 aPTT Coag (Bld) [Time] 28.9 s Normal 25.1-36.5 [facility] Comment on above: Result Comment: A he matocrit value greater than 55% may lead to inaccurate results in coagulation testing. Patients having hematocrit values >55% require a special collection tube for coagulation studies. Please contact the laboratory at [phone] for redraw instructions. PERFORMED BY: [place] [id number] PATHOLOGIST BURNISHING MACHINE OPERATOR MASSIEL MCNAMARA M.D. Performed By: #### P TT, PT #### [facility] [address] [place] [address] [facility] Prothrombin time (PT)Ordered By: Gene Flower on 11-18-2024 PT Coag (PPP) [Time] 11.4 s Normal 9.0-12.9 [facility] Comment on above: A hematocrit value g reater than 55% may lead to inaccurate results in coagulation testing. Patients having hematocrit values >55% require a special collection tube for coagulation studies. Please contact the laboratory at [phone] for redraw instructions. Result Comment: A he matocrit value greater than 55% may lead to inaccurate results in coagulation testing. Patients having hematocrit values >55% require a special collection tube for coagulation studies. Please contact the laboratory at [phone] for redraw instructions. Performed By: #### P TT, PT #### [facility] [address] [place] [address] [place] aPTT in Platelet poor plasma by Coagulation assayOrdered By: Gene Flower on 11-18-2024 aPTT Coag (PPP) [Time] 28.9 s 25.1-36.5 [facility] Comment on above: A hematocrit value g reater than 55% may lead to inaccurate results in coagulation testing. Patients having hematocrit values >55% require a special collection tube for coagulation studies. Please contact the laboratory at [phone] for redraw instructions. XR IVPon 11-06-2024 XR IVP Exam Date/Time: 11/06/2024 08:47 EDT Reason for Exam: N20.0;Kidney stone Report IMPRESSION: SMALL NONOBSTRUCTING RENAL CALCULI. DEVELOPMENTAL DELAY DUPLICATED LEFT KIDNEY. OTHERWISE, NEGATIVE IVP. EXAM: XR IVP DATE: 11/06/2024 7:44 AM CLINICAL HISTORY: Kidney stone, N20.0. COMPARISON: None available. 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 CONCLUSIONS SUMMARY: 1. Left ventricle: [...] worsened over time. 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 [facility] [place] [address] [place] [address] Allergies No Known Allergies Problems Ongoing - [...] including vitamins, herbs, eye drops, creams, and zyuf-gdh-kypeoip medicines. ??? Any problems you or family [...] your provider tells you to. ? Taking fnac-uxn-qldlmsn medicines, vitamins, herbs, and supplements. Tests ??? [...] to bunn (more content not included)... Normal [facility] Urology Office/Clinic Noteon 10-27-2024 Urology Office/Clinic Note [...] Contact Information KARINA CORDOVA, Gene Griffith, URL [address] [place] [address] [place] [address] Additional Instructions: f/u pending IVP results Patient Education Laser Therapy for Kidney Stones 24-Hour Urine Collection I, Radha Leal, personally scribed for Dr. Flower on 10/27/2024 16:32:20. . Documentation recorded by the harveyibe, Radha Leal, accurately reflects the services(s) I [...] Urine Di (more content not included)... Normal [facility] Comment on above: Result Comment: Elec tronically Signed By: Gene FLOWER MD\.br\Date and Time Signed: 10/27/24 16:36 EDT\.br\Electronically Co-Signed By: Radha Leal\.br\Date and Time Co-Signed: 10/27/24 16:32 EDT [facility] Fish and Urine Cyt o ([facility])on 03-20-2024 UV[facility] & UC Diagnosis Info Invalid Interpretation Code [facility] Comment on above: Result Comment: A:Ur ine,Bladder [...] with cytology and cystoscopy results. * CPT: 28353, 44187. Microscopic Notes - Microscopic Notes - Abnormal cells 9p21 deletions: Abnormal cells aneploid events: Total cells analyzed: 108 Hematuria: Gross Description Site ID:A color Yellow fixative Alcohol Received 100 mls of clear yellow fluid with the patient's name and, Bladder Wash on the vial. Electronically signed by : on: 03/20/2024 10:15:45 Performed By: #### 1 [id number] #### [facility] [address] [place] [address] Ambulatory Visit Summaryon 1 05-12-2023 Ambulatory Visit [...] Where: [facility] [address] [place] [address]- Medications What How Much When Instructions Unchanged [...] these instructions at home: Medicines ??? Take cpwa-sro-ofkhjtw and prescription medicines only as told by [...] (more content not included)... Normal [facility] UroVys[facility] Fish and Urine Cyt o ([facility])on 03-11-2024 [facility] Method of Extraction Bladder Wash Normal [facility] Comment on above: Performed By: #### 1 [id number] #### [facility] [address] [place] [address] [facility] Number of Jars 1 Invalid Interpretation Code [facility] Comment on above: Performed By: #### 1 [id number] #### [facility] [address] [place] [address] [facility] Specimen Bladder Wash Normal [facility] Comment on above: Performed By: #### 1 [id number] #### [facility] [address] [place] [address] [facility] Type of Service Technical Only Normal [facility] Comment on above: Performed By: #### 1 [id number] #### [facility] [address] [facility] [place] [address] Urology Office/Clinic Noteon 03-11-2024 Urology Office/Clinic Note [...] urine The Urethra was dilated to: 20-30 Azeri with sounds. Specimens Removed: Bladder wash sent [...] section. Dilated. Follow-up With When Contact Information KARINA CORDOVA, Gene Griffith, URL [facility] [address] [place] [address]- Additional Instructions: schedule Left ESWL Patient Education [...] (more content not included)... Normal [facility] Comment on above: Result Comment: Elec tronically [...] 12.4 % 11.0 - 15.0 % [facility] Hematocrit (Bld) [Volume fraction] 37.5 % 36.0 - 48.0 % [facility] Hemoglobin (Bld) [Mass/Vol] 12.7 g/dL 12.0 - 16.0 g/dL [facility] IMMATURE GRANULOCYTES ABS AUTO 0.01 [facility] Immature granulocytes/100 WBC (Bld) 0.2 % 0.0 - 0.5 % [facility] LYMPHOCYTES ABSOLUTE AUTO 1.6 [facility] Lymphocytes/100 WBC (Bld) 35.8 % 20.5 - 60.0 % [facility] MCH (RBC) [Entitic mass] 30.1 pg 26.7 - 34.0 pg [facility] MCHC (RBC) [Mass/Vol] 33.9 g/dL 29.9 - 35.2 g/dL [facility] MCV (RBC) [Entitic vol] 88.9 fL 81.0 - 99.0 fL [facility] MONOCYTES ABSOLUTE AUTO 0.5 [facility] Monocytes/100 WBC (Bld) 11.1 % 1.7 - 12.0 % [facility] NEUTROPHILS ABSOLUTE AUTO 2.2 [facility] Neutrophils/100 WBC (Bld) 49.2 % 43.0 - 75.0 % [facility] Platelet mean volume (Bld) [Entitic vol] 10 fL 9.5 - 13.5 fL [facility] TB EO # 0.1 [facility] TB PLT 200 [facility] RBC 4.22 [facility] WBC 4.5 [facility] Itz 02-08-2024 L ------- Specimen: [id number] Received: 02/11/24 Status: CIPRIANO Macias Num: [id number] Spec Type: Surgical Subm Dr: Austyn Hassan Tissues: A Fallopian Tube - Sterilization (BILAT FAL TUBES) Procedures: HE/3, Otto/Kimberly L2 Age/ Patient Sex Location Account Attending Physician Angeles Alas 38/F LABELL [id number] Austyn Hassan SPEC NUM: [id number] RECD: 02/11/24 STATUS: CIPRIANO MACIAS NUM: [id number] GARY: 02/08/[address] [facility] [address]: Austyn Hassan ENTERED: 02/11/[address] [facility] [address]: [place],Aretha SPEC TYPE: Surgical DEPT: JERAMY BLAS ENTERED BY: [id number] RECV BY: [id number] ORDERED: HE/3, Gross/Micro L2 ORDERED: HE/3, Gross/Micro [...] paratubal cysts, longer tube inked black) Specimen: [id number] Received: 02/11/24 Status: CIPRIANO Macias Num: [id number] Spec Type: Surgical Subm Dr: Austyn Hassan Tissues: A Fallopian Tube - Sterilization (BILAT FAL TUBES) Procedures: HE/3, Gross/Micro L2 Patient: Angeles Alas [id number] (Continued) Specimen: [id number] Received: 02/11/24 (Continued) Gross Description (Continued) Signed (signature on file) Osman Hoyt MD 02/13/24 1636 Specimen: [id number] Received: 02/11/24 Status: CIPRIANO Macias Num: [id number] Spec Type: Surgical Subm Dr: Austyn Hassan Tissues: A Fallopian Tube - Sterilization (BILAT FAL TUBES) Procedures: HE/3, Gross/Micro L2 Patient: Angeles Alas Cipriano [id number] (Continued) Specimen: [id number] Received: 02/11/24 (Continued) Gross Description (Continued) (3, , [id number] A)Brynn Microscopic Description Microscopic examinations are performed supporting the above interpretation CPT Codes 21797 Specimen: [id number] Received: 02/11/24 Status: CIPRIANO Macias Num: [id number] Spec Type: Surgical Subm Dr: Austyn Hassan Tissues: A Fallopian Tube - Sterilization (BILAT FAL TUBES) Procedures: HE/3, Gross/Micro L2 Patient: Angeles Alas [id number] (Continued) Signed (signature on file) Osman Hoyt MD 02/13/24 1636 Normal [facility] HCG ( test) Ql (U)O rdered By: Smiley Brown on 01-09-2024 Interpretation and review of laboratory results Normal [facility] Preg Test, Ur Negative [facility] Pathology Request for Lab Co rpon 01-09-2024 Pathology Request for Lab Hang Normal [facility] Comment on above: Order Comment: PATHO LOGY EMB SPECIMEN Result Comment: See report. Scanned copy available in EMR. PERFORMED BY: [facility] [address] [place] [address] PATHOLOGIST BURNISHING MACHINE OPERATOR XANDER SNOW M.D. Performed By: #### P ATH TO [facility] #### [address] Provider Letteron 12-27-2023 Provider Letter Provider Letter December 27, 2023 ANGELES ALAS [address] [place] [address] : 1985 To Whom It May Concern, Please excuse above patient from work. Date of Illness: From: 12/27/23 To: 12/27/23 May Return to Work On: 12/27/23 Restrictions: None Comments: Patient had an appointment with Karina Singh CNP on 12/27/23 Sincerely, [facility] URETHRITIS/DISCHARGE PLUS VA GINITIS (HTRX)on 12-11-2023 ATOPOBIUM VAGINAE 0.000 [facility] ATOPOBIUM VAGINAE Not detected [facility] BVAB 2,3 (BACTERIAL VAGINOSIS ASSOCIATED BACTERIA 2, 3); MOBILUNCUS SPP 0.000 [facility] BVAB 2,3 (BACTERIAL VAGINOSIS ASSOCIATED BACTERIA 2, 3); MOBILUNCUS SPP Not detected [facility] AMY ALBICANS, PARAPSILOSIS, TROPICALIS 0.000 [facility] AMY ALBICANS, PARAPSILOSIS, TROPICALIS Not detected [facility] AMY GLABRATA 0.000 [facility] AMY GLABRATA Not detected [facility] AMY KRUSEI 0.000 [facility] AMY KRUSEI Not detected [facility] CHLAMYDIA TRACHOMATIS 0.000 [facility] CHLAMYDIA TRACHOMATIS Not detected [facility] GARDNERELLA VAGINALIS 0.000 [facility] GARDNERELLA VAGINALIS Not detected [facility] MEGASPHAERA (TYPES 1, 2) 0.000 [facility] MEGASPHAERA (TYPES 1, 2) Not detected [facility] MYCOPLASMA GENITALIUM 0.000 [facility] MYCOPLASMA GENITALIUM Not detected [facility] NEISSERIA GONORRHOEAE 0.000 [facility] NEISSERIA GONORRHOEAE Not detected [facility] TRICHOMONAS VAGINALIS 0.000 [facility] TRICHOMONAS VAGINALIS Not detected [facility] Urinalysis macro (dipstick) panel (U)on 12-10-2023 Bilirubin, UA Negative Negative - 4(70) +++ mg/dL [facility] Blood, UA Positive Negative - 50 Kei/mcL [facility] Clarity, UA Clear [facility] Color, UA Yellow [facility] Glucose, UA Negative Negative - 2000(110) ++++ mg/dL [facility] Interpretation and review of laboratory results Abnormal [facility] Ketones, UA Positive Negative - 160(16) ++++ mg/dL [facility] Leukocytes, UA Positive Negative - 500+++ Richard/mcL [facility] Nitrite, UA Negative Negative - Positive [facility] pH, UA 6.0 5 - 9 [facility] Protein, UA Negative Negative - 1999(20) ++++ mg/dL [facility] Spec Grav, UA 1.030 1 - 1.03 [facility] Urobilinogen, UA 1.0 0.2 - 12 mg/dL [facility] CT ABD/PELVIS WO CONon 12-23 CT ABD/PELVIS [...] LIOR SANTOS Date: 2021-12-22 22:07 Normal [facility] CBC AUTO DIFFon 12-22-2021 BASO # 0.0 103/ul Normal 0.0-0.1 [facility] Comment on above: Performed By: #### C BC #### [facility] [address] [place] [address] Dr. Shannon Hoyt Basophils/100 WBC (Bld) 0.5 % Normal 0.2-2.0 [facility] Comment on above: Performed By: #### C BC #### [facility] [address] [place] [address] Dr. Shannon Hoyt EO # 0.1 103/ul Normal 0.0-0.7 [facility] Comment on above: Performed By: #### C BC #### [facility] [address] [place] [address] Dr. Shannon Hoyt Eosinophils/100 WBC (Bld) 1.0 % Normal 0.9-7.0 [facility] Comment on above: Performed By: #### C BC #### [facility] [address] [place] [address] Dr. Shannon Hoyt Erythrocyte distribution width (RBC) [Ratio] 11.8 % Normal 11.0-15.0 [facility] Comment on above: Performed By: #### C BC #### [facility] [address] [place] [address] Dr. Shannon Hoyt Hematocrit (Bld) [Volume fraction] 33.9 % Critically low 36.0-48.0 [facility] Comment on above: Performed By: #### C BC #### [facility] [address] [place] [address] Dr. Shannon Hoyt Hemoglobin (Bld) [Mass/Vol] 11.3 g/dL Critically low 12.0-16.0 [facility] Comment on above: Performed By: #### C BC #### [facility] [address] [place] [address] Dr. Shannon Hoyt IG # 0.02 10e3/ul Normal 0.00-0.03 [facility] Comment on above: Performed By: #### C BC #### [facility] [address] [place] [address] Dr. Shannon Hoyt IG % 0.3 % Normal 0.0-0.5 [facility] Comment on above: Performed By: #### C BC #### [facility] [address] [place] [address] Dr. Shannon Hoyt LYMPH # 1.2 103/ul Normal 1.2-3.8 [facility] Comment on above: Performed By: #### C BC #### [facility] [address] [place] [address] Dr. Shnanon Hoyt Lymphocytes/100 WBC (Bld) 20.5 % Normal 20.5-60.0 [facility] Comment on above: Performed By: #### C BC #### [facility] [address] [place] [address] Dr. Shannon Hoyt MANUAL DIFF REQ NO Normal [facility] Comment on above: Performed By: #### C BC #### [facility] [address] [place] [address] Dr. Shannon Hoyt MCH (RBC) [Entitic mass] 30.1 pg Normal 26.7-34.0 [facility] Comment on above: Performed By: #### C BC #### [facility] [address] [place] [address] Dr. Shannon Hoyt MCHC (RBC) [Mass/Vol] 33.3 g/dL Normal 29.9-35.2 [facility] Comment on above: Performed By: #### C BC #### [facility] [address] [address] [address] Shannon Hoyt MCV (RBC) [Entitic vol] 90.2 fL Normal 81.0-99.0 [facility] Comment on above: Performed By: #### C BC #### [facility] [address] [address] [address] Shannon Hoyt MONO # 0.7 103/ul Normal 0.3-0.8 [facility] Comment on above: Performed By: #### C BC #### [facility] [address] [address] [address] Shannon Hoyt Monocytes/100 WBC (Bld) 11.7 % Normal 1.7-12.0 [facility] Comment on above: Performed By: #### C BC #### [facility] [address] [address] [address] Shannon Hoyt NEUT # 4.0 103/ul Normal 1.4-6.5 [facility] Comment on above: Performed By: #### C BC #### [facility] [address] [place] [address] Dr. Shannon Hoyt Neutrophils/100 WBC (Bld) 66.0 % Normal 43.0-75.0 [facility] Comment on above: Performed By: #### C BC #### [facility] [address] [address] [address] Shannon Hoyt Platelet mean volume (Bld) [Entitic vol] 9.9 fL Normal 9.5-13.5 [facility] Comment on above: Performed By: #### C BC #### [facility] [address] [address] [address] Shannon Hoyt PLT 191 103/ul Normal 150-450 [facility] Comment on above: Performed By: #### C BC #### [facility] [address] [address] [address] Shannon Hoyt RBC 3.76 106/ul Critically low 4.20-5.40 [facility] Comment on above: Performed By: #### C BC #### [facility] [address] [place] [address] Dr. Shannon Hoyt WBC 6.0 103/ul Normal 4.0-11.0 [facility] Comment on above: Performed By: #### C BC #### [facility] [address] [place] [address] Dr. Shannon Hoyt CULTURE URINEon 12-22-2021 CULTURE URINE Culture Observations : NO GROWTH. Normal [facility] Comment on above: Performed By: #### U RCX #### [facility] [address] [place] [address] Dr. Shannon Hoyt Covid-19 PCR (CVDTBH)on SARS-CoV-2 (COVID-19) RNA RICHARD+probe Ql (Unsp spec) Not detected Normal NOT DETECTED [facility] Comment on above: Result Comment: When diagnostic [...] for this test is supported by the [employer] of [employer] and Human Service's declaration that [...] used). Performed By: #### C VDTBH #### [facility] [address] [place] [address] Dr. Shannon Hoyt ER URINE PROFILEon 2 Bilirubin Ql (U) Negative Normal NEGATIVE [facility] Comment on above: Performed By: #### E RAOUL REYEZ #### [facility] [address] [place] [address] Dr. Shannon Hoyt Clarity (U) CLEAR Normal CLEAR [facility] Comment on above: Performed By: #### Cipriano REYEZ UMICRO #### [facility] [address] [place] [address] Dr. Shannon Hoyt Color (U) LT. YELLOW Normal YELLOW [facility] Comment on above: Performed By: #### Cipriano REYEZ, UMICRO #### [facility] [address] [place] [address] Dr. Shannon Hoyt ERUAHD A micrscopic examina tion will be performed if indicated. Normal [facility] Comment on above: Performed By: #### Cipriano REYEZ UMICRO #### [facility] [address] [place] [address] Dr. Shannon Hoyt Glucose Ql (U) Negative Normal NEGATIVE [facility] Comment on above: Performed By: #### Cipriano REYEZ UMICRO #### [facility] [address] [place] [address] Dr. Shannon Hoyt Hemoglobin Ql (U) SMALL Abnormal NEGATIVE [facility] Comment on above: Performed By: #### Cipriano REYEZ UMICRO #### [facility] [address] [place] [address] Dr. Shannon Hoyt Ketones Ql (U) 40 mg/dl Abnormal NEGATIVE [facility] Comment on above: Performed By: #### Cipriano REYEZ UMICRO #### [facility] [address] [place] [address] Dr. Shannon Hoyt LEUKOCYTES Negative Normal NEGATIVE [facility] Comment on above: Performed By: #### Cipriano REYEZ UMICRO #### [facility] [address] [place] [address] Dr. Shannon Hyot Nitrite Ql (U) Negative Normal NEGATIVE [facility] Comment on above: Performed By: #### Cipriano REYEZ UMICRO #### [facility] [address] [place] [address] Dr. Shannon Hoyt pH (U) 6.0 [pH] Normal 5-9 [facility] Comment on above: Performed By: #### E RUR, UMICRO #### [facility] [address] [place] [address] Dr. Shannon Hoyt SPEC GRAVITY 1.020 Normal 1.005-<=1.0 25 [facility] Comment on above: Performed By: #### E DEREJE UMICRO #### [facility] [address] [place] [address] Dr. Shannon Hoyt UA PROTEIN Negative Normal NEGATIVE/ TRACE [facility] Comment on above: Performed By: #### BRITTANEY TOUSSAINTRO #### [facility] [address] [place] [address] Dr. Shannon Hoyt UR MICRO IND INDICATED Normal [facility] Comment on above: Performed By: #### BRITTANEY TOUSSAINTRO #### [facility] [address] [place] [address] Dr. Shannon Hoyt Urobilinogen Qn (U) 0.2 {Galileo'U}/dL Normal 0.2 - 1. 0 [facility] Comment on above: Performed By: #### BRITTANEY TOUSSAINTRO #### [facility] [address] [place] [address] Dr. Shannon Hoyt LACTATE/LACTIC ACIDon 2021 Lactate [Moles/Vol] 1.0 mmol/L Normal 0.4-1.9 [facility] Comment on above: Performed By: #### L ACT #### [facility] [address] [place] [address] Dr. Shannon Hoyt LIPASEon 12-22-2021 Lipase [Catalytic activity/Vol] 58.0 U/L Critically low 73.0-393.0 [facility] Comment on above: Performed By: #### L IPA, CMP #### [facility] [address] [place] [address] Dr. Shannon Hoyt PREG HCG QUALon 12-22-2021 , QUAL Negative Normal NEGATIVE [facility] Comment on above: Performed By: #### P REG #### [facility] [address] [place] [address] Dr. Shannon Hoyt PROF 14(COMP METB)on 10-06-2 022 Albumin [Mass/Vol] 2.9 g/dL Critically low 3.4-5.0 [facility] Comment on above: Performed By: #### L IPA, CMP #### [facility] [address] [place] [address] Dr. Shannon Hoyt Albumin/Globulin [Mass ratio] 0.8 {ratio} Normal [facility] Comment on above: Performed By: #### L IPA, CMP #### [facility] [address] [address] [address] Shannon Hoyt ALP [Catalytic activity/Vol] 58 U/L Normal 46-116 [facility] Comment on above: Performed By: #### L IPA, CMP #### [facility] [address] [place] [address] Dr. Shannon Hoyt ALT [Catalytic activity/Vol] 33 U/L Normal 14-59 [facility] Comment on above: Performed By: #### L IPA, CMP #### [facility] [address] [place] [address] Dr. Shannon Hoyt Anion gap [Moles/Vol] 8.0 mmol/L Normal [facility] Comment on above: Performed By: #### L IPA, CMP #### [facility] [address] [place] [address] Dr. Shannon Hoyt AST [Catalytic activity/Vol] 21 U/L Normal 15-37 [facility] Comment on above: Performed By: #### L IPA, CMP #### [facility] [address] [place] [address] Dr. Shannon Hoyt Bilirubin [Mass/Vol] 0.2 mg/dL Normal 0.2-1.0 [facility] Comment on above: Performed By: #### L IPA, CMP #### [facility] [address] [place] [address] Dr. Shannon Hoyt Calcium [Mass/Vol] 8.2 mg/dL Critically low 8.5-10.1 [facility] Comment on above: Performed By: #### L IPA, CMP #### [facility] [address] [place] [address] Dr. Shannon Hoyt Chloride [Moles/Vol] 106 mmol/L Normal 98-107 [facility] Comment on above: Performed By: #### L IPA, CMP #### [facility] [address] [place] [address] Dr. Shannon Hoyt CO2 [Moles/Vol] 27.9 mmol/L Normal 21.0-32.0 [facility] Comment on above: Performed By: #### L IPA, CMP #### [facility] [address] [address] [address] Shannon Hoyt Creatinine [Mass/Vol] 0.70 mg/dL Normal 0.55-1.02 [facility] Comment on above: Performed By: #### L IPA, CMP #### [facility] [address] [place] [address] Dr. Shannon Hoyt EGFR-AF DUTCH >60 Normal >=60 [facility] Comment on above: Performed By: #### L IPA, CMP #### [facility] [address] [place] [address] Dr. Shannon Hoyt EGFR-NON AF DUTCH >60 Normal >=60 [facility] Comment on above: Performed By: #### L IPA, CMP #### [facility] [address] [place] [address] Dr. Shannon Hoyt Globulin (S) [Mass/Vol] 3.5 g/dL Normal [facility] Comment on above: Performed By: #### L IPA, CMP #### [facility] [address] [place] [address] Dr. Shannon Hoyt Glucose [Mass/Vol] 108 mg/dL Critically high 74-106 [facility] Comment on above: Performed By: #### L IPA, CMP #### [facility] [address] [address] [address] Shannon Hoyt Potassium [Moles/Vol] 3.9 mmol/L Normal 3.5-5.1 [facility] Comment on above: Performed By: #### L IPA, CMP #### [facility] [address] [place] [address] Dr. Shannon Hoyt Protein [Mass/Vol] 6.4 g/dL Normal 6.4-8.2 [facility] Comment on above: Performed By: #### L IPA, CMP #### [facility] [address] [place] [address] Dr. Shannon Hoyt Sodium [Moles/Vol] 138 mmol/L Normal 136-145 [facility] Comment on above: Performed By: #### L IPA, CMP #### [facility] [address] [place] [address] Dr. Shannon Hoyt Urea nitrogen [Mass/Vol] 7.0 mg/dL Normal 7.0-18.0 [facility] Comment on above: Performed By: #### L IPA, CMP #### [facility] [address] [place] [address] Dr. Shannon Hoyt Urea nitrogen/Creatinine [Mass ratio] 10.0 mg/mg Normal [facility] Comment on above: Performed By: #### L IPA, CMP #### [facility] [address] [place] [address] Dr. Shannon Hoyt URINE MICROSCOPIC ONLYon BACTERIA SMALL Abnormal NONE SEEN [facility] Comment on above: Performed By: #### E RUR, UMICRO #### [facility] [address] [place] [address] Dr. Shannon Hoyt Bacteria identified Cx Nom (U) INDICATED Normal [facility] Comment on above: Performed By: #### E RUR, UMICRO #### [facility] [address] [place] [address] Dr. Shannon Hoyt CAST NONE SEEN Normal NONE SEEN [facility] Comment on above: Performed By: #### E RUR, UMICRO #### [facility] [address] [place] [address] Dr. Shannon Hoyt Crystals LM Nom (Urine sed) NONE SEEN Normal NONE SEEN [facility] Comment on above: Performed By: #### E RUR, UMICRO #### [facility] [address] [place] [address] Dr. Shannon Hoyt Epithelial cells LM Ql (Urine sed) FEW Abnormal NONE SEEN /RARE [facility] Comment on above: Performed By: #### E RUR, UMICRO #### [facility] [address] [place], [place] [address] Dr. Shannon Hoyt MUCOUS TRACE Abnormal NONE SEEN [facility] Comment on above: Performed By: #### RAOUL TOUSSAINT #### [facility] [address] [place], [place] [address] Dr. Shannon Hoyt RBC 0-2 Normal 0-2 [facility] Comment on above: Performed By: #### RAOUL TOUSSAINT #### [facility] [address] [place], [place] [address] Dr. Shannon Hoyt WBC 20-50 Abnormal NONE SEEN [facility] Comment on above: Performed By: #### RAOUL TOUSSAINT #### [facility] [address] [address] [address] Shannon Hoyt Vital Signs Date Time Vital Sign Value Performing Clinician Facility 03-11-2024 07:55-0500 Blood Pressure Location Gene FLOWER [facility] 03-11-2024 07:55-0500 Diastolic blood pressure 84 mm[Hg] Gene FLOWER [facility] 03-11-2024 07:55-0500 Heart rate 70 /min Gene FLOWER [facility] 03-11-2024 07:55-0500 Systolic blood pressure 124 mm[Hg] Gene FLOWER [facility] 01-09-2024 15:40-0400 Body mass index (BMI) [Ratio] 22.49 kg/m2 Austyn Sonya [employer] Work Phone: [facility] 01-09-2024 15:40-0400 Body weight 59.42 kg Austyn Sonya DO Work Phone: [facility] 01-09-2024 15:40-0400 Diastolic blood pressure 68 mm[Hg] Austyn Sonya DO Work Phone: [facility] 01-09-2024 15:40-0400 Systolic blood pressure 110 mm[Hg] Austyn Sonya DO Work Phone: [facility] 12-27-2023 10:45-0400 Blood Pressure Location Karina Galea [facility] 12-27-2023 10:45-0400 Diastolic blood pressure 78 mm[Hg] Karina Galea [facility] 12-27-2023 10:45-0400 Heart rate 73 /min Karina Galea [facility] 12-27-2023 10:45-0400 Respiratory rate 18 /min Karina Galea [facility] 12-27-2023 10:45-0400 Systolic blood pressure 117 mm[Hg] Karina Galea [facility] 12-10-2023 10:53-0400 Body mass index (BMI) [Ratio] 22.34 kg/m2 Austyn Sonya DO Work Phone: [facility] 12-10-2023 10:53-0400 Body weight 59.02 kg Austyn Sonya DO Work Phone: [facility] 12-10-2023 10:53-0400 Diastolic blood pressure 70 mm[Hg] Austyn Sonya DO Work Phone: [facility] 12-10-2023 10:53-0400 Systolic blood pressure 118 mm[Hg] Austyn Sonya DO Work Phone: [facility] Healthcare Encounters Encounter Date Encounter Type Care Provider Facility Start: 11-27-2024 ambulatory Gene Marcano ty:CD:[id number] Start: 11-20-2024 ambulatory Gene Marcano ty:CD:[id number] Start: 11-18-2024 End: 11-18-2024 ambulatory Genelorena Flower [facility] Work Phone: Start: 11-18-2024 End: 11-18-2024 Departed Referred Geen Flower MD -[facility] Start: 11-06-2024 End: 11-06-2024 ambulatory Gene FLOWER Facility:[facility] Start: 11-04-2024 End: 11-05-2024 ambulatory Samra Yanes MD Facility:[facility] Start: 10-31-2024 End: 10-31-2024 ambulatory Samra Yanes MD Facility:[facility] Start: 10-27-2024 End: 10-27-2024 ambulatory Gene FLOWER Facility:[facility] Start: 10-27-2024 End: 10-27-2024 Patient encounter procedure Gene FLOWER [facility] Start: 05-08-2024 ambulatory Gene Victori ty:CD:[id number] Start: 05-01-2024 End: 05-01-2024 ambulatory Gene FLOWER Facility:CD:[id number] Start: 03-11-2024 End: 03-11-2024 ambulatory Gene FLOWER Facility:[facility] Start: 03-11-2024 End: 03-11-2024 Lab Drop off Gene FLOWER [facility] Start: 03-11-2024 End: 03-11-2024 ambulatory Gene FLOWER Facility:[facility] Start: 03-11-2024 End: 03-11-2024 Patient encounter procedure Gene FLOWER [facility] Start: 02-08-2024 End: 02-08-2024 Clinisync Result Encounter Austyn Hassan DO Work Phone: [facility] Unsolicited Start: 02-08-2024 End: 02-08-2024 Clinisync Result Encounter Austyn Sonya DO Work Phone: [facility] Unsolicited Start: 02-08-2024 End: 02-08-2024 ambulatory Austynpatel Gateso Facility:[facility] Start: 01-09-2024 End: 01-09-2024 Departed Referred DO Austyn Sonya Work Phone: [facility] Start: 01-09-2024 End: 01-09-2024 Patient encounter procedure Austyn Sonya DO Work Phone: [facility] Comment on above: Pre-op examination; Request for sterilization; Menorrhagia with regular cycle; Abnormal uterine bleeding (AUB); Pelvic pain in female Start: 01-09-2024 End: 01-09-2024 Preprocedural examination done Austyn Sonya DO Work Phone: [facility] Start: 01-09-2024 End: 01-09-2024 ambulatory AUSTYNPatel GATESO [facility] Work Phone: Start: 12-27-2023 End: 12-27-2023 ambulatory Austyn R SONYA Facility:[facility] Start: 12-27-2023 End: 12-27-2023 Patient encounter procedure Karina Singh [facility] Start: 12-11-2023 ambulatory Gene FLOWER Facility :[facility] Start: 12-10-2023 End: 12-10-2023 Bamboo flowsheet Austyn Sonya DO Work Phone: [facility] Start: 12-10-2023 End: 12-11-2023 Bamboo flowsheet Austyn Sonya DO Work Phone: [facility] Start: 12-10-2023 End: 12-11-2023 External Result Encounter Austyn Sonya DO Work Phone: [facility] Unsolicited Start: 12-10-2023 End: 12-10-2023 ambulatory AUSTYN HASSAN Not Available Start: 12-10-2023 End: 12-10-2023 Office outpatient visit 15 minutes Austyn Gateso DO Work Phone: [facility] Comment [...] 02-08-2024 ALL CBC WITH AUTO DIFF Austyn Gateso DO Work Phone: Start: 01-09-2024 Urine test [...] 10/02/2024 10:00 AM EDT Office Visit [facility] [address] [place] [id number] Austyn Hassan DO [address] [place] [address] [facility] Start: 01-09-2024 End: 01-09-2024 Patient encounter procedure 01/09/2024 3:30 PM EDT Procedure Visit [facility] [address] [place] [id number] Austyn Hassan, DO [address] [facility] [place] [address] [facility] Start: 12-10-2023 End: 12-09-2024 aPTT in Blood by Coagulation assay APTT Lab Routine Pelvic pain in female Vaginal discharge Pelvic pressure in female Menorrhagia with irregular cycle Expected: 12/10/2023 (Approximate), Expires: 12/09/2024 [facility] Comment on above: Expected: 12/10/2023 (Approximate), Expires: 12/09/2024 Start: 12-10-2023 End: 12-09-2024 SURESWAB(R) ADVANCED VAGINITIS PLUS, TMA SURESWAB(R) ADVANCED VAGINITIS PLUS, TMA Pathology and Cytology Routine Pelvic pain in female Expected: 12/10/2023 (Approximate), Expires: 12/09/2024 [facility] Work Phone: Comment on above: Expected: 12/10/2023 (Approximate), Expires: 12/09/2024 Start: 12-10-2023 End: 12-09-2024 US for US PELVIS-TRANSVAG IF INDICATED Imaging Routine Pelvic pain in female Vaginal discharge Pelvic pressure in female Expected: 12/10/2023 (Approximate), Expires: 12/09/2024 [facility] Comment on above: Expected: 12/10/2023 (Approximate), Expires: 12/09/2024 CBC W Auto Different ial panel - Blood CBC and differential Lab Routine Pelvic pain in female Vaginal discharge Pelvic pressure in female Menorrhagia with irregular cycle Ordered: 12/10/2023 [facility] Comment on above: Ordered: 12/10/2023 CHLAMYDIA TRACHOMATI S (GENITO/STI) CHLAMYDIA TRACHOMATIS (GENITO/STI) Lab Routine Pelvic pain in female Ordered: 12/10/2023 [facility] Comment on above: Ordered: 12/10/2023 Endometrial biopsy Endometrial b iopsy Procedures Routine Menorrhagia with regular cycle Abnormal uterine bleeding (AUB) Pelvic pain in female Ordered: 01/09/2024 [facility] Work Phone: Comment on above: Ordered: 01/09/2024 hCG, quantitative, hCG, quantitative, Lab Routine Pelvic pain in female Vaginal discharge Pelvic pressure in female Menorrhagia with irregular cycle Ordered: 12/10/2023 [facility] Comment on above: Ordered: 12/10/2023 Hemoglobin A1c/Hemoglobin.total in Blood Hemoglobin A1c Lab Routine Pelvic pain in female Vaginal discharge Pelvic pressure in female Menorrhagia with irregular cycle Ordered: 12/10/2023 [facility] Comment on above: Ordered: 12/10/2023 Neisseria gonorrhoea e DNA [Presence] in Unspecified specimen by RICHARD with probe detection Neisseria gonorrhea DNA probe, direct Lab Routine Pelvic pain in female Ordered: 12/10/2023 [facility] Comment on above: Ordered: 12/10/2023 Prothrombin time (PT ) in Blood by Coagulation assay Protime-INR Lab Routine Pelvic pain in female Vaginal discharge Pelvic pressure in female Menorrhagia with irregular cycle Ordered: 12/10/2023 [facility] Comment on above: Ordered: 12/10/2023 Thyrotropin [Units/volume] in Serum or Plasma TSH Lab Routine Pelvic pain in female Vaginal discharge Pelvic pressure in female Menorrhagia with irregular cycle Ordered: 12/10/2023 [facility] Comment on above: Ordered: 12/10/2023 Thyroxine (T4) free [Mass/volume] in Serum or Plasma T4, free Lab Routine Pelvic pain in female Vaginal discharge Pelvic pressure in female Menorrhagia with irregular cycle Ordered: 12/10/2023 [facility] Comment on above: Ordered: 12/10/2023 Payers Date Payer Category Payer Private Health Insurance [id number] 2024 Self-pay 2022 Private Health Insurance [id number] 2022 Unknown [id number] 1984 Unknown [id number] 2.16.84 [id number] 1984 Unknown [id number] 2.16.84 0.1.145742.3.579.2.1259 1984 Unknown [id number] 2.16.84 0.1.294659.3.579.2.1259 1984 Unknown [id number] 2.16.84 0.1.645009.3.579.2.1259 1984 Unknown [id number] 2.16.8 40.1.657836.3.579.2.727 1984 Unknown [id number] 2.16.8 40.1.492858.3.579.2.727 1984 Unknown [id number] 2.16.8 40.1.325285.3.579.2.727 1984 Unknown [id number] 2.16.8 40.1.733046.3.579.2.727 1984 Unknown [id number] 2.16.8 40.1.031755.3.579.2.727 1984 Unknown [id number] 2.16. 840.1.171337.3.579.2.196 1984 Unknown [id number] 2.16. 840.1.865292.3.579.2.196 1984 Unknown [id number] 2.16. 840.1.788841.3.579.2.196 1984 Unknown [id number] 2.16. 840.1.870680.3.579.2.196 1984 Unknown [id number] 2.16.8 40.1.143438.3.579.2.727 1984 Unknown [id number] 2.16.8 40.1.928690.3.579.2.727 1984 Unknown [id number] 2.16.8 40.1.136345.3.579.2.727 1984 Unknown [id number] 2.16.8 40.1.076658.3.579.2.727 1959 Unknown [id number] Social History Date Type Detail Facility Start: 12-27-2023 End: 03-10-2024 Tobacco smoking status Never smoked tobacco (finding) [facility] Start: 04-06-2023 Sex Assigned At Female [facility] Start: 10-01-2023 End: 12-10-2023 Alcoholic beverage intake Current drinker of alcohol (finding) [facility] Start: 04-06-2023 History of Social function [facility] Start: 08-22-2022 Alcohol Comment caffeine: 2-3 cups per day, coffee [facility] Start: 1985 Sex assigned at Not on file [facility] Start: 09-25-2022 Sexual orientation Heterosexual (finding) [facility] Start: 1985 Sex Assigned At Female [facility] Sexual Orientation [facility] Start: 05-26-2020 Sex Female (finding) [facility] Tobacco smoking stat [facility] Unknown if ever smoked [facility] Work Phone: Functional Status Date Assessment Result Facility 03-11-2024 Functional Status N/A [facility] 12-27-2023 Functional Status N/A [facility] Clinical Notes 12-10-2023 to 10-27-2024 Melissa Stanton - 01/09/2024 3:30 PM EDGuevara Johansen LPN - 12/10/2023 10:20 AM EDTRadiology [...] including vitamins, herbs, eye drops, creams, and rfsb-gni-tlpmydq medicines. Any problems you or family members [...] unless your provider tells you to. ?Taking crmg-qgv-zgdmwgw medicines, vitamins, herbs, and supplements. Tests You [...] provider. Document Revised: 11/03/2022 Document Reviewed: 11/03/2022 [employer] Patient Education 2023 [employer] 10/27/2024 16:24:06 24-Hour Urine Collection 24-Hour Urine [...] you may eat and drink normally. Take iuge-rao-rfvdvvp and prescription medicines only as told by your health care provider. Let your health care provider know about any medicines that you are taking, including mgvg-rnb-ehdnaxm medicines, vitamins, herbs, and supplements. Choose a [...] provider. Document Revised: 09/09/2021 Document Reviewed: 09/09/2021 [employer] Patient Education 2023 [employer]. Follow Up Care 05/07/2024 08:44:33 With:KARINA CORDOVA, Gene Griffith, URL Address: [address] [place] [id number] When: Unknown Comments:f/u pending IVP results [facility] 10-27-2024 Note Patient Education Nephrology Laser Therapy [...] including vitamins, herbs, eye drops, creams, and pcle-lyh-klmtofh medicines. ??? Any problems you or family [...] your provider tells you to. ? Taking pfhi-chy-snfvhpu medicines, vitamins, herbs, and supplements. Tests ??? [...] This helps yo (more content not included)... [facility] 03-11-2024 Evaluation + Plan note Diagnostic Tests Pending[facility]roVysion Fish and Urine Cyto ([facility]) 03/11/24 [facility] 03-11-2024 Hospital Discharge instructions Patient Education [...] Follow these instructions at home: Medicines Take pqxm-tch-onzyjpu and prescription medicines only as told by [...] or the blood stops without treatment. Take kfvv-vyk-xyhqawk and prescription medicines only as told by your health care provider. Drink enough fluid to keep your urine pale yellow. This information is not intended to replace advice given to you by your health care provider. Make sure you discuss any questions you have with your health care provider. Document Revised: 11/03/2020 Document Reviewed: 11/03/2020 [employer] Patient Education 2023 [employer]. Follow Up Care 01/08/2024 12:04:03 With:KARINA CORDOVA, Gene Griffith, URL Address: [facility] [address] [place] [address]- When: Unknown [facility] 03-11-2024 Note Patient Education Urology [...] these instructions at home: Medicines ??? Take xglb-vrf-xefwouu and prescription medicines only as told by [...] the blood stops without treatment. ??? Take pygn-cxb-pxxslpq and prescription medicines only as told by your health care provider. ??? Drink enough fluid to keep your urine pale yellow. This information is not intended to replace advice given to you by your health care provider. Make sure you discuss any questions you have with your health care provider. Document Revised: 11/03/2020 Document Reviewed: 11/03/2020 [employer] Patient Education ? 2023 [employer]. [facility] 01-09-2024 History of Present illness Narrative Reason for Appointment: Patient ID: Angeles Alas is a 38 y.o. female who presents for Pre-op Visit and Endometrial Biopsy Patient presents today for Pre Op/Endometrial Biopsy appointment. Patient is scheduled to undergo Da Diego assisted Bilateral Laparoscopic Salpingectomy and Endometrial Ablation with Melonie on 02/08/[address] Hassan at [facility] MEDICATIONS Current Outpatient Medications Medication Instructions sulfamethoxazole-trimethoprim [...] nursing note reviewed. Exam conducted with a barrel builder present. Vitals: Estimated body mass index is [...] reviewed, and patient is to proceed to [facility] OR. Follow Up: Patient is to follow up between 1-2 weeks post op to assess proper healing and recovery from procedure. Documented by Amy Zayas LPN on behalf of: Austyn Hassan DO documented in this encounter [facility] 12-27-2023 Hospital Discharge instructions Patient Education 12/27/2023 11:40:24 Kidney Stones, Tklj-pn-Yqmj Kidney Stones Kidney stones are rock-like masses [...] Follow these instructions at home: Medicines Take bhae-fbi-sdazggf and prescription medicines only as told by [...] provider. Document Revised: 10/27/2022 Document Reviewed: 10/27/2022 [employer] Patient Education 2023 [employer]. 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 Karina PEMBERTON and KUB now at [facility] (pt has transvaginal US scheduled for Sunday, will attempt to complete imaging at this time) -Will send cytology at cystoscopy if KUB/RAAD negative for stones -Increase fluids -Start MET if KUB/RAAD + for ureteral stone(s) -F/U pending imaging and cysto Ordered: E&M of New Patient Moderate 45-59 Min 75679 US Renal XR Abdomen 1 View 2. Recurrent UTI (N39.0: Urinary tract infection, site not specified) 12/22/21 cx negative 09/29/23 cx - 20-30k E. Coli, treated with Bactrim DS x7 days (urgent care) -See #1 Ordered: E&M of New Patient Moderate 45-59 Min 42992 Urnls Dip Stick Auto w/o Microscopy POC [id number] US Renal XR Abdomen 1 View 3. [...] E&M of New Patient Moderate 45-59 Min 65550 US Renal XR Abdomen 1 View 4. Pelvic pain (R10.2: Pelvic and perineal pain) Pt being treated by Dr. Hassan for pelvic pain and painful intercourse. She has a transvaginal US scheduled for Sunday at [facility] and diagnostic lap with bilateral salpingectomy and ablation scheduled with Dr. Hassan (more content not included)... [facility] Comment on above: Result Comment: Elec tronically [...] these instructions at home: Medicines ? Take xuli-lqu-vaaqaay and prescription medicines only as told by [...] provider. Document Revised: 10/27/2022 Document Reviewed: 10/27/2022 [employer] Patient Education ? 2023 [employer]. [facility] 12-10-2023 History of Present illness Narrative Referral [...] nursing note reviewed. Exam conducted with a barrel builder present. Vitals: Estimated body mass index is [...] Austyn Hassan DO documented in this encounter [facility] Healthcare Evaluation + Plan note No data available for this section [facility] Evaluation + Plan note Future Appointments Appointment Date:11/06/2024 08:00:00 AM Scheduled Provider: Location:FT.XRAY Appointment Type:XR Genital/Urinary Procedures (FT) Future Scheduled TestsXR IVP 11/06/24 [facility] Evaluation note Diagnosis Pre-op examination Request for sterilization Menorrhagia with regular cycle Abnormal uterine bleeding (AUB) Pelvic pain in female Unspecified symptom associated with female genital organs documented in this encounter [facility] noteNo assessment information availableMer[facility] Work Phone: Evaluation note* Diagnosis Pelvic pain in female Unspecified symptom associated with female genital organs Recurrent UTI Urinary tract infection, site not specified Vaginal discharge Leukorrhea, not specified as infective Pelvic pressure in female Menorrhagia with irregular cycle Menorrhagia with regular cycle [facility] Dis[facility] No data available for this section [facility] Progress note No data available for this section [facility] reason for referral (narrative)* Consultation (Routine) - Pending Review Specialty Diagnoses / Procedures Referred By Vaughn ram Referred To Contact Urology Diagnoses Recurrent UTI Procedures NM OFFICE/OUTPATIENT NEW HIGH MDM 60 MINUTES Austyn Hassan DO [address] [facility] [place] [address] Shalini Figueredo MD [address] [place] [id number] Referral ID Status Reason Start Date Expiration Date Visits Requested Visits Authorized [id number] Pending Review Specialty Services Required 12/11/2023 06/08/2024 1 1 [facility] HealthcareReason for referral (narrative)No reason for referral information availableMer[facility] Work Phone: Summary Purpose Family History No Family History Records Found No data available for this section No Family History Records Found No data [...] and content) DATE CREATED AUTHOR 12/26/2021 [facility] DATE CREATED AUTHOR AUTHOR'S ORGANIZ ATION 01/11/2024 [facility] EPIC DATE CREATED AUTHOR AUTHOR'S ORGANIZ ATION 10/28/2024 [facility] DATE CREATED AUTHOR AUTHOR'S ORGANIZ ATION 11/08/2024 [facility] DATE CREATED AUTHOR AUTHOR'S ORGANIZ ATION 11[facility]13/2024 [facility] DATE CREATED AUTHOR AUTHOR'S ORGANIZ ATION 11/21/2024 [facility] Reason for Visit (unrecogniz ed [...] January 09, 2024 End: January 09, 2024 Instrument Technologist Relationship Specialty Start Date End Date Rajiv Middleton MD [address] [place] [address] PCP - General Internal Medicine 09/28/22 Goals [...] BE BASED ON THE PRIMARY CLINICAL RECORDS. [employer] [facility]. provides no warranty or guarantee of the accuracy or completeness of information in this document.
== END 2024-11-24 14:26 | disposition home or self-care (01) ==
PROVIDERS: PCP Family Medicine; Visit Provider Urology
DX: N20.0 Calculus of kidney (principal); R10.9 Unspecified abdominal pain
CPT/HCPCS: 74176